=== PATIENT | male | born 1935 | race Caucasian/White ===

== ENCOUNTER 2016-11-29 08:21 | Day surgery (SDC) | payer MEDICARE, OTHER ==
[~2016-11-29] VITALS: Ht 170.2 cm; Wt 103.0 kg
[2016-11-29 09:00] VITALS: BP 146/81; PULSE 62; RESP 20; TEMP 97.8; O2SAT 98
[2016-11-29] MEDS ORDERED: SODIUM BICARBONATE 100 MEQ in D5W 1000 ML IV SCH (09:15)
[2016-11-29 10:10] LABS: BASOPHIL # 0.1 TH/MM3 (0-0.2); EOSINOPHIL # 0.3 TH/MM3 (0-0.4); EOSINOPHIL % 2.4 % (0.0-4.0); HEMATOCRIT 33.7 % (39.0-51.0); LYMPH % 7.8 % (9.0-44.0); LYMPHOCYTE # 1.1 TH/MM3 (1.0-4.8); MEAN CELL VOLUME 70.8 FL (80.0-100.0); MEAN CORPUSCULAR HEMOGLOBIN 22.8 PG (27.0-34.0); MEAN CORPUSCULAR HGB CONC 32.2 % (32.0-36.0); MONO % 12.2 % (0.0-8.0); NEUT % 76.6 % (16.0-70.0); PLATELET COUNT 558 TH/MM3 (150-450); RED BLOOD COUNT 4.75 MIL/MM3 (4.50-5.90); RED CELL DISTRIBUTION WIDTH 17.2 % (11.6-17.2); WHITE BLOOD COUNT 14.3 TH/MM3 (4.0-11.0)
[2016-11-29 10:12] LABS: HEMO FLAGS AUTO DIFF
[2016-11-29] MEDS ORDERED: FURO20TA PO (10:13)
[2016-11-29] MEDS ORDERED: MUCI30TA2 PO (10:13)
[2016-11-29] MEDS ORDERED: PRAD150C PO (10:13)
[2016-11-29] MEDS ORDERED: NOVOINJ3 SQ (10:13)
[2016-11-29] MEDS ORDERED: LEVO50TA4 PO (10:13)
[2016-11-29] MEDS ORDERED: ESCI10TA PO (10:13)
[2016-11-29] MEDS ORDERED: FLUT1INH INH (10:13)
[2016-11-29] MEDS ORDERED: OMEP20TA PO (10:13)
[2016-11-29] MEDS ORDERED: ACET325T PO (10:13)
[2016-11-29] MEDS ORDERED: DULC100C PO (10:13)
[2016-11-29] MEDS ORDERED: SOTA80TA6 PO (10:13)
[2016-11-29] MEDS ORDERED: ZOFR8TAB PO (10:14)
[2016-11-29] MEDS ORDERED: MULTCAP13 PO (10:14)
[2016-11-29] MEDS ORDERED: TAMS0.4C4 PO (10:14)
[2016-11-29] MEDS ORDERED: GABA100C4 PO (10:14)
[2016-11-29] MEDS ORDERED: IPRASOL INH (10:14)
[2016-11-29] MEDS ORDERED: TRAM50TA PO (10:14)
[2016-11-29] MEDS ORDERED: ASPI81CH7 CHEW (10:14)
[2016-11-29 10:29] LABS: POTASSIUM 5.4 MEQ/L (3.5-5.1)
[2016-11-29 10:53] LABS: BANDS 2 % (0-6); EOSINOPHILS 2 % (0-4); NEUTROPHIL # MANUAL DIFF 11.6 TH/MM3 (1.8-7.7); POLYS (SEG NEUTROPHILS) 79 % (16-70); WBC DIFF SAMPLE 100
[2016-11-29 10:54] LABS: OVALOCYTES 1+ (NORMAL); PLATELET ESTIMATE SMEAR HIGH (NORMAL); PLATELET MORPHOLOGY NORMAL (NORMAL); SCAN/DIFF FINAL DIFF MANUAL
[2016-11-29] MEDS ORDERED: MIDAZOLAM HCL 2 MG/2 ML VIAL ONE ×3 (11:45→13:49)
[2016-11-29] MEDS ORDERED: HEPARIN-NS/PF INJ 500 ML ONE ×2 (11:45→13:06)
[2016-11-29] MEDS ORDERED: ACETYLCYSTEINE 20% 6,000 MG/30 ML ORAL SOLN VIAL PO SCH (12:00)
[2016-11-29] MEDS ORDERED: HEPARIN SODIUM - IV 10,000 UNITS/10 ML VIAL ONE (12:55)
[2016-11-29] MEDS ORDERED: IOHEXOL 350 MG/ML 100 ML BTL (for Cath Lab) OTHER ONE (14:30)
--- NOTE | 2016-11-29 16:34 | MA ---
cc: MARLENY BROWN DATE: 11/29/2016. PREOPERATIVE DIAGNOSIS: Critical limb ischemia left lower extremity. POSTOPERATIVE DIAGNOSIS: Critical limb ischemia left lower extremity. OPERATIVE PROCEDURE PERFORMED: 1. Attempted recanalization of left superficial femoral artery via antegrade and retrograde approach. 2. Aortogram with carbon dioxide. 3. Selective left lower extremity arteriogram. DESCRIPTION OF THE PROCEDURE IN DETAIL: I got access to the right common femoral artery using duplex ultrasound. I got access to the left SFA using a 21 gauge needle and a 4-Uzbek catheter. This was from a retrograde access. Once I got access to the right common femoral artery, I exchanged for a 5-Uzbek sheath and advanced an OMNI flush catheter into the abdominal aorta. I shot an AP and pelvic oblique arteriogram. This was to conserve C02. Whenever I shot these pictures, it should be noted that my AP aortogram and my pelvic oblique arteriograms showed that the abdominal aorta, bilateral common internal and external iliac arteries were widely patent. The right common femoral, proximal superficial femoral artery and profunda femoral arteries appeared to be patent. The left common femoral and profunda femoral arteries were patent. The left superficial femoral artery was occluded with what appears to be a flush occlusion with reconstitution at the above-knee popliteal artery. Then the popliteal artery gave rise to a single-vessel peroneal artery although the perineal artery itself. Actually there was reconstitution at the distal superficial femoral artery. 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 I did heparinize the patient to an ACT of greater than 200 after exchanging for a 6-Uzbek 45-cm Raabe sheath into the left external iliac artery. I had had access to the left below-knee popliteal artery / superficial femoral artery using contrast dye for access. I attempted to get initially a Medtronic 035 Trailblazer catheter with a [place] 12 wire as well as [place] wire as well as a stiff angled Glidewire up into the superficial femoral artery up into the common femoral artery. With all of these, I tried to snare with a trilobed tulip snare from the right to the left through an 035 system and was not able to capture the stiff angled Glidewire in the left common femoral artery. I could not snare it because I believe I was subintimal at the level of the common femoral artery. I then tried to go antegrade through the left superficial femoral artery into the left popliteal artery and once again was subintimal. The catheters were removed after multiple attempts to re-enter the true lumen. It should be noted that at the end of the case, the patient did have reconstitution of the above-knee popliteal artery direct lateral and partial superficial femoral artery recanalization. The patient exceeded the amount of time that he was safely under moderate sedation and was restless and with him moving/left knee contracture made the case somewhat more difficult. At the end of the procedure, I removed the catheter out of the left leg and the right groin and applied pressure to both of these. The patient went back to the DOCU area in order to be observed. DO PREMA Hua/MARBELLA /2:45 PM /4:13 PM BALAJI
[2017-01-10] MEDS ORDERED: ATOR20TA15 PO (08:22)
[2017-01-10] MEDS ORDERED: HYDR-3580 PO (08:22)
[2017-01-10] MEDS ORDERED: Aspirin Chew CHEW (08:22)
[2017-01-10] MEDS ORDERED: MULTCAP13 PO (08:22)
[2017-01-10] MEDS ORDERED: FLUT1INH INH (08:22)
[2017-01-10] MEDS ORDERED: FERR325T PO (08:22)
[2017-01-10] MEDS ORDERED: TAMS5CAP PO (08:22)
[2017-01-10] MEDS ORDERED: GABA100C4 PO (08:22)
[2017-01-10] MEDS ORDERED: ESCI10TA PO (08:22)
[2017-01-10] MEDS ORDERED: SOTA80 PO (08:22)
[2017-01-10] MEDS ORDERED: DOCU1CAP39 PO (08:22)
[2017-01-10] MEDS ORDERED: NOVOLOGP2 SQ (08:22)
[2017-01-10] MEDS ORDERED: LEVO.05 PO (08:22)
[2017-01-10] MEDS ORDERED: FURO20TA PO (08:22)
[2017-01-10] MEDS ORDERED: LEVEMIR SQ (08:22)
[2017-01-10] MEDS ORDERED: PRAD150C PO (08:22)
[2017-01-10] MEDS ORDERED: TEMA7.5C9 PO (08:22)
[2017-01-10] MEDS ORDERED: OMEP20TA PO (08:22)
== END 2016-11-29 19:15 | disposition home or self-care (01) ==
LOC: HDOC 08:21 → HDIC 08:24 → HDOC 19:15
PROVIDERS: ATTEND Surgery
DX: I73.9 Peripheral vascular disease, unspecified (principal); I48.91 Unspecified atrial fibrillation; J44.9 Chronic obstructive pulmonary disease, unspecified; E78.5 Hyperlipidemia, unspecified; K21.9 Gastro-esophageal reflux disease without esophagitis; Z79.01 Long term (current) use of anticoagulants
CPT/HCPCS: 36247; 75625; 75710; 80048; 85002; 85007; 85027; C1751; C1769; C1893; J1644; J2250; J3010; J7070; Q9967

== ENCOUNTER 2016-12-26 13:28 | Inpatient (IN) | payer MEDICARE, OTHER ==
[~2016-12-26 13:28] MED LIST: ACET325T PO; ASPI81CH7 CHEW; DULC100C PO; ESCI10TA PO; FLUT1INH INH; FURO20TA PO; GABA100C4 PO; IPRASOL INH; LEVO50TA4 PO; MUCI30TA2 PO; MULTCAP13 PO; NOVOINJ3 SQ; OMEP20TA PO; PRAD150C PO; SOTA80TA6 PO; TAMS0.4C4 PO; TRAM50TA PO; ZOFR8TAB PO
[2016-12-26 14:23] VITALS: BP 115/58; PULSE 60; RESP 16; TEMP 96.8; O2SAT 94
[2016-12-26] MEDS ORDERED: TEMA7.5C PO (14:49)
[2016-12-26] MEDS ORDERED: HYDR-3580 PO (14:49)
[2016-12-26] MEDS ORDERED: FLUT50SP EACH NARE (14:49)
[2016-12-26 15:40] VITALS: BP 119/66; PULSE 60; RESP 16; TEMP 98; O2SAT 99
[2016-12-26] MEDS ORDERED: MORPHINE SULFATE 4 MG/ML INJ IV ONE (16:00)
[2016-12-26] MEDS ORDERED: ONDANSETRON HCL 4 MG/2 ML VIAL IVP ONE (16:00)
[2016-12-26 16:24] LABS: AUTOMATED NEUTROPHIL # 6.8 TH/MM3 (1.8-7.7); BASOPHIL # 0.1 TH/MM3 (0-0.2); BASOPHIL % 0.9 % (0.0-2.0); EOSINOPHIL # 0.4 TH/MM3 (0-0.4); EOSINOPHIL % 4.1 % (0.0-4.0); HEMATOCRIT 27.1 % (39.0-51.0); LYMPHOCYTE # 1.4 TH/MM3 (1.0-4.8); MEAN CELL VOLUME 69.3 FL (80.0-100.0); MEAN CORPUSCULAR HEMOGLOBIN 22.6 PG (27.0-34.0); MEAN CORPUSCULAR HGB CONC 32.6 % (32.0-36.0); MONO % 11.7 % (0.0-8.0); NEUT % 69.3 % (16.0-70.0); PLATELET COUNT 452 TH/MM3 (150-450); RED BLOOD COUNT 3.91 MIL/MM3 (4.50-5.90); RED CELL DISTRIBUTION WIDTH 17.1 % (11.6-17.2); WHITE BLOOD COUNT 9.7 TH/MM3 (4.0-11.0)
--- NOTE | 2016-12-26 16:25 | PD ---
HPI Chief Complaint: Skin Problem Time Seen by Provider: 15:30 Travel History International Travel<30 days: No Contact w/Intl Traveler<30days: No Traveled to known affect area: No History of Present Illness HPI This is a 81-year-old gentleman with a history of COPD, diabetes mellitus, atrial fibrillation, gastroesophageal reflux disease, hypothyroidism, peripheral vascular disease, who presents from [facility] [place] facility for admission. The patient has a left great toe that is gangrenous. Apparently he has had a vascular consult with Dr. Marrufo, who requested the patient be transferred for a direct admission. Patient is a patient of Dr. Sandee Garnett. He is currently being worked up for possible left BKA. He denies any fevers, chills. He denies any chest pain, chest pressure. PFSH Past Medical History Atrial Fibrillation: Yes Cardiovascular Problems: Yes (+[place], CHF, PM) COPD: Yes Diabetes: Yes Patient Takes Glucophage: No GERD: Yes Hypertension: Yes Respiratory: Yes (COPD, SLEEP APNEA) Thyroid Disease: Yes (HYPO) Social History Alcohol Use: No Tobacco Use: No Substance Use: No Allergies-Medications (Allergen,Severity, Reaction): Coded Allergies: HMG-CoA Reductase Inhibitors (Verified Adverse Reaction, Severe, Cramping , 12/26/16) leg cramps Reported Meds & Prescriptions Reported Meds & Active Scripts Active Reported Fluticasone Nasal [place] 50 Mcg/Act Naspr 50 Mcg EACH NARE BID 50 mcg/spray Hydrocodone-Acetaminophen 7.5-325 mg Tab 1 Tab PO Q4H PRN Temazepam 7.5 Mg Cap 7.5 Mg PO HS Tamsulosin (Tamsulosin HCl) 0.4 Mg Cap 0.4 Mg PO HS Multi Complete (Multiple Vitamins W/ Minerals) 1 Cap Cap 1 Tab PO Gabapentin 100 Mg Cap 100 Mg PO TID Duoneb (Ipratropium-Albuterol Neb) 0.5-2.5 Mg/3 Ml Neb 1 Nebule INH Q4HR NEB Zofran (Ondansetron HCl) 8 Mg Tab 8 Mg PO TID Aspirin Children's (Aspirin) 81 Mg Chew 81 Mg CHEW DAILY Novolog Flexpen Inj (Insulin Aspart) 300 Unit/3 Ml Pen 1 Units SQ Acetaminophen 325 Mg Tab 325 Mg PO Q4-6H PRN Omeprazole 20 Mg Tab 20 Mg PO DAILY Levothyroxine (Levothyroxine Sodium) 50 Mcg Tab 50 Mcg PO DAILY Breo Ellipta Inh (Fluticasone/Vilanterol) 100-25 Mcg/Act Inh 1 Puff INH DAILY Use daily at the same time. Dulcolax Stool Softener (Docusate Sodium) 100 Mg Cap 100 Mg PO BID Mucinex DM (Dextromethorphan-Guaifenesin) 30-600 Mg Tab 2 Tab PO BID PRN Sotalol (AF) (Sotalol (Afib/Afl)) 80 Mg Tab 80 Mg PO BID Escitalopram (Escitalopram Oxalate) 10 Mg Tab 10 Mg PO DAILY Pradaxa (Dabigatran) 150 Mg Cap 150 Mg PO BID Furosemide 20 Mg Tab 20 Mg PO DAILY Review of Systems Except as stated in HPI: all other systems reviewed are Neg General / Constitutional: No: Fever, Chills HENT: No: Headaches, Neck Pain Cardiovascular: No: Chest Pain or Discomfort, Palpitations Respiratory: No: Cough Gastrointestinal: No: Nausea, Vomiting, Abdominal Pain Genitourinary: No: Dysuria, Incontinence Musculoskeletal: Positive: Limited ROM (secondary to pain), Pain (left great toe and lower extremity pain.) Skin: Positive Other (angriness toe on the left great toe) Neurologic: Positive: Weakness (generalized), No: Incontinence Physical Exam Narrative GENERAL: Well-nourished, well-developed patient, in no acute respiratory distress. SKIN: Focused skin assessment warm/dry. Examination of the patient's left foot , he has obvious black gangrenous appearance to his left great toe. There is no drainage noted. HEAD: Normocephalic/atraumatic. EYES: No scleral icterus. No injection or drainage. NECK: Supple, trachea midline. CARDIOVASCULAR: Irregularly irregular. Rate in the 90s. RESPIRATORY: Breath sounds equal bilaterally. No accessory muscle use. GASTROINTESTINAL: Abdomen soft, non-tender, nondistended. MUSCULOSKELETAL: On examination the patient's left lower extremity, there is a gangrenous left great toe. There is no drainage noted. It appears black and has eschar consistent with dry gangrene he also has a contracted lower extremity at the knee. He states that his leg has been like this for some time. NEUROLOGICAL: Awake and alert. Cranial nerves II through XII intact. Normal speech. Data Data Last Documented VS Vital Signs Date Time Temp Pulse Resp B/P Pulse Ox O2 Delivery O2 Flow Rate FiO2 12/26/16 15:40 98.0 60 16 119/66 99 Room Air Orders Complete Blood Count With Diff (12/26/16 15:53) Comprehensive Metabolic Panel (12/26/16 15:53) Prothrombin Time / Inr (Pt) (12/26/16 15:53) Act Partial Throm Time (Ptt) (12/26/16 15:53) Urinalysis - C+S If Indicated (12/26/16 15:53) Chest, Single Ap (12/26/16 15:53) Iv Access Insert/Monitor (12/26/16 15:53) Ecg Monitoring (12/26/16 15:53) Oximetry (12/26/16 15:53) Type And Screen (12/26/16 15:53) Morphine Inj (Morphine Inj) (12/26/16 16:00) Ondansetron Inj (Zofran Inj) (12/26/16 16:00) Urine Culture (12/26/16 16:05) Admit Order (Ed Use Only) (12/26/16 18:10) Labs Laboratory Tests Test 12/26/16 12/26/16 14:36 16:05 White Blood Count 9.7 TH/MM3 Red Blood Count 3.91 MIL/MM3 Hemoglobin 8.8 GM/DL Hematocrit 27.1 % Mean Corpuscular Volume 69.3 FL Mean Corpuscular Hemoglobin 22.6 PG Mean Corpuscular Hemoglobin 32.6 % Concent Red Cell Distribution Width 17.1 % Platelet Count 452 TH/MM3 Mean Platelet Volume 8.7 FL Neutrophils (%) (Auto) 69.3 % Lymphocytes (%) (Auto) 14.0 % Monocytes (%) (Auto) 11.7 % Eosinophils (%) (Auto) 4.1 % Basophils (%) (Auto) 0.9 % Neutrophils # (Auto) 6.8 TH/MM3 Lymphocytes # (Auto) 1.4 TH/MM3 Monocytes # (Auto) 1.1 TH/MM3 Eosinophils # (Auto) 0.4 TH/MM3 Basophils # (Auto) 0.1 TH/MM3 CBC Comment AUTO DIFF Differential Comment AUTO DIFF CONFIRMED Platelet Estimate HIGH Platelet Morphology Comment NORMAL Prothrombin Time 13.4 SEC Prothromb Time International 1.2 RATIO Ratio Activated Partial 40.6 SEC Thromboplast Time Sodium Level 135 MEQ/L Potassium Level 4.0 MEQ/L Chloride Level 100 MEQ/L Carbon Dioxide Level 27.5 MEQ/L Anion Gap 8 MEQ/L Blood Urea Nitrogen 20 MG/DL Creatinine 1.12 MG/DL Estimat Glomerular Filtration 63 ML/MIN Rate Random Glucose 166 MG/DL Calcium Level 9.1 MG/DL Total Bilirubin 0.2 MG/DL Aspartate Amino Transf 10 U/L (AST/SGOT) Alanine Aminotransferase 11 U/L (ALT/SGPT) Alkaline Phosphatase 83 U/L Total Protein 6.4 GM/DL Albumin 2.6 GM/DL Urine Color LIGHT-YELLOW Urine Turbidity CLEAR Urine pH 5.5 Urine Specific [place] 1.007 Urine Protein NEG mg/dL Urine Glucose (UA) NEG mg/dL Urine Ketones NEG mg/dL Urine Occult Blood NEG Urine Nitrite NEG Urine Bilirubin NEG Urine Urobilinogen LESS THAN 2.0 MG/DL Urine Leukocyte Esterase SMALL Urine RBC 9 /hpf Urine WBC 15 /hpf Urine Squamous Epithelial <1 /hpf Cells Urine Bacteria RARE /hpf Urine Hyaline Casts 1 /lpf Urine Yeast (Budding) OCC Microscopic Urinalysis Comment CULTURE INDICATED Blood Type O NEGATIVE Antibody Screen NEGATIVE Blood Bank Comment MDM Medical Decision Making Medical Screen Exam Complete: Yes Emergency Medical Condition: Yes Differential Diagnosis Left lower extremity gangrene versus cellulitis versus peripheral vascular disease versus osteomyelitis Narrative Course 81-year-old gentleman who was sent from [facility] in [place] for admission. The patient has gangrene of his left great toe. He is currently being seen by Dr. Marrufo, vascular surgeon. He is a patient of Dr. Garnett. Preoperative workup has been ordered here in the emergency department. He's also been given 4 mg of morphine for his pain. There is a call out to Dr. Sandee Garnett for admission. Diagnosis Primary Impression: left great toe gangrene Additional Impressions: Peripheral vascular disease due to secondary diabetes mellitus Hypothyroidism COPD (chronic obstructive pulmonary disease) Andrea Muri MD Dec 26, 2016 16:25
[2016-12-26 16:27] LABS: HEMO FLAGS AUTO DIFF
[2016-12-26 16:29] LABS: BACTERIA, URINE RARE /hpf; BLOOD, URINE NEG (NEG); COMMENT (UR) CULTURE INDICATED; CULTURE IF INDICATED CULTURE INDICATED; GLUCOSE,URINE NEG (NEG); HYALINE CAST, URINE 1 /lpf (RARE); KETONE, URINE NEG (NEG); NITRITE,URINE NEG (NEG); PH, URINE 5.5 (5.0-8.5); SQUAMOUS EPITHELIAL CELL URINE <1 /hpf (0-5); URINE COLOR LIGHT-YELLOW (YELLW/STRAW)
[2016-12-26 16:36] LABS: APTT (PATIENT) 40.6 SEC (24.3-30.1); INTERNATIONAL NORMALIZED RATIO 1.2 RATIO; PROTHROMBIN TIME - PATIENT 13.4 SEC (9.8-11.6)
[2016-12-26 16:45] LABS: ALT (GPT) 11 U/L (12-78); ANION GAP 8 MEQ/L (5-15); AST (GOT) 10 U/L (15-37); BICARBONATE 27.5 MEQ/L (21.0-32.0); BLOOD UREA NITROGEN 20 MG/DL (7-18); CHLORIDE 100 MEQ/L (98-107); GLOMERULAR FILTRATION RATE 63 ML/MIN (>89); SODIUM (NA) 135 MEQ/L (136-145)
[2016-12-26 16:47] LABS: ALKALINE PHOSPHATASE 83 U/L (45-117); TOTAL BILIRUBIN ADULT 0.2 MG/DL (0.2-1.0)
[2016-12-26 16:54] LABS: PLATELET ESTIMATE SMEAR HIGH (NORMAL); PLATELET MORPHOLOGY NORMAL (NORMAL); SCAN/DIFF AUTO DIFF CONFIRMED
--- NOTE | 2016-12-26 17:01 | RADRPT ---
EXAM DATE/TIME: 12/26/2016 16:05 [place] COMPARISON: No previous studies available for comparison. INDICATIONS : Fever with possible infection. MEDICAL HISTORY : None. SURGICAL HISTORY : Pacemaker. pleurectomy ENCOUNTER: Initial ACUITY: 2 days PAIN SCORE: 0/10 LOCATION: Bilateral upper chest FINDINGS: There is patchy mild basilar infiltrate. Slight blunting of the costophrenic angles may indicate smal l effusions. Cardiac contour is grossly satisfactory for technique and projection. CONCLUSION: Mild basilar parenchymal opacities and likely small effusions Remi Moore MD on December 26, 2016 at 16:53 Board Certified Radiologist. This report was verified electronically.
[2016-12-26] MEDS ORDERED: ONDANSETRON HCL 4 MG/2 ML VIAL IVP PRN (18:30)
[2016-12-26] MEDS ORDERED: NALOXONE HCL 0.4 MG/ML AMP IV PRN (18:30)
[2016-12-26] MEDS ORDERED: SODIUM CHLORIDE 0.9% FLUSH 10 ML FLUSH IV FLUSH PRN (18:30)
[2016-12-26] MEDS ORDERED: MAGNESIUM HYDROXIDE SUSP 30 ML CUP PO PRN (18:30)
[2016-12-26] MEDS ORDERED: ACETAMINOPHEN 325 MG TAB PO PRN (18:30)
--- NOTE | 2016-12-26 18:33 | HHI.HP ---
HPI Service [facility] Primary Care Physician Sandee Garnett, DO Admission Diagnosis Left great toe gangrenne, diabetes mellitus, Diagnoses: Chief Complaint: Toe infection Travel History International Travel<30 Days: No Contact w/Intl Traveler <30 Da: No Traveled to Known Affected Are: No History of Present Illness 81-year-old male with a past medical history of COPD, DM, A. fib, GERD, hypothyroidism, PVD, CHF, CAD, BPH, CVA who was sent for left great toe infection. The patient has a history of peripheral vascular disease. He has gangrene of his left great toe. Per report, the patient was evaluated by vascular surgery, Dr. Marrufo, as outpatient who recommended admission for possible amputation. The patient states that he's had the gangrene of his left great toe for a couple of months now. He does have pain in the area. He denies any fevers, chills, nausea, vomiting, diarrhea. He denies any urinary complaints. No other issues at this time. He resides at a local [facility]. 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 He is anticoagulated for A. fib. Review of Systems Except as stated in HPI: all other systems reviewed are Neg Past Family Social History Past Medical History COPD Diabetes mellitus Atrial fibrillation GERD Hypothyroidism Peripheral vascular disease CHF Coronary artery disease BPH History of CVA with residual left-sided weakness Past Surgical History Carotid stent placement 4 Appendectomy Tonsillectomy Cholecystectomy Cataract surgery bilaterally Reported Medications Fluticasone Nasal [place] 50 Mcg/Act Naspr 50 Mcg EACH NARE BID 50 mcg/spray Hydrocodone-Acetaminophen 7.5-325 mg Tab 1 Tab PO Q4H PRN Temazepam 7.5 Mg Cap 7.5 Mg PO HS Tamsulosin (Tamsulosin HCl) 0.4 Mg Cap 0.4 Mg PO HS Multi Complete (Multiple Vitamins W/ Minerals) 1 Cap Cap 1 Tab PO Gabapentin 100 Mg Cap 100 Mg PO TID Duoneb (Ipratropium-Albuterol Neb) 0.5-2.5 Mg/3 Ml Neb 1 Nebule INH Q4HR NEB Zofran (Ondansetron HCl) 8 Mg Tab 8 Mg PO TID Aspirin Children's (Aspirin) 81 Mg Chew 81 Mg CHEW DAILY Novolog Flexpen Inj (Insulin Aspart) 300 Unit/3 Ml Pen 1 Units SQ Acetaminophen 325 Mg Tab 325 Mg PO Q4-6H PRN Omeprazole 20 Mg Tab 20 Mg PO DAILY Levothyroxine (Levothyroxine Sodium) 50 Mcg Tab 50 Mcg PO DAILY Breo Ellipta Inh (Fluticasone/Vilanterol) 100-25 Mcg/Act Inh 1 Puff INH DAILY Use daily at the same time. Dulcolax Stool Softener (Docusate Sodium) 100 Mg Cap 100 Mg PO BID Mucinex DM (Dextromethorphan-Guaifenesin) 30-600 Mg Tab 2 Tab PO BID PRN Sotalol (AF) (Sotalol (Afib/Afl)) 80 Mg Tab 80 Mg PO BID Escitalopram (Escitalopram Oxalate) 10 Mg Tab 10 Mg PO DAILY Pradaxa (Dabigatran) 150 Mg Cap 150 Mg PO BID Furosemide 20 Mg Tab 20 Mg PO DAILY Allergies: Coded Allergies: HMG-CoA Reductase Inhibitors (Verified Adverse Reaction, Severe, Cramping , 12/26/16) leg cramps Active Ordered Medications Current Medications Medications (Trade) Dose Ordered Sig/[place] Route Start Time Stop Time Status Last Admin (Aspirin Chew) 81 mg DAILY CHEW 12/27/16 09:00 UNV (Pradaxa) 150 mg BID PO 12/26/16 21:00 UNV (Colace) 100 mg BID PO 12/26/16 21:00 UNV (Lexapro) 10 mg DAILY PO 12/27/16 09:00 UNV (Flonase Philip Spr) 1 spray BID EACH NARE 12/26/16 21:00 UNV (Breo Ellipta 100-25 Inh) 1 puff DAILY INH 12/27/16 09:00 UNV (Lasix) 20 mg DAILY PO 12/27/16 09:00 UNV (Neurontin) 100 mg TID PO 12/27/16 09:00 UNV ([place] 7.5-325 Mg) 1 tab Q4H PRN PO 12/26/16 18:30 UNV (Synthroid) 50 mcg DAILY PO 12/27/16 09:00 UNV (Betapace) 80 mg BID PO 12/26/16 21:00 UNV (Flomax) 0.4 mg HS PO 12/26/16 21:00 UNV (Restoril) 7.5 mg HS PO 12/26/16 21:00 UNV Non-Formulary Medication 20 mg DAILY PO 12/27/16 09:00 UNV (NS Flush) 2 ml UNSCH PRN IV FLUSH 12/26/16 18:30 UNV (NS Flush) 2 ml BID IV FLUSH 12/26/16 21:00 UNV (Tylenol) 650 mg Q4H PRN PO 12/26/16 18:30 UNV (Zofran Inj) 4 mg Q6H PRN IVP 12/26/16 18:30 UNV (Milk Of Magnesia Liq) 30 ml Q12H PRN PO 12/26/16 18:30 UNV (Morphine Inj) 4 mg Q3H PRN IV 12/26/16 18:30 UNV Naloxone HCl 0.4 mg 0.4 mg UNSCH PRN IV 12/26/16 18:30 UNV (Zosyn 3.375 Gm Premix) 50 ml @ 100 mls/hr Q6H IV 12/26/16 18:30 UNV Family History Family history diabetes Denies any family history cancer Social History Rare alcohol use Denies any tobacco use [place] resident Physical Exam Vital Signs Vital Signs Date Time Temp Pulse Resp B/P Pulse Ox O2 Delivery O2 Flow Rate FiO2 12/26/16 15:40 98.0 60 16 119/66 99 Room Air 12/26/16 14:23 96.8 60 16 115/58 94 Physical Exam GENERAL: Well-developed well-nourished. Chronically ill appearing. In no acute distress. SKIN: Warm and dry. Left great toe is below HEENT: Normocephalic. Pupils equal and round. Mucous membranes pink and moist. CARDIOVASCULAR: Regular rate and rhythm. No murmur appreciated. RESPIRATORY: No accessory muscle use. Clear to auscultation. Breath sounds equal bilaterally. GASTROINTESTINAL: Abdomen soft, non-tender, nondistended. Bowel sounds x4. MUSCULOSKELETAL: Left great toe with dry gangrene extending up to the mid foot with some mild surrounding erythema. No clubbing or cyanosis. No edema. Nonpalpable lower extremity pulses bilaterally. NEUROLOGICAL: Awake and alert. No focal neurological deficits. Moves upper and lower extremities spontaneously. Normal speech. PSYCHIATRIC: Appropriate mood and affect; insight and judgment normal. Laboratory Laboratory Tests Test 12/26/16 12/26/16 14:36 16:05 White Blood Count 9.7 Red Blood Count 3.91 Hemoglobin 8.8 Hematocrit 27.1 Mean Corpuscular Volume 69.3 Mean Corpuscular Hemoglobin 22.6 Mean Corpuscular Hemoglobin 32.6 Concent Red Cell Distribution Width 17.1 Platelet Count 452 Mean Platelet Volume 8.7 Neutrophils (%) (Auto) 69.3 Lymphocytes (%) (Auto) 14.0 Monocytes (%) (Auto) 11.7 Eosinophils (%) (Auto) 4.1 Basophils (%) (Auto) 0.9 Neutrophils # (Auto) 6.8 Lymphocytes # (Auto) 1.4 Monocytes # (Auto) 1.1 Eosinophils # (Auto) 0.4 Basophils # (Auto) 0.1 CBC Comment AUTO DIFF Differential Comment AUTO DIFF CONFIRMED Platelet Estimate HIGH Platelet Morphology Comment NORMAL Prothrombin Time 13.4 Prothromb Time International 1.2 Ratio Activated Partial 40.6 Thromboplast Time Sodium Level 135 Potassium Level 4.0 Chloride Level 100 Carbon Dioxide Level 27.5 Anion Gap 8 Blood Urea Nitrogen 20 Creatinine 1.12 Estimat Glomerular Filtration 63 Rate Random Glucose 166 Calcium Level 9.1 Total Bilirubin 0.2 Aspartate Amino Transf 10 (AST/SGOT) Alanine Aminotransferase 11 (ALT/SGPT) Alkaline Phosphatase 83 Total Protein 6.4 Albumin 2.6 Urine Color LIGHT-YELLOW Urine Turbidity CLEAR Urine pH 5.5 Urine Specific [place] 1.007 Urine Protein NEG Urine Glucose (UA) NEG Urine Ketones NEG Urine Occult Blood NEG Urine Nitrite NEG Urine Bilirubin NEG Urine Urobilinogen LESS THAN 2.0 Urine Leukocyte Esterase SMALL Urine RBC 9 Urine WBC 15 Urine Squamous Epithelial <1 Cells Urine Bacteria RARE Urine Hyaline Casts 1 Urine Yeast (Budding) OCC Microscopic Urinalysis Comment CULTURE INDICATED Blood Type O NEGATIVE Antibody Screen NEGATIVE Blood Bank Comment Date/Time Procedure Status Source Growth 12/26/16 16:05 Urine Culture Worksheet Urine Random Urine Pending Result Diagram: 12/26/16 1436 12/26/16 1436 Imaging Last Impressions Chest X-Ray 12/26/16 1553 Signed Impressions: Service Date/Time: Saturday, December 26, 2016 16:05 - CONCLUSION: Mild basilar parenchymal opacities and likely small effusions Remi Moore MD Assessment and Plan Assessment and Plan 81-year-old male with a past medical history of COPD, DM, A. fib, GERD, hypothyroidism, PVD, CHF, CAD, BPH, CVA who was sent for left great toe infection Peripheral vascular disease with left great toe dry gangrene: Likely needs amputation. Consult patient's vascular surgeon. Consult podiatry for second opinion regarding amputation. Pain control with oral intravenous narcotics as needed. Empiric coverage with IV Zosyn. UTI: UA with evidence of UTI, occasional budding yeast. Fluconazole 1. IV antibiotics as above. Follow-up urine culture. Chronic anticoagulation with history of atrial fibrillation and CVA: On aspirin and Pradaxa, continue for now pending surgery evaluation. Diabetes mellitus: Sliding scale insulin coverage. Monitor Accu-Cheks. Continue gabapentin for neuropathy. CKD stage III: Creatinine 1.12, previously 1.43 on 11/29/16. Likely chronic, follow-up BMP for stability. Chronic microcytic anemia: Hemoglobin 8.8, previously 8.2 and 10.8 last month. Check iron studies in the a.m. Follow-up CBC. Other chronic medical conditions include COPD, BPH, depression/insomnia, A. fib , CAD, CHF, GERD, hypothyroidism: Stable at this time and will continue home medications as indicated. Written by Domenic Campbell, acting as scribe for Dr. Thompson on 12/26/16 at 18:32. Discussed Condition With Patient, Dr. Muir Attending Statement All or portions of this note were transcribed by scribe Domenic Campbell. I, Dr. Marcus Sotomayor personally performed the history, physical exam, and medical decision making; and confirmed the accuracy of the information in the transcribed note. Authenticated by Dr. Marcus Sotomayor on 12/30/16 at 18:24. Domenic Campbell Dec 26, 2016 18:33 Marcus Bates MD Dec 30, 2016 18:24
[2016-12-26] MEDS ORDERED: GLUCAGON 1 MG/ML VIAL OTHER PRN (18:45)
[2016-12-26] MEDS ORDERED: RESP: ALBUTEROL 2.5 MG/IPRATROPIUM 0.5 MG NEB (PRN) NEB (18:45)
[2016-12-26] MEDS ORDERED: FLUCONAZOLE 100 MG TAB PO ONE (18:45)
[2016-12-26] MEDS ORDERED: PILL SPLITTER OTHER PRN (18:45)
[2016-12-26] MEDS ORDERED: DEXTROSE 50% IN WATER 50 ML VIAL(D50) IV PUSH PRN (18:45)
[2016-12-26 20:30] VITALS: BP 154/67; PULSE 82; RESP 18; O2SAT 94
[2016-12-26] MEDS: PIPERACIL-TAZO 3.375 GM PREMIX 50 ML IV SCH (20:30)
[2016-12-26 20:52] VITALS: BP 163/66
[2016-12-26 22:00] VITALS: BP 145/63; PULSE 60; RESP 18; TEMP 96.3; O2SAT 98
[2016-12-26] MEDS: SOTALOL HCL 80 MG TAB PO SCH (22:40)
[2016-12-26] MEDS: DABIGATRAN ETEXILATE 150 MG CAP PO SCH (22:41)
[2016-12-26] MEDS: TAMSULOSIN HCL 0.4 MG CAP PO SCH (22:41)
[2016-12-26] MEDS: DOCUSATE SODIUM 100 MG CAP PO SCH (22:41)
[2016-12-26] MEDS: TEMAZEPAM 7.5 MG CAP PO SCH (22:42)
[2016-12-26] MEDS: FLUTICASONE PROPIONATE 50 MCG/ACT 16 GM NASAL SPRAY EACH NARE SCH (22:42)
[2016-12-26] MEDS: SODIUM CHLORIDE 0.9% FLUSH 10 ML FLUSH IV FLUSH SCH (22:47)
[2016-12-26] MEDS: INSULIN ASPART SUPPLEMENTAL SCALE SQ SCH (22:52)
[2016-12-26] MEDS: ACETAMINOPHEN/HYDROcodone 325 MG/7.5 MG TAB PO PRN (22:53)
[2016-12-27] VITALS (7 sets, daily range): BP systolic 117–158; BP diastolic 56–78; PULSE 60–84; RESP 18; TEMP 96.2–98.5; O2SAT 95–98
[2016-12-27] MEDS: PIPERACIL-TAZO 3.375 GM PREMIX 50 ML IV SCH ×4 (02:31→20:53)
[2016-12-27] MEDS: LEVOTHYROXINE SODIUM 50 MCG TAB PO SCH (04:20)
[2016-12-27] MEDS: PANTOPRAZOLE SOD 20 MG DELAYED RELEASE TAB PO SCH (04:20)
[2016-12-27 04:35] LABS: AUTOMATED NEUTROPHIL # 7.2 TH/MM3 (1.8-7.7); BASOPHIL # 0.1 TH/MM3 (0-0.2); BASOPHIL % 1.2 % (0.0-2.0); EOSINOPHIL # 0.4 TH/MM3 (0-0.4); HEMATOCRIT 28.2 % (39.0-51.0); LYMPHOCYTE # 1.1 TH/MM3 (1.0-4.8); MEAN CELL VOLUME 70.7 FL (80.0-100.0); MEAN CORPUSCULAR HEMOGLOBIN 22.5 PG (27.0-34.0); MEAN CORPUSCULAR HGB CONC 31.8 % (32.0-36.0); MONO % 11.2 % (0.0-8.0); NEUT % 72.6 % (16.0-70.0); PLATELET COUNT 404 TH/MM3 (150-450); RED BLOOD COUNT 3.98 MIL/MM3 (4.50-5.90); RED CELL DISTRIBUTION WIDTH 17.3 % (11.6-17.2)
[2016-12-27 04:47] LABS: HEMO FLAGS AUTO DIFF
[2016-12-27 05:05] LABS: ANION GAP 8 MEQ/L (5-15); BICARBONATE 25.8 MEQ/L (21.0-32.0); BLOOD UREA NITROGEN 19 MG/DL (7-18); CHLORIDE 99 MEQ/L (98-107); FERRITIN 129 NG/ML (26-388); GLOMERULAR FILTRATION RATE 56 ML/MIN (>89); POTASSIUM 4.2 MEQ/L (3.5-5.1); SODIUM (NA) 133 MEQ/L (136-145); TRANSFERRIN IRON PROFILE 137 MG/DL (200-360)
[2016-12-27] MEDS: INSULIN ASPART SUPPLEMENTAL SCALE SQ SCH ×4 (05:26→22:16)
[2016-12-27 06:06] LABS: PLATELET ESTIMATE SMEAR NORMAL (NORMAL); PLATELET MORPHOLOGY NORMAL (NORMAL); SCAN/DIFF AUTO DIFF CONFIRMED
[2016-12-27 06:07] LABS: ACANTHOCYTES OCC (NORMAL)
[2016-12-27 08:35] LABS: AUTOMATED NEUTROPHIL # 6.3 TH/MM3 (1.8-7.7); BASOPHIL # 0.1 TH/MM3 (0-0.2); BASOPHIL % 1.1 % (0.0-2.0); EOSINOPHIL # 0.4 TH/MM3 (0-0.4); EOSINOPHIL % 4.2 % (0.0-4.0); HEMATOCRIT 26.3 % (39.0-51.0); LYMPH % 12.9 % (9.0-44.0); LYMPHOCYTE # 1.2 TH/MM3 (1.0-4.8); MEAN CELL VOLUME 69.9 FL (80.0-100.0); MEAN CORPUSCULAR HEMOGLOBIN 23.1 PG (27.0-34.0); MONO % 14.5 % (0.0-8.0); NEUT % 67.3 % (16.0-70.0); PLATELET COUNT 446 TH/MM3 (150-450); RED BLOOD COUNT 3.77 MIL/MM3 (4.50-5.90); RED CELL DISTRIBUTION WIDTH 17.4 % (11.6-17.2); WHITE BLOOD COUNT 9.4 TH/MM3 (4.0-11.0)
[2016-12-27 08:46] LABS: HEMO FLAGS AUTO DIFF
[2016-12-27] MEDS: DABIGATRAN ETEXILATE 150 MG CAP PO SCH (09:00)
[2016-12-27] MEDS: FLUTICASONE 100 MCG/VILANTEROL 25 MCG INHALER INH SCH (09:00)
[2016-12-27] MEDS: ESCITALOPRAM OXALATE 10 MG TAB PO SCH (09:00)
[2016-12-27] MEDS: FLUTICASONE PROPIONATE 50 MCG/ACT 16 GM NASAL SPRAY EACH NARE SCH ×2 (09:00→21:01)
[2016-12-27] MEDS: ASPIRIN 81 MG CHEW TAB CHEW SCH (09:00)
[2016-12-27] MEDS: DOCUSATE SODIUM 100 MG CAP PO SCH ×2 (09:00→20:51)
[2016-12-27 09:16] LABS: PLATELET ESTIMATE SMEAR HIGH (NORMAL); PLATELET MORPHOLOGY NORMAL (NORMAL); SCAN/DIFF AUTO DIFF CONFIRMED
[2016-12-27 09:34] LABS: BICARBONATE 27.6 MEQ/L (21.0-32.0); POTASSIUM 4.1 MEQ/L (3.5-5.1)
[2016-12-27] MEDS: SODIUM CHLOR 0.9% 1000 ML INJ 1,000 ML IV SCH ×2 (09:38→21:01)
[2016-12-27] MEDS: SODIUM CHLORIDE 0.9% FLUSH 10 ML FLUSH IV FLUSH SCH ×2 (09:39→20:53)
[2016-12-27] MEDS: SOTALOL HCL 80 MG TAB PO SCH ×2 (09:45→20:52)
[2016-12-27] MEDS: FUROSEMIDE 20 MG TAB PO SCH (09:46)
[2016-12-27] MEDS: GABAPENTIN 100 MG CAP PO SCH ×3 (09:46→16:44)
--- NOTE | 2016-12-27 10:53 | PD.VS.CON ---
History of Present Illness Chief Complaint: Left great toe present with dry gangrene Consult Requested by: Willam Campbell History of Present Illness As written Mr Walker is a pleasant 81-year-old male with a past medical history of COPD, DM , A. fib, GERD, hypothyroidism, PVD, CHF, CAD, BPH, CVA who was sent for evaluation of his left great toe. The patient has a history of peripheral vascular disease. He has gangrene of his left great toe. Per report, the patient was evaluated by vascular surgery, Dr. Marrufo, as outpatient who recommended admission for possible amputation. The patient states that he's had the gangrene of his left great toe for a couple of months now. He does have pain in the area. He denies any fevers, chills, nausea, vomiting, diarrhea. He denies any urinary complaints. No other issues at this time. He resides at a local [facility]. 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 He is anticoagulated for A. fib. (Sabine Dozier) Past/Family/Social History Past Medical History COPD Diabetes mellitus Atrial fibrillation GERD Hypothyroidism Peripheral vascular disease CHF Coronary artery disease BPH History of CVA with residual left-sided weakness Past Surgical History Carotid stent placement 4 Appendectomy Tonsillectomy Cholecystectomy Cataract surgery bilaterally Social History Rare alcohol use Denies any tobacco use [facility] resident Family History DM (Sabine Dozier) Home Medications Reported Medications Fluticasone Nasal [place] 50 Mcg/Act Naspr50 Mcg EACH NARE BID #1 BOTTLE Ref 0 50 mcg/spray 12/26/16 Hydrocodone-Acetaminophen 7.5-325 mg Tab1 Tab PO Q4H PRN (PAIN) Ref 0 12/26/16 Temazepam 7.5 Mg Cap7.5 Mg PO HS #30 CAP Ref 0 12/26/16 Tamsulosin 0.4 Mg Cap0.4 Mg PO HS #30 CAP Ref 0 11/29/16 Multiple Vitamins W/ Minerals (Multi Complete)1 Cap Cap1 Tab PO 11/29/16 Gabapentin 100 Mg [id number] Mg PO TID #90 CAP Ref 0 11/29/16 Ipratropium-Albuterol Neb (Duoneb)0.5-2.5 Mg/3 Ml Neb1 Nebule INH Q4HR NEB # 120 NEBULE Ref 0 11/29/16 Ondansetron (Zofran)8 Mg Tab8 Mg PO TID Ref 0 11/29/16 Aspirin (Aspirin Children's)81 Mg Chew81 Mg CHEW DAILY Ref 0 11/29/16 Insulin Aspart Inj (Novolog Flexpen Inj)300 Unit/3 Ml Pen1 Units SQ #1 PEN Ref 0 11/29/16 Acetaminophen 325 Mg [id number] Mg PO Q4-6H PRN (PAIN SCALE 1 TO 2) Ref 0 11/29/16 Omeprazole 20 Mg Tab20 Mg PO DAILY #30 TAB Ref 0 11/29/16 Levothyroxine 50 Mcg Tab50 Mcg PO DAILY #30 TAB Ref 0 11/29/16 Fluticasone-Vilanterol Inh (Breo Ellipta Inh)100-25 Mcg/Act Inh1 Puff INH DAILY #1 INHALER Ref 0 Use daily at the same time. 11/29/16 Docusate Sodium (Dulcolax Stool Softener)100 Mg Ubk469 Mg PO BID #60 CAP Ref 0 11/29/16 Dextromethorphan-Guaifenesin (Mucinex DM)30-600 Mg Tab2 Tab PO BID PRN (CHEST CONGESTION AND/OR COUGH) Ref 0 11/29/16 Sotalol (Afib/Afl) (Sotalol (AF))80 Mg Tab80 Mg PO BID #60 TAB Ref 0 11/29/16 Escitalopram 10 Mg Tab10 Mg PO DAILY #30 TAB Ref 0 11/29/16 Dabigatran (Pradaxa)150 Mg Zzd106 Mg PO BID #60 CAP Ref 0 11/29/16 Furosemide 20 Mg Tab20 Mg PO DAILY #30 TAB Ref 0 11/29/16 Discontinued Reported Medications Tramadol 50 Mg Tab50 Mg PO Q4H PRN (PAIN) Ref 0 11/29/16 Coded Allergies: HMG-CoA Reductase Inhibitors (Verified Adverse Reaction, Severe, Cramping , 12/26/16) leg cramps Physical Exam Vitals/I&O Date Time Temp Pulse Resp B/P Pulse Ox O2 Delivery O2 Flow Rate FiO2 12/27/16 08:00 97.9 64 18 157/66 95 12/27/16 00:00 97.4 62 18 146/67 98 12/26/16 22:00 96.3 60 18 145/63 98 12/26/16 20:52 63 18 163/66 97 12/26/16 20:30 82 18 154/67 94 Room Air 12/26/16 15:40 98.0 60 16 119/66 99 Room Air 12/26/16 14:23 96.8 60 16 115/58 94 Neuro: A&OX3 CN 2-12 intact Neck: No JVD Heart: RRR +S1,S2 Lungs: CTA Abdomen: soft and NT Vascular: Left DP faint monophasic signals heard via doppler Right DP phasic signals via doppler Extremities: left LE contracted Pt unable to fully extend LLE Pt c/o left knee pain times 1 week No swelling noted (Sabine Dozier) Laboratory Tests Test 12/26/16 12/26/16 12/27/16 12/27/16 14:36 16:05 04:19 08:00 White Blood Count 9.7 10.0 9.4 Red Blood Count 3.91 3.98 3.77 Hemoglobin 8.8 8.9 8.7 Hematocrit 27.1 28.2 26.3 Mean Corpuscular Volume 69.3 70.7 69.9 Mean Corpuscular Hemoglobin 22.6 22.5 23.1 Mean Corpuscular Hemoglobin 32.6 31.8 33.0 Concent Red Cell Distribution Width 17.1 17.3 17.4 Platelet Count 452 404 446 Mean Platelet Volume 8.7 8.4 8.5 Neutrophils (%) (Auto) 69.3 72.6 67.3 Lymphocytes (%) (Auto) 14.0 11.0 12.9 Monocytes (%) (Auto) 11.7 11.2 14.5 Eosinophils (%) (Auto) 4.1 4.0 4.2 Basophils (%) (Auto) 0.9 1.2 1.1 Neutrophils # (Auto) 6.8 7.2 6.3 Lymphocytes # (Auto) 1.4 1.1 1.2 Monocytes # (Auto) 1.1 1.1 1.4 Eosinophils # (Auto) 0.4 0.4 0.4 Basophils # (Auto) 0.1 0.1 0.1 CBC Comment AUTO DIFF AUTO DIFF AUTO DIFF Differential Comment AUTO DIFF AUTO DIFF AUTO DIFF CONFIRMED CONFIRMED CONFIRMED Platelet Estimate HIGH NORMAL HIGH Platelet Morphology Comment NORMAL NORMAL NORMAL Prothrombin Time 13.4 Prothromb Time International 1.2 Ratio Activated Partial 40.6 Thromboplast Time Sodium Level 135 133 Potassium Level 4.0 4.2 Chloride Level 100 99 Carbon Dioxide Level 27.5 25.8 Anion Gap 8 8 Blood Urea Nitrogen 20 19 Creatinine 1.12 1.25 Estimat Glomerular Filtration 63 56 Rate Random Glucose 166 385 Calcium Level 9.1 9.1 Total Bilirubin 0.2 Aspartate Amino Transf 10 (AST/SGOT) Alanine Aminotransferase 11 (ALT/SGPT) Alkaline Phosphatase 83 Total Protein 6.4 Albumin 2.6 Urine Color LIGHT-YELLOW Urine Turbidity CLEAR Urine pH 5.5 Urine Specific [place] 1.007 Urine Protein NEG Urine Glucose (UA) NEG Urine Ketones NEG Urine Occult Blood NEG Urine Nitrite NEG Urine Bilirubin NEG Urine Urobilinogen LESS THAN 2.0 Urine Leukocyte Esterase SMALL Urine RBC 9 Urine WBC 15 Urine Squamous Epithelial <1 Cells Urine Bacteria RARE Urine Hyaline Casts 1 Urine Yeast (Budding) OCC Microscopic Urinalysis Comment CULTURE INDICATED Blood Type O NEGATIVE Antibody Screen NEGATIVE Blood Bank Comment Acanthocytes OCC Iron Level 19 Total Iron Binding Capacity 192 Percent Iron Saturation 9.9 Ferritin 129 B-Type Natriuretic Peptide 216 Test 12/27/16 08:59 Sodium Level 135 Potassium Level 4.1 Chloride Level 101 Carbon Dioxide Level 27.6 Anion Gap 6 Blood Urea Nitrogen 17 Random Glucose 249 Calcium Level 9.0 Date/Time Procedure Status Source Growth 12/26/16 16:05 Urine Culture Worksheet Urine Random Urine Pending Last 48 hours Impressions Chest X-Ray 12/26/16 1553 Signed Impressions: Service Date/Time: Monday, December 26, 2016 16:05 - CONCLUSION: Mild basilar parenchymal opacities and likely small effusions Remi Moore MD (Sabine Dozier) Assessment and Plan Assessment: (1) Peripheral vascular disease due to secondary diabetes mellitus Status: Chronic Plan Plan Pt is scheduled for an angiogram today with Dr. Marrufo Consent signed and placed in the chart Exam discussed with pt and (cell phone) via Dr. Marrufo at the BS Will continue to follow Continue PT while in patient Sabine Kangquirino [facility]ASM[facility]/ [employer] [phone] (Sabine Dozier) Plan This is a 81 year old male with a hx of left great toe gangrene. He has chronic left knee pain and has a left knee flexion contracture of 90 degrees. This has not improved with physical therapy. He had an attempt at recanalization of his left SFA that was not successful. I was going to reattempt rechannelling with patient under MAC or GETA with a subsequent left great toe amputation. After discussion with his and the patient he would like a left Above Knee Amputation. This was also confirmed in a separate discussion and decision with Dr. Olmstead ( podiatry). The patient is on pradaxa for afib and with performing a left AKA would be at risk of surgical post-op bleeding. I will hold his pradaxa for 3-5 days and plan on performing a left AKA early next week. I will continue to follow him while hospitalized for medical optimization. Warren Marrufo DO, FACS [facility] (Warren Marrufo DO) Sabine Dozier Dec 27, 2016 10:53 Warren Marrufo DO Dec 27, 2016 13:05
--- NOTE | 2016-12-27 12:55 | EKG ---
Date Performed: 12/26/2016 Time Performed: 20:51:17 PTAGE: 81 years EKG: ELECTRONIC ATRIAL PACEMAKER LOW QRS VOLTAGE IN PRECORDIAL LEADS PROBABLE ANTERIOR MYOCARDIA L INFARCTION ABNORMAL ECG NO PREVIOUS TRACING DOCTOR: Mo Giordano Interpretating Date/Time 12/27/2016 12:53:24
--- NOTE | 2016-12-27 14:32 | HHI.PR ---
Subjective Remarks patient denies cp/sob pain controlled bp elevated Objective Vitals Vital Signs Date Time Temp Pulse Resp B/P Pulse Ox O2 Delivery O2 Flow Rate FiO2 12/27/16 12:00 98.5 68 18 155/70 95 12/27/16 10:52 98 12/27/16 08:00 97.9 64 18 157/66 95 12/27/16 00:00 97.4 62 18 146/67 98 12/26/16 22:00 96.3 60 18 145/63 98 12/26/16 20:52 63 18 163/66 97 12/26/16 20:30 82 18 154/67 94 Room Air 12/26/16 15:40 98.0 60 16 119/66 99 Room Air 12/26/16 14:23 96.8 60 16 115/58 94 I/O 12/26/16 12/26/16 12/26/16 12/27/16 12/27/16 12/27/16 07:00 15:00 23:00 07:00 15:00 23:00 Intake Total 334 ml Output Total 400 ml Balance -66 ml Intake Oral 280 ml IV Total 54 ml Output Urine Total 400 ml Result Diagram: 12/27/16 0800 12/27/16 0859 Imaging Last Impressions Chest X-Ray 12/26/16 1553 Signed Impressions: Service Date/Time: Monday, December 26, 2016 16:05 - CONCLUSION: Mild basilar parenchymal opacities and likely small effusions Remi Moore MD Objective Remarks GENERAL: Well-developed well-nourished. Chronically ill appearing. In no acute distress. SKIN: Warm and dry. Left great toe is below HEENT: Normocephalic. Pupils equal and round. Mucous membranes pink and moist. CARDIOVASCULAR: Regular rate and rhythm. No murmur appreciated. RESPIRATORY: No accessory muscle use. Clear to auscultation. Breath sounds equal bilaterally. GASTROINTESTINAL: Abdomen soft, non-tender, nondistended. Bowel sounds x4. MUSCULOSKELETAL: Left great toe with dry gangrene extending up to the mid foot with some mild surrounding erythema. No clubbing or cyanosis. No edema. Nonpalpable lower extremity pulses bilaterally. NEUROLOGICAL: Awake and alert. No focal neurological deficits. Moves upper and lower extremities spontaneously. Normal speech. PSYCHIATRIC: Appropriate mood and affect; insight and judgment normal. Medications and IVs Current Medications Medications (Trade) Dose Ordered Sig/[place] Route Start Time Stop Time Status Last Admin (Aspirin Chew) 81 mg DAILY CHEW 12/27/16 09:00 (Colace) 100 mg BID PO 12/26/16 21:00 12/26/16 22:41 (Lexapro) 10 mg DAILY PO 12/27/16 09:00 (Flonase Philip Spr) 1 spray BID EACH NARE 12/26/16 21:00 12/26/16 22:42 (Breo Ellipta 100-25 Inh) 1 puff DAILY INH 12/27/16 09:00 (Lasix) 20 mg DAILY PO 12/27/16 09:00 12/27/16 09:46 (Neurontin) 100 mg TID PO 12/27/16 09:00 12/27/16 12:01 ([place] 7.5-325 Mg) 1 tab Q4H PRN PO 12/26/16 18:30 12/26/16 22:53 (Synthroid) 50 mcg DAILY@06 PO 12/27/16 06:00 12/27/16 04:20 (Betapace) 80 mg BID PO 12/26/16 21:00 12/27/16 09:45 (Flomax) 0.4 mg HS PO 12/26/16 21:00 12/26/16 22:41 (Restoril) 7.5 mg HS PO 12/26/16 21:00 12/26/16 22:42 (Protonix) 20 mg DAILY@06 PO 12/27/16 06:00 12/27/16 04:20 (NS Flush) 2 ml UNSCH PRN IV FLUSH 12/26/16 18:30 (NS Flush) 2 ml BID IV FLUSH 12/26/16 21:00 12/27/16 09:39 (Tylenol) 650 mg Q4H PRN PO 12/26/16 18:30 (Zofran Inj) 4 mg Q6H PRN IVP 12/26/16 18:30 (Milk Of Magnesia Liq) 30 ml Q12H PRN PO 12/26/16 18:30 (Morphine Inj) 4 mg Q3H PRN IV 12/26/16 18:30 Naloxone HCl 0.4 mg 0.4 mg UNSCH PRN IV 12/26/16 18:30 (Zosyn 3.375 Gm Premix) 50 ml @ 100 mls/hr Q6H IV 12/26/16 20:00 12/27/16 09:41 (D50w (Vial) Inj) 25 ml UNSCH PRN IV PUSH 12/26/16 18:45 (Glucagon Inj) 1 mg UNSCH PRN OTHER 12/26/16 18:45 Miscellaneous 1 ea 1 ea UNSCH PRN OTHER 12/26/16 18:45 (NS 1000 ml Inj) 1,000 ml @ 100 mls/hr Q10H IV 12/27/16 09:45 12/27/16 22:00 12/27/16 09:38 (Prinivil) 10 mg DAILY PO 12/27/16 14:00 Urinary Catheter: No Vascular Central Line Catheter: No A/P Assessment and Plan 81-year-old male with a past medical history of COPD, DM, A. fib, GERD, hypothyroidism, PVD, CHF, CAD, BPH, CVA who was sent for left great toe infection Peripheral vascular disease with left great toe dry gangrene: Vascular surgery consulted, podiatry consultation pending. Patient likely needs a left AKA. Continue pain control with oral and IV narcotics as needed. Continue empiric coverage with IV Zosyn. UTI: UA with evidence of UTI, occasional budding yeast. Fluconazole 1. IV antibiotics as above. Urine culture shows mixed jeffrey. Since patient is asymptomatic, I will not continue to treat. Chronic anticoagulation with history of atrial fibrillation and CVA: Hold Pradaxa. The patient will need to be off Pradaxa for 3-5 days prior to surgical procedure. Diabetes mellitus: Sliding scale insulin coverage. Monitor Accu-Cheks. Continue gabapentin for neuropathy. CKD stage III: Creatinine 1.12, previously 1.43 on 11/29/16. Likely chronic, follow-up BMP for stability. Chronic microcytic anemia: Hemoglobin 8.8, previously 8.2 and 10.8 last month. Iron studies showed low iron, low TIBC and low percent saturation with normal ferritin. Likely anemia of chronic disease secondary to chronic kidney disease. I will start on oral ferrous sulfate. Hypertension: Blood pressure seems to be elevated into the 150s. Continue sotalol 80 mg by mouth twice a day. I will start the patient on oral lisinopril 10 mg by mouth daily. Continue to monitor vital signs. Other chronic medical conditions include COPD, BPH, depression/insomnia, A. fib , CAD, CHF, GERD, hypothyroidism: Stable at this time and will continue home medications as indicated. Discharge Planning Continue to monitor the medical floor. Marcus Bates MD Dec 27, 2016 14:32
[2016-12-27] MEDS: ACETAMINOPHEN/HYDROcodone 325 MG/7.5 MG TAB PO PRN ×2 (16:44→20:52)
[2016-12-27] MEDS: LISINOPRIL 10 MG TAB PO SCH (16:48)
[2016-12-27] MEDS: TEMAZEPAM 7.5 MG CAP PO SCH (20:52)
[2016-12-27] MEDS: TAMSULOSIN HCL 0.4 MG CAP PO SCH (20:52)
[2016-12-28] VITALS: BP 114/57; PULSE 60; RESP 18; TEMP 98.3; O2SAT 97
[2016-12-28] MEDS: PIPERACIL-TAZO 3.375 GM PREMIX 50 ML IV SCH ×4 (03:06→21:44)
[2016-12-28] MEDS: PANTOPRAZOLE SOD 20 MG DELAYED RELEASE TAB PO SCH (06:10)
[2016-12-28] MEDS: LEVOTHYROXINE SODIUM 50 MCG TAB PO SCH (06:10)
[2016-12-28] MEDS: INSULIN ASPART SUPPLEMENTAL SCALE SQ SCH ×4 (06:15→21:43)
[2016-12-28] MEDS: ACETAMINOPHEN/HYDROcodone 325 MG/7.5 MG TAB PO PRN ×4 (06:38→21:42)
--- NOTE | 2016-12-28 06:49 | MB ---
cc: MARIZABIRDIE DATE OF CONSULTATION 12/27/2016 CHIEF COMPLAINT Left hallux dry gangrene. HISTORY OF PRESENT ILLNESS Mr. Walker is a 81-year-old male patient who sees Dr. Warren Marrufo for vascular surgery. The patient has had gangrene dry of the toe for approximately two months now. He states that the toe is painful but so are the lesser digits and the chief source of pain for him is his left knee. The patient is severely contracted at the knee and applies most of his pressure on the lateral aspect of the foot. The patient currently lives in an [facility] and does have residual left-sided weakness from a prior stroke. PAST MEDICAL HISTORY 1. COPD. 2. Diabetes. 3. Atrial fibrillation. 4. GERD. 5. Hypothyroidism. 6. PVD. 7. CHF. 8. CAD. 9. BPH. 10. CVA. PAST SURGICAL HISTORY 1. Carotid stent placement x 4. 2. Appendectomy. 3. Tonsillectomy. 4. Cholecystectomy. 5. Cataract surgery bilaterally. MEDICATIONS Please see list. ALLERGIES To HMG-CoA reductase inhibitors. VITAL SIGNS Temperature is 98.5, pulse 68, respiratory rate 18, blood pressure 155/70, pulse ox 95% on room air. LABORATORY DATA White count 9.4, hemoglobin 8.7, hematocrit 26.3, platelets 446. INR 1.2. Sodium 135, potassium 4.1, chloride 101, carbon dioxide 27.6, BUN 17, glucose 249. PHYSICAL EXAMINATION On physical exam the right lower extremity is unremarkable but does have diminished pulses. The left lower extremity is extremely contracted almost beyond 90 degrees at the knee. The patient sits with it externally rotated with the lateral aspect of the digits on that bed. Nonpalpable DP or PT pulses. The limb is slightly cool to touch. Full-thickness dry gangrene of the hallux to the level of the MPJ. Minimal range of motion to the digits over the ankle. ASSESSMENT AND PLAN 1. Left hallux dry gangrene. I had an extensive conversation with the patient about his wishes and his outcomes. Dr. Marrufo is planning for an angio and an amputation of the hallux. However, the patient states that most of his pain is at the knee and if the angio is not going to resolve any of his pain, he would like to discuss an above-knee amputation. Dr. Marrufo has discussed this with him in the past but the patient was not open to the idea at the time. He is now more agreeable to the idea and would like to revisit it. I explained that I feel this is a viable option. Given his limited blood flow and his severe contractures, it is likely that adequate blood flow will be restored to allow for an inflated hallux amputation. Most likely he would need a partial first ray, possibly additional parts in the future. He states he would like to avoid multiple surgeries if it seems most likely that he will need an AKA in the beginning. I discussed the patient in detail with Dr. Marrufo and he is in agreement. They will discuss it further amongst the two of them but no podiatric surgical intervention at this time. Thank you for this consultation. Birdie REDD/SSB /4:12 PM /6:27 AM
[2016-12-28 08:00] VITALS: BP 147/59; PULSE 60; RESP 16; TEMP 96.3; O2SAT 98
[2016-12-28] MEDS: ESCITALOPRAM OXALATE 10 MG TAB PO SCH (09:37)
[2016-12-28] MEDS: SOTALOL HCL 80 MG TAB PO SCH ×2 (09:37→21:43)
[2016-12-28] MEDS: FUROSEMIDE 20 MG TAB PO SCH (09:37)
[2016-12-28] MEDS: DOCUSATE SODIUM 100 MG CAP PO SCH ×2 (09:37→21:43)
[2016-12-28] MEDS: SODIUM CHLORIDE 0.9% FLUSH 10 ML FLUSH IV FLUSH SCH ×2 (09:37→21:44)
[2016-12-28] MEDS: LISINOPRIL 10 MG TAB PO SCH (09:37)
[2016-12-28] MEDS: ASPIRIN 81 MG CHEW TAB CHEW SCH (09:37)
[2016-12-28] MEDS: GABAPENTIN 100 MG CAP PO SCH ×3 (09:37→16:50)
[2016-12-28] MEDS: FLUTICASONE PROPIONATE 50 MCG/ACT 16 GM NASAL SPRAY EACH NARE SCH ×2 (09:38→21:00)
[2016-12-28] MEDS: FLUTICASONE 100 MCG/VILANTEROL 25 MCG INHALER INH SCH (09:38)
[2016-12-28 12:00] VITALS: BP 114/56; PULSE 60; RESP 16; TEMP 97.6; O2SAT 99
[2016-12-28 16:00] VITALS: BP 165/70; PULSE 60; RESP 16; TEMP 95.3; O2SAT 98
[2016-12-28] MEDS ORDERED: IRON DEXTRAN 100 MG/2 ML VIAL IV ONE ×2 (18:00→20:00)
[2016-12-28] MEDS: INSULIN ASPART 1,000 UNITS/10 ML VIAL SQ SCH (19:01)
[2016-12-28 20:00] VITALS: BP 141/65; PULSE 65; RESP 20; TEMP 96.4; O2SAT 97
[2016-12-28] MEDS: TEMAZEPAM 7.5 MG CAP PO SCH (21:43)
[2016-12-28] MEDS: TAMSULOSIN HCL 0.4 MG CAP PO SCH (21:43)
[2016-12-28] MEDS: INSULIN DETEMIR 100 UNITS/ML VIAL SQ SCH (21:44)
[2016-12-28] MEDS: MORPHINE SULFATE 4 MG/ML INJ IV PRN (23:24)
--- NOTE | 2016-12-28 23:42 | HHI.PR ---
Subjective Remarks patient denies cp/sob afebrile blood sugars very elevated Objective Vitals Vital Signs Date Time Temp Pulse Resp B/P Pulse Ox O2 Delivery O2 Flow Rate FiO2 12/28/16 20:00 96.4 65 20 141/65 97 12/28/16 16:00 95.3 60 16 165/70 98 12/28/16 12:00 97.6 60 16 114/56 99 12/28/16 08:00 96.3 60 16 147/59 98 12/28/16 00:00 98.3 60 18 114/57 97 I/O 12/27/16 12/27/16 12/27/16 12/28/16 12/28/16 12/28/16 07:00 15:00 23:00 07:00 15:00 23:00 Intake Total 334 ml 490 ml 1040 ml 1153 ml 270 ml 320 ml Output Total 400 ml 600 ml 475 ml 450 ml Balance -66 ml -110 ml 565 ml 1153 ml 270 ml -130 ml Intake Oral 280 ml 0 ml 480 ml 240 ml 200 ml 320 ml IV Total 54 ml 490 ml 560 ml 913 ml 70 ml Output Urine Total 400 ml 600 ml 475 ml 450 ml # Voids 1 4 # Bowel Movements 0 0 0 0 0 Result Diagram: 12/27/16 0800 12/27/16 0859 Objective Remarks GENERAL: Well-developed well-nourished. Chronically ill appearing. In no acute distress. SKIN: Warm and dry. Left great toe is below HEENT: Normocephalic. Pupils equal and round. Mucous membranes pink and moist. CARDIOVASCULAR: Regular rate and rhythm. No murmur appreciated. RESPIRATORY: No accessory muscle use. Clear to auscultation. Breath sounds equal bilaterally. GASTROINTESTINAL: Abdomen soft, non-tender, nondistended. Bowel sounds x4. MUSCULOSKELETAL: Left great toe with dry gangrene extending up to the mid foot with some mild surrounding erythema. No clubbing or cyanosis. No edema. Nonpalpable lower extremity pulses bilaterally. NEUROLOGICAL: Awake and alert. No focal neurological deficits. Moves upper and lower extremities spontaneously. Normal speech. PSYCHIATRIC: Appropriate mood and affect; insight and judgment normal. Urinary Catheter: No Vascular Central Line Catheter: No A/P Assessment and Plan 81-year-old male with a past medical history of COPD, DM, A. fib, GERD, hypothyroidism, PVD, CHF, CAD, BPH, CVA who was sent for left great toe infection Peripheral vascular disease with left great toe dry gangrene: Vascular surgery consulted, podiatry consultation pending. Patient likely needs a left AKA. Continue pain control with oral and IV narcotics as needed. Continue empiric coverage with IV Zosyn. UTI: UA with evidence of UTI, occasional budding yeast. Fluconazole 1. IV antibiotics as above. Urine culture shows mixed jeffrey. Since patient is asymptomatic, I will not continue to treat. Chronic anticoagulation with history of atrial fibrillation and CVA: Hold Pradaxa. The patient will need to be off Pradaxa for 3-5 days prior to surgical procedure. Diabetes mellitus: Sliding scale insulin coverage. Monitor Accu-Cheks. Blood sugars uncontrolled. will place on basal bolus therapy with Levemir and prandial insulin Novolog. CKD stage III: Creatinine 1.12, previously 1.43 on 11/29/16. Likely chronic, follow-up BMP for stability. Chronic microcytic anemia: Hemoglobin 8.8, previously 8.2 and 10.8 last month. Iron studies showed low iron, low TIBC and low percent saturation with normal ferritin. Likely combination of iron deficiency and anemia of chronic disease secondary to chronic kidney disease. Will give IV iron x 3 days and the transition to oral iron. Hypertension: Blood pressure seems to be elevated into the 150s. Continue sotalol 80 mg by mouth twice a day. I will start the patient on oral lisinopril 10 mg by mouth daily. Continue to monitor vital signs. 12/28 Bp slightly improved continue above mentioned medications. Other chronic medical conditions include COPD, BPH, depression/insomnia, A. fib , CAD, CHF, GERD, hypothyroidism: Stable at this time and will continue home medications as indicated. Discharge Planning Continue to monitor the medical floor. Marcus Bates MD Dec 28, 2016 23:42
[2016-12-29] VITALS: BP 145/64; PULSE 61; RESP 22; TEMP 97.2; O2SAT 96
[2016-12-29] MEDS: PIPERACIL-TAZO 3.375 GM PREMIX 50 ML IV SCH ×4 (02:00→21:19)
[2016-12-29] MEDS: INSULIN ASPART SUPPLEMENTAL SCALE SQ SCH ×4 (05:41→21:31)
[2016-12-29] MEDS: ACETAMINOPHEN/HYDROcodone 325 MG/7.5 MG TAB PO PRN ×3 (05:41→21:31)
[2016-12-29] MEDS: LEVOTHYROXINE SODIUM 50 MCG TAB PO SCH (05:41)
[2016-12-29] MEDS: PANTOPRAZOLE SOD 20 MG DELAYED RELEASE TAB PO SCH (05:41)
[2016-12-29 06:04] LABS: AUTOMATED NEUTROPHIL # 9.8 TH/MM3 (1.8-7.7); BASOPHIL # 0.1 TH/MM3 (0-0.2); BASOPHIL % 0.9 % (0.0-2.0); EOSINOPHIL # 0.5 TH/MM3 (0-0.4); EOSINOPHIL % 3.3 % (0.0-4.0); HEMATOCRIT 27.4 % (39.0-51.0); LYMPH % 11.7 % (9.0-44.0); LYMPHOCYTE # 1.6 TH/MM3 (1.0-4.8); MEAN CELL VOLUME 70.5 FL (80.0-100.0); MEAN CORPUSCULAR HGB CONC 31.3 % (32.0-36.0); MONO % 13.1 % (0.0-8.0); PLATELET COUNT 466 TH/MM3 (150-450); RED BLOOD COUNT 3.89 MIL/MM3 (4.50-5.90); RED CELL DISTRIBUTION WIDTH 17.3 % (11.6-17.2); WHITE BLOOD COUNT 13.8 TH/MM3 (4.0-11.0)
[2016-12-29 06:14] LABS: INTERNATIONAL NORMALIZED RATIO 1.3 RATIO; PROTHROMBIN TIME - PATIENT 14.6 SEC (9.8-11.6)
[2016-12-29 06:20] LABS: HEMO FLAGS AUTO DIFF
[2016-12-29 06:31] LABS: ALKALINE PHOSPHATASE 77 U/L (45-117); ALT (GPT) 9 U/L (12-78); ANION GAP 8 MEQ/L (5-15); AST (GOT) 6 U/L (15-37); BLOOD UREA NITROGEN 12 MG/DL (7-18); CHLORIDE 100 MEQ/L (98-107); GLOMERULAR FILTRATION RATE 62 ML/MIN (>89); MAGNESIUM 1.8 MG/DL (1.5-2.5); POTASSIUM 4.3 MEQ/L (3.5-5.1); SODIUM (NA) 137 MEQ/L (136-145); TOTAL BILIRUBIN ADULT 0.3 MG/DL (0.2-1.0)
[2016-12-29 08:00] VITALS: BP 134/60; PULSE 60; RESP 14; TEMP 97; O2SAT 99
[2016-12-29] MEDS: DOCUSATE SODIUM 100 MG CAP PO SCH ×2 (08:24→21:19)
[2016-12-29] MEDS: GABAPENTIN 100 MG CAP PO SCH ×3 (08:24→17:56)
[2016-12-29] MEDS: SOTALOL HCL 80 MG TAB PO SCH ×2 (08:24→21:19)
[2016-12-29] MEDS: ESCITALOPRAM OXALATE 10 MG TAB PO SCH (08:24)
[2016-12-29] MEDS: LISINOPRIL 10 MG TAB PO SCH (08:24)
[2016-12-29] MEDS: FUROSEMIDE 20 MG TAB PO SCH (08:24)
[2016-12-29] MEDS: SODIUM CHLORIDE 0.9% FLUSH 10 ML FLUSH IV FLUSH SCH ×2 (08:25→21:15)
[2016-12-29] MEDS: FLUTICASONE 100 MCG/VILANTEROL 25 MCG INHALER INH SCH (08:25)
[2016-12-29] MEDS: FLUTICASONE PROPIONATE 50 MCG/ACT 16 GM NASAL SPRAY EACH NARE SCH ×2 (08:25→21:15)
[2016-12-29] MEDS: INSULIN ASPART 1,000 UNITS/10 ML VIAL SQ SCH ×3 (08:25→17:50)
[2016-12-29] MEDS: INSULIN DETEMIR 100 UNITS/ML VIAL SQ SCH ×2 (08:25→21:21)
[2016-12-29] MEDS: ASPIRIN 81 MG CHEW TAB CHEW SCH (08:30)
[2016-12-29] MEDS: MORPHINE SULFATE 4 MG/ML INJ IV PRN (08:32)
[2016-12-29 10:55] LABS: OVALOCYTES 1+ (NORMAL); PLATELET ESTIMATE SMEAR HIGH (NORMAL); PLATELET MORPHOLOGY NORMAL (NORMAL); SCAN/DIFF AUTO DIFF CONFIRMED
[2016-12-29 12:00] VITALS: BP 128/53; PULSE 66; RESP 14; TEMP 97.2; O2SAT 99
--- NOTE | 2016-12-29 13:47 | HHI.PR ---
Subjective Remarks patient c/o some pain on ische,ic extremity relieved by pain medications denies fevers/chills denies abdominal pain, nausea vital signs stable Objective Vitals Vital Signs Date Time Temp Pulse Resp B/P Pulse Ox O2 Delivery O2 Flow Rate FiO2 12/29/16 12:00 97.2 66 14 128/53 99 12/29/16 08:00 97.0 60 14 134/60 99 12/29/16 00:00 97.2 61 22 145/64 96 12/28/16 20:00 96.4 65 20 141/65 97 12/28/16 16:00 95.3 60 16 165/70 98 I/O 12/28/16 12/28/16 12/28/16 12/29/16 12/29/16 12/29/16 07:00 15:00 23:00 07:00 15:00 23:00 Intake Total 1153 ml 270 ml 320 ml 120 ml Output Total 450 ml 200 ml Balance 1153 ml 270 ml -130 ml -80 ml Intake Oral 240 ml 200 ml 320 ml 120 ml IV Total 913 ml 70 ml Output Urine Total 450 ml 200 ml # Voids 1 4 1 # Bowel Movements 0 0 0 0 Result Diagram: 12/29/16 0447 12/29/16 0447 Imaging Last Impressions Chest X-Ray 12/26/16 1553 Signed Impressions: Service Date/Time: Monday, December 26, 2016 16:05 - CONCLUSION: Mild basilar parenchymal opacities and likely small effusions Remi Moore MD Objective Remarks GENERAL: Well-developed well-nourished. Chronically ill appearing. In no acute distress. SKIN: Warm and dry. Left great toe is below HEENT: Normocephalic. Pupils equal and round. Mucous membranes pink and moist. CARDIOVASCULAR: Regular rate and rhythm. No murmur appreciated. RESPIRATORY: No accessory muscle use. Clear to auscultation. Breath sounds equal bilaterally. GASTROINTESTINAL: Abdomen soft, non-tender, nondistended. Bowel sounds x4. MUSCULOSKELETAL: Left great toe with dry gangrene extending up to the mid foot with some mild surrounding erythema. No clubbing or cyanosis. No edema. Nonpalpable lower extremity pulses bilaterally. NEUROLOGICAL: Awake and alert. No focal neurological deficits. Moves upper and lower extremities spontaneously. Normal speech. PSYCHIATRIC: Appropriate mood and affect; insight and judgment normal. Medications and IVs Current Medications Medications (Trade) Dose Ordered Sig/[place]oma Route Start Time Stop Time Status Last Admin (Aspirin Chew) 81 mg DAILY CHEW 12/27/16 09:00 12/29/16 08:30 (Colace) 100 mg BID PO 12/26/16 21:00 12/29/16 08:24 (Lexapro) 10 mg DAILY PO 12/27/16 09:00 12/29/16 08:24 (Flonase Philip Spr) 1 spray BID EACH NARE 12/26/16 21:00 12/29/16 08:25 (Breo Ellipta 100-25 Inh) 1 puff DAILY INH 12/27/16 09:00 12/29/16 08:25 (Lasix) 20 mg DAILY PO 12/27/16 09:00 12/29/16 08:24 (Neurontin) 100 mg TID PO 12/27/16 09:00 12/29/16 11:26 ([place] 7.5-325 Mg) 1 tab Q4H PRN PO 12/26/16 18:30 12/29/16 10:41 (Synthroid) 50 mcg DAILY@06 PO 12/27/16 06:00 12/29/16 05:41 (Betapace) 80 mg BID PO 12/26/16 21:00 12/29/16 08:24 (Flomax) 0.4 mg HS PO 12/26/16 21:00 12/28/16 21:43 (Restoril) 7.5 mg HS PO 12/26/16 21:00 12/28/16 21:43 (Protonix) 20 mg DAILY@06 PO 12/27/16 06:00 12/29/16 05:41 (NS Flush) 2 ml UNSCH PRN IV FLUSH 12/26/16 18:30 (NS Flush) 2 ml BID IV FLUSH 12/26/16 21:00 12/29/16 08:25 (Tylenol) 650 mg Q4H PRN PO 12/26/16 18:30 (Zofran Inj) 4 mg Q6H PRN IVP 12/26/16 18:30 (Milk Of Magnesia Liq) 30 ml Q12H PRN PO 12/26/16 18:30 (Morphine Inj) 4 mg Q3H PRN IV 12/26/16 18:30 12/29/16 08:32 Naloxone HCl 0.4 mg 0.4 mg UNSCH PRN IV 12/26/16 18:30 (Zosyn 3.375 Gm Premix) 50 ml @ 100 mls/hr Q6H IV 12/26/16 20:00 12/29/16 13:46 (D50w (Vial) Inj) 25 ml UNSCH PRN IV PUSH 12/26/16 18:45 (Glucagon Inj) 1 mg UNSCH PRN OTHER 12/26/16 18:45 (Pill Splitter) 1 ea UNSCH PRN OTHER 12/26/16 18:45 (Prinivil) 10 mg DAILY PO 12/27/16 14:00 12/29/16 08:24 (Infed Inj) 100 mg DAILY@18 IV PUSH 12/29/16 18:00 12/30/16 18:01 (Levemir Inj) 10 units Q12HR SQ 12/28/16 21:00 12/29/16 08:25 (NovoLOG INJ) 5 units TIDPC SQ 12/28/16 18:30 12/29/16 13:46 Urinary Catheter: No Vascular Central Line Catheter: No A/P Assessment and Plan 81-year-old male with a past medical history of COPD, DM, A. fib, GERD, hypothyroidism, PVD, CHF, CAD, BPH, CVA who was sent for left great toe infection Peripheral vascular disease with left great toe dry gangrene: Vascular surgery consulted, podiatry consultation pending. Patient likely needs a left AKA. Continue pain control with oral and IV narcotics as needed. Continue empiric coverage with IV Zosyn. UTI: UA with evidence of UTI, occasional budding yeast. Fluconazole 1. IV antibiotics as above. Urine culture shows mixed jeffrey. Since patient is asymptomatic, I will not continue to treat. Chronic anticoagulation with history of atrial fibrillation and CVA: Hold Pradaxa. The patient will need to be off Pradaxa for 3-5 days prior to surgical procedure. Diabetes mellitus: Sliding scale insulin coverage. Monitor Accu-Cheks. Blood sugars uncontrolled. will place on basal bolus therapy with Levemir and prandial insulin Novolog. 12/29 blood sugars improving. Continue Basal bolus therapy. CKD stage III: Creatinine 1.12, previously 1.43 on 11/29/16. Likely chronic, follow-up BMP for stability. Chronic microcytic anemia: Hemoglobin 8.8, previously 8.2 and 10.8 last month. Iron studies showed low iron, low TIBC and low percent saturation with normal ferritin. Likely combination of iron deficiency and anemia of chronic disease secondary to chronic kidney disease. Will give IV iron x 3 days and the transition to oral iron. Hypertension: Blood pressure seems to be elevated into the 150s. Continue sotalol 80 mg by mouth twice a day. I will start the patient on oral lisinopril 10 mg by mouth daily. Continue to monitor vital signs. 12/29 BP stable. Other chronic medical conditions include COPD, BPH, depression/insomnia, A. fib , CAD, CHF, GERD, hypothyroidism: Stable at this time and will continue home medications as indicated. Discharge Planning Continue to monitor the medical floor. Marcus Bates MD Dec 29, 2016 13:46
--- NOTE | 2016-12-29 13:55 | PD.CAR.PN ---
CVT Progress Note Subjective/Hospital Course: 81-year-old gentleman with peripheral vascular disease and gangrene of the toes of the left foot In addition patient has a contracture of the left leg at the level of the knee. He has not walked since August last year Considering the patient is bedridden and has severe contracture of the leg with gangrene, vascular reconstruction is not only not recommended but essentially contraindicated. Patient should have above-knee amputation in this situation and this is the appropriate way to go. I discussed this with patient at length and he agrees with the suggested course and therapy. In summary I fully agree with Dr. Sterling's assessment and plan. We will discuss with Dr. Sterling on Saturday. Thanks J Objective: Vital Signs Date Time Temp Pulse Resp B/P Pulse Ox O2 Delivery O2 Flow Rate FiO2 12/29/16 12:00 97.2 66 14 128/53 99 12/29/16 08:00 97.0 60 14 134/60 99 12/29/16 00:00 97.2 61 22 145/64 96 12/28/16 20:00 96.4 65 20 141/65 97 12/28/16 16:00 95.3 60 16 165/70 98 Labs: Laboratory Tests Test 12/29/16 04:47 White Blood Count 13.8 TH/MM3 (4.0-11.0) Red Blood Count 3.89 MIL/MM3 (4.50-5.90) Hemoglobin 8.6 GM/DL (13.0-17.0) Hematocrit 27.4 % (39.0-51.0) Mean Corpuscular Volume 70.5 FL (80.0-100.0) Mean Corpuscular Hemoglobin 22.0 PG (27.0-34.0) Mean Corpuscular Hemoglobin 31.3 % Concent (32.0-36.0) Red Cell Distribution Width 17.3 % (11.6-17.2) Platelet Count 466 TH/MM3 (150-450) Mean Platelet Volume 8.5 FL (7.0-11.0) Neutrophils (%) (Auto) 71.0 % (16.0-70.0) Lymphocytes (%) (Auto) 11.7 % (9.0-44.0) Monocytes (%) (Auto) 13.1 % (0.0-8.0) Eosinophils (%) (Auto) 3.3 % (0.0-4.0) Basophils (%) (Auto) 0.9 % (0.0-2.0) Neutrophils # (Auto) 9.8 TH/MM3 (1.8-7.7) Lymphocytes # (Auto) 1.6 TH/MM3 (1.0-4.8) Monocytes # (Auto) 1.8 TH/MM3 (0-0.9) Eosinophils # (Auto) 0.5 TH/MM3 (0-0.4) Basophils # (Auto) 0.1 TH/MM3 (0-0.2) CBC Comment AUTO DIFF Differential Comment AUTO DIFF CONFIRMED Platelet Estimate HIGH (NORMAL) Platelet Morphology Comment NORMAL (NORMAL) Ovalocytes 1+ (NORMAL) Prothrombin Time 14.6 SEC (9.8-11.6) Prothromb Time International 1.3 RATIO Ratio Sodium Level 137 MEQ/L (136-145) Potassium Level 4.3 MEQ/L (3.5-5.1) Chloride Level 100 MEQ/L (98-107) Carbon Dioxide Level 29.0 MEQ/L (21.0-32.0) Anion Gap 8 MEQ/L (5-15) Blood Urea Nitrogen 12 MG/DL (7-18) Creatinine 1.14 MG/DL (0.60-1.30) Estimat Glomerular Filtration 62 ML/MIN (>89) Rate Random Glucose 165 MG/DL (74-106) Calcium Level 9.1 MG/DL (8.5-10.1) Magnesium Level 1.8 MG/DL (1.5-2.5) Total Bilirubin 0.3 MG/DL (0.2-1.0) Aspartate Amino Transf 6 U/L (15-37) (AST/SGOT) Alanine Aminotransferase 9 U/L (12-78) (ALT/SGPT) Alkaline Phosphatase 77 U/L (45-117) Total Protein 6.6 GM/DL (6.4-8.2) Albumin 2.6 GM/DL (3.4-5.0) Result Diagram: 12/29/16 0447 12/29/16 0447 Mila Bustos MD Dec 29, 2016 13:55
[2016-12-29 16:00] VITALS: BP 126/54; PULSE 64; RESP 12; TEMP 97.4; O2SAT 99
[2016-12-29] MEDS: IRON DEXTRAN 100 MG/2 ML VIAL IV PUSH SCH (17:56)
[2016-12-29 20:00] VITALS: BP 130/56; PULSE 62; RESP 17; TEMP 101.3; O2SAT 98
[2016-12-29] MEDS: TAMSULOSIN HCL 0.4 MG CAP PO SCH (21:19)
[2016-12-29] MEDS: TEMAZEPAM 7.5 MG CAP PO SCH (21:19)
[2016-12-30] VITALS: BP 124/62; PULSE 68; RESP 17; TEMP 98.7; O2SAT 98
[2016-12-30] MEDS: PIPERACIL-TAZO 3.375 GM PREMIX 50 ML IV SCH ×4 (01:15→20:53)
[2016-12-30] MEDS: LEVOTHYROXINE SODIUM 50 MCG TAB PO SCH (05:50)
[2016-12-30] MEDS: PANTOPRAZOLE SOD 20 MG DELAYED RELEASE TAB PO SCH (05:50)
[2016-12-30] MEDS: INSULIN ASPART SUPPLEMENTAL SCALE SQ SCH ×4 (06:00→20:57)
[2016-12-30] MEDS: FUROSEMIDE 20 MG TAB PO SCH (08:33)
[2016-12-30] MEDS: INSULIN DETEMIR 100 UNITS/ML VIAL SQ SCH ×2 (08:33→20:55)
[2016-12-30] MEDS: DOCUSATE SODIUM 100 MG CAP PO SCH ×2 (08:33→20:59)
[2016-12-30] MEDS: LISINOPRIL 10 MG TAB PO SCH (08:33)
[2016-12-30] MEDS: ASPIRIN 81 MG CHEW TAB CHEW SCH (08:33)
[2016-12-30] MEDS: ESCITALOPRAM OXALATE 10 MG TAB PO SCH (08:33)
[2016-12-30] MEDS: SODIUM CHLORIDE 0.9% FLUSH 10 ML FLUSH IV FLUSH SCH ×2 (08:34→20:59)
[2016-12-30] MEDS: GABAPENTIN 100 MG CAP PO SCH ×3 (08:34→16:32)
[2016-12-30] MEDS: SOTALOL HCL 80 MG TAB PO SCH ×2 (08:34→21:05)
[2016-12-30] MEDS: FLUTICASONE PROPIONATE 50 MCG/ACT 16 GM NASAL SPRAY EACH NARE SCH ×2 (08:34→20:58)
[2016-12-30] MEDS: FLUTICASONE 100 MCG/VILANTEROL 25 MCG INHALER INH SCH (08:34)
[2016-12-30] MEDS: ACETAMINOPHEN/HYDROcodone 325 MG/7.5 MG TAB PO PRN ×3 (09:15→21:05)
[2016-12-30] MEDS: INSULIN ASPART 1,000 UNITS/10 ML VIAL SQ SCH ×3 (09:16→17:57)
[2016-12-30 09:45] LABS: AUTOMATED NEUTROPHIL # 11.6 TH/MM3 (1.8-7.7); BASOPHIL # 0.1 TH/MM3 (0-0.2); BASOPHIL % 0.4 % (0.0-2.0); EOSINOPHIL # 0.3 TH/MM3 (0-0.4); EOSINOPHIL % 1.9 % (0.0-4.0); HEMATOCRIT 27.6 % (39.0-51.0); LYMPH % 6.9 % (9.0-44.0); MEAN CORPUSCULAR HEMOGLOBIN 22.6 PG (27.0-34.0); MEAN CORPUSCULAR HGB CONC 32.2 % (32.0-36.0); MONO % 13.4 % (0.0-8.0); NEUT % 77.4 % (16.0-70.0); PLATELET COUNT 450 TH/MM3 (150-450); RED BLOOD COUNT 3.94 MIL/MM3 (4.50-5.90); RED CELL DISTRIBUTION WIDTH 17.5 % (11.6-17.2)
[2016-12-30 09:47] LABS: HEMO FLAGS AUTO DIFF
[2016-12-30 09:49] LABS: ANION GAP 8 MEQ/L (5-15); AST (GOT) 7 U/L (15-37); BICARBONATE 26.8 MEQ/L (21.0-32.0); BLOOD UREA NITROGEN 13 MG/DL (7-18); CHLORIDE 99 MEQ/L (98-107); GLOMERULAR FILTRATION RATE 64 ML/MIN (>89); MAGNESIUM 1.7 MG/DL (1.5-2.5); POTASSIUM 3.8 MEQ/L (3.5-5.1); SODIUM (NA) 134 MEQ/L (136-145)
[2016-12-30 09:52] LABS: ALKALINE PHOSPHATASE 77 U/L (45-117); ALT (GPT) 8 U/L (12-78); TOTAL BILIRUBIN ADULT 0.3 MG/DL (0.2-1.0)
[2016-12-30 10:12] LABS: OVALOCYTES 1+ (NORMAL); SCAN/DIFF AUTO DIFF CONFIRMED
[2016-12-30 12:00] VITALS: BP 117/48; PULSE 60; RESP 16; TEMP 98.5; O2SAT 18
--- NOTE | 2016-12-30 13:58 | PD.VS.PN ---
Subjective Subjective/Hospital Course Complains of left knee pain. Cannot extend left knee. Objective Vitals/I&O Date Time Temp Pulse Resp B/P Pulse Ox O2 Delivery O2 Flow Rate FiO2 12/30/16 12:00 98.5 60 16 117/48 18 12/30/16 00:00 98.7 68 17 124/62 98 12/29/16 20:00 101.3 62 17 130/56 98 12/29/16 16:00 97.4 64 12 126/54 99 12/30/16 12/30/16 12/30/16 07:00 15:00 23:00 Intake Total 240 ml Balance 240 ml Physical Exam left great toe with dry gangrene. left leg flexed at 90 degrees. Laboratory Laboratory Tests Test 12/30/16 09:20 White Blood Count 15.0 Red Blood Count 3.94 Hemoglobin 8.9 Hematocrit 27.6 Mean Corpuscular Volume 70.0 Mean Corpuscular Hemoglobin 22.6 Mean Corpuscular Hemoglobin 32.2 Concent Red Cell Distribution Width 17.5 Platelet Count 450 Mean Platelet Volume 8.0 Neutrophils (%) (Auto) 77.4 Lymphocytes (%) (Auto) 6.9 Monocytes (%) (Auto) 13.4 Eosinophils (%) (Auto) 1.9 Basophils (%) (Auto) 0.4 Neutrophils # (Auto) 11.6 Lymphocytes # (Auto) 1.0 Monocytes # (Auto) 2.0 Eosinophils # (Auto) 0.3 Basophils # (Auto) 0.1 CBC Comment AUTO DIFF Differential Comment AUTO DIFF CONFIRMED Ovalocytes 1+ Sodium Level 134 Potassium Level 3.8 Chloride Level 99 Carbon Dioxide Level 26.8 Anion Gap 8 Blood Urea Nitrogen 13 Creatinine 1.11 Estimat Glomerular Filtration 64 Rate Random Glucose 150 Calcium Level 9.0 Phosphorus Level 2.4 Magnesium Level 1.7 Total Bilirubin 0.3 Aspartate Amino Transf 7 (AST/SGOT) Alanine Aminotransferase 8 (ALT/SGPT) Alkaline Phosphatase 77 Total Protein 6.6 Albumin 2.5 Date/Time Procedure Status Source Growth 12/26/16 16:05 Urine Culture - Final Complete Urine Random Urine 50-100,000 CFU/ML MIXED JAMARCUS... Assessment and Plan Assessment: (1) Peripheral vascular disease due to secondary diabetes mellitus Status: Chronic Plan This is a 81 year old male with a hx of left great toe gangrene. He has chronic left knee pain and has a left knee flexion contracture of 90 degrees. This has not improved with physical therapy. Plan for left above knee amputation on 12/31 Anticoagulant held. Made NPO Consent signed and IN chart. Warren Marrufo DO, FACS [employer] /Warren Hopson DO Dec 30, 2016 13:58
--- NOTE | 2016-12-30 15:06 | HHI.PR ---
Subjective Remarks Pain is controlled, but complains of left knee pain, cannot extend the knee. Patient had a fever w a tmax of 101.3 last night denies cp/sob pain is controlled with oral pain medications. Stable vital signs Objective Vitals Vital Signs Date Time Temp Pulse Resp B/P Pulse Ox O2 Delivery O2 Flow Rate FiO2 12/30/16 12:00 98.5 60 16 117/48 18 12/30/16 00:00 98.7 68 17 124/62 98 12/29/16 20:00 101.3 62 17 130/56 98 12/29/16 16:00 97.4 64 12 126/54 99 I/O 12/29/16 12/29/16 12/29/16 12/30/16 12/30/16 12/30/16 07:00 15:00 23:00 07:00 15:00 23:00 Intake Total 120 ml 650 ml 240 ml 240 ml Output Total 200 ml 700 ml 400 ml 600 ml Balance -80 ml -50 ml -160 ml 240 ml -600 ml Intake Oral 120 ml 600 ml 240 ml 240 ml IV Total 50 ml Output Urine Total 200 ml 700 ml 400 ml 600 ml # Voids 1 2 2 # Bowel Movements 0 0 Result Diagram: 12/30/16 0920 12/30/16 0920 Imaging Last Impressions Chest X-Ray 12/26/16 1553 Signed Impressions: Service Date/Time: Monday, December 26, 2016 16:05 - CONCLUSION: Mild basilar parenchymal opacities and likely small effusions Remi Moore MD Objective Remarks GENERAL: Well-developed well-nourished. Chronically ill appearing. In no acute distress. SKIN: Warm and dry. Left great toe is below HEENT: Normocephalic. Pupils equal and round. Mucous membranes pink and moist. CARDIOVASCULAR: Regular rate and rhythm. No murmur appreciated. RESPIRATORY: No accessory muscle use. Clear to auscultation. Breath sounds equal bilaterally. GASTROINTESTINAL: Abdomen soft, non-tender, nondistended. Bowel sounds x4. MUSCULOSKELETAL: Left great toe with dry gangrene extending up to the mid foot with some mild surrounding erythema. No clubbing or cyanosis. No edema. Nonpalpable lower extremity pulses bilaterally. Left knee and lower extremity contracted in 90 degrees. NEUROLOGICAL: Awake and alert. No focal neurological deficits. Moves upper and lower extremities spontaneously. Normal speech. PSYCHIATRIC: Appropriate mood and affect; insight and judgment normal. Medications and IVs Current Medications Medications (Trade) Dose Ordered Sig/[place] Route Start Time Stop Time Status Last Admin (Aspirin Chew) 81 mg DAILY CHEW 12/27/16 09:00 12/30/16 08:33 (Colace) 100 mg BID PO 12/26/16 21:00 12/30/16 08:33 (Lexapro) 10 mg DAILY PO 12/27/16 09:00 12/30/16 08:33 (Flonase Philip Spr) 1 spray BID EACH NARE 12/26/16 21:00 12/30/16 08:34 (Breo Ellipta 100-25 Inh) 1 puff DAILY INH 12/27/16 09:00 12/30/16 08:34 (Lasix) 20 mg DAILY PO 12/27/16 09:00 12/30/16 08:33 (Neurontin) 100 mg TID PO 12/27/16 09:00 12/30/16 11:19 ([place] 7.5-325 Mg) 1 tab Q4H PRN PO 12/26/16 18:30 12/30/16 14:22 (Synthroid) 50 mcg DAILY@06 PO 12/27/16 06:00 12/30/16 05:50 (Betapace) 80 mg BID PO 12/26/16 21:00 12/30/16 08:34 (Flomax) 0.4 mg HS PO 12/26/16 21:00 12/29/16 21:19 (Restoril) 7.5 mg HS PO 12/26/16 21:00 12/29/16 21:19 (Protonix) 20 mg DAILY@06 PO 12/27/16 06:00 12/30/16 05:50 (NS Flush) 2 ml UNSCH PRN IV FLUSH 12/26/16 18:30 12/30/16 01:15 (NS Flush) 2 ml BID IV FLUSH 12/26/16 21:00 12/30/16 08:34 (Tylenol) 650 mg Q4H PRN PO 12/26/16 18:30 (Zofran Inj) 4 mg Q6H PRN IVP 12/26/16 18:30 (Milk Of Magnesia Liq) 30 ml Q12H PRN PO 12/26/16 18:30 (Morphine Inj) 4 mg Q3H PRN IV 12/26/16 18:30 12/29/16 08:32 Naloxone HCl 0.4 mg 0.4 mg UNSCH PRN IV 12/26/16 18:30 (Zosyn 3.375 Gm Premix) 50 ml @ 100 mls/hr Q6H IV 12/26/16 20:00 12/30/16 14:22 (D50w (Vial) Inj) 25 ml UNSCH PRN IV PUSH 12/26/16 18:45 (Glucagon Inj) 1 mg UNSCH PRN OTHER 12/26/16 18:45 (Pill Splitter) 1 ea UNSCH PRN OTHER 12/26/16 18:45 (Prinivil) 10 mg DAILY PO 12/27/16 14:00 12/30/16 08:33 (Infed Inj) 100 mg DAILY@18 IV PUSH 12/29/16 18:00 12/30/16 18:01 12/29/16 17:56 (Levemir Inj) 10 units Q12HR SQ 12/28/16 21:00 12/30/16 08:33 (NovoLOG INJ) 5 units TIDPC SQ 12/28/16 18:30 12/30/16 13:30 Urinary Catheter: No Vascular Central Line Catheter: No A/P Problem List: (1) Gangrene of toe ICD Code: I96 Status: Acute (2) Peripheral vascular disease due to secondary diabetes mellitus ICD Code: E13.51 Status: Chronic (3) Hypothyroidism ICD Code: E03.9 Status: Acute (4) HTN (hypertension) ICD Code: I10 Status: Acute (5) Flexion contracture of left knee ICD Code: M24.562 Status: Acute (6) Chronic pain of left knee ICD Code: M25.562 Status: Acute Assessment and Plan 81-year-old male with a past medical history of COPD, DM, A. fib, GERD, hypothyroidism, PVD, CHF, CAD, BPH, CVA who was sent for left great toe infection Peripheral vascular disease with left great toe dry gangrene: Vascular surgery consulted, podiatry consultation pending. Continue pain control with oral and IV narcotics as needed. Continue empiric coverage with IV Zosyn. - For OR in 4/10 as per vascular surgery. UTI: UA with evidence of UTI, occasional budding yeast. Fluconazole 1. IV antibiotics as above. Urine culture shows mixed jeffrey. Since patient is asymptomatic, I will not continue to treat. Chronic anticoagulation with history of atrial fibrillation and CVA: Hold Pradaxa. The patient will need to be off Pradaxa for 3-5 days prior to surgical procedure. Diabetes mellitus: Sliding scale insulin coverage. Monitor Accu-Cheks. Blood sugars uncontrolled. will place on basal bolus therapy with Levemir and prandial insulin Novolog. 12/29 blood sugars improving. Continue Basal bolus therapy. CKD stage III: Creatinine 1.12, previously 1.43 on 11/29/16. Likely chronic, follow-up BMP for stability. Chronic microcytic anemia: Hemoglobin 8.8, previously 8.2 and 10.8 last month. Iron studies showed low iron, low TIBC and low percent saturation with normal ferritin. Likely combination of iron deficiency and anemia of chronic disease secondary to chronic kidney disease. Will give IV iron x 3 days and the transition to oral iron. Hypertension: Her pressure initially elevated in the 150s. Sotalol 80 mg twice a day continued. Patient started on lisinopril 10 mg daily. BP then improved and now stable. Continue with same dose of atenolol and lisinopril. Fever: Patient had a fever with a max of 101.3, patient is on empiric IV Zosyn. There was UA with occasional budding yeasts with the patient got 1 dose of fluconazole. I will recheck urinalysis. There are no respiratory symptoms. NPO at midnight ordered Chronic left knee pain and left knee flexion contracture of 90: Which has not been better with physical therapy. Continue pain control. Other chronic medical conditions include COPD, BPH, depression/insomnia, A. fib , CAD, CHF, GERD, hypothyroidism: Stable at this time and will continue home medications as indicated. Discharge Planning Continue to monitor the medical floor. Marcus Bates MD Dec 30, 2016 15:06
[2016-12-30 16:00] VITALS: BP 112/62; RESP 16; TEMP 98.4; O2SAT 94
[2016-12-30] MEDS: IRON DEXTRAN 100 MG/2 ML VIAL IV PUSH SCH (16:32)
[2016-12-30 20:00] VITALS: BP 142/63; PULSE 60; RESP 17; TEMP 98.5; O2SAT 98
[2016-12-30] MEDS: TAMSULOSIN HCL 0.4 MG CAP PO SCH (20:55)
[2016-12-30] MEDS: TEMAZEPAM 7.5 MG CAP PO SCH (20:55)
[2016-12-31] VITALS: BP 144/67; PULSE 60; RESP 17; TEMP 98.5; O2SAT 95
[2016-12-31] MEDS: PIPERACIL-TAZO 3.375 GM PREMIX 50 ML IV SCH ×4 (02:04→20:17)
[2016-12-31] MEDS ORDERED: CHLORHEXIDINE GLUCONATE 2 % 1 PACK (2 CLOTHS) TOPICAL PRN (03:45)
[2016-12-31] MEDS ORDERED: POVIDONE IODINE 5% (ANTISEPSIS KIT) 4 APPLICATIONS EACH NARE PRN (03:45)
[2016-12-31] MEDS ORDERED: LACTATED RINGER'S 1000 ML IV PRN (03:45)
[2016-12-31 05:32] LABS: AUTOMATED NEUTROPHIL # 9.6 TH/MM3 (1.8-7.7); BASOPHIL # 0.1 TH/MM3 (0-0.2); BASOPHIL % 0.7 % (0.0-2.0); EOSINOPHIL # 0.5 TH/MM3 (0-0.4); HEMATOCRIT 26.6 % (39.0-51.0); LYMPH % 9.4 % (9.0-44.0); LYMPHOCYTE # 1.3 TH/MM3 (1.0-4.8); MEAN CELL VOLUME 69.4 FL (80.0-100.0); MEAN CORPUSCULAR HEMOGLOBIN 22.9 PG (27.0-34.0); MEAN CORPUSCULAR HGB CONC 33.1 % (32.0-36.0); NEUT % 71.9 % (16.0-70.0); PLATELET COUNT 465 TH/MM3 (150-450); RED BLOOD COUNT 3.84 MIL/MM3 (4.50-5.90); RED CELL DISTRIBUTION WIDTH 17.3 % (11.6-17.2); WHITE BLOOD COUNT 13.3 TH/MM3 (4.0-11.0)
[2016-12-31 05:39] LABS: HEMO FLAGS AUTO DIFF
[2016-12-31] MEDS: PANTOPRAZOLE SOD 20 MG DELAYED RELEASE TAB PO SCH (05:42)
[2016-12-31] MEDS: LEVOTHYROXINE SODIUM 50 MCG TAB PO SCH (05:42)
[2016-12-31] MEDS: INSULIN ASPART SUPPLEMENTAL SCALE SQ SCH ×4 (05:42→20:14)
[2016-12-31 05:54] LABS: ALKALINE PHOSPHATASE 75 U/L (45-117); ALT (GPT) 9 U/L (12-78); ANION GAP 10 MEQ/L (5-15); AST (GOT) 8 U/L (15-37); BICARBONATE 27.2 MEQ/L (21.0-32.0); BLOOD UREA NITROGEN 15 MG/DL (7-18); CHLORIDE 98 MEQ/L (98-107); GLOMERULAR FILTRATION RATE 54 ML/MIN (>89); POTASSIUM 3.9 MEQ/L (3.5-5.1); SODIUM (NA) 135 MEQ/L (136-145); TOTAL BILIRUBIN ADULT 0.3 MG/DL (0.2-1.0)
[2016-12-31 07:49] LABS: SCAN/DIFF AUTO DIFF CONFIRMED
[2016-12-31 08:00] VITALS: BP 167/68; PULSE 61; RESP 20; TEMP 97.8; O2SAT 96
[2016-12-31] MEDS: FUROSEMIDE 20 MG TAB PO SCH (08:19)
[2016-12-31] MEDS: ESCITALOPRAM OXALATE 10 MG TAB PO SCH (08:19)
[2016-12-31] MEDS: DOCUSATE SODIUM 100 MG CAP PO SCH ×2 (08:19→20:16)
[2016-12-31] MEDS: GABAPENTIN 100 MG CAP PO SCH ×3 (08:19→18:26)
[2016-12-31] MEDS: LISINOPRIL 10 MG TAB PO SCH (08:19)
[2016-12-31] MEDS: SOTALOL HCL 80 MG TAB PO SCH ×2 (08:20→20:16)
[2016-12-31] MEDS: SODIUM CHLORIDE 0.9% FLUSH 10 ML FLUSH IV FLUSH SCH ×2 (08:20→20:16)
[2016-12-31] MEDS: FLUTICASONE 100 MCG/VILANTEROL 25 MCG INHALER INH SCH (08:32)
[2016-12-31] MEDS: FLUTICASONE PROPIONATE 50 MCG/ACT 16 GM NASAL SPRAY EACH NARE SCH ×2 (08:34→20:16)
[2016-12-31] MEDS: INSULIN DETEMIR 100 UNITS/ML VIAL SQ SCH ×2 (08:36→20:15)
[2016-12-31] MEDS: INSULIN ASPART 1,000 UNITS/10 ML VIAL SQ SCH ×3 (08:37→18:27)
[2016-12-31] MEDS: ASPIRIN 81 MG CHEW TAB CHEW SCH (08:37)
[2016-12-31] MEDS: ACETAMINOPHEN/HYDROcodone 325 MG/7.5 MG TAB PO PRN (09:19)
[2016-12-31] MEDS ORDERED: GELFOAM SIZE 100 ONE (09:54)
[2016-12-31] MEDS ORDERED: ceFAZolin INJ 1,000 MG VIAL ONE (09:54)
[2016-12-31] MEDS ORDERED: GENTAMICIN SULFATE 80 MG/2 ML VIAL ONE (09:56)
[2016-12-31] MEDS ORDERED: BUPIVACAINE/EPINEPHRINE 0.5% 50 ML VIAL ONE (09:56)
[2016-12-31] MEDS ORDERED: THROMBIN (TOPICAL) 5,000 UNIT VIAL ONE (09:56)
[2016-12-31] MEDS ORDERED: LIDOCAINE HCL 1% 50 ML VIAL ONE (09:57)
[2016-12-31] MEDS ORDERED: VANCOMYCIN HCL 1000 MG VIAL ONE (10:49)
--- NOTE | 2016-12-31 12:27 | HHI.PR ---
Subjective Remarks deferred entry - patient seen earlier at 10 am c/o pain in left lower extremity denies cp/sob denies fevers/chills no further fevers Objective Vitals Vital Signs Date Time Temp Pulse Resp B/P Pulse Ox O2 Delivery O2 Flow Rate FiO2 12/31/16 08:00 97.8 61 20 167/68 96 12/31/16 00:00 98.5 60 17 144/67 95 12/30/16 20:00 98.5 60 17 142/63 98 12/30/16 16:00 98.4 16 112/62 94 I/O 12/30/16 12/30/16 12/30/16 12/31/16 12/31/16 12/31/16 07:00 15:00 23:00 07:00 15:00 23:00 Intake Total 240 ml 240 ml 240 ml Output Total 600 ml 300 ml Balance 240 ml -600 ml 240 ml -60 ml Intake Oral 240 ml 240 ml 240 ml Output Urine Total 600 ml 300 ml # Voids 2 2 2 # Bowel Movements 2 Result Diagram: 12/31/16 0447 12/31/16 0447 Imaging Last Impressions Chest X-Ray 12/26/16 1553 Signed Impressions: Service Date/Time: Monday, December 26, 2016 16:05 - CONCLUSION: Mild basilar parenchymal opacities and likely small effusions Remi Moore MD Objective Remarks GENERAL: Well-developed well-nourished. Chronically ill appearing. In no acute distress. SKIN: Warm and dry. Left great toe is below HEENT: Normocephalic. Pupils equal and round. Mucous membranes pink and moist. CARDIOVASCULAR: Regular rate and rhythm. No murmur appreciated. RESPIRATORY: No accessory muscle use. Clear to auscultation. Breath sounds equal bilaterally. GASTROINTESTINAL: Abdomen soft, non-tender, nondistended. Bowel sounds x4. MUSCULOSKELETAL: Left great toe with dry gangrene extending up to the mid foot with some mild surrounding erythema. No clubbing or cyanosis. No edema. Nonpalpable lower extremity pulses bilaterally. Left knee and lower extremity contracted in 90 degrees. NEUROLOGICAL: Awake and alert. No focal neurological deficits. Moves upper and lower extremities spontaneously. Normal speech. PSYCHIATRIC: Appropriate mood and affect; insight and judgment normal. Medications and IVs Current Medications Medications (Trade) Dose Ordered Sig/[place] Route Start Time Stop Time Status Last Admin (Aspirin Chew) 81 mg DAILY CHEW 12/27/16 09:00 12/30/16 08:33 (Colace) 100 mg BID PO 12/26/16 21:00 12/31/16 08:19 (Lexapro) 10 mg DAILY PO 12/27/16 09:00 12/31/16 08:19 (Flonase Philip Spr) 1 spray BID EACH NARE 12/26/16 21:00 12/31/16 08:34 (Breo Ellipta 100-25 Inh) 1 puff DAILY INH 12/27/16 09:00 12/31/16 08:32 (Lasix) 20 mg DAILY PO 12/27/16 09:00 12/31/16 08:19 (Neurontin) 100 mg TID PO 12/27/16 09:00 12/31/16 08:19 ([place] 7.5-325 Mg) 1 tab Q4H PRN PO 12/26/16 18:30 12/31/16 09:19 (Synthroid) 50 mcg DAILY@06 PO 12/27/16 06:00 12/31/16 05:42 (Betapace) 80 mg BID PO 12/26/16 21:00 12/31/16 08:20 (Flomax) 0.4 mg HS PO 12/26/16 21:00 12/30/16 20:55 (Restoril) 7.5 mg HS PO 12/26/16 21:00 12/30/16 20:55 (Protonix) 20 mg DAILY@06 PO 12/27/16 06:00 12/31/16 05:42 (NS Flush) 2 ml UNSCH PRN IV FLUSH 12/26/16 18:30 12/30/16 01:15 (NS Flush) 2 ml BID IV FLUSH 12/26/16 21:00 12/30/16 20:59 (Tylenol) 650 mg Q4H PRN PO 12/26/16 18:30 (Zofran Inj) 4 mg Q6H PRN IVP 12/26/16 18:30 (Milk Of Magnesia Liq) 30 ml Q12H PRN PO 12/26/16 18:30 (Morphine Inj) 4 mg Q3H PRN IV 12/26/16 18:30 12/29/16 08:32 Naloxone HCl 0.4 mg 0.4 mg UNSCH PRN IV 12/26/16 18:30 (Zosyn 3.375 Gm Premix) 50 ml @ 100 mls/hr Q6H IV 12/26/16 20:00 12/31/16 08:19 (D50w (Vial) Inj) 25 ml UNSCH PRN IV PUSH 12/26/16 18:45 (Glucagon Inj) 1 mg UNSCH PRN OTHER 12/26/16 18:45 (Pill Splitter) 1 ea UNSCH PRN OTHER 12/26/16 18:45 (Prinivil) 10 mg DAILY PO 12/27/16 14:00 12/31/16 08:19 (Levemir Inj) 10 units Q12HR SQ 12/28/16 21:00 12/30/16 20:55 Insulin Aspart 5 units 5 units TIDPC SQ 12/28/16 18:30 12/30/16 13:30 (Lr 1000 ml Inj) 1,000 ml @ 30 mls/hr Q24H PRN IV 12/31/16 03:45 01/03/17 03:44 Urinary Catheter: No Vascular Central Line Catheter: No A/P Problem List: (1) Gangrene of toe ICD Code: I96 Status: Acute (2) Peripheral vascular disease due to secondary diabetes mellitus ICD Code: E13.51 Status: Chronic (3) Hypothyroidism ICD Code: E03.9 Status: Acute (4) HTN (hypertension) ICD Code: I10 Status: Acute (5) Flexion contracture of left knee ICD Code: M24.562 Status: Acute (6) Chronic pain of left knee ICD Code: M25.562 Status: Acute (7) UTI (urinary tract infection) ICD Code: N39.0 Status: Acute Assessment and Plan 81-year-old male with a past medical history of COPD, DM, A. fib, GERD, hypothyroidism, PVD, CHF, CAD, BPH, CVA who was sent for left great toe infection Peripheral vascular disease with left great toe dry gangrene: Vascular surgery consulted, podiatry consultation pending. Continue pain control with oral and IV narcotics as needed. Continue empiric coverage with IV Zosyn. - For OR today UTI: UA with evidence of UTI, occasional budding yeast. Fluconazole 1. IV antibiotics as above. Urine culture shows mixed jeffrey. Since patient is asymptomatic, I will not continue to treat. Chronic anticoagulation with history of atrial fibrillation and CVA: Hold Pradaxa. The patient will need to be off Pradaxa for 3-5 days prior to surgical procedure. Diabetes mellitus: Sliding scale insulin coverage. Monitor Accu-Cheks. Blood sugars uncontrolled. will place on basal bolus therapy with Levemir and prandial insulin Novolog. blood sugars improving. Continue Basal bolus therapy. CKD stage III: Creatinine 1.12, previously 1.43 on 11/29/16. Likely chronic, follow-up BMP for stability. Chronic microcytic anemia: Hemoglobin 8.8, previously 8.2 and 10.8 last month. Iron studies showed low iron, low TIBC and low percent saturation with normal ferritin. Likely combination of iron deficiency and anemia of chronic disease secondary to chronic kidney disease. Day 3 of IV iron. Hypertension: Her pressure initially elevated in the 150s. Sotalol 80 mg twice a day continued. Patient started on lisinopril 10 mg daily. BP then improved and now stable. Continue with same dose of atenolol and lisinopril. Fever: Patient had a fever with a Tmax of 101.3 on 12/29/16, patient is on empiric IV Zosyn. There was UA with occasional budding yeasts with the patient got 1 dose of fluconazole. 12/31 Recheck urinalysis positive with the presence of budding yeasts. Patient is on Zosyn IV, will start IV fluconazole. Chronic left knee pain and left knee flexion contracture of 90: Which has not been better with physical therapy. Continue pain control. Other chronic medical conditions include COPD, BPH, depression/insomnia, A. fib , CAD, CHF, GERD, hypothyroidism: Stable at this time and will continue home medications as indicated. Discharge Planning Continue to monitor the medical floor. Macrus Bates MD Dec 31, 2016 12:27
[2016-12-31] MEDS ORDERED: DO NOT ADM ANY ANTICOAGULANT DRUGS PRN ×2 (12:59→13:30)
--- NOTE | 2016-12-31 13:07 | HHI.PR ---
Immediate Post Op Note Procedure Date: Dec 31, 2016 Pre Op Diagnosis: (1) Peripheral vascular disease due to secondary diabetes mellitus Post Op Diagnosis: (1) Chronic pain of left knee (2) Gangrene of toe Surgeon: Warren Marrufo Certified Physician Assistant(s): Nam Quick Procedure: Left Above Knee Amputation Findings: left knee contracture and left great toe gangrene. Complications: none Specimen(s) removed: left leg Estimated blood loss: minimal Anesthesia: General, Regional Block, Analgesia Drains: None Fluids: 700 cc Tourniquet time (min at mmHg) 25 minutes Patient to: PACU Patient Condition: Good Implant/Devices: Other Date/Time of Procedure: Other Warren Marrufo DO Dec 31, 2016 13:07
[2016-12-31] MEDS ORDERED: *morphine SULFATE 8 MG/ML PERIprocedure ONLY ONE (13:33)
[2016-12-31 14:00] VITALS: BP 101/51; PULSE 60; RESP 20; TEMP 97.4; O2SAT 100
[2016-12-31] MEDS: FLUCONAZOLE 100 MG PREMIX BAG 50 ML IV SCH (14:09)
[2016-12-31] MEDS ORDERED: PROPOFOL 200 MG/20 ML AMP IV ONE (14:22)
[2016-12-31] MEDS ORDERED: LACTATED RINGER'S 1000 ML INJ 1,000 ML IV ONE (14:22)
[2016-12-31] MEDS ORDERED: ePHEDrine/NS 25 MG/5 ML SYR IV ONE (14:22)
[2016-12-31] MEDS ORDERED: NEOSTIGMINE 3 MG/3 ML SYR IV ONE (14:22)
[2016-12-31 16:00] VITALS: BP 124/61; PULSE 64; RESP 20; TEMP 96.3; O2SAT 100
[2016-12-31 18:02] VITALS: O2SAT 100
[2016-12-31 20:00] VITALS: BP 135/61; PULSE 66; RESP 17; TEMP 99.3; O2SAT 100
[2016-12-31] MEDS: TAMSULOSIN HCL 0.4 MG CAP PO SCH (20:15)
[2016-12-31] MEDS: TEMAZEPAM 7.5 MG CAP PO SCH (20:15)
[2017-01-01] VITALS (7 sets, daily range): BP systolic 123–148; BP diastolic 62–65; PULSE 60–71; RESP 17–20; TEMP 97.5–100.3; O2SAT 94–100
[2017-01-01] MEDS: PIPERACIL-TAZO 3.375 GM PREMIX 50 ML IV SCH ×4 (00:41→20:21)
[2017-01-01 06:19] LABS: AUTOMATED NEUTROPHIL # 13.3 TH/MM3 (1.8-7.7); BASOPHIL # 0.1 TH/MM3 (0-0.2); BASOPHIL % 0.5 % (0.0-2.0); EOSINOPHIL # 0.2 TH/MM3 (0-0.4); HEMATOCRIT 23.9 % (39.0-51.0); LYMPH % 5.9 % (9.0-44.0); MEAN CELL VOLUME 69.3 FL (80.0-100.0); MEAN CORPUSCULAR HEMOGLOBIN 23.6 PG (27.0-34.0); MEAN CORPUSCULAR HGB CONC 34.1 % (32.0-36.0); MONO % 12.2 % (0.0-8.0); NEUT % 80.4 % (16.0-70.0); PLATELET COUNT 429 TH/MM3 (150-450); RED BLOOD COUNT 3.45 MIL/MM3 (4.50-5.90); RED CELL DISTRIBUTION WIDTH 17.3 % (11.6-17.2); WHITE BLOOD COUNT 16.6 TH/MM3 (4.0-11.0)
[2017-01-01 06:34] LABS: HEMO FLAGS AUTO DIFF
[2017-01-01] MEDS: PANTOPRAZOLE SOD 20 MG DELAYED RELEASE TAB PO SCH (06:35)
[2017-01-01] MEDS: LEVOTHYROXINE SODIUM 50 MCG TAB PO SCH (06:35)
[2017-01-01] MEDS: INSULIN ASPART SUPPLEMENTAL SCALE SQ SCH ×4 (06:35→20:25)
[2017-01-01 06:41] LABS: BICARBONATE 26.1 MEQ/L (21.0-32.0); POTASSIUM 3.9 MEQ/L (3.5-5.1)
[2017-01-01] MEDS: ASPIRIN 81 MG CHEW TAB CHEW SCH (07:41)
[2017-01-01] MEDS: GABAPENTIN 100 MG CAP PO SCH ×3 (07:42→17:42)
[2017-01-01] MEDS: DOCUSATE SODIUM 100 MG CAP PO SCH ×2 (07:42→20:23)
[2017-01-01] MEDS: ESCITALOPRAM OXALATE 10 MG TAB PO SCH (07:42)
[2017-01-01] MEDS: LISINOPRIL 10 MG TAB PO SCH (07:42)
[2017-01-01] MEDS: INSULIN DETEMIR 100 UNITS/ML VIAL SQ SCH ×2 (07:43→20:22)
[2017-01-01] MEDS: INSULIN ASPART 1,000 UNITS/10 ML VIAL SQ SCH ×3 (07:43→17:42)
[2017-01-01] MEDS: FUROSEMIDE 20 MG TAB PO SCH (07:46)
[2017-01-01] MEDS: FLUTICASONE PROPIONATE 50 MCG/ACT 16 GM NASAL SPRAY EACH NARE SCH ×2 (07:47→20:23)
[2017-01-01] MEDS: SODIUM CHLORIDE 0.9% FLUSH 10 ML FLUSH IV FLUSH SCH ×2 (07:47→20:23)
[2017-01-01] MEDS: FLUTICASONE 100 MCG/VILANTEROL 25 MCG INHALER INH SCH (07:48)
[2017-01-01] MEDS: SOTALOL HCL 80 MG TAB PO SCH ×2 (08:05→20:22)
[2017-01-01 08:09] LABS: OVALOCYTES 1+ (NORMAL); PLATELET ESTIMATE SMEAR HIGH (NORMAL)
[2017-01-01 08:10] LABS: PLATELET MORPHOLOGY NORMAL (NORMAL); SCAN/DIFF AUTO DIFF CONFIRMED
--- NOTE | 2017-01-01 11:40 | HHI.PR ---
Subjective Remarks denies cp/sob afebrile denies nausea c/o hoarseness vital signs stable creatinine elevated c/o some pain on phantom extremity Objective Vitals Vital Signs Date Time Temp Pulse Resp B/P Pulse Ox O2 Delivery O2 Flow Rate FiO2 01/01/17 08:00 97.5 60 20 135/63 97 01/01/17 04:00 98.9 71 17 127/64 100 01/01/17 00:00 98.7 64 17 123/62 100 12/31/16 20:00 99.3 66 17 135/61 100 12/31/16 18:02 100 Nasal Cannula 2.00 12/31/16 16:00 96.3 64 20 124/61 100 12/31/16 14:00 97.4 60 20 101/51 100 12/31/16 13:45 97.7 61 16 105/59 98 Nasal Cannula 2 12/31/16 13:30 62 16 124/65 100 Nasal Cannula 2 12/31/16 13:15 61 16 115/59 100 Nasal Cannula 2 12/31/16 13:00 63 16 107/56 100 Nasal Cannula 2 12/31/16 12:53 97.8 60 16 112/55 100 Nasal Cannula 2 I/O 12/31/16 12/31/16 12/31/16 01/01/17 01/01/17 01/01/17 07:00 15:00 23:00 07:00 15:00 23:00 Intake Total 240 ml 750 ml 240 ml 290 ml Output Total 300 ml 355 ml 350 ml Balance -60 ml 395 ml 240 ml -60 ml Intake Oral 240 ml 0 ml 240 ml 240 ml IV Total 50 ml 50 ml Other 700 ml Output Urine Total 300 ml 305 ml 350 ml Estimated Blood Loss 50 ml # Voids 0 # Bowel Movements 2 Result Diagram: 01/01/17 0504 01/01/17 0504 Imaging Last Impressions Chest X-Ray 12/26/16 1553 Signed Impressions: Service Date/Time: Monday, December 26, 2016 16:05 - CONCLUSION: Mild basilar parenchymal opacities and likely small effusions Remi Moore MD Objective Remarks GENERAL: Well-developed well-nourished. Chronically ill appearing. In no acute distress. SKIN: Warm and dry. Left great toe is below HEENT: Normocephalic. Pupils equal and round. Mucous membranes pink and moist. CARDIOVASCULAR: Regular rate and rhythm. No murmur appreciated. RESPIRATORY: No accessory muscle use. Clear to auscultation. Breath sounds equal bilaterally. GASTROINTESTINAL: Abdomen soft, non-tender, nondistended. Bowel sounds x4. 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 other extremity has no edema and weak pedal pulses. NEUROLOGICAL: Awake and alert. No focal neurological deficits. Moves upper and lower extremities spontaneously. Normal speech. PSYCHIATRIC: Appropriate mood and affect; insight and judgment normal. Procedures Post left [id number] amputation on 12/31/16. Medications and IVs Current Medications Medications (Trade) Dose Ordered Sig/[place] Route Start Time Stop Time Status Last Admin (Aspirin Chew) 81 mg DAILY CHEW 12/27/16 09:00 01/01/17 07:41 (Colace) 100 mg BID PO 12/26/16 21:00 01/01/17 07:42 (Lexapro) 10 mg DAILY PO 12/27/16 09:00 01/01/17 07:42 (Flonase Philip Spr) 1 spray BID EACH NARE 12/26/16 21:00 01/01/17 07:47 (Breo Ellipta 100-25 Inh) 1 puff DAILY INH 12/27/16 09:00 01/01/17 07:48 (Lasix) 20 mg DAILY PO 12/27/16 09:00 01/01/17 07:46 (Neurontin) 100 mg TID PO 12/27/16 09:00 01/01/17 07:42 ([place] 7.5-325 Mg) 1 tab Q4H PRN PO 12/26/16 18:30 12/31/16 09:19 (Synthroid) 50 mcg DAILY@06 PO 12/27/16 06:00 01/01/17 06:35 (Betapace) 80 mg BID PO 12/26/16 21:00 01/01/17 08:05 (Flomax) 0.4 mg HS PO 12/26/16 21:00 12/31/16 20:15 (Restoril) 7.5 mg HS PO 12/26/16 21:00 12/30/16 20:55 (Protonix) 20 mg DAILY@06 PO 12/27/16 06:00 01/01/17 06:35 (NS Flush) 2 ml UNSCH PRN IV FLUSH 12/26/16 18:30 12/30/16 01:15 (NS Flush) 2 ml BID IV FLUSH 12/26/16 21:00 01/01/17 07:47 (Tylenol) 650 mg Q4H PRN PO 12/26/16 18:30 (Zofran Inj) 4 mg Q6H PRN IVP 12/26/16 18:30 (Milk Of Magnesia Liq) 30 ml Q12H PRN PO 12/26/16 18:30 (Morphine Inj) 4 mg Q3H PRN IV 12/26/16 18:30 12/29/16 08:32 Naloxone HCl 0.4 mg 0.4 mg UNSCH PRN IV 12/26/16 18:30 (Zosyn 3.375 Gm Premix) 50 ml @ 100 mls/hr Q6H IV 12/26/16 20:00 01/01/17 07:42 (D50w (Vial) Inj) 25 ml UNSCH PRN IV PUSH 12/26/16 18:45 (Glucagon Inj) 1 mg UNSCH PRN OTHER 12/26/16 18:45 (Pill Splitter) 1 ea UNSCH PRN OTHER 12/26/16 18:45 (Prinivil) 10 mg DAILY PO 12/27/16 14:00 01/01/17 07:42 Insulin Aspart 5 units 5 units TIDPC SQ 12/28/16 18:30 01/01/17 07:43 Lactated Ringer's 1,000 ml @ 30 mls/hr Q24H PRN IV 12/31/16 03:45 01/03/17 03:44 (Diflucan 100 Mg Premix Bag) 50 ml @ 50 mls/hr Q24H IV 12/31/16 13:00 12/31/16 14:09 Miscellaneous Information ALL NURSING DEPARTME... UNSCH PRN .XX 12/31/16 12:59 01/01/17 12:58 (Levemir Inj) 12 units Q12HR SQ 01/01/17 21:00 Urinary Catheter: No Vascular Central Line Catheter: No A/P Problem List: (1) Gangrene of toe ICD Code: I96 Status: Acute (2) Peripheral vascular disease due to secondary diabetes mellitus ICD Code: E13.51 Status: Chronic (3) Hypothyroidism ICD Code: E03.9 Status: Acute (4) HTN (hypertension) ICD Code: I10 Status: Acute (5) Flexion contracture of left knee ICD Code: M24.562 Status: Acute (6) Chronic pain of left knee ICD Code: M25.562 Status: Acute (7) UTI (urinary tract infection) ICD Code: N39.0 Status: Acute Assessment and Plan 81-year-old male with a past medical history of COPD, DM, A. fib, GERD, hypothyroidism, PVD, CHF, CAD, BPH, CVA who was sent for left great toe infection Peripheral vascular disease with left great toe dry gangrene: Vascular surgery consulted, podiatry consultation pending. Continue pain control with oral and IV narcotics as needed. Continue empiric coverage with IV Zosyn. - For OR today UTI: UA with evidence of UTI, occasional budding yeast. Fluconazole 1. IV antibiotics as above. Urine culture shows mixed jeffrey. Started on Fluconazole 12/31 due to worsening leukocytosis and fever. Continue. Chronic anticoagulation with history of atrial fibrillation and CVA: Pradaxa held before surgery. The patient will need to be off Pradaxa for 3-5 days prior to surgical procedure. 12/31 Resume anticoagulation when cleared by vascular surgery. Diabetes mellitus: Patient on basal bolus therapy with insulin Levemir and Novolog, as well as SSI. 12/31 Blood sugars elevated into the 200's, Will increase Levemir dose to 12 units SQ BID. CKD stage III: Creatinine 1.12, previously 1.43 on 11/29/16. Likely chronic, follow-up BMP for stability. Chronic microcytic anemia: Hemoglobin 8.8, previously 8.2 and 10.8 last month. Iron studies showed low iron, low TIBC and low percent saturation with normal ferritin. Likely combination of iron deficiency and anemia of chronic disease secondary to chronic kidney disease. 12/31 sp IV iron infusions - Will start oral iron Hypertension: Her pressure initially elevated in the 150s. Sotalol 80 mg twice a day continued. Patient started on lisinopril 10 mg daily. BP then improved and now stable. Continue with same dose of atenolol and lisinopril. Fever: Patient had a fever with a Tmax of 101.3 on 12/29/16, patient is on empiric IV Zosyn. There was UA with occasional budding yeasts with the patient got 1 dose of fluconazole. 12/31 Recheck urinalysis. Continue Fluconazole for now. Chronic left knee pain and left knee flexion contracture of 90: Which has not been better with physical therapy. Patient sp AKA. Leukocytosis: Possibly secondary to stress due to recent surgery. Monitor for signs of infection. Recheck UA. Hoarseness: Likely caused by intubation for surgical procedure. Will Rx Lozenges. Other chronic medical conditions include COPD, BPH, depression/insomnia, A. fib , CAD, CHF, GERD, hypothyroidism: Stable at this time and will continue home medications as indicated. Discharge Planning Continue to monitor the medical floor. Marcus Bates MD Jan 01, 2017 11:40
[2017-01-01] MEDS: FLUCONAZOLE 100 MG PREMIX BAG 50 ML IV SCH (13:03)
--- NOTE | 2017-01-01 14:02 | PD.VS.PN ---
Subjective Subjective/Hospital Course status post left AKA. No complaints. Objective Vitals/I&O Date Time Temp Pulse Resp B/P Pulse Ox O2 Delivery O2 Flow Rate FiO2 01/01/17 12:00 97.6 64 18 139/65 100 01/01/17 08:00 97.5 60 20 135/63 97 01/01/17 04:00 98.9 71 17 127/64 100 01/01/17 00:00 98.7 64 17 123/62 100 12/31/16 20:00 99.3 66 17 135/61 100 12/31/16 18:02 100 Nasal Cannula 2.00 12/31/16 16:00 96.3 64 20 124/61 100 12/31/16 14:00 97.4 60 20 101/51 100 01/01/17 01/01/17 01/01/17 07:00 15:00 23:00 Intake Total 290 ml Output Total 350 ml Balance -60 ml Physical Exam left aka stump clean intact. Laboratory Laboratory Tests Test 01/01/17 05:04 White Blood Count 16.6 Red Blood Count 3.45 Hemoglobin 8.1 Hematocrit 23.9 Mean Corpuscular Volume 69.3 Mean Corpuscular Hemoglobin 23.6 Mean Corpuscular Hemoglobin 34.1 Concent Red Cell Distribution Width 17.3 Platelet Count 429 Mean Platelet Volume 8.5 Neutrophils (%) (Auto) 80.4 Lymphocytes (%) (Auto) 5.9 Monocytes (%) (Auto) 12.2 Eosinophils (%) (Auto) 1.0 Basophils (%) (Auto) 0.5 Neutrophils # (Auto) 13.3 Lymphocytes # (Auto) 1.0 Monocytes # (Auto) 2.0 Eosinophils # (Auto) 0.2 Basophils # (Auto) 0.1 CBC Comment AUTO DIFF Differential Comment AUTO DIFF CONFIRMED Platelet Estimate HIGH Platelet Morphology Comment NORMAL Ovalocytes 1+ Sodium Level 136 Potassium Level 3.9 Chloride Level 98 Carbon Dioxide Level 26.1 Anion Gap 12 Blood Urea Nitrogen 17 Creatinine 1.40 Estimat Glomerular Filtration 49 Rate Random Glucose 191 Calcium Level 8.8 Assessment and Plan Assessment: (1) Peripheral vascular disease due to secondary diabetes mellitus Status: Chronic Plan This is a 81 year old male with a hx of left great toe gangrene. He has chronic left knee pain and has a left knee flexion contracture of 90 degrees. He underwent left AKA. Plan to remove dressing and apply stockings in next 24-48. Can undergo physical therapy with transfers with assistance. Plan for rehabilitation [place]. Warren Marrufo DO, FACS Pilot Instructor of Vascular Surgery /Warren Hopson DO Jan 01, 2017 14:01
--- NOTE | 2017-01-01 14:08 | PD.VS.PN ---
Subjective POD #: 1 Procedure(s): Left Above Knee Amputation Subjective/Hospital Course Pt sitting up in bed without complaints, Alert and in NAD Nurse reported he participated well with Physical Therapy Tolerating diet Objective Vitals/I&O Date Time Temp Pulse Resp B/P Pulse Ox O2 Delivery O2 Flow Rate FiO2 01/01/17 12:00 97.6 64 18 139/65 100 01/01/17 08:00 97.5 60 20 135/63 97 01/01/17 04:00 98.9 71 17 127/64 100 01/01/17 00:00 98.7 64 17 123/62 100 12/31/16 20:00 99.3 66 17 135/61 100 12/31/16 18:02 100 Nasal Cannula 2.00 12/31/16 16:00 96.3 64 20 124/61 100 12/31/16 14:00 97.4 60 20 101/51 100 01/01/17 01/01/17 01/01/17 07:00 15:00 23:00 Intake Total 290 ml Output Total 350 ml Balance -60 ml Exam: GENERAL: A&OX3,NAD, GCS15 SKIN: Warm and dry, dressing I/C/D to Left AKA NECK: Supple, No JVD CARDIOVASCULAR: RRR RESPIRATORY: Breath sounds equal bilaterally. No accessory muscle use. GASTROINTESTINAL: Abdomen soft, non-tender, nondistended. MUSCULOSKELETAL: No cyanosis, or edema. Incisions: Dressing intact clean and dry Left AKA Dressing to be removed in a few days Laboratory Laboratory Tests Test 01/01/17 05:04 White Blood Count 16.6 Red Blood Count 3.45 Hemoglobin 8.1 Hematocrit 23.9 Mean Corpuscular Volume 69.3 Mean Corpuscular Hemoglobin 23.6 Mean Corpuscular Hemoglobin 34.1 Concent Red Cell Distribution Width 17.3 Platelet Count 429 Mean Platelet Volume 8.5 Neutrophils (%) (Auto) 80.4 Lymphocytes (%) (Auto) 5.9 Monocytes (%) (Auto) 12.2 Eosinophils (%) (Auto) 1.0 Basophils (%) (Auto) 0.5 Neutrophils # (Auto) 13.3 Lymphocytes # (Auto) 1.0 Monocytes # (Auto) 2.0 Eosinophils # (Auto) 0.2 Basophils # (Auto) 0.1 CBC Comment AUTO DIFF Differential Comment AUTO DIFF CONFIRMED Platelet Estimate HIGH Platelet Morphology Comment NORMAL Ovalocytes 1+ Sodium Level 136 Potassium Level 3.9 Chloride Level 98 Carbon Dioxide Level 26.1 Anion Gap 12 Blood Urea Nitrogen 17 Creatinine 1.40 Estimat Glomerular Filtration 49 Rate Random Glucose 191 Calcium Level 8.8 Assessment and Plan Assessment: (1) Peripheral vascular disease due to secondary diabetes mellitus Status: Chronic Plan This is a 81 year old male with a hx of left great toe gangrene. He has chronic left knee pain and has a left knee flexion contracture of 90 degrees. This has not improved with physical therapy. Plan Continue Physical Therapy Dressing to Left AKA to be removed in a few days Will continue to monitor Sabine RASMUSSEN [facility]/[employer] [phone] Sabine Dozier Jan 01, 2017 14:08
[2017-01-01 17:06] LABS: BACTERIA, URINE OCC /hpf; BLOOD, URINE TRACE (NEG); GLUCOSE,URINE 70 mg/dL (NEG); KETONE, URINE TRACE mg/dL (NEG); MUCUS URINE FEW /lpf (OCC); NITRITE,URINE NEG (NEG); PH, URINE 5.5 (5.0-8.5); SQUAMOUS EPITHELIAL CELL URINE 1 /hpf (0-5); TRANSITIONAL EPI CELLS, URINE <1 /hpf; URINE COLOR YELLOW (YELLW/STRAW)
[2017-01-01 17:07] LABS: COMMENT (UR) CATH-CULTURE IND; CULTURE IF INDICATED CATH CULTURE IND
[2017-01-01] MEDS: TEMAZEPAM 7.5 MG CAP PO SCH (20:22)
[2017-01-01] MEDS: TAMSULOSIN HCL 0.4 MG CAP PO SCH (20:22)
[2017-01-02] VITALS: BP 125/61; PULSE 62; RESP 17; TEMP 98.9; O2SAT 97
[2017-01-02] MEDS: PIPERACIL-TAZO 3.375 GM PREMIX 50 ML IV SCH ×4 (02:44→21:27)
[2017-01-02] MEDS: ACETAMINOPHEN/HYDROcodone 325 MG/7.5 MG TAB PO PRN ×3 (03:35→17:51)
[2017-01-02] MEDS: PANTOPRAZOLE SOD 20 MG DELAYED RELEASE TAB PO SCH (06:21)
[2017-01-02] MEDS: LEVOTHYROXINE SODIUM 50 MCG TAB PO SCH (06:21)
[2017-01-02] MEDS: INSULIN ASPART SUPPLEMENTAL SCALE SQ SCH ×4 (06:31→21:00)
[2017-01-02 07:50] VITALS: BP 145/60; PULSE 60; RESP 17; TEMP 98; O2SAT 98
[2017-01-02] MEDS: SODIUM CHLORIDE 0.9% FLUSH 10 ML FLUSH IV FLUSH SCH ×2 (08:20→21:27)
[2017-01-02] MEDS: FLUTICASONE 100 MCG/VILANTEROL 25 MCG INHALER INH SCH (08:21)
[2017-01-02] MEDS: FLUTICASONE PROPIONATE 50 MCG/ACT 16 GM NASAL SPRAY EACH NARE SCH ×2 (08:21→21:28)
[2017-01-02] MEDS: FUROSEMIDE 20 MG TAB PO SCH (08:22)
[2017-01-02] MEDS: LISINOPRIL 10 MG TAB PO SCH (08:22)
[2017-01-02] MEDS: INSULIN ASPART 1,000 UNITS/10 ML VIAL SQ SCH ×3 (08:22→17:49)
[2017-01-02] MEDS: SOTALOL HCL 80 MG TAB PO SCH ×2 (08:22→21:23)
[2017-01-02] MEDS: ASPIRIN 81 MG CHEW TAB CHEW SCH (08:22)
[2017-01-02] MEDS: GABAPENTIN 100 MG CAP PO SCH ×3 (08:22→17:49)
[2017-01-02] MEDS: ESCITALOPRAM OXALATE 10 MG TAB PO SCH (08:22)
[2017-01-02] MEDS: DOCUSATE SODIUM 100 MG CAP PO SCH ×2 (08:22→21:23)
[2017-01-02] MEDS: INSULIN DETEMIR 100 UNITS/ML VIAL SQ SCH ×2 (08:23→21:00)
[2017-01-02 08:30] LABS: AUTOMATED NEUTROPHIL # 11.7 TH/MM3 (1.8-7.7); BASOPHIL % 0.3 % (0.0-2.0); EOSINOPHIL # 0.8 TH/MM3 (0-0.4); EOSINOPHIL % 5.1 % (0.0-4.0); HEMATOCRIT 23.8 % (39.0-51.0); LYMPH % 7.5 % (9.0-44.0); LYMPHOCYTE # 1.2 TH/MM3 (1.0-4.8); MEAN CORPUSCULAR HEMOGLOBIN 21.9 PG (27.0-34.0); MEAN CORPUSCULAR HGB CONC 31.8 % (32.0-36.0); MONO % 13.5 % (0.0-8.0); NEUT % 73.6 % (16.0-70.0); PLATELET COUNT 455 TH/MM3 (150-450); RED BLOOD COUNT 3.44 MIL/MM3 (4.50-5.90); RED CELL DISTRIBUTION WIDTH 17.2 % (11.6-17.2); WHITE BLOOD COUNT 15.9 TH/MM3 (4.0-11.0)
[2017-01-02 08:36] LABS: HEMO FLAGS AUTO DIFF
[2017-01-02 08:46] LABS: ALT (GPT) 11 U/L (12-78); ANION GAP 9 MEQ/L (5-15); AST (GOT) 15 U/L (15-37); BICARBONATE 26.7 MEQ/L (21.0-32.0); BLOOD UREA NITROGEN 17 MG/DL (7-18); CHLORIDE 99 MEQ/L (98-107); GLOMERULAR FILTRATION RATE 65 ML/MIN (>89); POTASSIUM 3.6 MEQ/L (3.5-5.1); SODIUM (NA) 135 MEQ/L (136-145)
[2017-01-02 08:49] LABS: ALKALINE PHOSPHATASE 68 U/L (45-117); TOTAL BILIRUBIN ADULT 0.3 MG/DL (0.2-1.0)
--- NOTE | 2017-01-02 09:58 | MP ---
cc: MARLENY BROWN DATE OF SURGERY 12/31/16 PREOPERATIVE DIAGNOSIS Chronic left knee contracture with ischemic gangrene of left great toe POSTOPERATIVE DIAGNOSIS Chronic left knee contracture with ischemic gangrene of left great toe PROCEDURE Left above-knee amputation ANESTHESIA LMA with femoral and sciatic nerve block. SURGEON Kyleigh Brown DO HYDROE[employer]IC PLANT OPERATOR Joe Quick FLUIDS IV fluids 700 mL ESTIMATED BLOOD LOSS Minimal URINE OUTPUT Not calculated. COMPLICATIONS None. DISPOSITION To PACU PROCEDURE IN DETAIL The patient's left leg was prepped and draped in a sterile fashion after being under LMA and regional nerve block for a left AKA. I did give the patient perioperative IV antibiotics. I made a fishmouth incision with a scalpel and electrocautery. I divided and tied off the saphenous vein. I divided through the muscles with electrocautery. I divided the sciatic nerve with scissors and a 2-0 suture ligature. I then divided the femoral vessels with 0 suture ligatures shows. It should be noted I circumferentially removed all the tissue off the femur and used an elevator to free the muscle off of the femur bone. After I was done with this, I used an oscillating saw at a beveled angle to cut through the femur. I then used a rasp in order to clean the edges of the femur. I then used interrupted 2-0 Vicryl absorbable sutures to approximate deep tissue over the free end of the femur. I did irrigate the leg with 200 of gentamicin and 1 liter of normal saline. It should be noted that the area did look clear. I did use a tourniquet and once I removed the tourniquet there was no free bleeding. I then used multiple interrupted 2-0 Vicryl and then 3-0 Vicryl absorbable sutures, then janneth for the skin, then I used some 4x4s and a Kerlix dressing and an Otis bandage. DO PREMA Hua/ /12:42 PM /9:46 AM
--- NOTE | 2017-01-02 10:04 | HHI.PR ---
Subjective Remarks This is a pleasant 81 y/o Male with COPD, DM II, Atrial Fibrillation, GERD, Hypothyroidism, PAD, CHF, CAD, BPH, CVA who was sent for left great toe infection. with Gangrene on the left great toe, evaluated by Vascular emr specialist, recommended amputation, status post Left Above Knee amputation POD#2, with Diagnosis of PAD secondary to DM II, the patient already has Chronic left knee pain and has left knee flexion contracture of 90 Degrees, recommended Physical therapy, Dressing to the left AKA to be removed in a few days, seen in his bedroom and discussed with nurse Michaela no nausea, vomit or diarrhea, no fever at this time but will follow closely may need blood cultures Objective Vital Signs Date Time Temp Pulse Resp B/P Pulse Ox O2 Delivery O2 Flow Rate FiO2 01/02/17 07:50 98.0 60 17 145/60 98 01/02/17 00:00 98.9 62 17 125/61 97 01/01/17 21:23 98 21 01/01/17 20:00 100.3 60 17 133/62 97 01/01/17 16:00 98.6 65 18 148/65 95 01/01/17 12:00 97.6 64 18 139/65 100 I/O 01/01/17 01/01/17 01/01/17 01/02/17 01/02/17 01/02/17 07:00 15:00 23:00 07:00 15:00 23:00 Intake Total 530 ml 360 ml 240 ml Output Total 950 ml 600 ml 248 ml Balance -420 ml -240 ml -8 ml Intake Oral 480 ml 360 ml 240 ml IV Total 50 ml Output Urine Total 950 ml 600 ml 248 ml # Bowel Movements 2 Result Diagram: 01/02/17 0700 01/02/17 0700 Imaging Last Impressions Chest X-Ray 12/26/16 1553 Signed Impressions: Service Date/Time: Monday, December 26, 2016 16:05 - CONCLUSION: Mild basilar parenchymal opacities and likely small effusions Rmei Moore MD Procedures Left Above Knee Amputation 12/31/16 Other Results Laboratory Tests Test 12/29/16 12/31/16 01/01/17 01/01/17 04:47 10:05 05:04 10:50 Prothrombin Time 14.6 SEC Prothromb Time International 1.3 RATIO Ratio Blood Type O NEGATIVE Antibody Screen NEGATIVE Differential Comment AUTO DIFF CONFIRMED Platelet Estimate HIGH Platelet Morphology Comment NORMAL Ovalocytes 1+ Urine Color YELLOW Urine Turbidity CLOUDY Urine pH 5.5 Urine Specific [place] 1.020 Urine Protein 100 mg/dL Urine Glucose (UA) 70 mg/dL Urine Ketones TRACE mg/dL Urine Occult Blood TRACE Urine Nitrite NEG Urine Bilirubin NEG Urine Urobilinogen LESS THAN 2.0 MG/DL Urine Leukocyte Esterase LARGE Urine RBC 23 /hpf Urine WBC 172 /hpf Urine Squamous Epithelial 1 /hpf Cells Urine Transitional Epithelial <1 /hpf Cells Urine Bacteria OCC /hpf Urine Mucus FEW /lpf Urine Yeast (Budding) OCC Microscopic Urinalysis Comment CATH-CULTURE IND Test 01/02/17 07:00 White Blood Count 15.9 TH/MM3 Red Blood Count 3.44 MIL/MM3 Hemoglobin 7.6 GM/DL Hematocrit 23.8 % Mean Corpuscular Volume 69.0 FL Mean Corpuscular Hemoglobin 21.9 PG Mean Corpuscular Hemoglobin 31.8 % Concent Red Cell Distribution Width 17.2 % Platelet Count 455 TH/MM3 Mean Platelet Volume 8.6 FL Neutrophils (%) (Auto) 73.6 % Lymphocytes (%) (Auto) 7.5 % Monocytes (%) (Auto) 13.5 % Eosinophils (%) (Auto) 5.1 % Basophils (%) (Auto) 0.3 % Neutrophils # (Auto) 11.7 TH/MM3 Lymphocytes # (Auto) 1.2 TH/MM3 Monocytes # (Auto) 2.2 TH/MM3 Eosinophils # (Auto) 0.8 TH/MM3 Basophils # (Auto) 0.0 TH/MM3 CBC Comment AUTO DIFF Sodium Level 135 MEQ/L Potassium Level 3.6 MEQ/L Chloride Level 99 MEQ/L Carbon Dioxide Level 26.7 MEQ/L Anion Gap 9 MEQ/L Blood Urea Nitrogen 17 MG/DL Creatinine 1.09 MG/DL Estimat Glomerular Filtration 65 ML/MIN Rate Random Glucose 149 MG/DL Calcium Level 8.6 MG/DL Phosphorus Level 1.9 MG/DL Magnesium Level 2.0 MG/DL Total Bilirubin 0.3 MG/DL Aspartate Amino Transf 15 U/L (AST/SGOT) Alanine Aminotransferase 11 U/L (ALT/SGPT) Alkaline Phosphatase 68 U/L Total Protein 6.3 GM/DL Albumin 2.0 GM/DL Objective Remarks GENERAL: Well-developed well-nourished. Chronically ill appearing. In no acute distress. SKIN: Warm and dry. Left great toe is below HEENT: Normocephalic. Pupils equal and round. Mucous membranes pink and moist. CARDIOVASCULAR: Regular rate and rhythm. No murmur appreciated. RESPIRATORY: No accessory muscle use. Clear to auscultation. Breath sounds equal bilaterally. GASTROINTESTINAL: Abdomen soft, non-tender, nondistended. Bowel sounds x4. 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 other extremity has no edema and weak pedal pulses. NEUROLOGICAL: Awake and alert. No focal neurological deficits. Moves upper and lower extremities spontaneously. Normal speech. PSYCHIATRIC: Appropriate mood and affect; insight and judgment normal. Medications and IVs Current Medications Medications (Trade) Dose Ordered Sig/[place] Route Start Time Stop Time Status Last Admin (Aspirin Chew) 81 mg DAILY CHEW 12/27/16 09:00 01/02/17 08:22 (Colace) 100 mg BID PO 12/26/16 21:00 01/02/17 08:22 (Lexapro) 10 mg DAILY PO 12/27/16 09:00 01/02/17 08:22 (Flonase Philip Spr) 1 spray BID EACH NARE 12/26/16 21:00 01/02/17 08:21 (Breo Ellipta 100-25 Inh) 1 puff DAILY INH 12/27/16 09:00 01/02/17 08:21 (Lasix) 20 mg DAILY PO 12/27/16 09:00 01/02/17 08:22 (Neurontin) 100 mg TID PO 12/27/16 09:00 01/02/17 08:22 ([place] 7.5-325 Mg) 1 tab Q4H PRN PO 12/26/16 18:30 01/02/17 03:35 (Synthroid) 50 mcg DAILY@06 PO 12/27/16 06:00 01/02/17 06:21 (Betapace) 80 mg BID PO 12/26/16 21:00 01/02/17 08:22 (Flomax) 0.4 mg HS PO 12/26/16 21:00 01/01/17 20:22 (Restoril) 7.5 mg HS PO 12/26/16 21:00 01/01/17 20:22 (Protonix) 20 mg DAILY@06 PO 12/27/16 06:00 01/02/17 06:21 (NS Flush) 2 ml UNSCH PRN IV FLUSH 12/26/16 18:30 12/30/16 01:15 (NS Flush) 2 ml BID IV FLUSH 12/26/16 21:00 01/02/17 08:20 (Tylenol) 650 mg Q4H PRN PO 12/26/16 18:30 (Zofran Inj) 4 mg Q6H PRN IVP 12/26/16 18:30 (Milk Of Magnesia Liq) 30 ml Q12H PRN PO 12/26/16 18:30 (Morphine Inj) 4 mg Q3H PRN IV 12/26/16 18:30 12/29/16 08:32 Naloxone HCl 0.4 mg 0.4 mg UNSCH PRN IV 12/26/16 18:30 (Zosyn 3.375 Gm Premix) 50 ml @ 100 mls/hr Q6H IV 12/26/16 20:00 01/02/17 08:18 (D50w (Vial) Inj) 25 ml UNSCH PRN IV PUSH 12/26/16 18:45 (Glucagon Inj) 1 mg UNSCH PRN OTHER 12/26/16 18:45 (Pill Splitter) 1 ea UNSCH PRN OTHER 12/26/16 18:45 (Prinivil) 10 mg DAILY PO 12/27/16 14:00 01/02/17 08:22 Insulin Aspart 5 units 5 units TIDPC SQ 12/28/16 18:30 01/02/17 08:22 Lactated Ringer's 1,000 ml @ 30 mls/hr Q24H PRN IV 12/31/16 03:45 01/03/17 03:44 (Diflucan 100 Mg Premix Bag) 50 ml @ 50 mls/hr Q24H IV 12/31/16 13:00 01/01/17 13:03 (Levemir Inj) 12 units Q12HR SQ 01/01/17 21:00 01/02/17 08:23 A/P Assessment and Plan 1. PAD secondary to DM II with secondary Gangrene to the Left great toe, status post Vascular emr specialist Podiatry specialist consult pending, on empiric IV Zosyn, status post Left AKA 04/10/17, Leukocytosis trending down. 2. Hypothyroidism continue Hormonal replacement 3. Hypertension controlled. 4. Flexion contracture of the left knee 5. Chronic Pain of the left knee 6. UTI occasional budding yeast on Fluconazole x 1, was started on Fluconazole on 12/31 due to worsening Leukocytosis and Fever. Leukocytosis trending down today. 7. COPD stable continue Bronchodilator, Mucolytic and incentive spirometry. 8. Atrial Fibrillation was on Pradaxa before Surgery awaiting final by Vascular surgery to re start Pradaxa. 9. DM II Levemir and sliding scale better control. 10. CKD III stable Creatinine 1.09 11. Chronic Microcytic Anemia hemoglobin low Iron and Low TIBC and Low percent saturation with normal ferritin status post Iron IV infusion and giving by mouth ferrous sulfate. 12. Fever on Empiric Zosyn was not taken Blood cultures on admission or while on Hospitalization was febrile yesterday night will perform blood cultures if continue febrile. DVT prophylaxis as per Vascular emr specialist. Discharge Planning Awaiting final by Vascular surgery center administrator Kevin Owens MD Jan 02, 2017 10:04
[2017-01-02 10:17] LABS: SCAN/DIFF AUTO DIFF CONFIRMED
[2017-01-02] MEDS ORDERED: POTASSIUM CHLORIDE 20 MEQ CONTROLLED RELEASE TAB PO ONE (10:30)
[2017-01-02 11:00] VITALS: BP 141/64; PULSE 60; RESP 17; TEMP 98.5; O2SAT 97
--- NOTE | 2017-01-02 13:08 | PD.VS.PN ---
Subjective Subjective/Hospital Course Pt sitting up in bed without complaints, Alert and in NAD Nurse reported he participated well with Physical Therapy Tolerating diet Objective Vitals/I&O Date Time Temp Pulse Resp B/P Pulse Ox O2 Delivery O2 Flow Rate FiO2 01/02/17 11:00 98.5 60 17 141/64 97 01/02/17 07:50 98.0 60 17 145/60 98 01/02/17 00:00 98.9 62 17 125/61 97 01/01/17 21:23 98 21 01/01/17 20:00 100.3 60 17 133/62 97 01/01/17 16:00 98.6 65 18 148/65 95 01/02/17 01/02/17 01/02/17 07:00 15:00 23:00 Intake Total 240 ml Output Total 248 ml Balance -8 ml Physical Exam left aka stump clean and intact. Laboratory Laboratory Tests Test 01/02/17 07:00 White Blood Count 15.9 Red Blood Count 3.44 Hemoglobin 7.6 Hematocrit 23.8 Mean Corpuscular Volume 69.0 Mean Corpuscular Hemoglobin 21.9 Mean Corpuscular Hemoglobin 31.8 Concent Red Cell Distribution Width 17.2 Platelet Count 455 Mean Platelet Volume 8.6 Neutrophils (%) (Auto) 73.6 Lymphocytes (%) (Auto) 7.5 Monocytes (%) (Auto) 13.5 Eosinophils (%) (Auto) 5.1 Basophils (%) (Auto) 0.3 Neutrophils # (Auto) 11.7 Lymphocytes # (Auto) 1.2 Monocytes # (Auto) 2.2 Eosinophils # (Auto) 0.8 Basophils # (Auto) 0.0 CBC Comment AUTO DIFF Differential Comment AUTO DIFF CONFIRMED Sodium Level 135 Potassium Level 3.6 Chloride Level 99 Carbon Dioxide Level 26.7 Anion Gap 9 Blood Urea Nitrogen 17 Creatinine 1.09 Estimat Glomerular Filtration 65 Rate Random Glucose 149 Calcium Level 8.6 Phosphorus Level 1.9 Magnesium Level 2.0 Total Bilirubin 0.3 Aspartate Amino Transf 15 (AST/SGOT) Alanine Aminotransferase 11 (ALT/SGPT) Alkaline Phosphatase 68 Total Protein 6.3 Albumin 2.0 Date/Time Procedure Status Source Growth 01/01/17 10:50 Urine Culture - Preliminary Resulted Urine Catheterized Urine NO GROWTH IN 24 HOURS. Assessment and Plan Assessment: (1) Peripheral vascular disease due to secondary diabetes mellitus Status: Chronic Plan This is a 81 year old male with a hx of left great toe gangrene and flexion contracture status post left AKA. Plan Continue Physical Therapy Dressing to Left AKA removed. can be changed daily. Can go to rehab from our standpoint. Warren Marrufo DO, FACS Hand Developer of Vascular Surgery /Warren Hopson DO Jan 02, 2017 13:08
[2017-01-02] MEDS: FLUCONAZOLE 100 MG PREMIX BAG 50 ML IV SCH (13:15)
[2017-01-02 16:00] VITALS: BP 132/62; PULSE 60; RESP 18; TEMP 96.6; O2SAT 99
[2017-01-02 20:00] VITALS: BP 152/70; PULSE 65; RESP 20; TEMP 96.7; O2SAT 94
[2017-01-02] MEDS: TAMSULOSIN HCL 0.4 MG CAP PO SCH (21:23)
[2017-01-02] MEDS: TEMAZEPAM 7.5 MG CAP PO SCH (21:23)
[2017-01-02] MEDS: guaiFENesin E.R. 600 MG TAB PO SCH (21:23)
[2017-01-03 00:09] VITALS: BP 153/69; PULSE 60; RESP 19; TEMP 97.7; O2SAT 96
[2017-01-03] MEDS: PIPERACIL-TAZO 3.375 GM PREMIX 50 ML IV SCH ×2 (02:52→08:45)
[2017-01-03 04:40] LABS: BICARBONATE 28.1 MEQ/L (21.0-32.0); POTASSIUM 4.1 MEQ/L (3.5-5.1)
[2017-01-03 04:53] LABS: AUTOMATED NEUTROPHIL # 8.7 TH/MM3 (1.8-7.7); BASOPHIL # 0.1 TH/MM3 (0-0.2); BASOPHIL % 0.5 % (0.0-2.0); EOSINOPHIL % 7.6 % (0.0-4.0); HEMATOCRIT 24.9 % (39.0-51.0); LYMPH % 9.7 % (9.0-44.0); LYMPHOCYTE # 1.2 TH/MM3 (1.0-4.8); MEAN CELL VOLUME 69.2 FL (80.0-100.0); MEAN CORPUSCULAR HEMOGLOBIN 22.3 PG (27.0-34.0); MEAN CORPUSCULAR HGB CONC 32.2 % (32.0-36.0); MONO % 13.1 % (0.0-8.0); NEUT % 69.1 % (16.0-70.0); PLATELET COUNT 499 TH/MM3 (150-450); RED BLOOD COUNT 3.59 MIL/MM3 (4.50-5.90); RED CELL DISTRIBUTION WIDTH 17.1 % (11.6-17.2); WHITE BLOOD COUNT 12.6 TH/MM3 (4.0-11.0)
[2017-01-03 04:59] LABS: HEMO FLAGS AUTO DIFF
[2017-01-03] MEDS: LEVOTHYROXINE SODIUM 50 MCG TAB PO SCH (06:08)
[2017-01-03] MEDS: ACETAMINOPHEN/HYDROcodone 325 MG/7.5 MG TAB PO PRN ×2 (06:08→11:11)
[2017-01-03] MEDS: PANTOPRAZOLE SOD 20 MG DELAYED RELEASE TAB PO SCH (06:08)
[2017-01-03] MEDS: INSULIN ASPART SUPPLEMENTAL SCALE SQ SCH ×2 (06:22→11:12)
[2017-01-03 07:38] LABS: SCAN/DIFF AUTO DIFF CONFIRMED
[2017-01-03 08:00] VITALS: BP 133/61; PULSE 60; RESP 17; TEMP 98.7; O2SAT 96
[2017-01-03] MEDS: ASPIRIN 81 MG CHEW TAB CHEW SCH (08:45)
[2017-01-03] MEDS: SOTALOL HCL 80 MG TAB PO SCH (08:45)
[2017-01-03] MEDS: ESCITALOPRAM OXALATE 10 MG TAB PO SCH (08:45)
[2017-01-03] MEDS: DOCUSATE SODIUM 100 MG CAP PO SCH (08:45)
[2017-01-03] MEDS: guaiFENesin E.R. 600 MG TAB PO SCH (08:45)
[2017-01-03] MEDS: GABAPENTIN 100 MG CAP PO SCH (08:45)
[2017-01-03] MEDS: LISINOPRIL 10 MG TAB PO SCH (08:45)
[2017-01-03] MEDS: INSULIN ASPART 1,000 UNITS/10 ML VIAL SQ SCH (08:46)
[2017-01-03] MEDS: FUROSEMIDE 20 MG TAB PO SCH (08:46)
[2017-01-03] MEDS: FLUTICASONE 100 MCG/VILANTEROL 25 MCG INHALER INH SCH (08:46)
[2017-01-03] MEDS: SODIUM CHLORIDE 0.9% FLUSH 10 ML FLUSH IV FLUSH SCH (08:46)
[2017-01-03] MEDS: INSULIN DETEMIR 100 UNITS/ML VIAL SQ SCH (08:46)
[2017-01-03] MEDS: FLUTICASONE PROPIONATE 50 MCG/ACT 16 GM NASAL SPRAY EACH NARE SCH (08:47)
--- NOTE | 2017-01-03 09:07 | HHI.PR ---
Subjective Remarks This is a pleasant 81 y/o Male with COPD, DM II, Atrial Fibrillation, GERD, Hypothyroidism, PAD, CHF, CAD, BPH, CVA who was sent for left great toe infection. with Gangrene on the left great toe, evaluated by Vascular spine specialist, recommended amputation, status post Left Above Knee amputation POD#2, with Diagnosis of PAD secondary to DM II, the patient already has Chronic left knee pain and has left knee flexion contracture of 90 Degrees, recommended Physical therapy, Dressing to the left AKA to be removed in a few days, seen in his bedroom and discussed with nurse Miss Jennings no nausea, vomit or diarrhea, no fever at this time but will follow closely may need blood cultures 01/03: Seen in his bedroom, no signs of infection, discussed with nurse Miss Silva, also with Reed Dipper, already set for discharge, and [id number] signed, with Diagnosis of Left great toe gangrene and flexion contracture status post Left AKA, recommended to continue Physical Therapy, Dressing to Left AKA removed can be changed daily, Can go to Rehab from Vascular specialist Standpoint, by Doctor Warren Marrufo. No Nausea, vomit or diarrhea, no more Fever will continue by Mouth medicines for five more days. Objective Vital Signs Date Time Temp Pulse Resp B/P Pulse Ox O2 Delivery O2 Flow Rate FiO2 01/03/17 08:00 98.7 60 17 133/61 96 01/03/17 00:09 97.7 60 19 153/69 96 01/02/17 20:00 96.7 65 20 152/70 94 01/02/17 16:00 96.6 60 18 132/62 99 01/02/17 11:00 98.5 60 17 141/64 97 I/O 01/02/17 01/02/17 01/02/17 01/03/17 01/03/17 01/03/17 07:00 15:00 23:00 07:00 15:00 23:00 Intake Total 240 ml 470 ml 240 ml 220 ml 120 ml Output Total 248 ml 400 ml 600 ml 60 ml Balance -8 ml 70 ml -360 ml 160 ml 120 ml Intake Oral 240 ml 320 ml 240 ml 120 ml 120 ml IV Total 150 ml 100 ml Output Urine Total 248 ml 400 ml 600 ml 60 ml # Voids 3 # Bowel Movements 0 0 0 Result Diagram: 01/03/17 0305 01/03/17 0305 Imaging Last Impressions Chest X-Ray 12/26/16 1553 Signed Impressions: Service Date/Time: Monday, December 26, 2016 16:05 - CONCLUSION: Mild basilar parenchymal opacities and likely small effusions Remi Moore MD Procedures Left Above Knee Amputation 12/31/16 Other Results Laboratory Tests Test 12/31/16 01/01/17 01/01/17 01/02/17 10:05 05:04 10:50 07:00 Blood Type O NEGATIVE Antibody Screen NEGATIVE Platelet Estimate HIGH Platelet Morphology Comment NORMAL Ovalocytes 1+ Urine Color YELLOW Urine Turbidity CLOUDY Urine pH 5.5 Urine Specific [place] 1.020 Urine Protein 100 mg/dL Urine Glucose (UA) 70 mg/dL Urine Ketones TRACE mg/dL Urine Occult Blood TRACE Urine Nitrite NEG Urine Bilirubin NEG Urine Urobilinogen LESS THAN 2.0 MG/DL Urine Leukocyte Esterase LARGE Urine RBC 23 /hpf Urine WBC 172 /hpf Urine Squamous Epithelial 1 /hpf Cells Urine Transitional Epithelial <1 /hpf Cells Urine Bacteria OCC /hpf Urine Mucus FEW /lpf Urine Yeast (Budding) OCC Microscopic Urinalysis Comment CATH-CULTURE IND Phosphorus Level 1.9 MG/DL Total Bilirubin 0.3 MG/DL Aspartate Amino Transf 15 U/L (AST/SGOT) Alanine Aminotransferase 11 U/L (ALT/SGPT) Alkaline Phosphatase 68 U/L Total Protein 6.3 GM/DL Albumin 2.0 GM/DL Test 01/03/17 03:05 White Blood Count 12.6 TH/MM3 Red Blood Count 3.59 MIL/MM3 Hemoglobin 8.0 GM/DL Hematocrit 24.9 % Mean Corpuscular Volume 69.2 FL Mean Corpuscular Hemoglobin 22.3 PG Mean Corpuscular Hemoglobin 32.2 % Concent Red Cell Distribution Width 17.1 % Platelet Count 499 TH/MM3 Mean Platelet Volume 8.5 FL Neutrophils (%) (Auto) 69.1 % Lymphocytes (%) (Auto) 9.7 % Monocytes (%) (Auto) 13.1 % Eosinophils (%) (Auto) 7.6 % Basophils (%) (Auto) 0.5 % Neutrophils # (Auto) 8.7 TH/MM3 Lymphocytes # (Auto) 1.2 TH/MM3 Monocytes # (Auto) 1.6 TH/MM3 Eosinophils # (Auto) 1.0 TH/MM3 Basophils # (Auto) 0.1 TH/MM3 CBC Comment AUTO DIFF Differential Comment AUTO DIFF CONFIRMED Sodium Level 135 MEQ/L Potassium Level 4.1 MEQ/L Chloride Level 100 MEQ/L Carbon Dioxide Level 28.1 MEQ/L Anion Gap 7 MEQ/L Blood Urea Nitrogen 14 MG/DL Creatinine 1.07 MG/DL Estimat Glomerular Filtration 67 ML/MIN Rate Random Glucose 165 MG/DL Calcium Level 8.9 MG/DL Magnesium Level 2.0 MG/DL Objective Remarks GENERAL: Well-developed well-nourished. Chronically ill appearing. In no acute distress. SKIN: Warm and dry. Left great toe is below HEENT: Normocephalic. Pupils equal and round. Mucous membranes pink and moist. CARDIOVASCULAR: Regular rate and rhythm. No murmur appreciated. RESPIRATORY: No accessory muscle use. Clear to auscultation. Breath sounds equal bilaterally. GASTROINTESTINAL: Abdomen soft, non-tender, nondistended. Bowel sounds x4. 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 other extremity has no edema and weak pedal pulses. NEUROLOGICAL: Awake and alert. No focal neurological deficits. Moves upper and lower extremities spontaneously. Normal speech. PSYCHIATRIC: Appropriate mood and affect; insight and judgment normal. Medications and IVs Current Medications Medications (Trade) Dose Ordered Sig/[place] Route Start Time Stop Time Status Last Admin (Aspirin Chew) 81 mg DAILY CHEW 12/27/16 09:00 01/03/17 08:45 (Colace) 100 mg BID PO 12/26/16 21:00 01/03/17 08:45 (Lexapro) 10 mg DAILY PO 12/27/16 09:00 01/03/17 08:45 (Flonase Philip Spr) 1 spray BID EACH NARE 12/26/16 21:00 01/03/17 08:47 (Breo Ellipta 100-25 Inh) 1 puff DAILY INH 12/27/16 09:00 01/03/17 08:46 (Lasix) 20 mg DAILY PO 12/27/16 09:00 01/03/17 08:46 (Neurontin) 100 mg TID PO 12/27/16 09:00 01/03/17 08:45 ([place] 7.5-325 Mg) 1 tab Q4H PRN PO 12/26/16 18:30 01/03/17 06:08 (Synthroid) 50 mcg DAILY@06 PO 12/27/16 06:00 01/03/17 06:08 (Betapace) 80 mg BID PO 12/26/16 21:00 01/03/17 08:45 (Flomax) 0.4 mg HS PO 12/26/16 21:00 01/02/17 21:23 (Restoril) 7.5 mg HS PO 12/26/16 21:00 01/02/17 21:23 (Protonix) 20 mg DAILY@06 PO 12/27/16 06:00 01/03/17 06:08 (NS Flush) 2 ml UNSCH PRN IV FLUSH 12/26/16 18:30 12/30/16 01:15 (NS Flush) 2 ml BID IV FLUSH 12/26/16 21:00 01/03/17 08:46 (Tylenol) 650 mg Q4H PRN PO 12/26/16 18:30 (Zofran Inj) 4 mg Q6H PRN IVP 12/26/16 18:30 (Milk Of Magnesia Liq) 30 ml Q12H PRN PO 12/26/16 18:30 (Morphine Inj) 4 mg Q3H PRN IV 12/26/16 18:30 12/29/16 08:32 Naloxone HCl 0.4 mg 0.4 mg UNSCH PRN IV 12/26/16 18:30 (Zosyn 3.375 Gm Premix) 50 ml @ 100 mls/hr Q6H IV 12/26/16 20:00 01/03/17 08:45 (D50w (Vial) Inj) 25 ml UNSCH PRN IV PUSH 12/26/16 18:45 (Glucagon Inj) 1 mg UNSCH PRN OTHER 12/26/16 18:45 (Pill Splitter) 1 ea UNSCH PRN OTHER 12/26/16 18:45 (Prinivil) 10 mg DAILY PO 12/27/16 14:00 01/03/17 08:45 Insulin Aspart 5 units 5 units TIDPC SQ 12/28/16 18:30 01/03/17 08:46 (Diflucan 100 Mg Premix Bag) 50 ml @ 50 mls/hr Q24H IV 12/31/16 13:00 01/02/17 13:15 (Levemir Inj) 12 units Q12HR SQ 01/01/17 21:00 01/03/17 08:46 (Mucinex Er) 600 mg BID PO 01/02/17 21:00 01/03/17 08:45 A/P Assessment and Plan 1. PAD secondary to DM II with secondary Gangrene to the Left great toe, status post Vascular spine specialist Podiatry specialist consult pending, on empiric IV Zosyn, status post Left AKA 12/31/16, Leukocytosis trending down, no signs of infection, will continue by mouth Omnicef and Flagyl for five more days. 2. Hypothyroidism continue Hormonal replacement 3. Hypertension controlled. 4. Flexion contracture of the left knee 5. Chronic Pain of the left knee 6. UTI occasional budding yeast on Fluconazole x 1, was started on Fluconazole on 12/31 due to worsening Leukocytosis and Fever. Leukocytosis trending down today. complete five days of Fluconazole. 7. COPD stable continue Bronchodilator, Mucolytic and incentive spirometry. 8. Atrial Fibrillation was on Pradaxa before Surgery will discharge on Pradaxa. 9. DM II Levemir and sliding scale better control. Increased Levemir to 14 units at bed time. 10. CKD III stable Creatinine 1.09 11. Chronic Microcytic Anemia hemoglobin low Iron and Low TIBC and Low percent saturation with normal ferritin status post Iron IV infusion and giving by mouth ferrous sulfate. 12. Fever on Empiric Zosyn was not taken Blood cultures on admission or while on Hospitalization was febrile No further fever, Leukocytosis probably reactive, but will continue by mouth antibiotics for five days more. DVT prophylaxis Pradaxa Discussed with Patient and nurse Miss Silva and Reed Dipper Talked with his Mrs. Yuly Walker to the phone number [phone] and all questions answered to the best of my abilities. Discharge Planning Discharge To Rehab today. Kevin Owens MD Jan 03, 2017 09:07
[2017-01-03] MEDS ORDERED: METR-1 PO (09:58)
[2017-01-03] MEDS ORDERED: CEFD300C PO (09:58)
[2017-01-03] MEDS ORDERED: NORC5TAB PO (09:58)
[2017-01-03] MEDS ORDERED: DABIGATRAN ETEXILATE 150 MG CAP PO SCH (10:00)
--- NOTE | 2017-01-03 10:01 | HHI.DS ---
Discharge Summary Admission Date Dec 26, 2016 at 18:22 Discharge Date: Jan 03, 2017 Admitting Diagnosis Left great toe gangrenne, diabetes mellitus, (1) Gangrene of toe ICD Code: I96 Diagnosis: Principal (2) Hypothyroidism ICD Code: E03.9 Diagnosis: Secondary (3) HTN (hypertension) ICD Code: I10 Diagnosis: Secondary (4) Flexion contracture of left knee ICD Code: M24.562 Diagnosis: Principal (5) Chronic pain of left knee ICD Code: M25.562 Diagnosis: Principal (6) UTI (urinary tract infection) ICD Code: N39.0 Diagnosis: Principal (7) Peripheral artery disease ICD Code: I73.9 Diagnosis: Principal Procedures Post left [id number] amputation on 12/31/16. Brief History - From Admission 81-year-old male with a past medical history of COPD, DM, A. fib, GERD, hypothyroidism, PVD, CHF, CAD, BPH, CVA who was sent for left great toe infection. The patient has a history of peripheral vascular disease. He has gangrene of his left great toe. Per report, the patient was evaluated by vascular surgery, Dr. Marrufo, as outpatient who recommended admission for possible amputation. The patient states that he's had the gangrene of his left great toe for a couple of months now. He does have pain in the area. He denies any fevers, chills, nausea, vomiting, diarrhea. He denies any urinary complaints. No other issues at this time. He resides at a local [facility]. 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 He is anticoagulated for A. fib. CBC/BMP: 01/03/17 0305 01/03/17 0305 Significant Findings Laboratory Tests Test 01/01/17 01/01/17 01/02/17 01/03/17 05:04 10:50 07:00 03:05 White Blood Count 16.6 TH/MM3 15.9 TH/MM3 12.6 TH/MM3 (4.0-11.0) (4.0-11.0) (4.0-11.0) Red Blood Count 3.45 MIL/MM3 3.44 MIL/MM3 3.59 MIL/MM3 (4.50-5.90) (4.50-5.90) (4.50-5.90) Hemoglobin 8.1 GM/DL 7.6 GM/DL 8.0 GM/DL (13.0-17.0) (13.0-17.0) (13.0-17.0) Hematocrit 23.9 % 23.8 % 24.9 % (39.0-51.0) (39.0-51.0) (39.0-51.0) Mean Corpuscular Volume 69.3 FL 69.0 FL 69.2 FL (80.0-100.0) (80.0-100.0) (80.0-100.0) Mean Corpuscular Hemoglobin 23.6 PG 21.9 PG 22.3 PG (27.0-34.0) (27.0-34.0) (27.0-34.0) Red Cell Distribution Width 17.3 % (11.6-17.2) Neutrophils (%) (Auto) 80.4 % 73.6 % (16.0-70.0) (16.0-70.0) Lymphocytes (%) (Auto) 5.9 % 7.5 % (9.0-44.0) (9.0-44.0) Monocytes (%) (Auto) 12.2 % 13.5 % 13.1 % (0.0-8.0) (0.0-8.0) (0.0-8.0) Neutrophils # (Auto) 13.3 TH/MM3 11.7 TH/MM3 8.7 TH/MM3 (1.8-7.7) (1.8-7.7) (1.8-7.7) Monocytes # (Auto) 2.0 TH/MM3 2.2 TH/MM3 1.6 TH/MM3 (0-0.9) (0-0.9) (0-0.9) Platelet Estimate HIGH (NORMAL) Ovalocytes 1+ (NORMAL) Creatinine 1.40 MG/DL (0.60-1.30) Estimat Glomerular Filtration 49 ML/MIN (>89) 65 ML/MIN (>89) 67 ML/MIN (>89) Rate Random Glucose 191 MG/DL 149 MG/DL 165 MG/DL (74-106) (74-106) (74-106) Urine Turbidity CLOUDY (CLEAR) Urine Protein 100 mg/dL (NEG-TRACE) Urine Glucose (UA) 70 mg/dL (NEG) Urine Ketones TRACE mg/dL (NEG) Urine Occult Blood TRACE (NEG) Urine Leukocyte Esterase LARGE (NEG) Urine RBC 23 /hpf (0-3) Urine WBC 172 /hpf (0-5) Urine Bacteria OCC /hpf (NONE) Urine Mucus FEW /lpf (OCC) Urine Yeast (Budding) OCC (NONE) Mean Corpuscular Hemoglobin 31.8 % Concent (32.0-36.0) Platelet Count 455 TH/MM3 499 TH/MM3 (150-450) (150-450) Eosinophils (%) (Auto) 5.1 % (0.0-4.0) 7.6 % (0.0-4.0) Eosinophils # (Auto) 0.8 TH/MM3 1.0 TH/MM3 (0-0.4) (0-0.4) Sodium Level 135 MEQ/L 135 MEQ/L (136-145) (136-145) Phosphorus Level 1.9 MG/DL (2.5-4.9) Alanine Aminotransferase 11 U/L (12-78) (ALT/SGPT) Total Protein 6.3 GM/DL (6.4-8.2) Albumin 2.0 GM/DL (3.4-5.0) Imaging Last Impressions Chest X-Ray 12/26/16 1553 Signed Impressions: Service Date/Time: Monday, December 26, 2016 16:05 - CONCLUSION: Mild basilar parenchymal opacities and likely small effusions Remi Moore MD PE at Discharge GENERAL: Well-developed well-nourished. Chronically ill appearing. In no acute distress. SKIN: Warm and dry. Left great toe is below HEENT: Normocephalic. Pupils equal and round. Mucous membranes pink and moist. CARDIOVASCULAR: Regular rate and rhythm. No murmur appreciated. RESPIRATORY: No accessory muscle use. Clear to auscultation. Breath sounds equal bilaterally. GASTROINTESTINAL: Abdomen soft, non-tender, nondistended. Bowel sounds x4. 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 other extremity has no edema and weak pedal pulses. NEUROLOGICAL: Awake and alert. No focal neurological deficits. Moves upper and lower extremities spontaneously. Normal speech. PSYCHIATRIC: Appropriate mood and affect; insight and judgment normal. Hospital Course This is a pleasant 81 y/o Male with COPD, DM II, Atrial Fibrillation, GERD, Hypothyroidism, PAD, CHF, CAD, BPH, CVA who was sent for left great toe infection. with Gangrene on the left great toe, evaluated by Vascular material specialist, recommended amputation, status post Left Above Knee amputation POD#2, with Diagnosis of PAD secondary to DM II, the patient already has Chronic left knee pain and has left knee flexion contracture of 90 Degrees, recommended Physical therapy, Dressing to the left AKA to be removed in a few days, seen in his bedroom and discussed with nurse Miss Jennings no nausea, vomit or diarrhea, no fever at this time but will follow closely may need blood cultures 01/03: Seen in his bedroom, no signs of infection, discussed with nurse Miss Silva, also with Facilities Technician, already set for discharge, and [id number] signed, with Diagnosis of Left great toe gangrene and flexion contracture status post Left AKA, recommended to continue Physical Therapy, Dressing to Left AKA removed can be changed daily, Can go to Rehab from Vascular specialist Standpoint, by Doctor Warren Marrufo. No Nausea, vomit or diarrhea, no more Fever will continue by Mouth medicines for five more days. Assessment and Plan 1. PAD secondary to DM II with secondary Gangrene to the Left great toe, status post Vascular material specialist Podiatry specialist consult pending, on empiric IV Zosyn, status post Left AKA 12/31/16, Leukocytosis trending down, no signs of infection, will continue by mouth Omnicef and Flagyl for five more days. 2. Hypothyroidism continue Hormonal replacement 3. Hypertension controlled. 4. Flexion contracture of the left knee 5. Chronic Pain of the left knee 6. UTI occasional budding yeast on Fluconazole x 1, was started on Fluconazole on 12/31 due to worsening Leukocytosis and Fever. Leukocytosis trending down today. complete five days of Fluconazole. 7. COPD stable continue Bronchodilator, Mucolytic and incentive spirometry. 8. Atrial Fibrillation was on Pradaxa before Surgery will discharge on Pradaxa. 9. DM II Levemir and sliding scale better control. Increased Levemir to 14 units at bed time. 10. CKD III stable Creatinine 1.09 11. Chronic Microcytic Anemia hemoglobin low Iron and Low TIBC and Low percent saturation with normal ferritin status post Iron IV infusion and giving by mouth ferrous sulfate. 12. Fever on Empiric Zosyn was not taken Blood cultures on admission or while on Hospitalization was febrile No further fever, Leukocytosis probably reactive, but will continue by mouth antibiotics for five days more. DVT prophylaxis Pradaxa Discussed with Patient and nurse Miss Silva and Facilities Technician Talked with his Mrs. Yuly Walker to the phone number [phone] and all questions answered to the best of my abilities. Discharge Planning Discharge To Rehab today. Pt Condition on Discharge: Good Discharge Disposition: Rehab Inpatient Discharge Time: > 30 minutes Discharge Instructions DIET: Follow Instructions for: Heart Healthy Diet, Diabetic Diet Activities you can perform: Regular-No Restrictions Other Activity Instructions: Follow Physical Therapy recommendations and Vascular material specialist recommendations for Wound care. Kevin Owens MD Jan 03, 2017 10:01
[2017-01-03 11:54] VITALS: BP 150/67; PULSE 60; RESP 18; TEMP 97.4; O2SAT 95
[2017-01-03 12:11] VITALS: RESP 17
--- NOTE | 2017-01-03 12:25 | PD.VS.PN ---
Subjective POD #: 3 Procedure(s): Left Above Knee Amputation Subjective/Hospital Course Pt sitting up in bed without complaints, Alert and in NAD Pt transfer to [facility] Objective Vitals/I&O Date Time Temp Pulse Resp B/P Pulse Ox O2 Delivery O2 Flow Rate FiO2 01/03/17 12:11 17 01/03/17 11:54 97.4 60 18 150/67 95 01/03/17 08:00 98.7 60 17 133/61 96 01/03/17 00:09 97.7 60 19 153/69 96 01/02/17 20:00 96.7 65 20 152/70 94 01/02/17 16:00 96.6 60 18 132/62 99 01/03/17 01/03/17 01/03/17 07:00 15:00 23:00 Intake Total 220 ml 120 ml Output Total 60 ml Balance 160 ml 120 ml Exam: GENERAL: A&OX3, NAD, GCS15 SKIN: Warm and dry. janneth intact to L AKA, No redness, odor, drainage or swelling NECK: Supple, No JVD CARDIOVASCULAR: RRR, +S1,S2 RESPIRATORY: Breath sounds equal and clear bilaterally. No accessory muscle use. MUSCULOSKELETAL: No cyanosis, or edema. BACK: Nontender without obvious deformity. No CVA tenderness. Incisions: Intact with janneth Laboratory Laboratory Tests Test 01/03/17 03:05 White Blood Count 12.6 Red Blood Count 3.59 Hemoglobin 8.0 Hematocrit 24.9 Mean Corpuscular Volume 69.2 Mean Corpuscular Hemoglobin 22.3 Mean Corpuscular Hemoglobin 32.2 Concent Red Cell Distribution Width 17.1 Platelet Count 499 Mean Platelet Volume 8.5 Neutrophils (%) (Auto) 69.1 Lymphocytes (%) (Auto) 9.7 Monocytes (%) (Auto) 13.1 Eosinophils (%) (Auto) 7.6 Basophils (%) (Auto) 0.5 Neutrophils # (Auto) 8.7 Lymphocytes # (Auto) 1.2 Monocytes # (Auto) 1.6 Eosinophils # (Auto) 1.0 Basophils # (Auto) 0.1 CBC Comment AUTO DIFF Differential Comment AUTO DIFF CONFIRMED Sodium Level 135 Potassium Level 4.1 Chloride Level 100 Carbon Dioxide Level 28.1 Anion Gap 7 Blood Urea Nitrogen 14 Creatinine 1.07 Estimat Glomerular Filtration 67 Rate Random Glucose 165 Calcium Level 8.9 Magnesium Level 2.0 Date/Time Procedure Status Source Growth 01/01/17 10:50 Urine Culture - Final Complete Urine Catheterized Urine NO GROWTH IN 48 HOURS. Assessment and Plan Assessment: (1) Peripheral vascular disease due to secondary diabetes mellitus Status: Chronic Plan This is a 81 year old male with a hx of left great toe gangrene and flexion contracture status post left AKA. Plan Continue Physical Therapy OPC to see patient for prosthetic Pt transfer/ [facility] today Will see patient in our OPC for f/u in 1M (01/30/17) Appointment time give to patient Sabine RASMUSSEN [facility]/[place] [phone] Discharge Planning Pt transferred to [facility] today Sabine Dozier Jan 03, 2017 12:25
[2017-01-03] MEDS ORDERED: INSULIN DETEMIR 100 UNITS/ML VIAL SQ SCH (21:00)
[2017-01-10] MEDS ORDERED: FLUT1INH INH (08:22)
[2017-01-10] MEDS ORDERED: MULTCAP13 PO (08:22)
[2017-01-10] MEDS ORDERED: TEMA7.5C9 PO (08:22)
[2017-01-10] MEDS ORDERED: GABA100C4 PO (08:22)
[2017-01-10] MEDS ORDERED: FERR325T PO (08:22)
[2017-01-10] MEDS ORDERED: Aspirin Chew CHEW (08:22)
[2017-01-10] MEDS ORDERED: HYDR-3580 PO (08:22)
[2017-01-10] MEDS ORDERED: LEVEMIR SQ (08:22)
[2017-01-10] MEDS ORDERED: DOCU1CAP39 PO (08:22)
[2017-01-10] MEDS ORDERED: FURO20TA PO (08:22)
[2017-01-10] MEDS ORDERED: LEVO.05 PO (08:22)
[2017-01-10] MEDS ORDERED: ESCI10TA PO (08:22)
[2017-01-10] MEDS ORDERED: OMEP20TA PO (08:22)
[2017-01-10] MEDS ORDERED: TAMS5CAP PO (08:22)
[2017-01-10] MEDS ORDERED: ATOR20TA15 PO (08:22)
[2017-01-10] MEDS ORDERED: NOVOLOGP2 SQ (08:22)
[2017-01-10] MEDS ORDERED: SOTA80 PO (08:22)
[2017-01-10] MEDS ORDERED: PRAD150C PO (08:22)
== END 2017-01-03 12:53 | DRG 240 ==
LOC: NEPE 13:28 → NEDA 18:22 → N07B 21:20
PROVIDERS: ADMIT Internal Medicine; ATTEND Internal Medicine
PROC: 0Y6D0Z3 Detachment at Left Upper Leg, Low, Open Approach (ICD-10-PCS; principal; 2016-12-31 11:03)
DX: E11.52 Type 2 diabetes mellitus with diabetic peripheral angiopathy with gangrene (principal); N39.0 Urinary tract infection, site not specified; E11.22 Type 2 diabetes mellitus with diabetic chronic kidney disease; E11.42 Type 2 diabetes mellitus with diabetic polyneuropathy; I50.9 Heart failure, unspecified; I13.0 Hypertensive heart and chronic kidney disease with heart failure and stage 1 through stage 4 chronic kidney disease, or unspecified chronic kidney disease; I69.354 Hemiplegia and hemiparesis following cerebral infarction affecting left non-dominant side; J44.9 Chronic obstructive pulmonary disease, unspecified; N18.3 Chronic kidney disease, stage 3 (moderate); I48.91 Unspecified atrial fibrillation; I73.9 Peripheral vascular disease, unspecified; Z79.01 Long term (current) use of anticoagulants; M24.562 Contracture, left knee; I25.10 Atherosclerotic heart disease of native coronary artery without angina pectoris; K21.9 Gastro-esophageal reflux disease without esophagitis; E03.9 Hypothyroidism, unspecified; N40.0 Benign prostatic hyperplasia without lower urinary tract symptoms; Z79.4 Long term (current) use of insulin; D50.9 Iron deficiency anemia, unspecified; G47.00 Insomnia, unspecified; F32.9 Major depressive disorder, single episode, unspecified
CPT/HCPCS: 71010; 80048; 80053; 81001; 82728; 82948; 83540; 83550; 83735; 83880; 84100; 85025; 85610; 85730; 86850; 86900; 86901; 87086; 88307; 93005; 94150; 94664; 96374; 96375; J0690; J1450; J1580; J1750; J1815; J2270; J2405; J2543; J2710; J3010; J3370; J7030; J7120

== ENCOUNTER 2017-06-14 21:48 | Inpatient (IN) | payer MEDICARE, OTHER ==
[~2017-06-14] VITALS: Ht 152.4 cm; Wt 106.2 kg
[~2017-06-14 21:48] MED LIST changes: -ASPI81CH7 CHEW; +ATOR20TA15 PO; +Aspirin Chew CHEW; +CEFD300C PO; +DOCU1CAP39 PO; -DULC100C PO; +FERR325T PO; +FLUT50SP EACH NARE; +HYDR-3580 PO; +LEVEMIR SQ; +LEVO.05 PO; -LEVO50TA4 PO; +METR-1 PO; +NORC5TAB PO; +NOVOLOGP2 SQ; +SOTA80 PO; -SOTA80TA6 PO; -TAMS0.4C4 PO; +TAMS5CAP PO; +TEMA7.5C PO; +TEMA7.5C9 PO; -TRAM50TA PO
[2017-06-14 21:55] VITALS: BP 155/65; PULSE 60; RESP 15; TEMP 100.4; O2SAT 99
[2017-06-14] MEDS ORDERED: SODIUM CHLORIDE 0.9% FLUSH 5 ML FLUSH IV FLUSH PRN (22:00)
[2017-06-14 22:08] VITALS: O2SAT 99
--- NOTE | 2017-06-14 22:15 | PD ---
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 According to the paramedics patient was administered D10, for diminished breath sounds and x-ray wheezing 3 updraft treatments with marked improvement of his mentation and respiratory effort and was identified to have a fever. According to carton maker report the rehabilitation/nursing facility had identified patient with altered mental status with blood sugar of 150 normothermic and no respiratory distress. Patient here reports no headache no chest pain no shortness of breath no abdominal pain does complain of buttock pain from "sitting so long". PFSH Past Medical History Narrative Medical atrial fibrillation on Pradaxa COPD diabetes hypothyroidism peripheral vascular disease with left [id number] amputation 12/2016 CHF CAD with stents and pacemaker BPH hypertension dyslipidemia and chronic kidney disease; no tobacco use; nursing notes reviewed Hx Anticoagulant Therapy: Yes Arthritis: Yes Asthma: Yes Atrial Fibrillation: Yes Autoimmune Disease: No Anxiety: Yes Depression: Yes Heart Rhythm Problems: Yes (afib) Cancer: No Cardiovascular Problems: Yes High Cholesterol: No Chemotherapy: No Chest Pain: No Congestive Heart Failure: Yes COPD: Yes Cerebrovascular Accident: Yes Diabetes: Yes Endocrine: Yes GERD: Yes Genitourinary: Yes Hiatal Hernia: No Hypertension: Yes Immune Disorder: No Kidney Stones: Yes Musculoskeletal: Yes Neurologic: Yes Psychiatric: No Reproductive: No Respiratory: Yes Migraines: No Radiation Therapy: No Renal Failure: No Seizures: No Sickle Cell Disease: No Sleep Apnea: Yes Thyroid Disease: Yes (HYPOTHYROIDISM) Ulcer: No Past Surgical History Abdominal Surgery: Yes AICD: No Arteriovenous Shunt: Yes (X4) Cardiac Surgery: Yes (Pacemaker/stents) Ear Surgery: No Endocrine Surgery: No Eye Surgery: Yes Genitourinary Surgery: Yes (KIDNEY STONE REMOVAL) Gynecologic Surgery: No Insulin Pump: No Joint Replacement: No Oral Surgery: No Pacemaker: No Thoracic Surgery: No Social History Alcohol Use: No Tobacco Use: No Substance Use: No Allergies-Medications (Allergen,Severity, Reaction): Coded Allergies: amlodipine (Unverified Adverse Reaction, Severe, Cramping, 05/08/17) leg cramps atorvastatin (Unverified Adverse Reaction, Severe, Cramping, 05/08/17) leg cramps pravastatin (Unverified Adverse Reaction, Severe, Cramping, 05/08/17) leg cramps simvastatin (Unverified Adverse Reaction, Severe, Cramping, 05/08/17) leg cramps Reported Meds & Prescriptions Reported Meds & Active Scripts Active [Aspirin Chew] 81 MG Chew 81 Mg CHEW DAILY Atorvastatin (Atorvastatin Calcium) 20 Mg Tab 20 Mg PO HS Pradaxa (Dabigatran) 150 Mg Cap 150 Mg PO BID Dok (Docusate Sodium) 100 Mg Cap 100 Mg PO BID Escitalopram (Escitalopram Oxalate) 10 Mg Tab 10 Mg PO DAILY Furosemide 20 Mg Tab 20 Mg PO DAILY Hydrocodone-Acetaminophen 7.5-325 mg Tab 1 Tab PO Q4H PRN Synthroid (Levothyroxine Sodium) 50 Mcg Tab 50 Mcg PO DAILY@06 Sorine (Sotalol HCl) 80 Mg Tab 80 Mg PO BID Flomax (Tamsulosin HCl) 0.4 Mg Cap 0.4 Mg PO HS Omeprazole 20 Mg Tab 20 Mg PO DAILY Reported Levemir Inj (Insulin Detemir) 1,000 unit/ 10 ML Vial 22 Units SQ DAILY Do not mix with any other Insulin. Ferrous Sulfate 325 Mg (65 Mg Iron) Tablet 325 Mg PO DAILY Levemir Inj (Insulin Detemir) 1,000 unit/ 10 ML Vial 10 Units SQ HS Do not mix with any other Insulin. Ammonium Lactate (Lactic Acid (Ammonium Lactate)) 12% Lotn 1 Applic TOPICAL BID Ranitidine (Ranitidine HCl) 150 Mg Tab 150 Mg PO BID Temazepam 15 Mg Cap 15 Mg PO HS PRN Amlodipine (Amlodipine Besylate) 2.5 Mg Tab 2.5 Mg PO BID Miralax Powder (Polyethylene Glycol 3350 Powder) 17 Gm Powd 17 Gm PO DAILY Mix and dissolve one measuring cap-ful (17 grams) in water or juice. Culturelle (Lactobacillus Rhamnosus (GG)) 10 Billion Cell Cap 1.5 Cap PO DAILY Symbicort Inh (Budesonide/Formoterol Fumarate) 160-4.5 Mcg/Act Aero 1 Puff INH Q12HR [robitussin DM] 10 Ml PO Q6HR PRN Gabapentin 100 Mg Cap 100 Mg PO TID Duoneb (Ipratropium-Albuterol Neb) 0.5-2.5 Mg/3 Ml Neb 1 Nebule INH Q4HR NEB Novolog Flexpen Inj (Insulin Aspart) 300 Unit/3 Ml Pen 1 Units SQ Mucinex DM (Dextromethorphan-Guaifenesin) 30-600 Mg Tab 2 Tab PO BID PRN Review of Systems Except as stated in HPI: all other systems reviewed are Neg General / Constitutional: Positive: Fever, Chills HENT: No: Congestion Cardiovascular: No: Chest Pain or Discomfort Respiratory: No: Cough, Shortness of Breath Gastrointestinal: No: Vomiting, Diarrhea, Abdominal Pain Genitourinary: No: Flank Pain Musculoskeletal: No: Pain Skin: No Rash Neurologic: Positive: Weakness, No: Dizziness, Syncope, Focal Abnormalities, Coordination Problem Psychiatric: No: Anxiety Hematologic/Lymphatic: No: Lymph Node Enlargement Physical Exam Narrative GENERAL: Well-developed elderly male receiving updraft treatment GCS 15 SKIN: Warm and dry. HEAD: Atraumatic. Normocephalic. EYES: Pupils equal and round. No scleral icterus. No injection or drainage. Conjunctival pallor. ENT: No nasal bleeding or discharge. Mucous membranes pink and moist. Airway is patent. NECK: Trachea midline. No JVD. Supple. CARDIOVASCULAR: Regular rate and rhythm. RESPIRATORY: No accessory muscle use. Clear to auscultation. Breath sounds equal bilaterally few expiratory wheezes. GASTROINTESTINAL: Abdomen soft, non-tender, nondistended. Hepatic and splenic margins not palpable. MUSCULOSKELETAL: Extremities without clubbing, cyanosis, or edema. No obvious deformities. Left AKA with well-healed stump. NEUROLOGICAL: Awake and alert. No obvious cranial nerve deficits. Motor grossly within normal limits. Five out of 5 muscle strength in the arms and legs. Normal speech. PSYCHIATRIC: Appropriate mood and affect. Data Data Last Documented VS Vital Signs Date Time Temp Pulse Resp B/P (MAP) Pulse Ox O2 Delivery O2 Flow Rate FiO2 06/14/17 23:25 98.7 76 20 129/56 (80) 95 Room Air 06/14/17 22:08 6.00 Orders Orders Electrocardiogram (06/14/17 21:58) Ammonia (06/14/17 21:58) Complete Blood Count With Diff (06/14/17 21:58) Comprehensive Metabolic Panel (06/14/17 21:58) Creatine Kinase (Cpk) (06/14/17 21:58) Prothrombin Time / Inr (Pt) (06/14/17 21:58) Act Partial Throm Time (Ptt) (06/14/17 21:58) Troponin I (06/14/17 21:58) Thyroid Stimulating Hormone (06/14/17 21:58) Urinalysis - C+S If Indicated (06/14/17 21:58) Lactic Acid Sepsis Protocol (06/14/17 21:58) Blood Culture (06/14/17 21:58) Chest, Single Ap (06/14/17 21:58) Ct Brain W/O Iv Contrast(Rout) (06/14/17 21:58) Blood Glucose (06/14/17 21:58) Ecg Monitoring (06/14/17 21:58) Iv Access Insert/Monitor (06/14/17 21:58) Oximetry (06/14/17 21:58) Sodium Chloride 0.9% Flush (Ns Flush) (06/14/17 22:00) B-Type Natriuretic Peptide (06/14/17 21:58) Acetaminophen (Tylenol) (06/14/17 22:30) Piperacil-Tazo 4.5 Gm Premix (Zosyn 4.5 (06/14/17 22:30) Albuterol-Ipratropium Neb (Duoneb Neb) (06/15/17 01:30) Methylprednisolone So Succ Inj (Solumedr (06/15/17 01:30) Methylprednisolone So Succ Inj (Solumedr (06/15/17 06:00) Albuterol-Ipratropium Neb (Duoneb Neb) (06/15/17 08:00) Albuterol-Ipratropium Neb (Duoneb Neb) (06/15/17 02:30) Vancomycin Consult Pharmacy (Vancomycin (06/15/17 02:30) Piperacil-Tazo 3.375 Gm Premix (Zosyn 3. (06/15/17 04:00) Bedside Glucose WILLIAMS.CSUGAR (06/15/17 02:19) Blood Glucose Goal (Criteria) (06/15/17 02:19) Hypoglycemia 70 Mg/Dl Or < (06/15/17 02:19) Notify Dr: Other (06/15/17 02:19) Dextrose 50% In Mati (Vial) Inj (D50w (Vi (06/15/17 02:30) Glucagon Inj (Glucagon Inj) (06/15/17 02:30) Insulin Aspart Supplemtl Scale (Novolog (06/15/17 08:00) Admit To Inpatient (06/15/17 ) Vital Signs (Adult) Q4H (06/15/17 02:19) Activity Oob With Assistance (06/15/17 02:19) Manager Ship / Telemetry .CONTINUOUS (06/15/17 02:19) Intake + Output WILLIAMS.QSHIFT (06/15/17 02:19) Diet 1800 Ada Cons Carb (06/15/17 Breakfast) Sodium Chlor 0.9% 1000 Ml Inj (Ns 1000 M (06/15/17 02:19) Sodium Chloride 0.9% Flush (Ns Flush) (06/15/17 02:30) Sodium Chloride 0.9% Flush (Ns Flush) (06/15/17 09:00) Ondansetron Inj (Zofran Inj) (06/15/17 02:30) Comprehensive Metabolic Panel (06/16/17 06:00) Complete Blood Count With Diff (06/16/17 06:00) Pharmacologic Contraindication (06/15/17 02:19) Acetaminophen (Tylenol) (06/15/17 02:30) Acetamin-Hydrocod 325-5 Mg ([place] 5-325 (06/15/17 02:30) Morphine Inj (Morphine Inj) (06/15/17 02:30) Docusate Sodium-Senna (Macie-Colace) (06/15/17 09:00) Magnesium Hydroxide Liq (Milk Of Magnesi (06/15/17 02:30) Sennosides (Senokot) (06/15/17 02:30) Bisacodyl Supp (Dulcolax Supp) (06/15/17 02:30) Lactulose Liq (Lactulose Liq) (06/15/17 02:30) Inpatient Certification (06/15/17 ) Budeson-Formot 160-4.5 Mg Inh (Symbicort (06/15/17 09:00) Dabigatran (Pradaxa) (06/15/17 09:00) Escitalopram (Lexapro) (06/15/17 09:00) Furosemide (Lasix) (06/15/17 09:00) Gabapentin (Neurontin) (06/15/17 09:00) Levothyroxine (Synthroid) (06/15/17 06:00) Sotalol (Betapace) (06/15/17 09:00) Tamsulosin (Flomax) (06/15/17 21:00) Temazepam (Restoril) (06/15/17 02:30) Pantoprazole (Protonix) (06/15/17 09:00) Aspirin Chew (Aspirin Chew) (06/15/17 09:00) Admit Order (Ed Use Only) (06/15/17 ) ^ Saline Lock (06/15/17 02:37) Resp Oxygen Philip C Titrat 1-4 L (06/15/17 ) Notify Dr: Other (06/15/17 02:37) Sodium Chloride 0.9% Flush (Ns Flush) (06/15/17 09:00) Sodium Chloride 0.9% Flush (Ns Flush) (06/15/17 02:45) Labs Laboratory Tests Test 06/14/17 22:05 06/15/17 02:15 White Blood Count 20.6 TH/MM3 Red Blood Count 4.22 MIL/MM3 Hemoglobin 10.3 GM/DL Hematocrit 31.0 % Mean Corpuscular Volume 73.6 FL Mean Corpuscular Hemoglobin 24.4 PG Mean Corpuscular Hemoglobin Concent 33.2 % Red Cell Distribution Width 16.3 % Platelet Count 285 TH/MM3 Mean Platelet Volume 9.3 FL Neutrophils (%) (Auto) 77.4 % Lymphocytes (%) (Auto) 4.9 % Monocytes (%) (Auto) 15.7 % Eosinophils (%) (Auto) 1.6 % Basophils (%) (Auto) 0.4 % Neutrophils # (Auto) 15.9 TH/MM3 Lymphocytes # (Auto) 1.0 TH/MM3 Monocytes # (Auto) 3.2 TH/MM3 Eosinophils # (Auto) 0.3 TH/MM3 Basophils # (Auto) 0.1 TH/MM3 CBC Comment AUTO DIFF Differential Total Cells Counted 100 Neutrophils % (Manual) 84 % Lymphocytes % 1 % Monocytes % 11 % Eosinophils % 4 % Neutrophils # (Manual) 17.3 TH/MM3 Differential Comment FINAL DIFF MANUAL Platelet Estimate NORMAL Platelet Morphology Comment NORMAL Ovalocytes 1+ Prothrombin Time 17.8 SEC Prothromb Time International Ratio 1.6 RATIO Activated Partial Thromboplast Time 62.3 SEC Blood Urea Nitrogen 26 MG/DL Creatinine 1.42 MG/DL Random Glucose 121 MG/DL Total Protein 7.1 GM/DL Albumin 3.2 GM/DL Calcium Level 8.4 MG/DL Alkaline Phosphatase 113 U/L Aspartate Amino Transf (AST/SGOT) 9 U/L Alanine Aminotransferase (ALT/SGPT) 14 U/L Total Bilirubin 0.3 MG/DL Sodium Level 138 MEQ/L Potassium Level 4.2 MEQ/L Chloride Level 103 MEQ/L Carbon Dioxide Level 28.2 MEQ/L Anion Gap 7 MEQ/L Estimat Glomerular Filtration Rate 48 ML/MIN Lactic Acid Level 1.4 mmol/L Ammonia 24 MCMOL/L Total Creatine Kinase 42 U/L Troponin I 0.02 NG/ML B-Type Natriuretic Peptide 214 PG/ML Thyroid Stimulating Hormone 3rd Gen 1.800 uIU/ML Urine Color YELLOW Urine Turbidity HAZY Urine pH 6.5 Urine Specific [place] 1.017 Urine Protein 30 mg/dL Urine Glucose (UA) NEG mg/dL Urine Ketones NEG mg/dL Urine Occult Blood MOD Urine Nitrite POS Urine Bilirubin NEG Urine Urobilinogen LESS THAN 2.0 MG/DL Urine Leukocyte Esterase LARGE Urine RBC 29 /hpf Urine WBC /hpf Urine WBC Clumps MANY Urine Squamous Epithelial Cells <1 /hpf Microscopic Urinalysis Comment CATH-CULTURE IND MDM Medical Decision Making Medical Screen Exam Complete: Yes Emergency Medical Condition: Yes Medical Record Reviewed: Yes Interpretation(s) EKG: Rate 60 electronic atrial paced rhythm evidence of anterior AR age- indeterminate with QS in V1 through V3 nonspecific lateral T-wave flattening no acute ST elevation or ectopy noted CXR: bilateral patchy infiltrates Last Impressions Head CT 06/14/174 Signed Impressions: Service Date/Time: Wednesday, June 14, 2017 22:08 - CONCLUSION: 1. Mild periventricular and subcortical white matter small vessel ischemic changes bilaterally. 2. Mild cerebral atrophy. 3. No acute infarct, acute hemorrhage, mass effect or extraaxial fluid collections. Rick Shrestha MD CBC & BMP Diagram 06/14/17 22:05 Total Protein 7.1, Albumin 3.2 L, Calcium Level 8.4 L, Alkaline Phosphatase 113 , Aspartate Amino Transf (AST/SGOT) 9 L, Alanine Aminotransferase (ALT/SGPT) 14 , Total Bilirubin 0.3 Differential Diagnosis Altered mental status, hypoglycemia, seizure, sepsis, pneumonia, aspiration, UTI , ICH Narrative Course Patient placed on electronic device monitor and pulse oximetry with ongoing IV access and specimens collected and sent for resulting patient administered IV antibiotics had received updraft treatments ongoing updrafts treatment; patient clinically improved with GCS 15 alert awake and oriented to person and events. Patient resting comfortably waiting on labs additional updraft administered marked leukocytosis; lactic not elevated; ongoing renal insufficiency; refusing quick cath urine specimen to be collected patient for admission discussed with [facility] for ongoing iv antibiotics; management of hypoglycemia and medication adjustments; suspect patient with uti as well as patchy pneumonia with copd Sepsis Criteria SIRS Criteria (2 or more): Heart rate over 90, WBC > 13137, < 4000 or > 10% bands Sepsis Criteria (SIRS+source): Infect source susp/known (lung; Urin e pending suspect UTI) Physician Communication Physician Communication discussed with DR Hsieh for admission Diagnosis Primary Impression: Sepsis Additional Impressions: Hypoglycemia COPD (chronic obstructive pulmonary disease) PNA (pneumonia) Admitting Information Admitting Physician Requests: Admit Haylee Davidson MD Jun 14, 2017 22:15
[2017-06-14] MEDS ORDERED: ACETAMINOPHEN 325 MG TAB PO ONE (22:30)
[2017-06-14] MEDS ORDERED: PIPERACIL-TAZO 4.5 GM PREMIX 100 ML IV ONE (22:30)
[2017-06-14] MEDS ORDERED: SYMB160A INH (22:32)
[2017-06-14] MEDS ORDERED: MIRA3350 PO (22:32)
[2017-06-14] MEDS ORDERED: AMMO12LO TOPICAL (22:32)
[2017-06-14] MEDS ORDERED: AMLO2.5T PO (22:32)
[2017-06-14] MEDS ORDERED: ROBITUSSIN DM PO (22:32)
[2017-06-14] MEDS ORDERED: CULT10CA4 PO (22:32)
[2017-06-14] MEDS ORDERED: TEMA15CA PO (22:32)
[2017-06-14] MEDS ORDERED: RANI150T PO (22:32)
[2017-06-14] MEDS ORDERED: LEVEMIR SQ ×2 (22:32→22:37)
--- NOTE | 2017-06-14 22:35 | RADRPT ---
EXAM DATE/TIME: 06/14/2017 22:08 [place] COMPARISON: No previous studies available for comparison. INDICATIONS : Altered mental status. RADIATION DOSE: 56.35 CTDIvol (mGy) MEDICAL HISTORY : Non-responsive. SURGICAL HISTORY : Non-responsive. ENCOUNTER: Initial ACUITY: 1 day PAIN SCALE: Non-responsive LOCATION: cranial TECHNIQUE: Multiple contiguous axial images were obtained of the head. Using automated exposure control and adj ustment of the mA and/or kV according to patient size, radiation dose was kept as low as reasonably a chievable to obtain optimal diagnostic quality images. DICOM format image data is available electro nically for review and comparison. FINDINGS: Mild cerebral atrophy is noted. Mild periventricular and subcortical white matter small vessel ische jennifer changes are noted bilaterally. There is no acute infarct, acute hemorrhage, mass effect or extraaxial fluid collections. The bone windows are unremarkable. CONCLUSION: 1. Mild periventricular and subcortical white matter small vessel ischemic changes bilaterally. 2. Mild cerebral atrophy. 3. No acute infarct, acute hemorrhage, mass effect or extraaxial fluid collections. Rick Shrestha MD on June 14, 2017 at 22:23 Board Certified Radiologist. This report was verified electronically.
[2017-06-14] MEDS ORDERED: FERR325T8 PO (22:37)
[2017-06-14 22:49] LABS: ALT (GPT) 14 U/L (12-78); ANION GAP 7 MEQ/L (5-15); AST (GOT) 9 U/L (15-37); BICARBONATE 28.2 MEQ/L (21.0-32.0); BLOOD UREA NITROGEN 26 MG/DL (7-18); CHLORIDE 103 MEQ/L (98-107); GLOMERULAR FILTRATION RATE 48 ML/MIN (>89); POTASSIUM 4.2 MEQ/L (3.5-5.1); SODIUM (NA) 138 MEQ/L (136-145)
[2017-06-14 22:55] LABS: AUTOMATED NEUTROPHIL # 15.9 TH/MM3 (1.8-7.7); BASOPHIL # 0.1 TH/MM3 (0-0.2); BASOPHIL % 0.4 % (0.0-2.0); EOSINOPHIL # 0.3 TH/MM3 (0-0.4); EOSINOPHIL % 1.6 % (0.0-4.0); LYMPH % 4.9 % (9.0-44.0); MEAN CELL VOLUME 73.6 FL (80.0-100.0); MEAN CORPUSCULAR HEMOGLOBIN 24.4 PG (27.0-34.0); MEAN CORPUSCULAR HGB CONC 33.2 % (32.0-36.0); MONO % 15.7 % (0.0-8.0); NEUT % 77.4 % (16.0-70.0); PLATELET COUNT 285 TH/MM3 (150-450); RED BLOOD COUNT 4.22 MIL/MM3 (4.50-5.90); RED CELL DISTRIBUTION WIDTH 16.3 % (11.6-17.2); WHITE BLOOD COUNT 20.6 TH/MM3 (4.0-11.0)
[2017-06-14 22:56] LABS: HEMO FLAGS AUTO DIFF
[2017-06-14 22:59] LABS: ALKALINE PHOSPHATASE 113 U/L (45-117); TOTAL BILIRUBIN ADULT 0.3 MG/DL (0.2-1.0)
[2017-06-14 23:00] LABS: APTT (PATIENT) 62.3 SEC (24.3-30.1); INTERNATIONAL NORMALIZED RATIO 1.6 RATIO; PROTHROMBIN TIME - PATIENT 17.8 SEC (9.8-11.6)
[2017-06-14 23:11] LABS: CREATINE KINASE 42 U/L (39-308)
[2017-06-14 23:25] VITALS: BP 129/56; PULSE 76; RESP 20; TEMP 98.7; O2SAT 95
[2017-06-15] VITALS (12 sets, daily range): BP systolic 144–166; BP diastolic 64–74; PULSE 60–69; RESP 16–20; TEMP 98–98.9; O2SAT 93–97
[2017-06-15 00:23] LABS: EOSINOPHILS 4 % (0-4); NEUTROPHIL # MANUAL DIFF 17.3 TH/MM3 (1.8-7.7); POLYS (SEG NEUTROPHILS) 84 % (16-70); WBC DIFF SAMPLE 100
[2017-06-15 00:24] LABS: OVALOCYTES 1+ (NORMAL); PLATELET ESTIMATE SMEAR NORMAL (NORMAL); PLATELET MORPHOLOGY NORMAL (NORMAL); SCAN/DIFF FINAL DIFF MANUAL
[2017-06-15] MEDS ORDERED: methylPREDNISolone SOD SUCC 125 MG/2 ML VIAL IV PUSH ONE (01:30)
[2017-06-15] MEDS ORDERED: RESP: ALBUTEROL 2.5 MG/IPRATROPIUM 0.5 MG NEB (SCH) NEB ONE (01:30)
[2017-06-15] MEDS ORDERED: MAGNESIUM HYDROXIDE SUSP 30 ML CUP PO PRN (02:30)
[2017-06-15] MEDS ORDERED: DEXTROSE 50% IN WATER 50 ML VIAL(D50) IV PUSH PRN (02:30)
[2017-06-15] MEDS ORDERED: SODIUM CHLORIDE 0.9% FLUSH 10 ML FLUSH IV FLUSH PRN (02:30)
[2017-06-15] MEDS ORDERED: ACETAMINOPHEN 325 MG TAB PO PRN (02:30)
[2017-06-15] MEDS ORDERED: LACTULOSE SYRUP 20 GM/30 ML CUP PO PRN (02:30)
[2017-06-15] MEDS ORDERED: RESP: ALBUTEROL 2.5 MG/IPRATROPIUM 0.5 MG NEB (PRN) NEB (02:30)
[2017-06-15] MEDS ORDERED: BISACODYL 10 MG SUPP RECTAL PRN (02:30)
[2017-06-15] MEDS ORDERED: GLUCAGON 1 MG/ML VIAL OTHER PRN (02:30)
[2017-06-15] MEDS ORDERED: MORPHINE SULFATE 4 MG/ML INJ IV PUSH PRN (02:30)
[2017-06-15] MEDS ORDERED: SENNOSIDES 8.6 MG TAB PO PRN (02:30)
[2017-06-15] MEDS ORDERED: Vancomycin Consult Pharmacy 1 EA OTHER SCH (02:30)
[2017-06-15] MEDS ORDERED: SODIUM CHLORIDE 0.9% FLUSH 10 ML FLUSH IVF PRN (02:45)
--- NOTE | 2017-06-15 02:45 | HHI.HP ---
HPI Service [facility] Primary Care Physician Unknown Admission Diagnosis Diagnoses: (1) Encephalopathy Diagnosis: Principal (2) Sepsis Diagnosis: Principal (3) PNA (pneumonia) Diagnosis: Principal (4) COPD (chronic obstructive pulmonary disease) Diagnosis: Principal (5) Hypoglycemia Diagnosis: Principal (6) DM (diabetes mellitus) Diagnosis: Principal (7) CEDRIC (acute kidney injury) Diagnosis: Principal (8) A-fib Diagnosis: Principal Travel History International Travel<30 Days: No Contact w/Intl Traveler <30 Da: No Traveled to Known Affected Are: No History of Present Illness This is a 81-year-old male with a PMH of HTN, A. fib on Pradaxa, COPD, Sleep Apnea on CPAP, CAD, BPH and PVD who is brought to the ER by EMS secondary to AMS. Per records, patient sent from [facility] secondary to lethargy. Upon EMS arrival, pt noted to have BS 40's s/p D10 and wheezing s/p DuoNeb. GCS 15 by the time he arrived to ER. Pt currently without any complaints. Denies fever, chills, cough, chest pain, nausea, vomiting or diarrhea. On arrival, BP 155/65 , HR 60, O2 sat 99% on 6L NC, Temp 100.4. Currently O2 sat 95% on RA. WBC 20.6 with elevated neutrophil count. Creatinine 1.42, previously 1.04 on . Lactic Acid normal at 1.4. BNP 214. Troponin negative. Ammonia normal. INR 1.6. UA pending. CT Head with no acute findings. CXR with likely basilar infiltrate. S/p Blood Culture and Zosyn IV in ER. Review of Systems Except as stated in HPI: all other systems reviewed are Neg ROS: 14 point review of systems otherwise negative. Past Family Social History Past Medical History PMH: HTN, A. fib on Pradaxa, COPD, Sleep Apnea on CPAP, CAD, BPH and PVD Past Surgical History PAST SURGICAL HISTORY: Pacemaker, Cardiac Stent, Lithotripsy, Left AKA Allergies: Coded Allergies: amlodipine (Unverified Adverse Reaction, Severe, Cramping, 05/08/17) leg cramps atorvastatin (Unverified Adverse Reaction, Severe, Cramping, 05/08/17) leg cramps pravastatin (Unverified Adverse Reaction, Severe, Cramping, 05/08/17) leg cramps simvastatin (Unverified Adverse Reaction, Severe, Cramping, 05/08/17) leg cramps Family History PAST FAMILY HISTORY: Reviewed. No h/o DM or CAD Social History PAST SOCIAL HISTORY: Negative for alcohol, tobacco or drugs. Physical Exam Vital Signs Vital Signs Date Time Temp Pulse Resp B/P (MAP) Pulse Ox O2 Delivery O2 Flow Rate FiO2 06/14/17 23:25 98.7 76 20 129/56 (80) 95 Room Air 06/14/17 22:08 99 Nasal Cannula 6.00 06/14/17 22:00 99 Nasal Cannula 6.00 06/14/17 21:55 100.4 60 15 155/65 (95) 99 Physical Exam PE: GENERAL: Elderly white male in no acute distress. HEENT: PERRLA, EOMI. No scleral icterus or conjunctival pallor. No lid lag or facial droop. CARDIOVASCULAR: Regular rate and rhythm. No obvious murmurs to auscultation. No chest tenderness to palpation. RESPIRATORY: No obvious rhonchi. Occasional expiratory wheezing. Clear to auscultation. Breath sounds equal bilaterally. GASTROINTESTINAL: Abdomen soft, non-tender, nondistended. BS normal. MUSCULOSKELETAL: Extremities without clubbing, cyanosis, or edema. No obvious deformities. Left AKA, well healed. NEUROLOGICAL: Awake, alert and oriented x4. No focal neurologic deficits. Moving both upper and lower extremities spontaneously. Laboratory Laboratory Tests Test 06/14/17 22:05 White Blood Count 20.6 Red Blood Count 4.22 Hemoglobin 10.3 Hematocrit 31.0 Mean Corpuscular Volume 73.6 Mean Corpuscular Hemoglobin 24.4 Mean Corpuscular Hemoglobin Concent 33.2 Red Cell Distribution Width 16.3 Platelet Count 285 Mean Platelet Volume 9.3 Neutrophils (%) (Auto) 77.4 Lymphocytes (%) (Auto) 4.9 Monocytes (%) (Auto) 15.7 Eosinophils (%) (Auto) 1.6 Basophils (%) (Auto) 0.4 Neutrophils # (Auto) 15.9 Lymphocytes # (Auto) 1.0 Monocytes # (Auto) 3.2 Eosinophils # (Auto) 0.3 Basophils # (Auto) 0.1 CBC Comment AUTO DIFF Differential Total Cells Counted 100 Neutrophils % (Manual) 84 Lymphocytes % 1 Monocytes % 11 Eosinophils % 4 Neutrophils # (Manual) 17.3 Differential Comment FINAL DIFF MANUAL Platelet Estimate NORMAL Platelet Morphology Comment NORMAL Ovalocytes 1+ Prothrombin Time 17.8 Prothromb Time International Ratio 1.6 Activated Partial Thromboplast Time 62.3 Blood Urea Nitrogen 26 Creatinine 1.42 Random Glucose 121 Total Protein 7.1 Albumin 3.2 Calcium Level 8.4 Alkaline Phosphatase 113 Aspartate Amino Transf (AST/SGOT) 9 Alanine Aminotransferase (ALT/SGPT) 14 Total Bilirubin 0.3 Sodium Level 138 Potassium Level 4.2 Chloride Level 103 Carbon Dioxide Level 28.2 Anion Gap 7 Estimat Glomerular Filtration Rate 48 Lactic Acid Level 1.4 Ammonia 24 Total Creatine Kinase 42 Troponin I 0.02 B-Type Natriuretic Peptide 214 Thyroid Stimulating Hormone 3rd Gen 1.800 Date/Time Source Procedure Growth Status 06/14/17 22:10 Blood Peripheral Aerobic Blood Culture Pending Received 06/14/17 22:10 Blood Peripheral Anaerobic Blood Culture Pending Received Result Diagram: 06/14/17220406/14/172204 Caprini VTE Risk Assessment Caprini VTE Risk Assessment: Mod/High Risk (score >= 2) Caprini Risk Assessment Model Point Value = 1 Point Value = 2 Point Value = 3 Point Value = 5 Age 41-60 Minor surgery BMI > 25 kg/m2 Swollen legs Varicose veins or History of unexplained or recurrent spontaneous Oral contraceptives or hormone replacement Sepsis (< 1 month) Serious lung disease, including pneumonia (< 1 month) Abnormal pulmonary function Acute myocardial infarction Congestive heart failure (< 1 month) History of inflammatory bowel disease Medical patient at bed rest Age 61-74 Arthroscopic surgery Major open surgery (> 45 min) Laparoscopic surgery (> 45 min) Malignancy Confined to bed (> 72 hours) Immobilizing plaster cast Central venous access Age >= 75 History of VTE Family history of VTE Factor V Leiden Prothrombin [id number] Lupus anticoagulant Anticardiolipin antibodies Elevated serum homocysteine Heparin-induced thrombocytopenia Other congenital or acquired thrombophilia Stroke (< 1 month) Elective arthroplasty Hip, pelvis, or leg fracture Acute spinal cord injury (< 1 month) Prophylaxis Regimen Total Risk Factor Score Risk Level Prophylaxis Regimen 0-1 Low Early ambulation 2 Moderate Order ONE of the following: *Sequential Compression Device (SCD) *Heparin 5000 units SQ BID 3-4 Higher Order ONE of the following medications: *Heparin 5000 units SQ TID *Enoxaparin/Lovenox 40 mg SQ daily (WT < 150 kg, CrCl > 30 mL/min) *Enoxaparin/Lovenox 30 mg SQ daily (WT < 150 kg, CrCl > 10-29 mL/min) *Enoxaparin/Lovenox 30 mg SQ BID (WT < 150 kg, CrCl > 30 mL/min) AND/OR *Sequential Compression Device (SCD) 5 or more Highest Order ONE of the following medications: *Heparin 5000 units SQ TID (Preferred with Epidurals) *Enoxaparin/Lovenox 40 mg SQ daily (WT < 150 kg, CrCl > 30 mL/min) *Enoxaparin/Lovenox 30 mg SQ daily (WT < 150 kg, CrCl > 10-29 mL/min) *Enoxaparin/Lovenox 30 mg SQ BID (WT < 150 kg, CrCl > 30 mL/min) AND *Sequential Compression Device (SCD) Assessment and Plan Problem List: (1) Encephalopathy ICD Code: G93.40 - Encephalopathy, unspecified (2) Sepsis ICD Code: A41.9 - Sepsis, unspecified organism (3) PNA (pneumonia) ICD Code: J18.9 - Pneumonia, unspecified organism (4) COPD (chronic obstructive pulmonary disease) ICD Code: J44.9 - Chronic obstructive pulmonary disease, unspecified Status: Chronic (5) Hypoglycemia ICD Code: E16.2 - Hypoglycemia, unspecified (6) DM (diabetes mellitus) ICD Code: E11.9 - Type 2 diabetes mellitus without complications (7) CEDRIC (acute kidney injury) ICD Code: N17.9 - Acute kidney failure, unspecified (8) A-fib ICD Code: I48.91 - Unspecified atrial fibrillation Assessment and Plan A/P: 1. Encephalopathy: Resolved. AMS while at SNF, likely multifactorial- secondary to hypoglycemia and acute sepsis. GCS [address] Head w/ no acute findings, images reviewed by me. 2. Sepsis: Temp 100.4, WBC 20, Source-PNA, possible UTI. S/p Blood Cultures and Zosyn in ER. Follow up cultures, continue w/ Zosyn, add Vanc. Follow up U/ a for possible UTI. 3. PNA: CXR w/ basilar infiltrate, per SNF records pt w/ recent treatment for PNA, unclear which antibiotics given and end of treatment. S/p Zosyn in ER, continue w/ IV Abx as above. 4. COPD: Chronic Respiratory Failure w/ Acute Exacerbation. Severe. O2 sat 99% on 6L NC on arrival, +wheezing on exam, s/p Solu-Medrol and DuoNeb w/ improvement. O2 sat currently 95% on RA. Continue DuoNeb, Solu-Medrol, resume home Symbicort. 5. Hypoglycemia: Resolved. BS 40's per EMS, s/p D10 en route, BS currently 121. Hold home Insulin. Sliding scale w/ Accu-Cheks. Resume home medications once BS stabilized and Sepsis resolved. 6. DM: Hgb A1c 8.0 on 01/04/17. Hold home Insulin secondary to episode of hypoglycemia. Sliding scale. 7. CEDRIC: Creatinine 1.42, previously 1.04 on 01/04/17. Pending U/a. IVF for hydration, repeat labs in am. 8. A-fib: Chronic. Controlled. On Pradaxa. Resume home medications. 9. DVT Prophylaxis: Resume Pradaxa 10. Social work for d/c planning as needed. 11. Case discussed w/ ER physician at length. Physician Certification 2 Midnight Certification Type: Admission for Inpatient Services Order for Inpatient Services The services are ordered in accordance with Medicare regulations or non- Medicare payer requirements, as applicable. In the case of services not specified as inpatient-only, they are appropriately provided as inpatient services in accordance with the 2-midnight benchmark. Estimated LOS (days): 2 days is the estimated time the patient will need to remain in the hospital, assuming treatment plan goals are met and no additional complications. Post-Hospital Plan: Not yet determined Sunita Hsieh MD Jun 15, 2017 02:45
[2017-06-15 03:00] LABS: BLOOD, URINE MOD (NEG); GLUCOSE,URINE NEG (NEG); KETONE, URINE NEG (NEG); NITRITE,URINE POS (NEG); PH, URINE 6.5 (5.0-8.5); SQUAMOUS EPITHELIAL CELL URINE <1 /hpf (0-5); URINE COLOR YELLOW (YELLW/STRAW)
[2017-06-15 03:10] LABS: COMMENT (UR) CATH-CULTURE IND; CULTURE IF INDICATED CATH CULTURE IND
[2017-06-15] MEDS ORDERED: VANCOMYCIN INJ 2,200 MG in SODIUM CHLORID 0.9% 500 ML INJ 500 ML IV ONE (03:30)
[2017-06-15] MEDS ORDERED: PIPERACIL-TAZO 3.375 GM PREMIX 50 ML IV SCH (04:00)
[2017-06-15] MEDS: SODIUM CHLOR 0.9% 1000 ML INJ 1,000 ML IV SCH ×3 (04:24→17:21)
[2017-06-15 05:30] LABS: BLOOD GAS BASE EXCESS 1.9 mmol/L (-2-2); BLOOD GAS CARBOXYHEMOGLOBIN 1.9 % (0-4); BLOOD GAS HCO3 26 mmol/L (22-26); BLOOD GAS O2 HGB SATURATION 91 % (90-100); BLOOD GAS OXYGEN CONTENT 13.5 Vol % (12.0-20.0); BLOOD GAS PCO2 39 mmHg (38-42); BLOOD GAS PO2 64 mmHg (61-120); BLOOD GAS TOTAL HGB 10.6 G/DL (12.0-16.0); CRITICAL VALUE NO; DRAW SITE RT RADIAL; LITER FLOW 2 L/M; NUMBER OF ARTERIAL PUNCTURES 1; OXYGEN DEVICE NASAL CANNULA; STAT YES; TEMP CORR TO 98.6; ULNAR PULSE PRESENT
[2017-06-15] MEDS: LEVOTHYROXINE SODIUM 50 MCG TAB PO SCH (05:59)
[2017-06-15] MEDS ORDERED: methylPREDNISolone SOD SUCC 40 MG/1 ML VIAL IV PUSH SCH (06:00)
[2017-06-15] MEDS: RESP: ALBUTEROL 2.5 MG/IPRATROPIUM 0.5 MG NEB (SCH) NEB ×4 (07:33→20:50)
--- NOTE | 2017-06-15 07:52 | RADRPT ---
EXAM DATE/TIME: 06/14/2017 22:19 [place] COMPARISON: CHEST SINGLE AP, December 26, 2016, 16:05. INDICATIONS : Syncopal episode today MEDICAL HISTORY : None. SURGICAL HISTORY : Pacemaker. ENCOUNTER: Initial ACUITY: 1 day PAIN SCORE: Non-responsive. LOCATION: Bilateral chest FINDINGS: The heart is enlarged. Scattered patchy infiltrates are again noted and unchanged compared to the pr evious examination in December which is suggestive of chronic process. A left subclavian dual-lead pace maker has its tips in the right heart and is unchanged. CONCLUSION: 1. Chronic infiltrates bilaterally. 2. Stable cardiomegaly. Rick Shrestha MD on June 14, 2017 at 22:48 Board Certified Radiologist. This report was verified electronically.
[2017-06-15] MEDS ORDERED: INSULIN ASPART SUPPLEMENTAL SCALE SQ SCH (08:00)
[2017-06-15] MEDS: GABAPENTIN 100 MG CAP PO SCH ×3 (08:38→17:19)
[2017-06-15] MEDS: SOTALOL HCL 80 MG TAB PO SCH ×2 (08:38→20:30)
[2017-06-15] MEDS: ESCITALOPRAM OXALATE 10 MG TAB PO SCH (08:38)
[2017-06-15] MEDS: FUROSEMIDE 20 MG TAB PO SCH (08:38)
[2017-06-15] MEDS: PANTOPRAZOLE SOD 20 MG DELAYED RELEASE TAB PO SCH (08:38)
[2017-06-15] MEDS: ASPIRIN 81 MG CHEW TAB PO SCH (08:38)
[2017-06-15] MEDS: DOCUSATE SODIUM 50 MG/SENNA 8.6 MG TAB PO SCH ×2 (08:38→20:30)
[2017-06-15] MEDS: SODIUM CHLORIDE 0.9% FLUSH 10 ML FLUSH IV FLUSH SCH ×4 (08:39→21:00)
[2017-06-15] MEDS: BUDESONIDE-FORMOTEROL 160/4.5 MCG INHALER INH SCH ×2 (09:00→21:00)
--- NOTE | 2017-06-15 10:13 | HHI.PR ---
Subjective Remarks This is a 81-year-old male with a PMH of HTN, A. fib on Pradaxa, COPD, Sleep Apnea on CPAP, CAD, BPH and PAD who is brought to the ER by EMS secondary to AMS. Per records, patient sent from [facility] secondary to lethargy. Upon EMS arrival, pt noted to have BS 40's s/p D10 and wheezing s/p DuoNeb. GCS 15 by the time he arrived to ER. Pt currently without any complaints. Denies fever, chills, cough, chest pain, nausea, vomiting or diarrhea. On arrival, BP 155/65, HR 60, O2 sat 99% on 6L NC, Temp 100.4. Currently O2 sat 95% on RA. WBC 20.6 with elevated neutrophil count. Creatinine 1.42, previously 1.04 on 01/04/17. Lactic Acid normal at 1.4. BNP 214. Troponin negative. Ammonia normal. INR 1.6. UA pending. CT Head with no acute findings. CXR with likely basilar infiltrate. S/p Blood Culture and Zosyn IV in ER. 06/15: Seen in his bedroom, discussed with nurse Miss Dennison the patient has increased blood sugar level, he was given Solu-Medrol will discontinue this medicine, his blood sugar over 300, but he was Hypoglycemic on admission and had the need for IV Dextrose. no nausea, vomit or diarrhea. Objective Vital Signs Date Time Temp Pulse Resp B/P (MAP) Pulse Ox O2 Delivery O2 Flow Rate FiO2 06/15/17 08:00 98.3 67 20 166/72 (103) 95 06/15/17 07:34 94 Nasal Cannula 2.00 06/15/17 05:23 98.0 68 18 157/67 (97) 97 06/15/17 05:17 97 2.00 06/15/17 04:41 Nasal Cannula 2.00 06/15/17 04:22 60 06/15/17 04:00 98.2 69 18 153/68 (96) 93 06/15/17 02:45 98.9 60 16 146/66 (92) 95 2.00 06/15/17 02:44 94 06/14/17 23:25 98.7 76 20 129/56 (80) 95 Room Air 06/14/17 22:08 99 Nasal Cannula 6.00 06/14/17 22:00 99 Nasal Cannula 6.00 06/14/17 21:55 100.4 60 15 155/65 (95) 99 I/O 06/14/17 06/14/17 06/14/17 06/15/17 06/15/17 06/15/17 07:00 15:00 23:00 07:00 15:00 23:00 Intake Total 620 ml Balance 620 ml Intake IV Total 620 ml Result Diagram: 06/14/17220406/14/172204 Imaging Last Impressions Head CT 06/14/172157 Signed Impressions: Service Date/Time: Wednesday, June 14, 2017 22:08 - CONCLUSION: 1. Mild periventricular and subcortical white matter small vessel ischemic changes bilaterally. 2. Mild cerebral atrophy. 3. No acute infarct, acute hemorrhage, mass effect or extraaxial fluid collections. Rick Shrestha MD Procedures None Other Results Laboratory Tests Test 06/14/17 22:05 06/15/17 02:15 06/15/17 05:10 White Blood Count 20.6 TH/MM3 Red Blood Count 4.22 MIL/MM3 Hemoglobin 10.3 GM/DL Hematocrit 31.0 % Mean Corpuscular Volume 73.6 FL Mean Corpuscular Hemoglobin 24.4 PG Mean Corpuscular Hemoglobin Concent 33.2 % Red Cell Distribution Width 16.3 % Platelet Count 285 TH/MM3 Mean Platelet Volume 9.3 FL Neutrophils (%) (Auto) 77.4 % Lymphocytes (%) (Auto) 4.9 % Monocytes (%) (Auto) 15.7 % Eosinophils (%) (Auto) 1.6 % Basophils (%) (Auto) 0.4 % Neutrophils # (Auto) 15.9 TH/MM3 Lymphocytes # (Auto) 1.0 TH/MM3 Monocytes # (Auto) 3.2 TH/MM3 Eosinophils # (Auto) 0.3 TH/MM3 Basophils # (Auto) 0.1 TH/MM3 CBC Comment AUTO DIFF Differential Total Cells Counted 100 Neutrophils % (Manual) 84 % Lymphocytes % 1 % Monocytes % 11 % Eosinophils % 4 % Neutrophils # (Manual) 17.3 TH/MM3 Differential Comment FINAL DIFF MANUAL Platelet Estimate NORMAL Platelet Morphology Comment NORMAL Ovalocytes 1+ Prothrombin Time 17.8 SEC Prothromb Time International Ratio 1.6 RATIO Activated Partial Thromboplast Time 62.3 SEC Blood Urea Nitrogen 26 MG/DL Creatinine 1.42 MG/DL Random Glucose 121 MG/DL Total Protein 7.1 GM/DL Albumin 3.2 GM/DL Calcium Level 8.4 MG/DL Alkaline Phosphatase 113 U/L Aspartate Amino Transf (AST/SGOT) 9 U/L Alanine Aminotransferase (ALT/SGPT) 14 U/L Total Bilirubin 0.3 MG/DL Sodium Level 138 MEQ/L Potassium Level 4.2 MEQ/L Chloride Level 103 MEQ/L Carbon Dioxide Level 28.2 MEQ/L Anion Gap 7 MEQ/L Estimat Glomerular Filtration Rate 48 ML/MIN Lactic Acid Level 1.4 mmol/L Ammonia 24 MCMOL/L Total Creatine Kinase 42 U/L Troponin I 0.02 NG/ML B-Type Natriuretic Peptide 214 PG/ML Thyroid Stimulating Hormone 3rd Gen 1.800 uIU/ML Urine Color YELLOW Urine Turbidity HAZY Urine pH 6.5 Urine Specific [place] 1.017 Urine Protein 30 mg/dL Urine Glucose (UA) NEG mg/dL Urine Ketones NEG mg/dL Urine Occult Blood MOD Urine Nitrite POS Urine Bilirubin NEG Urine Urobilinogen LESS THAN 2.0 MG/DL Urine Leukocyte Esterase LARGE Urine RBC 29 /hpf Urine WBC /hpf Urine WBC Clumps MANY Urine Squamous Epithelial Cells <1 /hpf Microscopic Urinalysis Comment CATH-CULTURE IND Blood Gas Puncture Site RT RADIAL Blood Gas Patient Temperature 98.6 Blood Gas HCO3 26 mmol/L Blood Gas Base Excess 1.9 mmol/L Blood Gas Oxygen Saturation 91 % Arterial Blood pH 7.44 Arterial Blood Partial Pressure CO2 39 mmHg Arterial Blood Partial Pressure O2 64 mmHg Arterial Blood Oxygen Content 13.5 Vol % Arterial Blood Carboxyhemoglobin 1.9 % Arterial Blood Methemoglobin 1.0 % Blood Gas Hemoglobin 10.6 G/DL Oxygen Delivery Device NASAL CANNULA Blood Gas Liter Flow 2 L/M Objective Remarks PE: No acute distress. GENERAL: Elderly white male in no acute distress. HEENT: PERRLA, EOMI. No scleral icterus or conjunctival pallor. No lid lag or facial droop. CARDIOVASCULAR: Regular rate and rhythm. No obvious murmurs to auscultation. No chest tenderness to palpation. RESPIRATORY: No obvious rhonchi. Occasional expiratory wheezing. Clear to auscultation. Breath sounds equal bilaterally. GASTROINTESTINAL: Abdomen soft, non-tender, nondistended. BS normal. MUSCULOSKELETAL: Extremities without clubbing, cyanosis, or edema. No obvious deformities. Left AKA, well healed. NEUROLOGICAL: Awake, alert and oriented x4. No focal neurologic deficits. Moving both upper and lower extremities spontaneously. Medications and IVs Current Medications Medications (Trade) Dose Ordered Sig/[place] Route Start Time Stop Time Status Last Admin (NS Flush) 2 ml UNSCH PRN IV FLUSH 06/14/17 22:00 (SoluMEDROL INJ) 40 mg Q6HR IV PUSH 06/15/17 06:00 06/15/17 05:59 (Duoneb Neb) 1 ampule Q4HR WHILE AWAKE NEB NEB 06/15/17 08:00 06/15/17 07:33 (Duoneb Neb) 1 ampule Q2HR NEB PRN NEB 06/15/17 02:30 Pharmacy Profile Note 0 ml @ 0 mls/hr UNSCH OTHER 06/15/17 02:30 (D50w (Vial) Inj) 50 ml UNSCH PRN IV PUSH 06/15/17 02:30 (Glucagon Inj) 1 mg UNSCH PRN OTHER 06/15/17 02:30 (NovoLOG SUPPLEMENTAL SCALE) 1 ACHS SLIDING SCALE SQ 06/15/17 08:00 Sodium Chloride 1,000 ml @ 100 mls/hr Q10H IV 06/15/17 02:19 06/15/17 04:24 (NS Flush) 2 ml UNSCH PRN IV FLUSH 06/15/17 02:30 (NS Flush) 2 ml BID IV FLUSH 06/15/17 09:00 (Zofran Inj) 4 mg Q6H PRN IVP 06/15/17 02:30 (Tylenol) 650 mg Q6H PRN PO 06/15/17 02:30 ([place]lin 5-325 Mg) 1 tab Q4H PRN PO 06/15/17 02:30 (Morphine Inj) 2 mg Q3H PRN IV PUSH 06/15/17 02:30 (Macie-Colace) 1 tab BID PO 06/15/17 09:00 06/15/17 08:38 (Milk Of Magnesia Liq) 30 ml Q12H PRN PO 06/15/17 02:30 (Senokot) 17.2 mg Q12H PRN PO 06/15/17 02:30 (Dulcolax Supp) 10 mg DAILY PRN RECTAL 06/15/17 02:30 (Lactulose Liq) 30 ml DAILY PRN PO 06/15/17 02:30 (Symbicort 160-4.5 Inh) 1 puff Q12HR INH 06/15/17 09:00 (Pradaxa) 150 mg BID PO 06/15/17 09:00 (Lexapro) 10 mg DAILY PO 06/15/17 09:00 06/15/17 08:38 (Lasix) 20 mg DAILY PO 06/15/17 09:00 06/15/17 08:38 (Neurontin) 100 mg TID PO 06/15/17 09:00 06/15/17 08:38 (Synthroid) 50 mcg DAILY@06 PO 06/15/17 06:00 (Betapace) 80 mg BID PO 06/15/17 09:00 06/15/17 08:38 (Flomax) 0.4 mg HS PO 06/15/17 21:00 (Restoril) 15 mg HS PRN PO 06/15/17 02:30 (Protonix) 20 mg DAILY PO 06/15/17 09:00 06/15/17 08:38 (Aspirin Chew) 81 mg DAILY PO 06/15/17 09:00 06/15/17 08:38 (NS Flush) 2 ml BID IV FLUSH 06/15/17 09:00 (NS Flush) 2 ml UNSCH PRN IVF 06/15/17 02:45 Piperacillin Sod/ Tazobactam Sod 50 ml @ 100 mls/hr Q6H IV 06/15/17 08:00 Vancomycin HCl 2000 mg/Sodium Chloride 520 ml @ 257.5 mls/ hr Q24H IV 06/16/17 05:00 Miscellaneous Information SPECIFIC LAB TO BE ... ONCE ONCE .XX 06/18/17 04:45 06/18/17 04:46 A/P Assessment and Plan 1. Acute Metabolic Encephalopathy Resolved. probable Multifactorial due to Hypoglycemia, sepsis, CT Head w/ no acute findings, images reviewed by me. 2. Sepsis: Temp 100.4, WBC 20, Source-PNA, possible UTI. S/p Blood Cultures and Zosyn in ER. Follow up cultures, continue w/ Zosyn, add Vanc. U/A positive for UTI. 3. PNA: CXR w/ basilar infiltrate, per SNF records pt w/ recent treatment for PNA, unclear which antibiotics given and end of treatment. S/p Zosyn in ER and added Vancomycin. 4. COPD: Chronic Respiratory Failure w/ Acute Exacerbation. Severe. O2 sat 99% on 6L NC on arrival, +wheezing on exam, s/p Solu-Medrol and DuoNeb w/ improvement. O2 sat currently 95% on RA. Continue DuoNeb, Solu-Medrol, resume home Symbicort. 5. Hypoglycemia: Resolved. BS 40's per EMS, s/p D10 en route, BS currently 121. Hold home Insulin. Sliding scale w/ Accu-Cheks. 6. DM: Hgb A1c 8.0 on 01/04/17. at the moment increased blood sugar discontinued Solu-Medrol and giving Insulin sliding scale and Levemir 5 units every 12 hours. 7. CEDRIC: Creatinine 1.42, previously 1.04 on 01/04/17. Pending U/a. IVF for hydration, repeat labs in am. 8. A-fib: Chronic. Controlled. On Pradaxa. Resume home medications. 9. CLARA non compliant with CPAP, ordered for RT for CPAP while in house. DVT Prophylaxis: Resume Pradaxa Social work for d/c planning as needed. PT evaluation Discharge Planning Expected in one to two days. Kevin Owens MD Jun 15, 2017 10:13
[2017-06-15] MEDS: DABIGATRAN ETEXILATE 150 MG CAP PO SCH ×2 (10:48→20:30)
[2017-06-15] MEDS: PIPERACIL-TAZO 3.375 GM PREMIX 50 ML IV SCH ×3 (10:48→20:27)
[2017-06-15] MEDS: INSULIN NovoLIN REGULAR SUPPLEMENTAL SCALE SQ SCH ×3 (13:45→20:38)
[2017-06-15] MEDS: INSULIN DETEMIR 100 UNITS/ML VIAL SQ SCH ×2 (13:47→20:38)
--- NOTE | 2017-06-15 15:52 | EKG ---
Date Performed: 06/14/2017 Time Performed: 22:01:48 PTAGE: 81 years EKG: ELECTRONIC ATRIAL PACEMAKER ANTERIOR MYOCARDIAL INFARCTION. OF UNDETERMINED AGE NONSPECIFIC T WAVE CHANGE Compared to previous tracing, T wave change is slightly more prominent laterally ABNOR MAL ECG PREVIOUS TRACING : 12/26/2016 20.51 DOCTOR: Tonio Sánchez Interpretating Date/Time 06/15/2017 15:51:03
[2017-06-15] MEDS: TEMAZEPAM 15 MG CAP PO PRN (20:30)
[2017-06-15] MEDS: TAMSULOSIN HCL 0.4 MG CAP PO SCH (20:30)
[2017-06-16] VITALS (9 sets, daily range): BP systolic 150–174; BP diastolic 65–86; PULSE 60–68; RESP 18–22; TEMP 97.8–98.7; O2SAT 94–99
[2017-06-16] MEDS: PIPERACIL-TAZO 3.375 GM PREMIX 50 ML IV SCH ×4 (02:21→21:06)
[2017-06-16] MEDS: VANCOMYCIN INJ 2,000 MG in SODIUM CHLORID 0.9% 500 ML INJ 500 ML IV SCH (05:03)
[2017-06-16] MEDS: SODIUM CHLOR 0.9% 1000 ML INJ 1,000 ML IV SCH (05:05)
[2017-06-16] MEDS: LEVOTHYROXINE SODIUM 50 MCG TAB PO SCH (05:15)
[2017-06-16] MEDS: RESP: ALBUTEROL 2.5 MG/IPRATROPIUM 0.5 MG NEB (SCH) NEB ×4 (07:30→19:59)
[2017-06-16 08:00] LABS: AUTOMATED NEUTROPHIL # 18.8 TH/MM3 (1.8-7.7); BASOPHIL % 0.1 % (0.0-2.0); HEMATOCRIT 29.3 % (39.0-51.0); LYMPH % 4.9 % (9.0-44.0); LYMPHOCYTE # 1.1 TH/MM3 (1.0-4.8); MEAN CELL VOLUME 73.9 FL (80.0-100.0); MEAN CORPUSCULAR HEMOGLOBIN 23.6 PG (27.0-34.0); MONO % 11.1 % (0.0-8.0); NEUT % 83.9 % (16.0-70.0); PLATELET COUNT 268 TH/MM3 (150-450); RED BLOOD COUNT 3.97 MIL/MM3 (4.50-5.90); RED CELL DISTRIBUTION WIDTH 16.3 % (11.6-17.2); WHITE BLOOD COUNT 22.4 TH/MM3 (4.0-11.0)
[2017-06-16 08:07] LABS: HEMO FLAGS AUTO DIFF
[2017-06-16 08:42] LABS: NEUTROPHIL # MANUAL DIFF 19.7 TH/MM3 (1.8-7.7); PLATELET ESTIMATE SMEAR NORMAL (NORMAL); PLATELET MORPHOLOGY NORMAL (NORMAL); POLYS (SEG NEUTROPHILS) 88 % (16-70); SCAN/DIFF FINAL DIFF MANUAL; WBC DIFF SAMPLE 100
[2017-06-16 09:00] LABS: ALKALINE PHOSPHATASE 95 U/L (45-117); ALT (GPT) 15 U/L (12-78); ANION GAP 5 MEQ/L (5-15); AST (GOT) 7 U/L (15-37); BLOOD UREA NITROGEN 38 MG/DL (7-18); CHLORIDE 105 MEQ/L (98-107); GLOMERULAR FILTRATION RATE 48 ML/MIN (>89); POTASSIUM 3.9 MEQ/L (3.5-5.1); SODIUM (NA) 136 MEQ/L (136-145); TOTAL BILIRUBIN ADULT 0.4 MG/DL (0.2-1.0)
[2017-06-16] MEDS: SODIUM CHLORIDE 0.9% FLUSH 10 ML FLUSH IV FLUSH SCH ×4 (09:00→21:06)
[2017-06-16] MEDS: PANTOPRAZOLE SOD 20 MG DELAYED RELEASE TAB PO SCH (09:06)
[2017-06-16] MEDS: DOCUSATE SODIUM 50 MG/SENNA 8.6 MG TAB PO SCH ×2 (09:06→22:37)
[2017-06-16] MEDS: ASPIRIN 81 MG CHEW TAB PO SCH (09:06)
[2017-06-16] MEDS: INSULIN DETEMIR 100 UNITS/ML VIAL SQ SCH ×2 (09:06→21:27)
[2017-06-16] MEDS: DABIGATRAN ETEXILATE 150 MG CAP PO SCH ×2 (09:06→22:37)
[2017-06-16] MEDS: GABAPENTIN 100 MG CAP PO SCH ×3 (09:06→18:07)
[2017-06-16] MEDS: ESCITALOPRAM OXALATE 10 MG TAB PO SCH (09:06)
[2017-06-16] MEDS: SOTALOL HCL 80 MG TAB PO SCH ×2 (09:06→22:37)
[2017-06-16] MEDS: FUROSEMIDE 20 MG TAB PO SCH (09:06)
[2017-06-16] MEDS: INSULIN NovoLIN REGULAR SUPPLEMENTAL SCALE SQ SCH ×4 (09:10→21:00)
[2017-06-16] MEDS: BUDESONIDE-FORMOTEROL 160/4.5 MCG INHALER INH SCH ×2 (09:10→21:00)
--- NOTE | 2017-06-16 10:43 | HHI.PR ---
Subjective Remarks This is a 81-year-old male with a PMH of HTN, A. fib on Pradaxa, COPD, Sleep Apnea on CPAP, CAD, BPH and PAD who is brought to the ER by EMS secondary to AMS. Per records, patient sent from [facility] secondary to lethargy. Upon EMS arrival, pt noted to have BS 40's s/p D10 and wheezing s/p DuoNeb. GCS 15 by the time he arrived to ER. Pt currently without any complaints. Denies fever, chills, cough, chest pain, nausea, vomiting or diarrhea. On arrival, BP 155/65, HR 60, O2 sat 99% on 6L NC, Temp 100.4. Currently O2 sat 95% on RA. WBC 20.6 with elevated neutrophil count. Creatinine 1.42, previously 1.04 on 01/04/17. Lactic Acid normal at 1.4. BNP 214. Troponin negative. Ammonia normal. INR 1.6. UA pending. CT Head with no acute findings. CXR with likely basilar infiltrate. S/p Blood Culture and Zosyn IV in ER. 06/15: Seen in his bedroom, discussed with nurse Miss Dennison the patient has increased blood sugar level, he was given Solu-Medrol will discontinue this medicine, his blood sugar over 300, but he was Hypoglycemic on admission and had the need for IV Dextrose. 06/16: Stable in his bedroom, improving his blood sugar, added 10 more units of Levemir, he receive multiple dosages of Solu-Medrol this may be the reason for his uncontrolled blood sugar, will follow Hemoglobin A1C,, at this time no distress, he has a Alvarado Cath, non reliable WBC count due to Steroids given continue with Acute kidney injury, continue IV fluids and following. Objective Vital Signs Date Time Temp Pulse Resp B/P (MAP) Pulse Ox O2 Delivery O2 Flow Rate FiO2 06/16/17 08:00 97.8 60 18 174/83 (113) 97 06/16/17 07:32 97 Nasal Cannula 2.00 06/16/17 04:00 98.6 60 20 150/65 (93) 99 06/16/17 04:00 Nasal Cannula 2.00 06/16/17 00:00 Nasal Cannula 2.00 06/16/17 00:00 98.2 64 18 150/68 (95) 97 06/15/17 20:51 97 Nasal Cannula 2.00 06/15/17 20:00 Nasal Cannula 2.00 06/15/17 20:00 98.3 61 18 144/65 (91) 96 06/15/17 20:00 63 06/15/17 16:00 98.7 63 18 166/74 (104) 95 06/15/17 12:00 98.3 63 18 145/64 (91) 97 I/O 06/15/17 06/15/17 06/15/17 06/16/17 06/16/17 06/16/17 07:00 15:00 23:00 07:00 15:00 23:00 Intake Total 620 ml 50 ml 1960 ml 1239 ml Output Total 100 ml 500 ml Balance 620 ml 50 ml 1860 ml 739 ml Intake Oral 960 ml 240 ml IV Total 620 ml 50 ml 1000 ml 999 ml Output Urine Total 100 ml 500 ml # Voids 2 # Bowel Movements 1 Result Diagram: 06/16/17 0707 06/16/17706 Imaging Last Impressions Head CT 06/14/172157 Signed Impressions: Service Date/Time: Wednesday, June 14, 2017 22:08 - CONCLUSION: 1. Mild periventricular and subcortical white matter small vessel ischemic changes bilaterally. 2. Mild cerebral atrophy. 3. No acute infarct, acute hemorrhage, mass effect or extraaxial fluid collections. Rick Shrestha MD Procedures None Other Results Laboratory Tests Test 06/14/17 22:05 06/15/17 02:15 06/15/17 05:10 06/16/17 07:07 Eosinophils % 4 % Ovalocytes 1+ Prothrombin Time 17.8 SEC Prothromb Time International Ratio 1.6 RATIO Activated Partial Thromboplast Time 62.3 SEC Lactic Acid Level 1.4 mmol/L Ammonia 24 MCMOL/L Total Creatine Kinase 42 U/L Troponin I 0.02 NG/ML B-Type Natriuretic Peptide 214 PG/ML Thyroid Stimulating Hormone 3rd Gen 1.800 uIU/ML Urine Color YELLOW Urine Turbidity HAZY Urine pH 6.5 Urine Specific [place] 1.017 Urine Protein 30 mg/dL Urine Glucose (UA) NEG mg/dL Urine Ketones NEG mg/dL Urine Occult Blood MOD Urine Nitrite POS Urine Bilirubin NEG Urine Urobilinogen LESS THAN 2.0 MG/DL Urine Leukocyte Esterase LARGE Urine RBC 29 /hpf Urine WBC /hpf Urine WBC Clumps MANY Urine Squamous Epithelial Cells <1 /hpf Microscopic Urinalysis Comment CATH-CULTURE IND Blood Gas Puncture Site RT RADIAL Blood Gas Patient Temperature 98.6 Blood Gas HCO3 26 mmol/L Blood Gas Base Excess 1.9 mmol/L Blood Gas Oxygen Saturation 91 % Arterial Blood pH 7.44 Arterial Blood Partial Pressure CO2 39 mmHg Arterial Blood Partial Pressure O2 64 mmHg Arterial Blood Oxygen Content 13.5 Vol % Arterial Blood Carboxyhemoglobin 1.9 % Arterial Blood Methemoglobin 1.0 % Blood Gas Hemoglobin 10.6 G/DL Oxygen Delivery Device NASAL CANNULA Blood Gas Liter Flow 2 L/M White Blood Count 22.4 TH/MM3 Red Blood Count 3.97 MIL/MM3 Hemoglobin 9.4 GM/DL Hematocrit 29.3 % Mean Corpuscular Volume 73.9 FL Mean Corpuscular Hemoglobin 23.6 PG Mean Corpuscular Hemoglobin Concent 32.0 % Red Cell Distribution Width 16.3 % Platelet Count 268 TH/MM3 Mean Platelet Volume 9.1 FL Neutrophils (%) (Auto) 83.9 % Lymphocytes (%) (Auto) 4.9 % Monocytes (%) (Auto) 11.1 % Eosinophils (%) (Auto) 0.0 % Basophils (%) (Auto) 0.1 % Neutrophils # (Auto) 18.8 TH/MM3 Lymphocytes # (Auto) 1.1 TH/MM3 Monocytes # (Auto) 2.5 TH/MM3 Eosinophils # (Auto) 0.0 TH/MM3 Basophils # (Auto) 0.0 TH/MM3 CBC Comment AUTO DIFF Differential Total Cells Counted 100 Neutrophils % (Manual) 88 % Lymphocytes % 4 % Monocytes % 8 % Neutrophils # (Manual) 19.7 TH/MM3 Differential Comment FINAL DIFF MANUAL Platelet Estimate NORMAL Platelet Morphology Comment NORMAL Red Cell Morphology Comment NORMAL Blood Urea Nitrogen 38 MG/DL Creatinine 1.43 MG/DL Random Glucose 243 MG/DL Total Protein 6.4 GM/DL Albumin 2.7 GM/DL Calcium Level 8.3 MG/DL Alkaline Phosphatase 95 U/L Aspartate Amino Transf (AST/SGOT) 7 U/L Alanine Aminotransferase (ALT/SGPT) 15 U/L Total Bilirubin 0.4 MG/DL Sodium Level 136 MEQ/L Potassium Level 3.9 MEQ/L Chloride Level 105 MEQ/L Carbon Dioxide Level 26.0 MEQ/L Anion Gap 5 MEQ/L Estimat Glomerular Filtration Rate 48 ML/MIN Objective Remarks PE: No acute distress. GENERAL: Elderly white male in no acute distress. HEENT: PERRLA, EOMI. No scleral icterus or conjunctival pallor. No lid lag or facial droop. CARDIOVASCULAR: Regular rate and rhythm. No obvious murmurs to auscultation. No chest tenderness to palpation. RESPIRATORY: No obvious rhonchi. Occasional expiratory wheezing. Clear to auscultation. Breath sounds equal bilaterally. GASTROINTESTINAL: Abdomen soft, non-tender, nondistended. BS normal. MUSCULOSKELETAL: Extremities without clubbing, cyanosis, or edema. No obvious deformities. Left AKA, well healed. NEUROLOGICAL: Awake, alert and oriented x4. No focal neurologic deficits. Moving both upper and lower extremities spontaneously. Medications and IVs Current Medications Medications (Trade) Dose Ordered Sig/[place] Route Start Time Stop Time Status Last Admin (NS Flush) 2 ml UNSCH PRN IV FLUSH 06/14/17 22:00 (Duoneb Neb) 1 ampule Q4HR WHILE AWAKE NEB NEB 06/15/17 08:00 06/16/17 07:30 (Duoneb Neb) 1 ampule Q2HR NEB PRN NEB 06/15/17 02:30 Pharmacy Profile Note 0 ml @ 0 mls/hr UNSCH OTHER 06/15/17 02:30 (D50w (Vial) Inj) 50 ml UNSCH PRN IV PUSH 06/15/17 02:30 (Glucagon Inj) 1 mg UNSCH PRN OTHER 06/15/17 02:30 Sodium Chloride 1,000 ml @ 100 mls/hr Q10H IV 06/15/17 02:19 06/16/17 05:05 (NS Flush) 2 ml UNSCH PRN IV FLUSH 06/15/17 02:30 (NS Flush) 2 ml BID IV FLUSH 06/15/17 09:00 06/16/17 09:07 (Zofran Inj) 4 mg Q6H PRN IVP 06/15/17 02:30 (Tylenol) 650 mg Q6H PRN PO 06/15/17 02:30 (Lena 5-325 Mg) 1 tab Q4H PRN PO 06/15/17 02:30 (Morphine Inj) 2 mg Q3H PRN IV PUSH 06/15/17 02:30 (Macie-Colace) 1 tab BID PO 06/15/17 09:00 06/16/17 09:06 (Milk Of Magnesia Liq) 30 ml Q12H PRN PO 06/15/17 02:30 (Senokot) 17.2 mg Q12H PRN PO 06/15/17 02:30 (Dulcolax Supp) 10 mg DAILY PRN RECTAL 06/15/17 02:30 (Lactulose Liq) 30 ml DAILY PRN PO 06/15/17 02:30 (Symbicort 160-4.5 Inh) 1 puff Q12HR INH 06/15/17 09:00 06/16/17 09:10 (Pradaxa) 150 mg BID PO 06/15/17 09:00 06/16/17 09:06 (Lexapro) 10 mg DAILY PO 06/15/17 09:00 06/16/17 09:06 (Lasix) 20 mg DAILY PO 06/15/17 09:00 06/16/17 09:06 (Neurontin) 100 mg TID PO 06/15/17 09:00 06/16/17 09:06 (Synthroid) 50 mcg DAILY@06 PO 06/15/17 06:00 06/16/17 05:15 (Betapace) 80 mg BID PO 06/15/17 09:00 06/16/17 09:06 (Flomax) 0.4 mg HS PO 06/15/17 21:00 06/15/17 20:30 (Restoril) 15 mg HS PRN PO 06/15/17 02:30 06/15/17 20:30 (Protonix) 20 mg DAILY PO 06/15/17 09:00 06/16/17 09:06 (Aspirin Chew) 81 mg DAILY PO 06/15/17 09:00 06/16/17 09:06 (NS Flush) 2 ml BID IV FLUSH 06/15/17 09:00 06/16/17 09:00 (NS Flush) 2 ml UNSCH PRN IVF 06/15/17 02:45 Piperacillin Sod/ Tazobactam Sod 50 ml @ 100 mls/hr Q6H IV 06/15/17 08:00 06/16/17 09:05 Vancomycin HCl 2000 mg/Sodium Chloride 520 ml @ 257.5 mls/ hr Q24H IV 06/16/17 05:00 06/16/17 05:03 Miscellaneous Information SPECIFIC LAB TO BE ... ONCE ONCE .XX 06/18/17 04:45 06/18/17 04:46 (NovoLIN R SUPPLEMENTAL SCALE) 1 ACHS SLIDING SCALE SQ 06/15/17 13:45 06/16/17 09:10 (Levemir Inj) 5 units Q12HR SQ 06/15/17 13:30 06/16/17 09:06 A/P Assessment and Plan 1. Acute Metabolic Encephalopathy Resolved. probable Multifactorial due to Hypoglycemia, sepsis, CT Head w/ no acute findings, images reviewed by me. 2. Sepsis: Temp 100.4, WBC 20, Source-PNA, possible UTI. S/p Blood Cultures and Zosyn in ER. Follow up cultures, continue w/ Zosyn, add Vanc. U/A positive for UTI. following blood cultures and Urine cultures, patient stable in his chronic lung condition, may switch to by mouth antibiotics tomorrow and discharge to SNF. 3. PNA: CXR w/ basilar infiltrate, per SNF records pt w/ recent treatment for PNA, unclear which antibiotics given and end of treatment. S/p Zosyn in ER and added Vancomycin. 4. COPD: Chronic Respiratory Failure w/ Acute Exacerbation. Severe. O2 sat 99% on 6L NC on arrival, +wheezing on exam, s/p Solu-Medrol and DuoNeb w/ improvement. O2 sat currently 95% on RA. Continue DuoNeb, Solu-Medrol, resume home Symbicort. 5. Hypoglycemia: Resolved. BS 40's per EMS, s/p D10 en route, BS currently 121. Hold home Insulin. Sliding scale w/ Accu-Cheks. 6. DM: Hgb A1c 8.0 on 01/04/17. Levemir to 10 units every 12 hours and given 10 units extra in am today, his Steroid was removed yesterday. 7. CEDRIC: Creatinine 1.42, previously 1.04 on 01/04/17. not yet improving continue IV fluids and follow in am tomorrow. 8. A-fib: Chronic. Controlled. On Pradaxa. Resume home medications. 9. CLARA non compliant with CPAP, ordered for RT for CPAP while in house. DVT Prophylaxis: Resume Pradaxa Social work for d/c planning as needed. PT evaluation for Rehab tomorrow to SNF. Discharge Planning Discharge tomorrow to SNF. Kevin Owens MD Jun 16, 2017 10:42
[2017-06-16] MEDS ORDERED: INSULIN DETEMIR 100 UNITS/ML VIAL SQ ONE (10:45)
[2017-06-16] MEDS: ONDANSETRON HCL 4 MG/2 ML VIAL IVP PRN (20:49)
--- NOTE | 2017-06-16 21:23 | RADRPT ---
EXAM DATE/TIME: 06/16/2017 20:51 [facility] COMPARISON: CHEST SINGLE AP, June 14, 2017, 22:19. INDICATIONS : Congestion, aspiration MEDICAL HISTORY : Chronic obstructive pulmonary disease. Diabetes mellitus type II. Chronic renal insufficiency. SURGICAL HISTORY : Pacemaker. ENCOUNTER: Subsequent ACUITY: 3 days PAIN SCORE: 0/10 LOCATION: chest FINDINGS: A single AP erect portable view of the chest was obtained and demonstrates new streaky perihilar and bibasilar opacities. Heart size is mildly enlarged. There is apparent mild blunting of the right cost ophrenic angle. The left subclavian AV sequential transvenous pacer remains in place. Overlying elect rocardiogram leads. The bony thorax remains intact. CONCLUSION: New bilateral streaky opacities of concern for pulmonary edema. There may be small ef fusions. Tristan Bruno MD on June 16, 2017 at 21:18 Board Certified Radiologist. This report was verified electronically.
[2017-06-16] MEDS ORDERED: FUROSEMIDE 40 MG/4 ML VIAL IV PUSH ONE (22:30)
[2017-06-16] MEDS: TEMAZEPAM 15 MG CAP PO PRN (22:37)
[2017-06-16] MEDS: TAMSULOSIN HCL 0.4 MG CAP PO SCH (22:37)
[2017-06-17] VITALS (20 sets, daily range): BP systolic 119–220; BP diastolic 66–100; PULSE 60–140; RESP 18–28; TEMP 98.2–98.5; O2SAT 93–98
[2017-06-17] MEDS: PIPERACIL-TAZO 3.375 GM PREMIX 50 ML IV SCH ×3 (03:07→13:37)
[2017-06-17] MEDS: VANCOMYCIN INJ 2,000 MG in SODIUM CHLORID 0.9% 500 ML INJ 500 ML IV SCH (05:16)
[2017-06-17] MEDS: LEVOTHYROXINE SODIUM 50 MCG TAB PO SCH (06:06)
[2017-06-17] MEDS: ONDANSETRON HCL 4 MG/2 ML VIAL IVP PRN ×3 (06:22→19:30)
[2017-06-17 07:26] LABS: AUTOMATED NEUTROPHIL # 14.4 TH/MM3 (1.8-7.7); BASOPHIL % 0.1 % (0.0-2.0); EOSINOPHIL # 0.1 TH/MM3 (0-0.4); EOSINOPHIL % 0.6 % (0.0-4.0); HEMATOCRIT 30.4 % (39.0-51.0); LYMPH % 7.1 % (9.0-44.0); LYMPHOCYTE # 1.3 TH/MM3 (1.0-4.8); MEAN CELL VOLUME 73.1 FL (80.0-100.0); MEAN CORPUSCULAR HEMOGLOBIN 23.5 PG (27.0-34.0); MEAN CORPUSCULAR HGB CONC 32.1 % (32.0-36.0); MONO % 12.9 % (0.0-8.0); NEUT % 79.3 % (16.0-70.0); PLATELET COUNT 343 TH/MM3 (150-450); RED BLOOD COUNT 4.15 MIL/MM3 (4.50-5.90); RED CELL DISTRIBUTION WIDTH 16.2 % (11.6-17.2); WHITE BLOOD COUNT 18.2 TH/MM3 (4.0-11.0)
[2017-06-17 07:34] LABS: HEMO FLAGS AUTO DIFF
[2017-06-17 07:40] LABS: BICARBONATE 27.5 MEQ/L (21.0-32.0); POTASSIUM 3.4 MEQ/L (3.5-5.1)
[2017-06-17] MEDS: INSULIN NovoLIN REGULAR SUPPLEMENTAL SCALE SQ SCH ×4 (08:00→22:11)
[2017-06-17] MEDS: RESP: ALBUTEROL 2.5 MG/IPRATROPIUM 0.5 MG NEB (SCH) NEB ×4 (08:12→19:16)
[2017-06-17 08:50] LABS: PLATELET ESTIMATE SMEAR NORMAL (NORMAL); PLATELET MORPHOLOGY ENLARGED (NORMAL)
[2017-06-17 08:51] LABS: SCAN/DIFF AUTO DIFF CONFIRMED
[2017-06-17] MEDS: SODIUM CHLORIDE 0.9% FLUSH 10 ML FLUSH IV FLUSH SCH ×3 (09:00→21:18)
[2017-06-17] MEDS: BUDESONIDE-FORMOTEROL 160/4.5 MCG INHALER INH SCH (09:00)
[2017-06-17] MEDS: INSULIN DETEMIR 100 UNITS/ML VIAL SQ SCH ×2 (09:00→22:09)
[2017-06-17] MEDS: DABIGATRAN ETEXILATE 150 MG CAP PO SCH ×2 (09:23→21:18)
[2017-06-17] MEDS: PANTOPRAZOLE SOD 20 MG DELAYED RELEASE TAB PO SCH (09:24)
[2017-06-17] MEDS: ASPIRIN 81 MG CHEW TAB PO SCH (09:24)
[2017-06-17] MEDS: FUROSEMIDE 20 MG TAB PO SCH (09:24)
[2017-06-17] MEDS: DOCUSATE SODIUM 50 MG/SENNA 8.6 MG TAB PO SCH ×2 (09:24→21:18)
[2017-06-17] MEDS: GABAPENTIN 100 MG CAP PO SCH ×3 (09:24→18:00)
[2017-06-17] MEDS: ESCITALOPRAM OXALATE 10 MG TAB PO SCH (09:24)
[2017-06-17] MEDS: SOTALOL HCL 80 MG TAB PO SCH ×2 (09:30→21:18)
--- NOTE | 2017-06-17 10:24 | RADRPT ---
EXAM DATE/TIME: 06/17/2017 09:39 [facility] COMPARISON: No previous studies available for comparison. INDICATIONS : Vomiting. Possible obstruction. MEDICAL HISTORY : Chronic obstructive pulmonary disease. Diabetes mellitus type II. Chronic SURGICAL HISTORY : Pacemaker. ENCOUNTER: Initial ACUITY: 1 day PAIN SCORE: 5/10 LOCATION: Bilateral abdomen. FINDINGS: There is moderate gaseous distention of the stomach. Small and large bowel loops are nondilated. Osse ous structures demonstrate degenerative changes. CONCLUSION: Gastric distention identified. Bj Rodriguez MD on June 17, 2017 at 10:22 Board Certified Radiologist. This report was verified electronically.
[2017-06-17] MEDS: PROMETHAZINE HCL 25 MG SUPP RECTAL PRN ×2 (10:57→16:04)
[2017-06-17] MEDS ORDERED: ERTAPENEM SODIUM 1000 MG VIAL IM SCH (12:00)
[2017-06-17] MEDS: cloNIDine HCL 0.1 MG TAB PO PRN ×2 (12:53→23:05)
--- NOTE | 2017-06-17 13:06 | HHI.PR ---
Subjective Remarks Follow-up for COPD exacerbation infection Got a call from patient's nurse Veronica in regards to intractable emesis and high blood pressure. Patient was given Phenergan with better improvement with emesis. Patient seen at the bedside with his nurse Veronica. He stated that he has mild epigastric pain from the emesis. He stated that he does not feel well but could not describe. Deny any urinary symptoms. Deny any chest pain, shortness of breathing, palpitation, lightheadedness or dizziness. Patient was not able to take his morning medication due to emesis. Objective Vitals Vital Signs Date Time Temp Pulse Resp B/P (MAP) Pulse Ox O2 Delivery O2 Flow Rate FiO2 06/17/17 12:00 98.3 61 20 200/100 (133) 93 06/17/17 11:06 200/100 (133) 06/17/17 10:24 170/82 (111) 06/17/17 09:30 220/86 (130) 06/17/17 08:13 96 2.00 06/17/17 08:00 79 06/17/17 08:00 98.2 62 20 217/95 (135) 94 06/17/17 04:00 98.2 68 18 119/74 (89) 98 06/17/17 00:00 98.5 60 18 146/66 (92) 98 06/17/17 00:00 Nasal Cannula 5.00 06/16/17 20:55 Nasal Cannula 6.00 06/16/17 20:01 96 Nasal Cannula 2.00 06/16/17 20:00 98.7 68 22 162/72 (102) 94 06/16/17 20:00 60 06/16/17 19:45 Nasal Cannula 2.00 06/16/17 16:00 98.0 60 18 161/86 (111) 99 I/O 06/16/17 06/16/17 06/16/17 06/17/17 06/17/17 06/17/17 07:00 15:00 23:00 07:00 15:00 23:00 Intake Total 1239 ml 100 ml 1650 ml 1240 ml Output Total 500 ml 1600 ml 1750 ml Balance 739 ml 100 ml 50 ml -510 ml Intake Oral 240 ml 1650 ml 240 ml IV Total 999 ml 100 ml 1000 ml Output Urine Total 500 ml 1600 ml 1750 ml # Voids 1 # Bowel Movements 1 Result Diagram: 06/17/1755 06/17/1755 Objective Remarks GENERAL: in NAD CARDIOVASCULAR: Regular rate and rhythm without murmurs, gallops, or rubs. RESPIRATORY: Breath sounds equal bilaterally. No accessory muscle use. GASTROINTESTINAL: Abdomen soft, non-tender, nondistended. MUSCULOSKELETAL: Left BKA. Positive for 1 to trace pitting edema in the right lower extremity. Medications and IVs Current Medications IV Flush (NS Flush) 2 ml UNSCH PRN IV FLUSH FLUSH AFTER USING IV ACCESS; Start 06/14/17 at 22:00 Acetaminophen (Tylenol) 650 mg ONCE ONCE PO Last administered on 06/14/17 23: 01; Start 06/14/17 at 22:30; Stop 06/14/17 at 22:31; Status DC Piperacillin Sod/ Tazobactam Sod 100 ml @ 200 mls/hr ONCE ONCE IV Last administered on 06/14/17 23:01; Start 06/14/17 at 22:30; Stop 06/14/17 at 22:59 ; Status DC Albuterol/ Ipratropium (Duoneb Neb) 1 ampule ONCE ONCE NEB Last administered on 06/15/17 01:32; Start 06/15/17 at 01:30; Stop 06/15/17 at 01:31; Status DC Methylprednisolone Sodium Succinate (SoluMEDROL INJ) 125 mg ONCE ONCE IV PUSH Last administered on 06/15/17 01:34; Start 06/15/17 at 01:30; Stop 06/15/17 at 01:31; Status DC Methylprednisolone Sodium Succinate (SoluMEDROL INJ) 40 mg Q6HR IV PUSH Last administered on 06/15/17 05:59; Start 06/15/17 at 06:00; Stop 06/15/17 at 13:21 ; Status DC Albuterol/ Ipratropium (Duoneb Neb) 1 ampule Q4HR WHILE AWAKE NEB NEB Last administered on 06/17/17 11:41; Start 06/15/17 at 08:00 Albuterol/ Ipratropium (Duoneb Neb) 1 ampule Q2HR NEB PRN NEB SOB/WHEEZING; Start 06/15/17 at 02:30 Pharmacy Profile Note 0 ml @ 0 mls/hr UNSCH OTHER ; Start 06/15/17 at 02:30 Piperacillin Sod/ Tazobactam Sod 50 ml @ 100 mls/hr Q6H IV ; Start 06/15/17 at 04:00; Stop 06/15/17 at 06:38; Status DC Dextrose (D50w (Vial) Inj) 50 ml UNSCH PRN IV PUSH HYPOGLYCEMIA-SEE COMMENTS; Start 06/15/17 at 02:30 Glucagon (Glucagon Inj) 1 mg UNSCH PRN OTHER HYPOGLYCEMIA-SEE COMMENTS; Start 06/15/17 at 02:30 Insulin Aspart (NovoLOG SUPPLEMENTAL SCALE) 1 ACHS SLIDING SCALE SQ Last administered on 06/15/17 08:00; Start 06/15/17 at 08:00; Stop 06/15/17 at 13:23 ; Status DC Sodium Chloride 1,000 ml @ 100 mls/hr Q10H IV Last administered on 06/16/17 05:05; Start 06/15/17 at 02:19; Stop 06/16/17 at 22:23; Status DC Sodium Chloride (NS Flush) 2 ml UNSCH PRN IV FLUSH FLUSH AFTER USING IV ACCESS ; Start 06/15/17 at 02:30 Sodium Chloride (NS Flush) 2 ml BID IV FLUSH Last administered on 06/17/17 09: 00; Start 06/15/17 at 09:00 Ondansetron HCl (Zofran Inj) 4 mg Q6H PRN IVP NAUSEA OR VOMITING Last administered on 06/17/17 12:39; Start 06/15/17 at 02:30 Acetaminophen (Tylenol) 650 mg Q6H PRN PO FEVER/PAIN SCALE 1 TO 2; Start at 02:30 Acetaminophen/ Hydrocodone Bitart ([place] 5-325 Mg) 1 tab Q4H PRN PO PAIN SCALE 3 TO 5; Start 06/15/17 at 02:30 Morphine Sulfate (Morphine Inj) 2 mg Q3H PRN IV PUSH Pain 6-10; Start 06/15/17 at 02:30 Senna/Docusate Sodium (Macie-Colace) 1 tab BID PO Last administered on 09:24; Start 06/15/17 at 09:00 Magnesium Hydroxide (Milk Of Magnesia Liq) 30 ml Q12H PRN PO MILD - MODERATE CONSTIPATION; Start 06/15/17 at 02:30 Sennosides (Senokot) 17.2 mg Q12H PRN PO MODERATE - SEVERE CONSTIPATION; Start 06/15/17 at 02:30 Bisacodyl (Dulcolax Supp) 10 mg DAILY PRN RECTAL SEVERE CONSITIPATION; Start at 02:30 Lactulose (Lactulose Liq) 30 ml DAILY PRN PO SEVERE CONSITIPATION; Start at 02:30 Budesonide/ Formoterol Fumarate (Symbicort 160-4.5 Inh) 1 puff Q12HR INH Last administered on 06/16/17 21:00; Start 06/15/17 at 09:00 Dabigatran (Pradaxa) 150 mg BID PO Last administered on 06/17/17 09:23; Start 06/15/17 at 09:00 Escitalopram Oxalate (Lexapro) 10 mg DAILY PO Last administered on 06/17/17 09 :24; Start 06/15/17 at 09:00 Furosemide (Lasix) 20 mg DAILY PO Last administered on 06/17/17 09:24; Start 06/15/17 at 09:00 Gabapentin (Neurontin) 100 mg TID PO Last administered on 06/17/17 11:51; Start 06/15/17 at 09:00 Levothyroxine Sodium (Synthroid) 50 mcg DAILY@06 PO Last administered on 06:06; Start 06/15/17 at 06:00 Sotalol HCl (Betapace) 80 mg BID PO Last administered on 06/17/17 09:30; Start 06/15/17 at 09:00 Tamsulosin HCl (Flomax) 0.4 mg HS PO Last administered on 06/16/17 22:37; Start 06/15/17 at 21:00 Temazepam (Restoril) 15 mg HS PRN PO INSOMNIA Last administered on 06/16/17 22 :37; Start 06/15/17 at 02:30 Pantoprazole Sodium (Protonix) 20 mg DAILY PO Last administered on 06/17/17 09 :24; Start 06/15/17 at 09:00 Aspirin (Aspirin Chew) 81 mg DAILY PO Last administered on 06/17/17 09:24; Start 06/15/17 at 09:00 Sodium Chloride (NS Flush) 2 ml BID IV FLUSH Last administered on 06/17/17 09: 00; Start 06/15/17 at 09:00 Sodium Chloride (NS Flush) 2 ml UNSCH PRN IVF FLUSH AFTER USING IV ACCESS; Start 06/15/17 at 02:45 Vancomycin HCl 2200 mg/Sodium Chloride 522 ml @ 250 mls/hr ONCE ONCE IV Last administered on 06/15/17 04:24; Start 06/15/17 at 03:30; Stop 06/15/17 at 05:35 ; Status DC Piperacillin Sod/ Tazobactam Sod 50 ml @ 100 mls/hr Q6H IV Last administered on 06/17/17 09:38; Start 06/15/17 at 08:00 Vancomycin HCl 2000 mg/Sodium Chloride 520 ml @ 257.5 mls/ hr Q24H IV Last administered on 06/17/17 05:16; Start 06/16/17 at 05:00 Miscellaneous Information SPECIFIC LAB TO BE ... ONCE ONCE .XX ; Start 06/18 at 04:45; Stop 06/18/17 at 04:46 Insulin Human Regular (NovoLIN R SUPPLEMENTAL SCALE) 1 ACHS SLIDING SCALE SQ Last administered on 06/16/17 21:00; Start 06/15/17 at 13:45 Insulin Detemir (Levemir Inj) 5 units Q12HR SQ Last administered on 06/16/17 09:06; Start 06/15/17 at 13:30; Stop 06/16/17 at 10:46; Status DC Insulin Detemir (Levemir Inj) 10 units Q12HR SQ Last administered on 06/16/17 21:27; Start 06/16/17 at 21:00 Insulin Detemir (Levemir Inj) 10 units ONCE ONCE SQ Last administered on 10:45; Start 06/16/17 at 10:45; Stop 06/16/17 at 10:51; Status DC Furosemide (Lasix Inj) 40 mg ONCE ONCE IV PUSH Last administered on 06/16/17 22:36; Start 06/16/17 at 22:30; Stop 06/16/17 at 22:31; Status DC Promethazine HCl (Phenergan Supp) 25 mg Q4H PRN RECTAL emesis Last administered on 06/17/17t 10:57; Start 06/17/17 at 09:45 Hydralazine HCl (Apresoline Inj) 20 mg Q4H PRN IV PUSH SBP>180 or DBP >100; Start 06/17/17 at 12:00 Clonidine (Catapres) 0.1 mg Q6H PRN PO SBP>180 or DBP>100; Start 06/17/17 at 12 :00 Ertapenem (INVanz INJ) 1,000 mg DAILY IM ; Start 06/17/17 at 12:00; Stop at 12:00; Status DC A/P Problem List: (1) Encephalopathy ICD Code: G93.40 - Encephalopathy, unspecified (2) Sepsis ICD Code: A41.9 - Sepsis, unspecified organism (3) PNA (pneumonia) ICD Code: J18.9 - Pneumonia, unspecified organism (4) COPD (chronic obstructive pulmonary disease) ICD Code: J44.9 - Chronic obstructive pulmonary disease, unspecified Status: Chronic (5) Hypoglycemia ICD Code: E16.2 - Hypoglycemia, unspecified (6) DM (diabetes mellitus) ICD Code: E11.9 - Type 2 diabetes mellitus without complications (7) CEDRIC (acute kidney injury) ICD Code: N17.9 - Acute kidney failure, unspecified (8) A-fib ICD Code: I48.91 - Unspecified atrial fibrillation Assessment and Plan 81-year-old male who presented with Acute Metabolic Encephalopathy, Resolved. - probable Multifactorial due to Hypoglycemia, sepsis, CT Head w/ no acute findings, images reviewed by me. Intractable emesis -No abdominal pain. KUB does not show any small bowel obstruction or ileus. -Most likely secondary to UTI. -Will continue with Phenergan since this is helping with symptoms. Will need to treat underlying cause. To monitor clinically. Sepsis Temp 100.4, WBC 20, Source UTI -S/p Blood Cultures and Zosyn in ER. -U/A positive for UTI and grew ESBL. -Currently on vancomycin and Zosyn. Vancomycin was added yesterday due to possible pneumonia. Cultures resistance to multiple medication. Sensitive to Zosyn but will probably need treatment with long-term IV antibiotics. Will consult infectious disease. Hypertensive urgency -Exacerbated by intractable emesis. -Need to be cautious with giving NAREN inhibitor since patient has acute renal failure. -Will try PO clonidine since emesis is better controlled but if unable to give clonidine will need to be transferred to [facility] so the IV antihypertensive medication can be administered. Dealt with patient's nurse in regards to this. COPD: Chronic Respiratory Failure w/ Acute Exacerbation. O2 sat 99% on 6L NC on arrival, +wheezing on exam, -Seemed to resolve. Will try to wean off on Solu-Medrol. -Symbicort. DuoNeb's. When necessary. Hypoglycemia: Resolved. - BS 40's per EMS, s/p D10 en route, BS currently 121. -Most likely secondary to illness. DM: Hgb A1c 8.0 on 01/04/17. -on Levemir to 10 units every 12 hours. On insulin sliding scale. CEDRIC: Creatinine 1.42, previously 1.04 on 01/04/17. -Mild improvement today, but seems to be due to volume overloaded. Positive edema on exam. Chest x-ray suggests possible edema. Will get a BNP. BNP willc onsider giving Lasix. -Strict ins and outs. Continue to avoid nephrotoxins. A-fib: Chronic. Controlled. - On Pradaxa. Continue home medication. CLARA non compliant with CPAP -ordered for RT for CPAP while in house. DVT prophylaxis -On Pradaxa. Discharge Planning Patient continues to be symptomatic in which requires continue hospitalization. Livier Hollingsworth MD Jun 17, 2017 13:06
[2017-06-17] MEDS: hydrALAZINE HCL 20 MG/ML VIAL IV PUSH PRN (14:15)
--- NOTE | 2017-06-17 14:56 | PD.ID.CON ---
History of Present Illness Service ID Consult Requested By Reason for Consult Evaluation and Mment of Sepsis, E.coli ESBL UTI. Primary Care Physician Unknown Diagnoses: History of Present Illness is a 81 y/o CM with a PMH of HTN, A. fib on Pradaxa, COPD, Sleep Apnea on CPAP, CAD, BPH and PVD who is brought to the ER by EMS secondary to AMS. Per records, patient sent from [facility] secondary to lethargy. Upon EMS arrival, pt noted to have BS 40's s/p D10 and wheezing s/p DuoNeb. GCS 15 by the time he arrived to ER. Pt currently without any complaints. Denies fever, chills, cough, chest pain, nausea, vomiting or diarrhea. On arrival, BP 155/65 , HR 60, O2 sat 99% on 6L NC, Temp 100.4. Currently O2 sat 95% on RA. WBC 20.6 with elevated neutrophil count. Creatinine 1.42, previously 1.04 on . Lactic Acid normal at 1.4. BNP 214. Troponin negative. Ammonia normal. INR 1.6. UA pending. CT Head with no acute findings. CXR with likely basilar infiltrate. S/p Blood Culture and Zosyn IV in ER. Urine culture obtained in the ED positive for ESBL E.coli UTI. Blood cultures drawn on admission are negative. Hospital course: Patient seen on regular floor BP elevated 240s rechecked to be in 200s SBP. Due to persistent elevation in BP and persistent N/V patient will likely be transferred to cardiac monitoring unit or CCU. ID consulted for evaluation and Mment of Sepsis, E.coli ESBL UTI. Review of Systems ROS Limitations: Poor Historian Constitutional: DENIES: Diaphoretic episodes, Fatigue, Fever, Weight gain, Weight loss, Chills, Dizziness, Change in appetite, Night Sweats Endocrine: DENIES: Heat/cold intolerance, Polydipsia, Polyuria, Polyphagia Eyes: DENIES: Blurred vision, Diplopia, Eye inflammation, Eye pain, Vision loss , Photosensitivity, Double Vision Ears, nose, mouth, throat: DENIES: Tinnitus, Hearing loss, Vertigo, Nasal discharge, Oral lesions, Throat pain, Hoarseness, Ear Pain, Running Nose, Epistaxis, Sinus Pain, Toothache, Odynophagia Respiratory: DENIES: Apneas, Cough, Snoring, Wheezing, Hemoptysis, Sputum production, Shortness of breath Cardiovascular: DENIES: Chest pain, Palpitations, Syncope, Dyspnea on Exertion , PND, Lower Extremity Edema, Orthopnea, Claudication Gastrointestinal: COMPLAINS OF: Nausea, Vomiting, DENIES: Abdominal pain, Black stools, Bloody stools, Constipation, Diarrhea, Difficulty Swallowing, Anorexia Genitourinary: DENIES: Sexual dysfunction, Urinary frequency, Urinary incontinence, Urgency, Hematuria, Dysuria, Nocturia, Penile Discharge, Testicular Pain, Testicular Swelling Musculoskeletal: DENIES: Joint pain, Muscle aches, Stiffness, Joint Swelling, Back pain, Neck pain Integumentary: DENIES: Abnormal pigmentation, Nail changes, Pruritus, Rash Hematologic/lymphatic: DENIES: Bruising, Lymphadenopathy Neurologic: DENIES: Abnormal gait, Headache, Localized weakness, Paresthesias, Seizures, Speech Problems, Tremor, Poor Balance Psychiatric: DENIES: Anxiety, Confusion, Mood changes, Depression, Hallucinations, Agitation, Suicidal Ideation, Homicidal Ideation, Delusions Except as stated in HPI: all other systems reviewed are Neg Past Family Social History Allergies: Coded Allergies: amlodipine (Unverified Adverse Reaction, Severe, Cramping, 05/08/17) leg cramps atorvastatin (Unverified Adverse Reaction, Severe, Cramping, 05/08/17) leg cramps pravastatin (Unverified Adverse Reaction, Severe, Cramping, 05/08/17) leg cramps simvastatin (Unverified Adverse Reaction, Severe, Cramping, 05/08/17) leg cramps Past Medical History HTN, A. fib on Pradaxa, COPD, Sleep Apnea on CPAP, CAD, BPH and PVD Chronic prostatitis Renal stones s.p lithotripsy in past. 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 Past Surgical History Pacemaker, Cardiac Stent, Lithotripsy, Left AKA Reported Medications Reported Meds & Active Scripts Active [Aspirin Chew] 81 MG Chew 81 Mg CHEW DAILY Atorvastatin (Atorvastatin Calcium) 20 Mg Tab 20 Mg PO HS Pradaxa (Dabigatran) 150 Mg Cap 150 Mg PO BID Dok (Docusate Sodium) 100 Mg Cap 100 Mg PO BID Escitalopram (Escitalopram Oxalate) 10 Mg Tab 10 Mg PO DAILY Furosemide 20 Mg Tab 20 Mg PO DAILY Hydrocodone-Acetaminophen 7.5-325 mg Tab 1 Tab PO Q4H PRN Synthroid (Levothyroxine Sodium) 50 Mcg Tab 50 Mcg PO DAILY@06 Sorine (Sotalol HCl) 80 Mg Tab 80 Mg PO BID Flomax (Tamsulosin HCl) 0.4 Mg Cap 0.4 Mg PO HS Omeprazole 20 Mg Tab 20 Mg PO DAILY Reported Levemir Inj (Insulin Detemir) 1,000 unit/ 10 ML Vial 22 Units SQ DAILY Do not mix with any other Insulin. Ferrous Sulfate 325 Mg (65 Mg Iron) Tablet 325 Mg PO DAILY Levemir Inj (Insulin Detemir) 1,000 unit/ 10 ML Vial 10 Units SQ HS Do not mix with any other Insulin. Ammonium Lactate (Lactic Acid (Ammonium Lactate)) 12% Lotn 1 Applic TOPICAL BID Ranitidine (Ranitidine HCl) 150 Mg Tab 150 Mg PO BID Temazepam 15 Mg Cap 15 Mg PO HS PRN Amlodipine (Amlodipine Besylate) 2.5 Mg Tab 2.5 Mg PO BID Miralax Powder (Polyethylene Glycol 3350 Powder) 17 Gm Powd 17 Gm PO DAILY Mix and dissolve one measuring cap-ful (17 grams) in water or juice. Culturelle (Lactobacillus Rhamnosus (GG)) 10 Billion Cell Cap 1.5 Cap PO DAILY Symbicort Inh (Budesonide/Formoterol Fumarate) 160-4.5 Mcg/Act Aero 1 Puff INH Q12HR [robitussin DM] 10 Ml PO Q6HR PRN Gabapentin 100 Mg Cap 100 Mg PO TID Duoneb (Ipratropium-Albuterol Neb) 0.5-2.5 Mg/3 Ml Neb 1 Nebule INH Q4HR NEB Novolog Flexpen Inj (Insulin Aspart) 300 Unit/3 Ml Pen 1 Units SQ Mucinex DM (Dextromethorphan-Guaifenesin) 30-600 Mg Tab 2 Tab PO BID PRN Active Ordered Medications Current Medications Medications (Trade) Dose Ordered Sig/[place] Route Start Time Stop Time Status Last Admin (Duoneb Neb) 1 ampule Q4HR WHILE AWAKE NEB NEB 06/15/17 08:00 06/17/17 15:30 (Duoneb Neb) 1 ampule Q2HR NEB PRN NEB 06/15/17 02:30 (D50w (Vial) Inj) 50 ml UNSCH PRN IV PUSH 06/15/17 02:30 (Glucagon Inj) 1 mg UNSCH PRN OTHER 06/15/17 02:30 (Zofran Inj) 4 mg Q6H PRN IVP 06/15/17 02:30 06/17/17 12:39 (Tylenol) 650 mg Q6H PRN PO 06/15/17 02:30 ([place] 5-325 Mg) 1 tab Q4H PRN PO 06/15/17 02:30 (Morphine Inj) 2 mg Q3H PRN IV PUSH 06/15/17 02:30 ([place]-Colace) 1 tab BID PO 06/15/17 09:00 06/17/17 09:24 (Milk Of Magnesia Liq) 30 ml Q12H PRN PO 06/15/17 02:30 (Senokot) 17.2 mg Q12H PRN PO 06/15/17 02:30 (Dulcolax Supp) 10 mg DAILY PRN RECTAL 06/15/17 02:30 (Lactulose Liq) 30 ml DAILY PRN PO 06/15/17 02:30 (Symbicort 160-4.5 Inh) 1 puff Q12HR INH 06/15/17 09:00 06/16/17 21:00 (Pradaxa) 150 mg BID PO 06/15/17 09:00 06/17/17 09:23 (Lexapro) 10 mg DAILY PO 06/15/17 09:00 06/17/17 09:24 (Lasix) 20 mg DAILY PO 06/15/17 09:00 06/17/17 09:24 (Neurontin) 100 mg TID PO 06/15/17 09:00 06/17/17 18:00 (Synthroid) 50 mcg DAILY@06 PO 06/15/17 06:00 06/17/17 06:06 (Betapace) 80 mg BID PO 06/15/17 09:00 06/17/17 09:30 (Flomax) 0.4 mg HS PO 06/15/17 21:00 06/16/17 22:37 (Restoril) 15 mg HS PRN PO 06/15/17 02:30 06/16/17 22:37 (Protonix) 20 mg DAILY PO 06/15/17 09:00 06/17/17 09:24 (Aspirin Chew) 81 mg DAILY PO 06/15/17 09:00 06/17/17 09:24 (NS Flush) 2 ml BID IV FLUSH 06/15/17 09:00 06/17/17 09:00 (NS Flush) 2 ml UNSCH PRN IVF 06/15/17 02:45 (NovoLIN R SUPPLEMENTAL SCALE) 1 ACHS SLIDING SCALE SQ 06/15/17 13:45 06/17/17 17:25 (Levemir Inj) 10 units Q12HR SQ 06/16/17 21:00 06/16/17 21:27 (Phenergan Supp) 25 mg Q4H PRN RECTAL 06/17/17 09:45 06/17/17 16:04 (Apresoline Inj) 20 mg Q4H PRN IV PUSH 06/17/17 12:00 06/17/17 14:15 (Catapres) 0.1 mg Q6H PRN PO 06/17/17 12:00 06/17/17 12:53 (ASP Crit: Doc ESBL, MDR A baumannii or P aer) 1 UNSCH X1 PRN .XX 06/17/17 15:00 06/18/17 14:59 ([facility] Information) 1 UNSCH X1 PRN XX 06/17/17 15:00 06/18/17 14:59 Ertapenem 1000 mg/ Sodium Chloride 100 ml @ 200 mls/hr Q24H IV 06/17/17 16:00 06/17/17 16:00 Family History Reviewed. No h/o DM or CAD Social History Negative for alcohol, tobacco or drugs. resident of [facility]. Physical Exam Vital Signs Vital Signs Date Time Temp Pulse Resp B/P (MAP) Pulse Ox O2 Delivery O2 Flow Rate FiO2 06/17/17 12:00 98.3 61 20 200/100 (133) 93 06/17/17 11:06 200/100 (133) 06/17/17 10:24 170/82 (111) 06/17/17 09:30 220/86 (130) 06/17/17 08:13 96 2.00 06/17/17 08:00 79 06/17/17 08:00 98.2 62 20 217/95 (135) 94 06/17/17 04:00 98.2 68 18 119/74 (89) 98 06/17/17 00:00 98.5 60 18 146/66 (92) 98 06/17/17 00:00 Nasal Cannula 5.00 06/16/17 20:55 Nasal Cannula 6.00 06/16/17 20:01 96 Nasal Cannula 2.00 06/16/17 20:00 98.7 68 22 162/72 (102) 94 06/16/17 20:00 60 06/16/17 19:45 Nasal Cannula 2.00 06/16/17 16:00 98.0 60 18 161/86 (111) 99 Physical Exam GENERAL: Obese, well-developed patient, in no apparent distress. SKIN: No rashes, ecchymoses or lesions. Cool and dry. HEAD: Atraumatic. Normocephalic. No temporal or scalp tenderness. EYES: Pupils equal round and reactive. Extraocular motions intact. No scleral icterus. No injection or drainage. ENT: Nose without bleeding, purulent drainage or septal hematoma. Throat without erythema, tonsillar hypertrophy or exudate. Uvula midline. Airway patent. NECK: Trachea midline.Supple, nontender, no meningeal signs. CARDIOVASCULAR: Regular rate and rhythm without murmurs, gallops, or rubs. RESPIRATORY: Clear to auscultation. Breath sounds equal bilaterally. No wheezes , rales, or rhonchi. GASTROINTESTINAL: Abdomen soft, non-tender, nondistended. MUSCULOSKELETAL: Left AKA site with no e/o infection. Right leg no pedal edema or e/o infection. NEUROLOGICAL: Awake and alert. Grossly non focal Psych: cooperative IV line sites with no e.o infection. Laboratory Laboratory Tests Test 06/17/17 06:55 White Blood Count 18.2 Red Blood Count 4.15 Hemoglobin 9.8 Hematocrit 30.4 Mean Corpuscular Volume 73.1 Mean Corpuscular Hemoglobin 23.5 Mean Corpuscular Hemoglobin Concent 32.1 Red Cell Distribution Width 16.2 Platelet Count 343 Mean Platelet Volume 8.6 Neutrophils (%) (Auto) 79.3 Lymphocytes (%) (Auto) 7.1 Monocytes (%) (Auto) 12.9 Eosinophils (%) (Auto) 0.6 Basophils (%) (Auto) 0.1 Neutrophils # (Auto) 14.4 Lymphocytes # (Auto) 1.3 Monocytes # (Auto) 2.3 Eosinophils # (Auto) 0.1 Basophils # (Auto) 0.0 CBC Comment AUTO DIFF Differential Comment AUTO DIFF CONFIRMED Platelet Estimate NORMAL Platelet Morphology Comment ENLARGED Blood Urea Nitrogen 29 Creatinine 1.36 Random Glucose 87 Calcium Level 8.8 Magnesium Level 2.0 Sodium Level 140 Potassium Level 3.4 Chloride Level 104 Carbon Dioxide Level 27.5 Anion Gap 9 Estimat Glomerular Filtration Rate 51 B-Type Natriuretic Peptide 464 Date/Time Source Procedure Growth Status 06/14/17 22:10 Blood Peripheral Aerobic Blood Culture - Preliminary NO GROWTH IN 3 DAYS Resulted 06/14/17 22:10 Blood Peripheral Anaerobic Blood Culture - Preliminary NO GROWTH IN 3 DAYS Resulted 06/15/17 02:15 Urine Catheterized Urine Urine Culture - Final Escherichia Coli Esbl Positive Complete Result Diagram: 06/17/17 0655 06/17/17 0655 Imaging Last Impressions Renal Ultrasound 06/17/17 0000 Signed Impressions: Service Date/Time: Saturday, June 17, 2017 16:16 - CONCLUSION: There is no hydronephrosis. The examination is within normal limits. Remi Weeks MD Abdomen X-Ray 06/17/17 0000 Signed Impressions: Service Date/Time: Saturday, June 17, 2017 09:39 - CONCLUSION: Gastric distention identified. Bj Rodriguez MD Chest X-Ray 06/16/17 0000 Signed Impressions: Service Date/Time: Friday, June 16, 2017 20:51 - CONCLUSION: New bilateral streaky opacities of concern for pulmonary edema. There may be small effusions. Tristan Bruno MD Head CT 06/14/17 2158 Signed Impressions: Service Date/Time: Wednesday, June 14, 2017 22:08 - CONCLUSION: 1. Mild periventricular and subcortical white matter small vessel ischemic changes bilaterally. 2. Mild cerebral atrophy. 3. No acute infarct, acute hemorrhage, mass effect or extraaxial fluid collections. Rick Shrestha MD Assessment and Plan Assessment and Plan Sepsis present on admission (leucocytosis, tachycardia, source UTI) ESBL Ecoli UTI COPD exacerbation HTN'sive urgency (uncontrolled HTN) N/Vomiting Acute renal failure: sepsis, prerenal Elevated CRP BPH, prior h/o chronic prostatitis sees a urologist. Recs: Start Ertapenem IV (ASP criteria: ESBL E.coli UTI) follow blood cultures DC Vanco IV DC Zosyn IV US KUB (r/o pyelonephritis, hydronephrosis, obstruction) Follow cultures Follow clinically. d/w RN to follow BP closely and let know so decision to transfer to ICU can be addressed. Ana Steele MD Jun 17, 2017 14:56
[2017-06-17] MEDS ORDERED: MISCELLANEOUS PHARMACY INFORMATION XX PRN (15:00)
[2017-06-17] MEDS ORDERED: ASP: Documented ESBL, MDR A baumannii or P. aeruginosa PRN (15:00)
[2017-06-17] MEDS: ERTAPENEM INJ 1,000 MG in SODIUM CHLORIDE 0.9% INJ 100 ML IV SCH (16:00)
--- NOTE | 2017-06-17 18:14 | RADRPT ---
EXAM DATE/TIME: 06/17/2017 16:16 [place] COMPARISON: No previous studies available for comparison. INDICATIONS : Hydronephrosis. MEDICAL HISTORY : Hypercholesterolemia. Chronic obstructive pulmonary disease. Myocardial infarction. CVA. CHF. A-fib. Hypertension. GERD. Arthritis. Diabetes. Measles. Kidney stones. Pneumonia. UTI. SURGICAL HISTORY : Pacemaker. Cholecystectomy. Appendectomy. Kidney stone removal. ENCOUNTER: Initial ACUITY: 1 day PAIN SCORE: 2/10 LOCATION: Bilateral flank MEASUREMENTS: RIGHT KIDNEY: 11.9 x 5.8 x 6.3 cm LEFT KIDNEY: 10.0 x 5.0 x 6.2 cm FINDINGS: RIGHT KIDNEY: Renal cortex is normal in thickness and echotexture. No hydronephrosis, stone, or mass. LEFT KIDNEY: Renal cortex is normal in thickness and echotexture. No hydronephrosis, stone, or mass. BLADDER: Within normal limits given the degree of distension. CONCLUSION: There is no hydronephrosis. The examination is within normal limits. Remi Weeks MD on June 17, 2017 at 18:12 Board Certified Radiologist. This report was verified electronically.
[2017-06-17] MEDS ORDERED: METOPROLOL TARTRATE 5 MG/5 ML VIAL IV PUSH PRN (20:00)
[2017-06-17 20:08] LABS: MAGNESIUM 1.9 MG/DL (1.5-2.5); POTASSIUM 3.2 MEQ/L (3.5-5.1)
[2017-06-17] MEDS: TAMSULOSIN HCL 0.4 MG CAP PO SCH (21:18)
[2017-06-18] VITALS (23 sets, daily range): BP systolic 120–188; BP diastolic 54–103; PULSE 59–68; RESP 18–28; TEMP 98–99.2; O2SAT 97–100
[2017-06-18] MEDS: hydrALAZINE HCL 20 MG/ML VIAL IV PUSH PRN ×2 (04:13→10:00)
[2017-06-18] MEDS ORDERED: PHARMACY ORDERED LAB ONE (04:45)
[2017-06-18] MEDS: PROMETHAZINE HCL 25 MG SUPP RECTAL PRN ×2 (05:30→10:01)
[2017-06-18 06:16] LABS: HEMATOCRIT 32.5 % (39.0-51.0); MEAN CELL VOLUME 73.2 FL (80.0-100.0); MEAN CORPUSCULAR HEMOGLOBIN 24.2 PG (27.0-34.0); MEAN CORPUSCULAR HGB CONC 33.1 % (32.0-36.0); PLATELET COUNT 377 TH/MM3 (150-450); RED BLOOD COUNT 4.44 MIL/MM3 (4.50-5.90); RED CELL DISTRIBUTION WIDTH 15.8 % (11.6-17.2); REVIEW FLAG FINAL; WHITE BLOOD COUNT 16.8 TH/MM3 (4.0-11.0)
[2017-06-18] MEDS: cloNIDine HCL 0.1 MG TAB PO PRN (06:31)
[2017-06-18] MEDS: LEVOTHYROXINE SODIUM 50 MCG TAB PO SCH (06:31)
[2017-06-18 06:45] LABS: BICARBONATE 29.5 MEQ/L (21.0-32.0); POTASSIUM 3.4 MEQ/L (3.5-5.1)
[2017-06-18] MEDS: RESP: ALBUTEROL 2.5 MG/IPRATROPIUM 0.5 MG NEB (SCH) NEB ×4 (07:29→20:12)
[2017-06-18] MEDS: INSULIN NovoLIN REGULAR SUPPLEMENTAL SCALE SQ SCH ×4 (08:00→20:24)
[2017-06-18] MEDS: ESCITALOPRAM OXALATE 10 MG TAB PO SCH (08:55)
[2017-06-18] MEDS: SOTALOL HCL 80 MG TAB PO SCH ×2 (08:55→21:56)
[2017-06-18] MEDS: PANTOPRAZOLE SOD 20 MG DELAYED RELEASE TAB PO SCH (08:55)
[2017-06-18] MEDS: DOCUSATE SODIUM 50 MG/SENNA 8.6 MG TAB PO SCH ×2 (08:55→20:24)
[2017-06-18] MEDS: FUROSEMIDE 20 MG TAB PO SCH (08:55)
[2017-06-18] MEDS: DABIGATRAN ETEXILATE 150 MG CAP PO SCH ×2 (08:55→21:54)
[2017-06-18] MEDS: ASPIRIN 81 MG CHEW TAB PO SCH (08:55)
[2017-06-18] MEDS: GABAPENTIN 100 MG CAP PO SCH ×3 (08:55→18:04)
[2017-06-18] MEDS: SODIUM CHLORIDE 0.9% FLUSH 10 ML FLUSH IV FLUSH SCH ×2 (08:56→21:56)
[2017-06-18] MEDS: INSULIN DETEMIR 100 UNITS/ML VIAL SQ SCH ×2 (09:00→20:24)
[2017-06-18] MEDS: BUDESONIDE-FORMOTEROL 160/4.5 MCG INHALER INH SCH ×2 (11:02→21:00)
--- NOTE | 2017-06-18 11:59 | EKG ---
Date Performed: 06/17/2017 Time Performed: 19:02:04 PTAGE: 81 years EKG: Atrial fibrillation with rapid ventricular response Anterior infarct age undetermined and p ossible acute There is suggestion of old anteroseptal infarct in the old tracing Clinical correlation needed regarding the old rhythm tracings and more pronounced ST elevation Abnormal ECG PREVIOUS TRACING : 06/14/2017 22.01 DOCTOR: Noel King Interpretating Date/Time 06/18/2017 11:55:37
[2017-06-18] MEDS ORDERED: EPINEPHrine HCL (1:10,000) 1 MG/10 ML SYRINGE ONE (12:51)
[2017-06-18] MEDS ORDERED: ATROPINE SULFATE 1 MG/10 ML SYRINGE ONE (12:51)
--- NOTE | 2017-06-18 12:56 | ECHRPT ---
Indication: SOB CONCLUSIONS The left ventricular systolic function is mildly reduced with an estimated ejection fraction in the range of 45- 50%. Normal left ventricular size. Mild concentric left ventricular hypertrophy. Mild mitral valve regurgitation. No mitral valve stenosis. No aortic valve regurgitation. No aortic valve stenosis. There is mild tricuspid valve regurgitation. RVSP 57mmhg BP: / HR: Rhythm: MEASUREMENTS (Male / Female) Normal Values Technical Quality:Technically difficult study 2D ECHO LV Diastolic Diameter PLAX 5.0 cm 4.2 - 5.9 / 3.9 - 5.3 cm LV Systolic Diameter PLAX 4.0 cm IVS Diastolic Thickness 1.7 cm 0.6 - 1.0 / 0.6 - 0.9 cm LVPW Diastolic Thickness 1.2 cm 0.6 - 1.0 / 0.6 - 0.9 cm LV Relative Wall Thickness 0.6 RV Internal Dim ED PLAX 3.3 cm M-MODE Aortic Root Diameter MM 3.6 cm LA Systolic Diameter MM 3.8 cm LA Ao Ratio MM 1.1 AV Cusp Separation MM 2.2 cm DOPPLER Mitral E Point Velocity 103.0 cm/s Mitral A Point Velocity 117.0 cm/s Mitral E to A Ratio 0.9 LV E' Lateral Velocity 6.2 cm/s Mitral E to LV E' Lateral Ratio 16.5 LV E' Septal Velocity 4.6 cm/s Mitral E to LV E' Septal Ratio 22.5 TR Peak Velocity 342.0 cm/s TR Peak Gradient 46.8 mmHg Right Atrial Pressure 10.0 mmHg Pulmonary Artery Systolic Pressu 56.8 mmHg Right Ventricular Systolic Press 56.8 mmHg FINDINGS LEFT VENTRICLE The left ventricular systolic function is mildly reduced with an estimated ejection fraction in the range of 45- 50%. Normal left ventricular size. Mild concentric left ventricular hypertrophy. RIGHT VENTRICLE Normal right ventricular size and systolic function. LEFT ATRIUM The left atrial size is normal. RIGHT ATRIUM The right atrial size is normal. ATRIAL SEPTUM Normal atrial septal thickness without atrial level shunting by limited color doppler interrogation. AORTA The aortic root and proximal ascending aorta are normal in size on limited imaging. MITRAL VALVE Structurally normal mitral valve. Mild mitral valve regurgitation. No mitral valve stenosis. AORTIC VALVE Trileaflet aortic valve. No aortic valve regurgitation. No aortic valve stenosis. TRICUSPID VALVE Structurally normal tricuspid valve. There is mild tricuspid valve regurgitation. The estimated pulmonary arterial pressure is _57_ mmHg. PULMONARY VALVE The pulmonary valve is not well visualized. VESSELS The inferior vena cava is normal in size. PERICARDIUM No pericardial effusion. Junior Reyes MD, FACC (Electronically Signed) Final Date:18 June 2017 12:55
--- NOTE | 2017-06-18 12:59 | HHI.PR ---
Subjective Remarks f/u for infection and hypertension d/w nurse patient is not responding and very lethargic. I try to wake patient up and he is lethargic and will not respond despite sternal rub. I did mumble softly and quickly "leave me alone." I then asked patient to move his limbs and gave stimuli to each limb for him to move. He only moved his right leg. Left BKA. Objective Vitals Vital Signs Date Time Temp Pulse Resp B/P (MAP) Pulse Ox O2 Delivery O2 Flow Rate FiO2 06/18/17 12:20 68 06/18/17 11:31 98.1 64 18 146/64 (91) 98 06/18/17 11:00 64 06/18/17 10:00 61 06/18/17 09:00 64 06/18/17 08:00 66 06/18/17 07:45 98.7 63 18 181/75 (110) 98 Manual Cuff/Auscultation 06/18/17 07:30 98 Nasal Cannula 2.00 06/18/17 07:00 64 06/18/17 06:00 64 06/18/17 05:00 66 06/18/17 04:00 64 06/18/17 03:30 99.2 62 28 188/103 (131) 97 06/18/17 03:00 66 06/18/17 02:00 60 06/18/17 01:00 68 06/18/17 00:00 64 06/17/17 23:15 66 28 198/96 (130) 98 06/17/17 23:00 66 06/17/17 22:00 70 06/17/17 21:00 92 06/17/17 20:00 140 06/17/17 19:35 98 Nasal Cannula 2.00 06/17/17 19:30 134 24 140/78 (98) 98 06/17/17 19:00 138 06/17/17 18:50 98.4 123 18 155/96 (115) 97 06/17/17 18:46 138 06/17/17 17:43 95 Nasal Cannula 2.00 06/17/17 15:32 95 Nasal Cannula 2.00 I/O 06/17/17 06/17/17 06/17/17 06/18/17 06/18/17 06/18/17 07:00 15:00 23:00 07:00 15:00 23:00 Intake Total 1240 ml 100 ml 240 ml Output Total 1750 ml 600 ml Balance -510 ml 100 ml -360 ml Intake Oral 240 ml 240 ml IV Total 1000 ml 100 ml Output Urine Total 1750 ml 600 ml # Voids 1 Result Diagram: 06/18/1712 06/18/17611 Objective Remarks GENERAL: in NAD HEENT: left eye blown pupil. right eye PERRLA. CARDIOVASCULAR: Regular rate and rhythm without murmurs, gallops, or rubs. RESPIRATORY: scattered transmitted upper respiratory sounds. No accessory muscle use. GASTROINTESTINAL: Abdomen soft, non-tender, nondistended. MUSCULOSKELETAL: Left BKA. Positive for 1 to trace pitting edema in the right lower extremity. NEURO: AAO X 0. moans with noxious stimuli. Moved his right leg. Medications and IVs Current Medications IV Flush (NS Flush) 2 ml UNSCH PRN IV FLUSH FLUSH AFTER USING IV ACCESS; Start 06/14/17 at 22:00; Stop 06/17/17 at 15:31; Status DC Acetaminophen (Tylenol) 650 mg ONCE ONCE PO Last administered on 06/14/17 23: 01; Start 06/14/17 at 22:30; Stop 06/14/17 at 22:31; Status DC Piperacillin Sod/ Tazobactam Sod 100 ml @ 200 mls/hr ONCE ONCE IV Last administered on 06/14/17 23:01; Start 06/14/17 at 22:30; Stop 06/14/17 at 22:59 ; Status DC Albuterol/ Ipratropium (Duoneb Neb) 1 ampule ONCE ONCE NEB Last administered on 06/15/17 01:32; Start 06/15/17 at 01:30; Stop 06/15/17 at 01:31; Status DC Methylprednisolone Sodium Succinate (SoluMEDROL INJ) 125 mg ONCE ONCE IV PUSH Last administered on 06/15/17 01:34; Start 06/15/17 at 01:30; Stop 06/15/17 at 01:31; Status DC Methylprednisolone Sodium Succinate (SoluMEDROL INJ) 40 mg Q6HR IV PUSH Last administered on 06/15/17 05:59; Start 06/15/17 at 06:00; Stop 06/15/17 at 13:21 ; Status DC Albuterol/ Ipratropium (Duoneb Neb) 1 ampule Q4HR WHILE AWAKE NEB NEB Last administered on 06/18/17 11:11; Start 06/15/17 at 08:00 Albuterol/ Ipratropium (Duoneb Neb) 1 ampule Q2HR NEB PRN NEB SOB/WHEEZING; Start 06/15/17 at 02:30 Pharmacy Profile Note 0 ml @ 0 mls/hr UNSCH OTHER ; Start 06/15/17 at 02:30; Stop 06/17/17 at 14:56; Status DC Piperacillin Sod/ Tazobactam Sod 50 ml @ 100 mls/hr Q6H IV ; Start 06/15/17 at 04:00; Stop 06/15/17 at 06:38; Status DC Dextrose (D50w (Vial) Inj) 50 ml UNSCH PRN IV PUSH HYPOGLYCEMIA-SEE COMMENTS; Start 06/15/17 at 02:30 Glucagon (Glucagon Inj) 1 mg UNSCH PRN OTHER HYPOGLYCEMIA-SEE COMMENTS; Start 06/15/17 at 02:30 Insulin Aspart (NovoLOG SUPPLEMENTAL SCALE) 1 ACHS SLIDING SCALE SQ Last administered on 06/15/17 08:00; Start 06/15/17 at 08:00; Stop 06/15/17 at 13:23 ; Status DC Sodium Chloride 1,000 ml @ 100 mls/hr Q10H IV Last administered on 06/16/17 05:05; Start 06/15/17 at 02:19; Stop 06/16/17 at 22:23; Status DC Sodium Chloride (NS Flush) 2 ml UNSCH PRN IV FLUSH FLUSH AFTER USING IV ACCESS ; Start 06/15/17 at 02:30; Stop 06/17/17 at 15:31; Status DC Sodium Chloride (NS Flush) 2 ml BID IV FLUSH Last administered on 06/17/17 09: 00; Start 06/15/17 at 09:00; Stop 06/17/17 at 15:31; Status DC Ondansetron HCl (Zofran Inj) 4 mg Q6H PRN IVP NAUSEA OR VOMITING Last administered on 06/17/17 19:30; Start 06/15/17 at 02:30 Acetaminophen (Tylenol) 650 mg Q6H PRN PO FEVER/PAIN SCALE 1 TO 2; Start at 02:30 Acetaminophen/ Hydrocodone Bitart ([place] 5-325 Mg) 1 tab Q4H PRN PO PAIN SCALE 3 TO 5; Start 06/15/17 at 02:30 Morphine Sulfate (Morphine Inj) 2 mg Q3H PRN IV PUSH Pain 6-10; Start 06/15/17 at 02:30 Senna/Docusate Sodium (Macie-Colace) 1 tab BID PO Last administered on 08:55; Start 06/15/17 at 09:00 Magnesium Hydroxide (Milk Of Magnesia Liq) 30 ml Q12H PRN PO MILD - MODERATE CONSTIPATION; Start 06/15/17 at 02:30 Sennosides (Senokot) 17.2 mg Q12H PRN PO MODERATE - SEVERE CONSTIPATION; Start 06/15/17 at 02:30 Bisacodyl (Dulcolax Supp) 10 mg DAILY PRN RECTAL SEVERE CONSITIPATION; Start at 02:30 Lactulose (Lactulose Liq) 30 ml DAILY PRN PO SEVERE CONSITIPATION; Start at 02:30 Budesonide/ Formoterol Fumarate (Symbicort 160-4.5 Inh) 1 puff Q12HR INH Last administered on 06/18/17 11:02; Start 06/15/17 at 09:00 Dabigatran (Pradaxa) 150 mg BID PO Last administered on 06/18/17 08:55; Start 06/15/17 at 09:00 Escitalopram Oxalate (Lexapro) 10 mg DAILY PO Last administered on 06/18/17 08 :55; Start 06/15/17 at 09:00 Furosemide (Lasix) 20 mg DAILY PO Last administered on 06/18/17 08:55; Start 06/15/17 at 09:00 Gabapentin (Neurontin) 100 mg TID PO Last administered on 06/18/17 08:55; Start 06/15/17 at 09:00 Levothyroxine Sodium (Synthroid) 50 mcg DAILY@06 PO Last administered on 06:31; Start 06/15/17 at 06:00 Sotalol HCl (Betapace) 80 mg BID PO Last administered on 06/18/17 08:55; Start 06/15/17 at 09:00 Tamsulosin HCl (Flomax) 0.4 mg HS PO Last administered on 06/17/17 21:18; Start 06/15/17 at 21:00 Temazepam (Restoril) 15 mg HS PRN PO INSOMNIA Last administered on 06/16/17 22 :37; Start 06/15/17 at 02:30 Pantoprazole Sodium (Protonix) 20 mg DAILY PO Last administered on 06/18/17 08 :55; Start 06/15/17 at 09:00 Aspirin (Aspirin Chew) 81 mg DAILY PO Last administered on 06/18/17 08:55; Start 06/15/17 at 09:00 Sodium Chloride (NS Flush) 2 ml BID IV FLUSH Last administered on 06/18/17 08: 56; Start 06/15/17 at 09:00 Sodium Chloride (NS Flush) 2 ml UNSCH PRN IVF FLUSH AFTER USING IV ACCESS; Start 06/15/17 at 02:45 Vancomycin HCl 2200 mg/Sodium Chloride 522 ml @ 250 mls/hr ONCE ONCE IV Last administered on 06/15/17 04:24; Start 06/15/17 at 03:30; Stop 06/15/17 at 05:35 ; Status DC Piperacillin Sod/ Tazobactam Sod 50 ml @ 100 mls/hr Q6H IV Last administered on 06/17/17 13:37; Start 06/15/17 at 08:00; Stop 06/17/17 at 14:56; Status DC Vancomycin HCl 2000 mg/Sodium Chloride 520 ml @ 257.5 mls/ hr Q24H IV Last administered on 06/17/17 05:16; Start 06/16/17 at 05:00; Stop 06/17/17 at 14:56 ; Status DC Miscellaneous Information SPECIFIC LAB TO BE CADE... ONCE ONCE .XX ; Start 06/18 at 04:45; Stop 06/18/17 at 04:45; Status DC Insulin Human Regular (NovoLIN R SUPPLEMENTAL SCALE) 1 ACHS SLIDING SCALE SQ Last administered on 06/18/17 08:00; Start 06/15/17 at 13:45 Insulin Detemir (Levemir Inj) 5 units Q12HR SQ Last administered on 06/16/17 09:06; Start 06/15/17 at 13:30; Stop 06/16/17 at 10:46; Status DC Insulin Detemir (Levemir Inj) 10 units Q12HR SQ Last administered on 06/17/17 22:09; Start 06/16/17 at 21:00 Insulin Detemir (Levemir Inj) 10 units ONCE ONCE SQ Last administered on 10:45; Start 06/16/17 at 10:45; Stop 06/16/17 at 10:51; Status DC Furosemide (Lasix Inj) 40 mg ONCE ONCE IV PUSH Last administered on 06/16/17 22:36; Start 06/16/17 at 22:30; Stop 06/16/17 at 22:31; Status DC Promethazine HCl (Phenergan Supp) 25 mg Q4H PRN RECTAL emesis Last administered on 06/18/17 10:01; Start 06/17/17 at 09:45 Hydralazine HCl (Apresoline Inj) 20 mg Q4H PRN IV PUSH SBP>180 or DBP >100 Last administered on 06/18/17 10:00; Start 06/17/17 at 12:00 Clonidine (Catapres) 0.1 mg Q6H PRN PO SBP>180 or DBP>100 Last administered on 06/18/17 06:31; Start 06/17/17 at 12:00 Ertapenem (INVanz INJ) 1,000 mg DAILY IM ; Start 06/17/17 at 12:00; Stop at 12:00; Status DC Miscellaneous Medication (ASP Crit: Doc ESBL, MDR A baumannii or P aer) 1 UNSCH X1 PRN .XX PHARMACY DOCUMENTATION; Start 06/17/17 at 15:00; Stop 06/18/17 at 14 :59 Miscellaneous Medication ([facility] Information) 1 UNSCH X1 PRN XX PHARMACY DOCUMENTATION; Start 06/17/17 at 15:00; Stop 06/18/17 at 14:59 Ertapenem 1000 mg/ Sodium Chloride 100 ml @ 200 mls/hr Q24H IV Last administered on 06/17/17 16:00; Start 06/17/17 at 16:00 Metoprolol Tartrate (Lopressor Inj) 5 mg Q6H PRN IV PUSH HR>120 Last administered on 9/25/17at 20:20; Start 06/17/17 at 20:00 A/P Problem List: (1) Encephalopathy ICD Code: G93.40 - Encephalopathy, unspecified (2) Sepsis ICD Code: A41.9 - Sepsis, unspecified organism (3) PNA (pneumonia) ICD Code: J18.9 - Pneumonia, unspecified organism (4) COPD (chronic obstructive pulmonary disease) ICD Code: J44.9 - Chronic obstructive pulmonary disease, unspecified Status: Chronic (5) Hypoglycemia ICD Code: E16.2 - Hypoglycemia, unspecified (6) DM (diabetes mellitus) ICD Code: E11.9 - Type 2 diabetes mellitus without complications (7) CEDRIC (acute kidney injury) ICD Code: N17.9 - Acute kidney failure, unspecified (8) A-fib ICD Code: I48.91 - Unspecified atrial fibrillation Assessment and Plan 81-year-old male who presented with AMS -not responsive and left eye pupil is blown. He is currently on pradaxa. STAT CT scan of brain without contrast and was negative.Labs reviewed and stable. -will get ABG to make sure airway is protective. at the moment clinically looks like protecting airway but if worsens or abnormal ABG will need to be transfer to ICU. -medication reviewed and may be due to addictive affects of medication. Left eye blown pupil -this was not examined yesterday since patient had no issues. He may have had this is the past. Once patient more awake will ask patient. Intractable emesis -No abdominal pain. KUB does not show any small bowel obstruction or ileus. -resolved. Sepsis Temp 100.4, WBC 20, Source UTI -S/p Blood Cultures and Zosyn in ER. -U/A positive for UTI and grew ESBL. -ID ff and patient on Invanz. Hypertensive urgency -Exacerbated by intractable emesis. -on PRN hydralazine. better controlled. COPD: Chronic Respiratory Failure w/ Acute Exacerbation. O2 sat 99% on 6L NC on arrival, -recheck ABG. -Symbicort. DuoNeb's. When necessary. Hypoglycemia: Resolved. - BS 40's per EMS, s/p D10 en route, BS currently 121. -Most likely secondary to illness. DM: Hgb A1c 8.0 on 01/04/17. -on Levemir to 10 units every 12 hours. On insulin sliding scale. CEDRIC: Creatinine 1.42, previously 1.04 on 01/04/17. -seems to fluctuate but stable. -Strict ins and outs. Continue to avoid nephrotoxins. A-fib: Chronic. Controlled. - On Pradaxa. Continue home medication. CLARA non compliant with CPAP -ordered for RT for CPAP while in house. DVT prophylaxis -On Pradaxa. Discharge Planning patient more lethargic and will need close monitoring. Transfer to ICU. Livier Hollingsworth MD Jun 18, 2017 12:59
--- NOTE | 2017-06-18 13:23 | RADRPT ---
EXAM DATE/TIME: 06/18/2017 13:01 [facility] COMPARISON: CT BRAIN W/O CONTRAST, June 14, 2017, 22:08. INDICATIONS : Altered mental status. RADIATION DOSE: 48.88 CTDIvol (mGy) MEDICAL HISTORY : Cardiovascular disease. Hypertension. Cerebrovascular disease.COPD, Diabetes SURGICAL HISTORY : Pacemaker. Stents ENCOUNTER: Initial ACUITY: 1 day PAIN SCALE: 0/10 LOCATION: cranial TECHNIQUE: Multiple contiguous axial images were obtained of the head. Using automated exposure control and adj ustment of the mA and/or kV according to patient size, radiation dose was kept as low as reasonably a chievable to obtain optimal diagnostic quality images. DICOM format image data is available electro nically for review and comparison. FINDINGS: CEREBRUM: The ventricles are normal for age. No evidence of midline shift, mass lesion, hemorrhage or acute in farction. No extra-axial fluid collections are seen. POSTERIOR FOSSA: The cerebellum and brainstem are intact. The 4th ventricle is midline. The cerebellopontine angle i s unremarkable. EXTRACRANIAL: The visualized portion of the orbits is intact. Minimal fluid in the sphenoid sinus SKULL: The calvaria is intact. No evidence of skull fracture. CONCLUSION: Normal examination. Remi Moore MD on June 18, 2017 at 13:20 Board Certified Radiologist. This report was verified electronically.
[2017-06-18 13:55] LABS: BLOOD GAS BASE EXCESS 2.8 mmol/L (-2-2); BLOOD GAS HCO3 27 mmol/L (22-26); BLOOD GAS METHEMOGLOBIN 1.5 % (0-2); BLOOD GAS O2 HGB SATURATION 92 % (90-100); BLOOD GAS OXYGEN CONTENT 14.5 Vol % (12.0-20.0); BLOOD GAS PCO2 39 mmHg (38-42); BLOOD GAS PO2 75 mmHg (61-120); BLOOD GAS TOTAL HGB 11.2 G/DL (12.0-16.0); CRITICAL VALUE NO; DRAW SITE RT RADIAL; LITER FLOW 2 L/M; NUMBER OF ARTERIAL PUNCTURES 2; OXYGEN DEVICE NASAL CANNULA; STAT YES; TEMP CORR TO 98.6; ULNAR PULSE PRESENT
--- NOTE | 2017-06-18 14:09 | PD.CONS ---
HPI Service Cardiology physicians Consult Requested By Tressa Reason for Consult Afib/chest pain Primary Care Physician Unknown History of Present Illness The patient is a 81 year old male know to our practice with a cardiac history of atrial fibrillation with history of CVA on Pradaxa, ASHD, PPM, HLD, HTN, DM, and mild carotid stenosis. The patient presented to the hospital for AMS. His glucose was noted to be low. Work up reveals UTI and possible pneumonia vs CHF. We were consulted for atrial fibrillation and CP. Today, on evaluation the patient just returned from CT head for acute AMS with associated left pupil dilation. CT head is negative. The patient has been on Pradaxa. He remains obtunded. He was able to follow basic commands after being aroused by sternal rub. His BP was elevated earlier, but is currently controlled. (Bailey Monet) Review of Systems ROS Limitations: Altered Mental Status (Bailey Monet) Past Family Social History Allergies: Coded Allergies: amlodipine (Unverified Adverse Reaction, Severe, Cramping, 05/08/17) leg cramps atorvastatin (Unverified Adverse Reaction, Severe, Cramping, 05/08/17) leg cramps pravastatin (Unverified Adverse Reaction, Severe, Cramping, 05/08/17) leg cramps simvastatin (Unverified Adverse Reaction, Severe, Cramping, 05/08/17) leg cramps Past Medical History See HPI Past Surgical History ERCP with stent for choledocholithiasis 05/2016 VATS with pleurodesis 04/2016 Right thoracotomy for loculated effusion 04/2016 Left AKA Reported Medications Reported Meds & Active Scripts Active [Aspirin Chew] 81 MG Chew 81 Mg CHEW DAILY Atorvastatin (Atorvastatin Calcium) 20 Mg Tab 20 Mg PO HS Pradaxa (Dabigatran) 150 Mg Cap 150 Mg PO BID Dok (Docusate Sodium) 100 Mg Cap 100 Mg PO BID Escitalopram (Escitalopram Oxalate) 10 Mg Tab 10 Mg PO DAILY Furosemide 20 Mg Tab 20 Mg PO DAILY Hydrocodone-Acetaminophen 7.5-325 mg Tab 1 Tab PO Q4H PRN Synthroid (Levothyroxine Sodium) 50 Mcg Tab 50 Mcg PO DAILY@06 Sorine (Sotalol HCl) 80 Mg Tab 80 Mg PO BID Flomax (Tamsulosin HCl) 0.4 Mg Cap 0.4 Mg PO HS Omeprazole 20 Mg Tab 20 Mg PO DAILY Reported Levemir Inj (Insulin Detemir) 1,000 unit/ 10 ML Vial 22 Units SQ DAILY Do not mix with any other Insulin. Ferrous Sulfate 325 Mg (65 Mg Iron) Tablet 325 Mg PO DAILY Levemir Inj (Insulin Detemir) 1,000 unit/ 10 ML Vial 10 Units SQ HS Do not mix with any other Insulin. Ammonium Lactate (Lactic Acid (Ammonium Lactate)) 12% Lotn 1 Applic TOPICAL BID Ranitidine (Ranitidine HCl) 150 Mg Tab 150 Mg PO BID Temazepam 15 Mg Cap 15 Mg PO HS PRN Amlodipine (Amlodipine Besylate) 2.5 Mg Tab 2.5 Mg PO BID Miralax Powder (Polyethylene Glycol 3350 Powder) 17 Gm Powd 17 Gm PO DAILY Mix and dissolve one measuring cap-ful (17 grams) in water or juice. Culturelle (Lactobacillus Rhamnosus (GG)) 10 Billion Cell Cap 1.5 Cap PO DAILY Symbicort Inh (Budesonide/Formoterol Fumarate) 160-4.5 Mcg/Act Aero 1 Puff INH Q12HR [robitussin DM] 10 Ml PO Q6HR PRN Gabapentin 100 Mg Cap 100 Mg PO TID Duoneb (Ipratropium-Albuterol Neb) 0.5-2.5 Mg/3 Ml Neb 1 Nebule INH Q4HR NEB Novolog Flexpen Inj (Insulin Aspart) 300 Unit/3 Ml Pen 1 Units SQ Mucinex DM (Dextromethorphan-Guaifenesin) 30-600 Mg Tab 2 Tab PO BID PRN Active Ordered Medications Current Medications Medications (Trade) Dose Ordered Sig/[place] Route Start Time Stop Time Status Last Admin (Duoneb Neb) 1 ampule Q4HR WHILE AWAKE NEB NEB 06/15/17 08:00 06/18/17 11:11 (Duoneb Neb) 1 ampule Q2HR NEB PRN NEB 06/15/17 02:30 (D50w (Vial) Inj) 50 ml UNSCH PRN IV PUSH 06/15/17 02:30 (Glucagon Inj) 1 mg UNSCH PRN OTHER 06/15/17 02:30 (Zofran Inj) 4 mg Q6H PRN IVP 06/15/17 02:30 06/17/17 19:30 (Tylenol) 650 mg Q6H PRN PO 06/15/17 02:30 ([place] 5-325 Mg) 1 tab Q4H PRN PO 06/15/17 02:30 (Morphine Inj) 2 mg Q3H PRN IV PUSH 06/15/17 02:30 (Macie-Colace) 1 tab BID PO 06/15/17 09:00 06/18/17 08:55 (Milk Of Magnesia Liq) 30 ml Q12H PRN PO 06/15/17 02:30 (Senokot) 17.2 mg Q12H PRN PO 06/15/17 02:30 (Dulcolax Supp) 10 mg DAILY PRN RECTAL 06/15/17 02:30 (Lactulose Liq) 30 ml DAILY PRN PO 06/15/17 02:30 (Symbicort 160-4.5 Inh) 1 puff Q12HR INH 06/15/17 09:00 06/18/17 11:02 (Pradaxa) 150 mg BID PO 06/15/17 09:00 06/18/17 08:55 (Lexapro) 10 mg DAILY PO 06/15/17 09:00 06/18/17 08:55 (Lasix) 20 mg DAILY PO 06/15/17 09:00 06/18/17 08:55 (Neurontin) 100 mg TID PO 06/15/17 09:00 06/18/17 08:55 (Synthroid) 50 mcg DAILY@06 PO 06/15/17 06:00 06/18/17 06:31 (Betapace) 80 mg BID PO 06/15/17 09:00 06/18/17 08:55 (Flomax) 0.4 mg HS PO 06/15/17 21:00 06/17/17 21:18 (Restoril) 15 mg HS PRN PO 06/15/17 02:30 06/16/17 22:37 (Protonix) 20 mg DAILY PO 06/15/17 09:00 06/18/17 08:55 (Aspirin Chew) 81 mg DAILY PO 06/15/17 09:00 06/18/17 08:55 (NS Flush) 2 ml BID IV FLUSH 06/15/17 09:00 06/18/17 08:56 (NS Flush) 2 ml UNSCH PRN IVF 06/15/17 02:45 (NovoLIN R SUPPLEMENTAL SCALE) 1 ACHS SLIDING SCALE SQ 06/15/17 13:45 06/18/17 12:00 (Levemir Inj) 10 units Q12HR SQ 06/16/17 21:00 06/17/17 22:09 (Phenergan Supp) 25 mg Q4H PRN RECTAL 06/17/17 09:45 06/18/17 10:01 (Apresoline Inj) 20 mg Q4H PRN IV PUSH 06/17/17 12:00 06/18/17 10:00 (Catapres) 0.1 mg Q6H PRN PO 06/17/17 12:00 06/18/17 06:31 (ASP Crit: Doc ESBL, MDR A baumannii or P aer) 1 UNSCH X1 PRN .XX 06/17/17 15:00 06/18/17 14:59 ([facility] [place]) 1 UNSCH X1 PRN XX 06/17/17 15:00 06/18/17 14:59 Ertapenem 1000 mg/ Sodium Chloride 100 ml @ 200 mls/hr Q24H IV 06/17/17 16:00 06/17/17 16:00 (Lopressor Inj) 5 mg Q6H PRN IV PUSH 06/17/17 20:00 06/17/17 20:20 Family History non contributory Social History Residing at [facility] (Bailey Monet) Physical Exam Vital Signs Vital Signs Date Time Temp Pulse Resp B/P (MAP) Pulse Ox O2 Delivery O2 Flow Rate FiO2 06/18/17 13:17 60 06/18/17 12:20 68 06/18/17 11:31 98.1 64 18 146/64 (91) 98 06/18/17 11:00 64 06/18/17 10:00 61 06/18/17 09:00 64 06/18/17 08:00 66 06/18/17 07:45 98.7 63 18 181/75 (110) 98 Manual Cuff/Auscultation 06/18/17 07:30 98 Nasal Cannula 2.00 06/18/17 07:00 64 06/18/17 06:00 64 06/18/17 05:00 66 06/18/17 04:00 64 06/18/17 03:30 99.2 62 28 188/103 (131) 97 06/18/17 03:00 66 06/18/17 02:00 60 06/18/17 01:00 68 06/18/17 00:00 64 06/17/17 23:15 66 28 198/96 (130) 98 06/17/17 23:00 66 06/17/17 22:00 70 06/17/17 21:00 92 06/17/17 20:00 140 06/17/17 19:35 98 Nasal Cannula 2.00 06/17/17 19:30 134 24 140/78 (98) 98 06/17/17 19:00 138 06/17/17 18:50 98.4 123 18 155/96 (115) 97 06/17/17 18:46 138 06/17/17 17:43 95 Nasal Cannula 2.00 06/17/17 15:32 95 Nasal Cannula 2.00 Physical Exam GENERAL: obese, elderly male, arouses to sternal rub SKIN: Warm and dry. HEAD: Atraumatic. Normocephalic. EYES: Dilated left pupil ENT: No nasal bleeding or discharge. Mucous membranes pink and moist. NECK: Trachea midline. CARDIOVASCULAR: Regular rate and rhythm. left PPM RESPIRATORY: No accessory muscle use. Clear to auscultation. Breath sounds equal bilaterally. GASTROINTESTINAL: Abdomen soft, nondistended. MUSCULOSKELETAL:Left AKA, no edema NEUROLOGICAL: Obtunded, arouses to sternal rub, follows simple commands, non- verbal, left sided weakness PSYCHIATRIC: unable to assess Laboratory Laboratory Tests Test 06/17/17 15:00 06/17/17 19:30 06/18/17 06:12 C-Reactive Protein 9.85 Blood Urea Nitrogen 31 34 Creatinine 1.26 1.32 Random Glucose 203 212 Calcium Level 8.8 8.8 Magnesium Level 1.9 Sodium Level 136 137 Potassium Level 3.2 3.4 Chloride Level 99 98 Carbon Dioxide Level 25.0 29.5 Anion Gap 12 10 Estimat Glomerular Filtration Rate 55 52 Troponin I 0.02 White Blood Count 16.8 Red Blood Count 4.44 Hemoglobin 10.8 Hematocrit 32.5 Mean Corpuscular Volume 73.2 Mean Corpuscular Hemoglobin 24.2 Mean Corpuscular Hemoglobin Concent 33.1 Red Cell Distribution Width 15.8 Platelet Count 377 Mean Platelet Volume 8.6 Date/Time Source Procedure Growth Status 06/14/17 22:10 Blood Peripheral Aerobic Blood Culture - Preliminary NO GROWTH IN 4 DAYS Resulted 06/14/17 22:10 Blood Peripheral Anaerobic Blood Culture - Preliminary NO GROWTH IN 4 DAYS Resulted 06/15/17 02:15 Urine Catheterized Urine Urine Culture - Final Escherichia Coli Esbl Positive Complete (Bailey Monet) Result Diagram: 06/18/17 0612 06/18/17 0612 Imaging Last [address] 06/18/17 0000 Signed Impressions: Service Date/Time: Sunday, June 18, 2017 13:01 - CONCLUSION: Normal examination. Remi Moore MD Renal Ultrasound 06/17/17 0000 Signed Impressions: Service Date/Time: Saturday, June 17, 2017 16:16 - CONCLUSION: There is no hydronephrosis. The examination is within normal limits. Remi Weeks MD Abdomen X-Ray 06/17/17 0000 Signed Impressions: Service Date/Time: Saturday, June 17, 2017 09:39 - CONCLUSION: Gastric distention identified. Bj Rodriguez MD Chest X-Ray 06/16/17 0000 Signed Impressions: Service Date/Time: Friday, June 16, 2017 20:51 - CONCLUSION: New bilateral streaky opacities of concern for pulmonary edema. There may be small effusions. Tristan Bruno MD (Bailey Monet) Assessment and Plan Assessment and Plan Recurrent AMS, CT head 06/18/2017 negative for acute stroke, no evidence of bleeding. Atrial fibrillation, currently rate controlled, mostly paced. On Pradaxa Acute on chronic diastolic CHF on the basis of elevated BNP and pulmonary edema Episode of nausea- troponin negative, EKG negative History of ASHD HLD Mild carotid stenosis PAD Renal insufficiency DM PLAN Transfer to ICU Consult Neurology- discussed with Dr Mclean who recommended stat CTA head/ carotid. Also start NS 80 ml/hr for renal protection. Check BS Continue lasix PO. Already received lasix IV since admission. Continue antihypertensive PRN Continue Pradaxa and sotalol We will continue to follow up closely The patient was seen and evaluated by Dr Hoyt who completed a face to face encounter and physical exam, and participated in evaluation and management. (Bailey Monet) Assessment and Plan The exam, history, and the medical decision-making described in the above note were completed with the assistance of the mid-level provider. I reviewed and agree with the findings presented. I attest that I had a [id number] encounter with the patient on the same day, and personally performed and documented my assessment and findings in the medical record. Code Status Acute event of change in mental status, agree with transfer to ICU (Mary Hoyt MD) Bailey Monet Jun 18, 2017 14:09 Mary Hoyt MD Jun 18, 2017 18:38
--- NOTE | 2017-06-18 14:27 | RADRPT ---
EXAM DATE/TIME: 06/18/2017 13:41 [facility] COMPARISON: CHEST SINGLE AP, June 16, 2017, 20:51. ABDOMEN KUB ONLY, June 17, 2017, 9:39. INDICATIONS : Pneumonia. MEDICAL HISTORY : Hypercholesterolemia. Chronic obstructive pulmonary disease. Myocardial infarction. CVA. CHF. A-fib. Hypertension. GERD. Arthritis. Diabetes. Measles. Kidney stones. Pneumonia. UTI. SURGICAL HISTORY : Pacemaker. Cholecystectomy. Appendectomy. Kidney stone removal. ENCOUNTER: Initial ACUITY: 4 - 6 days PAIN SCORE: 0/10 LOCATION: chest FINDINGS: The heart is mildly enlarged. There are bilateral pleural effusions diffuse infiltrates. These are un changed from prior study. The pacer stable in position. CONCLUSION: 1. Continued bilateral infiltrates unchanged from previous. Kishan Cavazos MD on June 18, 2017 at 14:25 Board Certified Radiologist. This report was verified electronically.
--- NOTE | 2017-06-18 14:33 | HHI.IDPN ---
Subjective Subjective Remarks is a 81 y/o CM with a PMH of HTN, A. fib on Pradaxa, COPD, Sleep Apnea on CPAP, CAD, BPH and PVD who is brought to the ER by EMS secondary to AMS. Per records, patient sent from [facility] secondary to lethargy. Upon EMS arrival, pt noted to have BS 40's s/p D10 and wheezing s/p DuoNeb. GCS 15 by the time he arrived to ER. Pt currently without any complaints. Denies fever, chills, cough, chest pain, nausea, vomiting or diarrhea. On arrival, BP 155/65 , HR 60, O2 sat 99% on 6L NC, Temp 100.4. Currently O2 sat 95% on RA. WBC 20.6 with elevated neutrophil count. Creatinine 1.42, previously 1.04 on . Lactic Acid normal at 1.4. BNP 214. Troponin negative. Ammonia normal. INR 1.6. UA pending. CT Head with no acute findings. CXR with likely basilar infiltrate. S/p Blood Culture and Zosyn IV in ER. Urine culture obtained in the ED positive for ESBL E.coli UTI. Blood cultures drawn on admission are negative. Hospital course: Patient seen on regular floor BP elevated 240s rechecked to be in 200s SBP. Due to persistent elevation in BP and persistent N/V patient will likely be transferred to cardiac monitoring unit or CCU. ID consulted for evaluation and Mment of Sepsis, E.coli ESBL UTI. Overnight events reviewed. RN reports waking up, not following commands. Sternal rub with no bodily movements. s/p CT brain non contrast with no acute findings. ABG done. BP better. No fevers No rash No diarrhea Antibiotics Ertapenem IV Lines Line sites with no e.o infection. Past Medical History reviewed. Allergies: Coded Allergies: amlodipine (Unverified Adverse Reaction, Severe, Cramping, 05/08/17) leg cramps atorvastatin (Unverified Adverse Reaction, Severe, Cramping, 05/08/17) leg cramps pravastatin (Unverified Adverse Reaction, Severe, Cramping, 05/08/17) leg cramps simvastatin (Unverified Adverse Reaction, Severe, Cramping, 05/08/17) leg cramps Objective . Vital Signs Date Time Temp Pulse Resp B/P (MAP) Pulse Ox O2 Delivery O2 Flow Rate FiO2 06/18/17 13:17 60 06/18/17 12:20 68 06/18/17 11:31 98.1 64 18 146/64 (91) 98 06/18/17 11:00 64 06/18/17 10:00 61 06/18/17 09:00 64 06/18/17 08:00 66 06/18/17 07:45 98.7 63 18 181/75 (110) 98 Manual Cuff/Auscultation 06/18/17 07:30 98 Nasal Cannula 2.00 06/18/17 07:00 64 06/18/17 06:00 64 06/18/17 05:00 66 06/18/17 04:00 64 06/18/17 03:30 99.2 62 28 188/103 (131) 97 06/18/17 03:00 66 06/18/17 02:00 60 06/18/17 01:00 68 06/18/17 00:00 64 06/17/17 23:15 66 28 198/96 (130) 98 06/17/17 23:00 66 06/17/17 22:00 70 06/17/17 21:00 92 06/17/17 20:00 140 06/17/17 19:35 98 Nasal Cannula 2.00 06/17/17 19:30 134 24 140/78 (98) 98 06/17/17 19:00 138 06/17/17 18:50 98.4 123 18 155/96 (115) 97 06/17/17 18:46 138 06/17/17 17:43 95 Nasal Cannula 2.00 06/17/17 15:32 95 Nasal Cannula 2.00 . Laboratory Tests Test 06/17/17 06:55 06/18/17 06:12 White Blood Count 18.2 TH/MM3 16.8 TH/MM3 Red Blood Count 4.15 MIL/MM3 4.44 MIL/MM3 Hemoglobin 9.8 GM/DL 10.8 GM/DL Hematocrit 30.4 % 32.5 % Mean Corpuscular Volume 73.1 FL 73.2 FL Mean Corpuscular Hemoglobin 23.5 PG 24.2 PG Mean Corpuscular Hemoglobin Concent 32.1 % 33.1 % Red Cell Distribution Width 16.2 % 15.8 % Platelet Count 343 TH/MM3 377 TH/MM3 Mean Platelet Volume 8.6 FL 8.6 FL Neutrophils (%) (Auto) 79.3 % Lymphocytes (%) (Auto) 7.1 % Monocytes (%) (Auto) 12.9 % Eosinophils (%) (Auto) 0.6 % Basophils (%) (Auto) 0.1 % Neutrophils # (Auto) 14.4 TH/MM3 Lymphocytes # (Auto) 1.3 TH/MM3 Monocytes # (Auto) 2.3 TH/MM3 Eosinophils # (Auto) 0.1 TH/MM3 Basophils # (Auto) 0.0 TH/MM3 CBC Comment AUTO DIFF Differential Comment AUTO DIFF CONFIRMED Platelet Estimate NORMAL Platelet Morphology Comment ENLARGED Laboratory Tests Test 06/17/17 06:55 06/17/17 15:00 06/17/17 19:30 06/18/17 06:12 Blood Urea Nitrogen 29 MG/DL 31 MG/DL 34 MG/DL Creatinine 1.36 MG/DL 1.26 MG/DL 1.32 MG/DL Random Glucose 87 MG/DL 203 MG/DL 212 MG/DL Calcium Level 8.8 MG/DL 8.8 MG/DL 8.8 MG/DL Magnesium Level 2.0 MG/DL 1.9 MG/DL Sodium Level 140 MEQ/L 136 MEQ/L 137 MEQ/L Potassium Level 3.4 MEQ/L 3.2 MEQ/L 3.4 MEQ/L Chloride Level 104 MEQ/L 99 MEQ/L 98 MEQ/L Carbon Dioxide Level 27.5 MEQ/L 25.0 MEQ/L 29.5 MEQ/L Anion Gap 9 MEQ/L 12 MEQ/L 10 MEQ/L Estimat Glomerular Filtration Rate 51 ML/MIN 55 ML/MIN 52 ML/MIN B-Type Natriuretic Peptide 464 PG/ML C-Reactive Protein 9.85 MG/DL Troponin I 0.02 NG/ML Imaging Last Impressions Head CT 06/18/17 0000 Signed Impressions: Service Date/Time: Sunday, June 18, 2017 13:01 - CONCLUSION: Normal examination. Remi Moore MD Chest X-Ray 06/18/17 0000 Signed Impressions: Service Date/Time: Sunday, June 18, 2017 13:41 - CONCLUSION: 1. Continued bilateral infiltrates unchanged from previous. Kishan Cavazos MD Renal Ultrasound 06/17/17 0000 Signed Impressions: Service Date/Time: Saturday, June 17, 2017 16:16 - CONCLUSION: There is no hydronephrosis. The examination is within normal limits. Remi Weeks MD Abdomen X-Ray 06/17/17 0000 Signed Impressions: Service Date/Time: Saturday, June 17, 2017 09:39 - CONCLUSION: Gastric distention identified. Bj Rodriguez MD Physical Exam GENERAL: Obese, well-developed patient, in no apparent distress. SKIN: No rashes, ecchymoses or lesions. Cool and dry. HEAD: Atraumatic. Normocephalic. No temporal or scalp tenderness. EYES: Pupils equal round and reactive. Extraocular motions intact. No scleral icterus. No injection or drainage. ENT: Nose without bleeding, purulent drainage or septal hematoma. Throat without erythema, tonsillar hypertrophy or exudate. Uvula midline. Airway patent. NECK: Trachea midline.Supple, nontender, no meningeal signs. CARDIOVASCULAR: Regular rate and rhythm without murmurs, gallops, or rubs. RESPIRATORY: Clear to auscultation. Breath sounds equal bilaterally. No wheezes , rales, or rhonchi. GASTROINTESTINAL: Abdomen soft, non-tender, nondistended. MUSCULOSKELETAL: Left AKA site with no e/o infection. Right leg no pedal edema or e/o infection. NEUROLOGICAL: No response to deep sternal rub. Not following commands. No extremity movts. IV line sites with no e.o infection. Assessment & Plan Remarks Sepsis present on admission (leucocytosis, tachycardia, source UTI) ESBL Ecoli UTI COPD exacerbation HTN'sive urgency (uncontrolled HTN) Acute renal failure: sepsis, prerenal Elevated CRP BPH, prior h/o chronic prostatitis sees a urologist. Recs: Continue Ertapenem IV (ASP criteria: ESBL E.coli UTI) follow blood cultures CXR stat (? Aspiration pneumonia) worsening CXR, pulm edema pattern. Reviewed and sherri ALVES MD US KUB (r/o pyelonephritis, hydronephrosis, obstruction) Follow cultures Follow clinically. Douglas called for new worsening encephalopathy, concern for airway protection. Cardiology called and CTA planned. shaniqua ALVES MD over phone. He evaluated patient and plan to transfer to ICU for continuing observation. Time in excess of 40 mins. Critical thinking and decision making. Communication with MDs, RN, coordination of transfer to ICU. Ana Steele MD Jun 18, 2017 14:33
[2017-06-18] MEDS ORDERED: IOHEXOL 350 MG/ML 10 ML VIAL (for RAD DIAG) IVCONTRAST ONE (15:31)
--- NOTE | 2017-06-18 15:59 | RADRPT ---
EXAM DATE/TIME: 06/18/2017 15:17 [facility] COMPARISON: CT BRAIN W/O CONTRAST, June 18, 2017, 13:01. INDICATIONS : Altered mental status evaluate for occlusion. IV CONTRAST: 75 cc Omnipaque 350 (iohexol) IV ; Cumulative dose for multiple exams. RADIATION DOSE: 28.34 CTDIvol (mGy) ; Combined studies MEDICAL HISTORY : Cardiovascular disease. Hypertension. Chronic obstructive pulmonary disease.Diabetes SURGICAL HISTORY : Pacemaker. ENCOUNTER: Initial ACUITY: 1 day PAIN SCALE: 0/10 LOCATION: CTA CAROTIDs Elevated flow velocities and ICA/CCA ratios have been found to correlate with increased degrees of vessel stenosis, calculated as percentage of diameter relative to a normal segment of distal ICA/CCA. TECHNIQUE: Volumetric scanning was performed using a multirow detector CT scanner. The data was post processed with a variety of visualization algorithms including full-volume maximum intensity projection, multip lanar sliding thin-slab reformation, curved-planar reformation, and surface-rendering techniques. Us ing automated exposure control and adjustment of the mA and/or kV according to patient size, radiatio n dose was kept as low as reasonably achievable to obtain optimal diagnostic quality images. DICOM f ormat image data is available electronically for review and comparison. FINDINGS: AORTIC ARCH: There is a three-vessel origin of the great vessels from the aorta. No evidence of ostial narrowing. RIGHT CAROTID: The common carotid is widely patent. There is moderate calcified atherosclerotic plaque at the bifurc ation. This results in a mild degree of stenosis in the origin of the right internal carotid this is estimated to be in the range of 30% by NASCET criteria. The more cephalad portion of the internal car otid is widely patent. LEFT CAROTID: There is moderate atherosclerotic plaquing of the bifurcation. There is both hard and soft plaque pre sent. This results in a mild degree of stenosis in origin the left internal carotid this is estimated to be in the range of 20% by NASCET criteria. VERTEBRALS: The right vertebral is widely patent throughout its course. The basilar is patent. The left vertebral is not identified proximally. It is presumed occluded at its origin. It does reconstitute at the lev el of the mid cervical spine. CONCLUSION: 1. There is atherosclerotic plaquing at the bifurcations but no hemodynamically significant carotid s tenosis is identified. 2. 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 It reconstitutes in the upper neck. The right verte bral is patent throughout its course. The basilar is patent. 3. Left pleural effusion. Kishan Cavazos MD on June 18, 2017 at 15:54 Board Certified Radiologist. This report was verified electronically.
[2017-06-18] MEDS: ERTAPENEM INJ 1,000 MG in SODIUM CHLORIDE 0.9% INJ 100 ML IV SCH (16:05)
--- NOTE | 2017-06-18 16:05 | PD.CONS ---
[facility] Service Critical Care Medicine Consult Requested By Dr. Willam Steele Reason for Consult Altered mental status Primary Care Physician Unknown History of Present Illness 81-year-old male with a medical history significant for hypertension, A. fib on Pradaxa, COPD, CAD, BPH, PVD, sleep apnea on C Pap was brought to the ER with altered mental status from [facility] and was noted to have hypoglycemia with blood glucose 40s for which she received D10. He was also wheezing on admission and received DuoNeb nebulizer treatments. He was reportedly with a GCS of 15 on arrival in the ER and did not have any fever or chills cough or chest pain. His vital signs were stable on arrival. He did have a low-grade temperature and a white count of 20,000 and INR of 1.6. Patient was initiated on IV Zosyn after obtaining cultures. His urine cultures came back positive for ESBL Escherichia coli for which ID consult was requested and patient was switched to ertapenem. On 06/17 patient was noted to have extremely high blood pressures with SBP 240s with nausea vomiting for which cardiology was following patient. Patient reportedly was awake and alert until around 12 noon today(06/18) when he was noted to be lethargic and minimally responsive. He underwent a head CT which was negative for bleed. [facility] was called and critical care consult was requested for altered mental status. I evaluated the patient immediately on being notified during rapid response. Previously patient reportedly was not responsive to painful stimuli and was nonverbal. His fingerstick glucose was in the 100s. When I evaluated the patient she initially was barely responsive with sternal rub however subsequently started withdrawing his right lower extremity on attempting plantar response and then gradually regained consciousness with spontaneous eye opening and couldn't give me his name and couldn't give me the date month and year appropriately. He knew he was at the hospital. He could move both his upper extremities and right lower extremity on command. 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 Neurology had already been consulted and Dr. Patel had ordered a CTA brain which was in the process of being obtained. Patient was to be moved to the ICU for closer observation in view of altered mental status ROS - General Review of Systems Difficult to be obtained due to altered mental status PFSH Past Family Social History Allergies: Coded Allergies: amlodipine (Unverified Adverse Reaction, Severe, Cramping, 05/08/17) leg cramps atorvastatin (Unverified Adverse Reaction, Severe, Cramping, 05/08/17) leg cramps pravastatin (Unverified Adverse Reaction, Severe, Cramping, 05/08/17) leg cramps simvastatin (Unverified Adverse Reaction, Severe, Cramping, 05/08/17) leg cramps Past Medical History HTN, A. fib on Pradaxa, COPD, Sleep Apnea on CPAP, CAD, BPH and PVD Chronic prostatitis Renal stones s.p lithotripsy in past. 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 Past Surgical History Pacemaker, Cardiac Stent, Lithotripsy, Left AKA Reported Medications Reported Meds & Active Scripts Active [Aspirin Chew] 81 MG Chew 81 Mg CHEW DAILY Atorvastatin (Atorvastatin Calcium) 20 Mg Tab 20 Mg PO HS Pradaxa (Dabigatran) 150 Mg Cap 150 Mg PO BID Dok (Docusate Sodium) 100 Mg Cap 100 Mg PO BID Escitalopram (Escitalopram Oxalate) 10 Mg Tab 10 Mg PO DAILY Furosemide 20 Mg Tab 20 Mg PO DAILY Hydrocodone-Acetaminophen 7.5-325 mg Tab 1 Tab PO Q4H PRN Synthroid (Levothyroxine Sodium) 50 Mcg Tab 50 Mcg PO DAILY@06 Sorine (Sotalol HCl) 80 Mg Tab 80 Mg PO BID Flomax (Tamsulosin HCl) 0.4 Mg Cap 0.4 Mg PO HS Omeprazole 20 Mg Tab 20 Mg PO DAILY Reported Levemir Inj (Insulin Detemir) 1,000 unit/ 10 ML Vial 22 Units SQ DAILY Do not mix with any other Insulin. Ferrous Sulfate 325 Mg (65 Mg Iron) Tablet 325 Mg PO DAILY Levemir Inj (Insulin Detemir) 1,000 unit/ 10 ML Vial 10 Units SQ HS Do not mix with any other Insulin. Ammonium Lactate (Lactic Acid (Ammonium Lactate)) 12% Lotn 1 Applic TOPICAL BID Ranitidine (Ranitidine HCl) 150 Mg Tab 150 Mg PO BID Temazepam 15 Mg Cap 15 Mg PO HS PRN Amlodipine (Amlodipine Besylate) 2.5 Mg Tab 2.5 Mg PO BID Miralax Powder (Polyethylene Glycol 3350 Powder) 17 Gm Powd 17 Gm PO DAILY Mix and dissolve one measuring cap-ful (17 grams) in water or juice. Culturelle (Lactobacillus Rhamnosus (GG)) 10 Billion Cell Cap 1.5 Cap PO DAILY Symbicort Inh (Budesonide/Formoterol Fumarate) 160-4.5 Mcg/Act Aero 1 Puff INH Q12HR [robitussin DM] 10 Ml PO Q6HR PRN Gabapentin 100 Mg Cap 100 Mg PO TID Duoneb (Ipratropium-Albuterol Neb) 0.5-2.5 Mg/3 Ml Neb 1 Nebule INH Q4HR NEB Novolog Flexpen Inj (Insulin Aspart) 300 Unit/3 Ml Pen 1 Units SQ Mucinex DM (Dextromethorphan-Guaifenesin) 30-600 Mg Tab 2 Tab PO BID PRN Administered Medications Medications (Trade) Dose Ordered Sig/[place] Route PRN Reason Start Time Stop Time Status Last Admin Dose Admin Albuterol/ Ipratropium (Duoneb Neb) 1 ampule Q4HR WHILE AWAKE NEB NEB 06/15/17 08:00 06/18/17 11:11 Ondansetron HCl (Zofran Inj) 4 mg Q6H PRN IVP NAUSEA OR VOMITING 06/15/17 02:30 06/17/17 19:30 Senna/Docusate Sodium (Macie-Colace) 1 tab BID PO 06/15/17 09:00 06/18/17 08:55 Budesonide/ Formoterol Fumarate (Symbicort 160-4.5 Inh) 1 puff Q12HR INH 06/15/17 09:00 06/18/17 11:02 Dabigatran (Pradaxa) 150 mg BID PO 06/15/17 09:00 06/18/17 08:55 Escitalopram Oxalate (Lexapro) 10 mg DAILY PO 06/15/17 09:00 06/18/17 08:55 Furosemide (Lasix) 20 mg DAILY PO 06/15/17 09:00 06/18/17 08:55 Gabapentin (Neurontin) 100 mg TID PO 06/15/17 09:00 06/18/17 08:55 Levothyroxine Sodium (Synthroid) 50 mcg DAILY@06 PO 06/15/17 06:00 06/18/17 06:31 Sotalol HCl (Betapace) 80 mg BID PO 06/15/17 09:00 06/18/17 08:55 Tamsulosin HCl (Flomax) 0.4 mg HS PO 06/15/17 21:00 06/17/17 21:18 Temazepam (Restoril) 15 mg HS PRN PO INSOMNIA 06/15/17 02:30 06/16/17 22:37 Pantoprazole Sodium (Protonix) 20 mg DAILY PO 06/15/17 09:00 06/18/17 08:55 Aspirin (Aspirin Chew) 81 mg DAILY PO 06/15/17 09:00 06/18/17 08:55 Sodium Chloride (NS Flush) 2 ml BID IV FLUSH 06/15/17 09:00 06/18/17 08:56 Insulin Human Regular (NovoLIN R SUPPLEMENTAL SCALE) 1 ACHS SLIDING SCALE SQ 06/15/17 13:45 06/18/17 12:00 Insulin Detemir (Levemir Inj) 10 units Q12HR SQ 06/16/17 21:00 06/17/17 22:09 Promethazine HCl (Phenergan Supp) 25 mg Q4H PRN RECTAL emesis 06/17/17 09:45 06/18/17 10:01 Hydralazine HCl (Apresoline Inj) 20 mg Q4H PRN IV PUSH SBP>180 or DBP >100 06/17/17 12:00 06/18/17 10:00 Clonidine (Catapres) 0.1 mg Q6H PRN PO SBP>180 or DBP>100 06/17/17 12:00 06/18/17 06:31 Ertapenem 1000 mg/ Sodium Chloride 100 ml @ 200 mls/hr Q24H IV 06/17/17 16:00 06/17/17 16:00 Metoprolol Tartrate (Lopressor Inj) 5 mg Q6H PRN IV PUSH HR>120 06/17/17 20:00 06/17/17 20:20 Physical Exam Vital Signs Vital Signs Date Time Temp Pulse Resp B/P (MAP) Pulse Ox O2 Delivery O2 Flow Rate FiO2 06/18/17 13:17 60 06/18/17 12:20 68 06/18/17 11:31 98.1 64 18 146/64 (91) 98 06/18/17 11:00 64 06/18/17 10:00 61 06/18/17 09:00 64 06/18/17 08:00 66 06/18/17 07:45 98.7 63 18 181/75 (110) 98 Manual Cuff/Auscultation 06/18/17 07:30 98 Nasal Cannula 2.00 06/18/17 07:00 64 06/18/17 06:00 64 06/18/17 05:00 66 06/18/17 04:00 64 06/18/17 03:30 99.2 62 28 188/103 (131) 97 06/18/17 03:00 66 06/18/17 02:00 60 06/18/17 01:00 68 06/18/17 00:00 64 06/17/17 23:15 66 28 198/96 (130) 98 06/17/17 23:00 66 06/17/17 22:00 70 06/17/17 21:00 92 06/17/17 20:00 140 06/17/17 19:35 98 Nasal Cannula 2.00 06/17/17 19:30 134 24 140/78 (98) 98 06/17/17 19:00 138 06/17/17 18:50 98.4 123 18 155/96 (115) 97 06/17/17 18:46 138 06/17/17 17:43 95 Nasal Cannula 2.00 Physical Exam HEENT/Neuro: No pallor or icterus, tongue moist, drowsy, arousable, vision appears intact, nose disease in the hospital and couldn't give me the date month and year, speech appears normal, moving both upper extremities and right lower extremity. Left lower extremity status post amputation. Neck: No JVD Chest/pulmonary: CTA bilaterally Cardiovascular: S1-S2 regular no gallop or murmur GI/abdomen: Soft, nontender, bowel sounds present Extremities: Warm bilaterally, no edema. left above-knee amputation stump noted. Laboratory Laboratory Tests Test 06/17/17 19:30 06/18/17 06:12 06/18/17 13:32 Blood Urea Nitrogen 31 34 Creatinine 1.26 1.32 Random Glucose 203 212 Calcium Level 8.8 8.8 Magnesium Level 1.9 Sodium Level 136 137 Potassium Level 3.2 3.4 Chloride Level 99 98 Carbon Dioxide Level 25.0 29.5 Anion Gap 12 10 Estimat Glomerular Filtration Rate 55 52 Troponin I 0.02 White Blood Count 16.8 Red Blood Count 4.44 Hemoglobin 10.8 Hematocrit 32.5 Mean Corpuscular Volume 73.2 Mean Corpuscular Hemoglobin 24.2 Mean Corpuscular Hemoglobin Concent 33.1 Red Cell Distribution Width 15.8 Platelet Count 377 Mean Platelet Volume 8.6 Blood Gas Puncture Site RT RADIAL Blood Gas Patient Temperature 98.6 Blood Gas HCO3 27 Blood Gas Base Excess 2.8 Blood Gas Oxygen Saturation 92 Arterial Blood pH 7.45 Arterial Blood Partial Pressure CO2 39 Arterial Blood Partial Pressure O2 75 Arterial Blood Oxygen Content 14.5 Arterial Blood Carboxyhemoglobin 2.0 Arterial Blood Methemoglobin 1.5 Blood Gas Hemoglobin 11.2 Oxygen Delivery Device NASAL CANNULA Blood Gas Liter Flow 2 Date/Time Source Procedure Growth Status 06/14/17 22:10 Blood Peripheral Aerobic Blood Culture - Preliminary NO GROWTH IN 4 DAYS Resulted 06/14/17 22:10 Blood Peripheral Anaerobic Blood Culture - Preliminary NO GROWTH IN 4 DAYS Resulted 06/15/17 02:15 Urine Catheterized Urine Urine Culture - Final Escherichia Coli Esbl Positive Complete Result Diagram: 06/18/17 0612 06/18/17 0612 Imaging Last Impressions Neck CTA 06/18/17 0000 Signed Impressions: Service Date/Time: Sunday, June 18, 2017 15:17 - CONCLUSION: 1. There is atherosclerotic plaquing at the bifurcations but no hemodynamically significant carotid stenosis is identified. 2. 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 It reconstitutes in the upper neck. The right vertebral is patent throughout its course. The basilar is patent. 3. Left pleural effusion. Kishan Cavazos MD Head CTA 06/18/17 0000 Signed Impressions: Service Date/Time: Sunday, June 18, 2017 15:17 - CONCLUSION: Normal examination. Remi Moore MD Head CT 06/18/17 0000 Signed Impressions: Service Date/Time: Sunday, June 18, 2017 13:01 - CONCLUSION: Normal examination. Remi Moore MD Chest X-Ray 06/18/17 0000 Signed Impressions: Service Date/Time: Sunday, June 18, 2017 13:41 - CONCLUSION: 1. Continued bilateral infiltrates unchanged from previous. Kishan Cavazos MD Renal Ultrasound 06/17/17 0000 Signed Impressions: Service Date/Time: Saturday, June 17, 2017 16:16 - CONCLUSION: There is no hydronephrosis. The examination is within normal limits. Remi Weeks MD Abdomen X-Ray 06/17/17 0000 Signed Impressions: Service Date/Time: Saturday, June 17, 2017 09:39 - CONCLUSION: Gastric distention identified. Bj Rodriguez MD Assessment and Plan Assessment and Plan Encephalopathy: Possible CVA versus seizure hypertension A. fib on Pradaxa DM COPD CAD BPH PVD sleep apnea Plan: Neuro: Follow neuro status. Follow up EEG. 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 Started on aspirin and fosphenytoin per neurology Dr. Ordonez. Cardiovascular: On Pradaxa and cardiac meds per Dr. Hoyt. Watch for hypotension. Pulmonary: Currently appears to be protecting airway. Bronchodilators as needed. Supplemental O2 as needed. GI/liver: Nothing by mouth for now till improvement in neurologic status and neurology evaluation. Renal/: Strict intake output, monitor and replete electrolytes, follow BUN/ creatinine. ID: Continue antibiotics per ID for ESBL UTI Endocrine: Watch for hyperglycemia, levemir, SSI for glycemic control as needed Heme: Follow CBC Prophylaxis: On anticoagulation with Pradaxa. Protonix for GI prophylaxis. Case discussed with Dr. Hoyt from cardiology as well as ID Dr. Willam Steele. Further recommendations per neurology. Critical care will be available as needed. Hospitalist to assume medical care tomorrow morning. Jose Steele MD Jun 18, 2017 16:05
[2017-06-18] MEDS: SODIUM CHLOR 0.9% 1000 ML INJ 1,000 ML IV SCH (16:06)
--- NOTE | 2017-06-18 16:13 | RADRPT ---
EXAM DATE/TIME: 06/18/2017 15:17 [facility] COMPARISON: No previous studies available for comparison. INDICATIONS : Altered mental status evaluate for occlusion. IV CONTRAST: 75 cc Omnipaque 350 (iohexol) IV ; Cumulative dose for multiple exams. RADIATION DOSE: 28.34 CTDIvol (mGy) ; Combined studies MEDICAL HISTORY : Cardiovascular disease. Hypertension. Chronic obstructive pulmonary disease.Diabetes SURGICAL HISTORY : Pacemaker. ENCOUNTER: Initial ACUITY: 1 day PAIN SCALE: 0/10 LOCATION: CTA brain TECHNIQUE: Volumetric scanning was performed using a multi-row detector CT scanner. The data was post processed with a variety of visualization algorithms including full volume maximum intensity projection, multi -planar sliding thin slab reformation, curved planar reformation, and surface rendering techniques. Using automated exposure control and adjustment of the mA and/or kV according to patient size, radiat ion dose was kept as low as reasonably achievable to obtain optimal diagnostic quality images. DICO M format image data is available electronically for review and comparison. FINDINGS: There is excellent visualization of the major intracranial arteries out to the second-order branch ve ssels. There is no evidence for aneurysm, vessel truncation or stenosis, and no evidence for vascula r malformation. CONCLUSION: Normal examination. Remi Moore MD on June 18, 2017 at 15:58 Board Certified Radiologist. This report was verified electronically.
--- NOTE | 2017-06-18 16:18 | PD.CONS ---
History of Present Illness Service Neurology Consult Requested By cardiology Reason for Consult confusion Primary Care Physician Unknown History of Present Illness 81-year-old male admitted for altered mental status. found to have uti, hypoglycemia at his facility. bp 200/100 in er. on pradaxa for afib and previous stroke. noted to have an acute change in mental status this afternoon. in coma type state. short lasting episode, several minutes, woke up and in normal orientation. sent for cta's and found to have left vert occlusion but basilar patent. denies any weaver, cp, new weakness or vision loss. no known hx of sz. Review of Systems Difficult to be obtained due to altered mental status PFSH Past Family Social History Allergies: Coded Allergies: amlodipine (Unverified Adverse Reaction, Severe, Cramping, 05/08/17) leg cramps atorvastatin (Unverified Adverse Reaction, Severe, Cramping, 05/08/17) leg cramps pravastatin (Unverified Adverse Reaction, Severe, Cramping, 05/08/17) leg cramps simvastatin (Unverified Adverse Reaction, Severe, Cramping, 05/08/17) leg cramps Past Medical History HTN, A. fib on Pradaxa, COPD, Sleep Apnea on CPAP, CAD, BPH and PVD Chronic prostatitis Renal stones s.p lithotripsy in past. 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 Past Surgical History Pacemaker, Cardiac Stent, Lithotripsy, Left AKA Reported Medications Reported Meds & Active Scripts Active [Aspirin Chew] 81 MG Chew 81 Mg CHEW DAILY Atorvastatin (Atorvastatin Calcium) 20 Mg Tab 20 Mg PO HS Pradaxa (Dabigatran) 150 Mg Cap 150 Mg PO BID Dok (Docusate Sodium) 100 Mg Cap 100 Mg PO BID Escitalopram (Escitalopram Oxalate) 10 Mg Tab 10 Mg PO DAILY Furosemide 20 Mg Tab 20 Mg PO DAILY Hydrocodone-Acetaminophen 7.5-325 mg Tab 1 Tab PO Q4H PRN Synthroid (Levothyroxine Sodium) 50 Mcg Tab 50 Mcg PO DAILY@06 Sorine (Sotalol HCl) 80 Mg Tab 80 Mg PO BID Flomax (Tamsulosin HCl) 0.4 Mg Cap 0.4 Mg PO HS Omeprazole 20 Mg Tab 20 Mg PO DAILY Reported Levemir Inj (Insulin Detemir) 1,000 unit/ 10 ML Vial 22 Units SQ DAILY Do not mix with any other Insulin. Ferrous Sulfate 325 Mg (65 Mg Iron) Tablet 325 Mg PO DAILY Levemir Inj (Insulin Detemir) 1,000 unit/ 10 ML Vial 10 Units SQ HS Do not mix with any other Insulin. Ammonium Lactate (Lactic Acid (Ammonium Lactate)) 12% Lotn 1 Applic TOPICAL BID Ranitidine (Ranitidine HCl) 150 Mg Tab 150 Mg PO BID Temazepam 15 Mg Cap 15 Mg PO HS PRN Amlodipine (Amlodipine Besylate) 2.5 Mg Tab 2.5 Mg PO BID Miralax Powder (Polyethylene Glycol 3350 Powder) 17 Gm Powd 17 Gm PO DAILY Mix and dissolve one measuring cap-ful (17 grams) in water or juice. Culturelle (Lactobacillus Rhamnosus (GG)) 10 Billion Cell Cap 1.5 Cap PO DAILY Symbicort Inh (Budesonide/Formoterol Fumarate) 160-4.5 Mcg/Act Aero 1 Puff INH Q12HR [robitussin DM] 10 Ml PO Q6HR PRN Gabapentin 100 Mg Cap 100 Mg PO TID Duoneb (Ipratropium-Albuterol Neb) 0.5-2.5 Mg/3 Ml Neb 1 Nebule INH Q4HR NEB Novolog Flexpen Inj (Insulin Aspart) 300 Unit/3 Ml Pen 1 Units SQ Mucinex DM (Dextromethorphan-Guaifenesin) 30-600 Mg Tab 2 Tab PO BID PRN Review of Systems All other ROS: ROS reviewed as documented in chart Past Family Social History Allergies: Coded Allergies: amlodipine (Unverified Adverse Reaction, Severe, Cramping, 05/08/17) leg cramps atorvastatin (Unverified Adverse Reaction, Severe, Cramping, 05/08/17) leg cramps pravastatin (Unverified Adverse Reaction, Severe, Cramping, 05/08/17) leg cramps simvastatin (Unverified Adverse Reaction, Severe, Cramping, 05/08/17) leg cramps Active Ordered Medications Current Medications Medications (Trade) Dose Ordered Sig/Chioma Route Start Time Stop Time Status Last Admin (Duoneb Neb) 1 ampule Q4HR WHILE AWAKE NEB NEB 06/15/17 08:00 06/18/17 11:11 (Duoneb Neb) 1 ampule Q2HR NEB PRN NEB 06/15/17 02:30 (D50w (Vial) Inj) 50 ml UNSCH PRN IV PUSH 06/15/17 02:30 (Glucagon Inj) 1 mg UNSCH PRN OTHER 06/15/17 02:30 (Zofran Inj) 4 mg Q6H PRN IVP 06/15/17 02:30 06/17/17 19:30 (Tylenol) 650 mg Q6H PRN PO 06/15/17 02:30 ([place] 5-325 Mg) 1 tab Q4H PRN PO 06/15/17 02:30 (Morphine Inj) 2 mg Q3H PRN IV PUSH 06/15/17 02:30 (Macie-Colace) 1 tab BID PO 06/15/17 09:00 06/18/17 08:55 (Milk Of Magnesia Liq) 30 ml Q12H PRN PO 06/15/17 02:30 (Senokot) 17.2 mg Q12H PRN PO 06/15/17 02:30 (Dulcolax Supp) 10 mg DAILY PRN RECTAL 06/15/17 02:30 (Lactulose Liq) 30 ml DAILY PRN PO 06/15/17 02:30 (Symbicort 160-4.5 Inh) 1 puff Q12HR INH 06/15/17 09:00 06/18/17 11:02 (Pradaxa) 150 mg BID PO 06/15/17 09:00 06/18/17 08:55 (Lexapro) 10 mg DAILY PO 06/15/17 09:00 06/18/17 08:55 (Lasix) 20 mg DAILY PO 06/15/17 09:00 06/18/17 08:55 (Neurontin) 100 mg TID PO 06/15/17 09:00 06/18/17 08:55 (Synthroid) 50 mcg DAILY@06 PO 06/15/17 06:00 06/18/17 06:31 (Betapace) 80 mg BID PO 06/15/17 09:00 06/18/17 08:55 (Flomax) 0.4 mg HS PO 06/15/17 21:00 06/17/17 21:18 (Restoril) 15 mg HS PRN PO 06/15/17 02:30 06/16/17 22:37 (Protonix) 20 mg DAILY PO 06/15/17 09:00 06/18/17 08:55 (Aspirin Chew) 81 mg DAILY PO 06/15/17 09:00 06/18/17 08:55 (NS Flush) 2 ml BID IV FLUSH 06/15/17 09:00 06/18/17 08:56 (NS Flush) 2 ml UNSCH PRN IVF 06/15/17 02:45 (NovoLIN R SUPPLEMENTAL SCALE) 1 ACHS SLIDING SCALE SQ 06/15/17 13:45 06/18/17 12:00 (Levemir Inj) 10 units Q12HR SQ 06/16/17 21:00 06/17/17 22:09 (Phenergan Supp) 25 mg Q4H PRN RECTAL 06/17/17 09:45 06/18/17 10:01 (Apresoline Inj) 20 mg Q4H PRN IV PUSH 06/17/17 12:00 06/18/17 10:00 (Catapres) 0.1 mg Q6H PRN PO 06/17/17 12:00 06/18/17 06:31 Ertapenem 1000 mg/ Sodium Chloride 100 ml @ 200 mls/hr Q24H IV 06/17/17 16:00 06/18/17 16:05 (Lopressor Inj) 5 mg Q6H PRN IV PUSH 06/17/17 20:00 06/17/17 20:20 Sodium Chloride 1,000 ml @ 80 mls/hr [id number] IV 06/18/17 14:45 06/18/17 16:06 Exam I&O / VS Vital Signs Date Time Temp Pulse Resp B/P (MAP) Pulse Ox O2 Delivery O2 Flow Rate FiO2 06/18/17 13:17 60 06/18/17 12:20 68 06/18/17 11:31 98.1 64 18 146/64 (91) 98 06/18/17 11:00 64 06/18/17 10:00 61 06/18/17 09:00 64 06/18/17 08:00 66 06/18/17 07:45 98.7 63 18 181/75 (110) 98 Manual Cuff/Auscultation 06/18/17 07:30 98 Nasal Cannula 2.00 06/18/17 07:00 64 06/18/17 06:00 64 06/18/17 05:00 66 06/18/17 04:00 64 06/18/17 03:30 99.2 62 28 188/103 (131) 97 06/18/17 03:00 66 06/18/17 02:00 60 06/18/17 01:00 68 06/18/17 00:00 64 06/17/17 23:15 66 28 198/96 (130) 98 06/17/17 23:00 66 06/17/17 22:00 70 06/17/17 21:00 92 06/17/17 20:00 140 06/17/17 19:35 98 Nasal Cannula 2.00 06/17/17 19:30 134 24 140/78 (98) 98 06/17/17 19:00 138 06/17/17 18:50 98.4 123 18 155/96 (115) 97 06/17/17 18:46 138 06/17/17 17:43 95 Nasal Cannula 2.00 General: Alert and Oriented, No acute distress Respiratory: Non-labored respirations, BS equal Cardiology: Regular Rhythm Musculoskeletal: Tenderness, Swelling Neurologic: Alert, Oriented Psychiatric: Cooperative, Appropriate mood & affect Exam Comments ox 3, recognizes me, follows, pleasant, eomi, os- 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, face sym, mild left ue paresis 4/5, left leg aka, rt side 5-/5, withdraws to pin Review/Management Diagnosis/Plan: (1) Encephalopathy ICD Codes: G93.40 - Encephalopathy, unspecified Status: Acute Plan: 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
[2017-06-18] MEDS ORDERED: ASPIRIN EC 325 MG TABEC PO SCH (16:45)
[2017-06-18] MEDS ORDERED: FOSPHENYTOIN INJ 1,000 MGPE in SODIUM CHLORIDE 0.9% INJ 50 ML IV ONE (17:00)
[2017-06-18] MEDS: TAMSULOSIN HCL 0.4 MG CAP PO SCH (20:24)
[2017-06-18] MEDS ORDERED: FOSPHENYTOIN INJ 200 MGPE in SODIUM CHLORIDE 0.9% INJ 50 ML IV SCH (21:00)
[2017-06-18] MEDS ORDERED: FOSPHENYTOIN SODIUM 100 MG PE/2 ML VIAL IV SCH (21:00)
--- NOTE | 2017-06-18 21:48 | MG ---
cc: MARSHALL MELENDEZ Lab No: Date: 06/18/2017 Age: Sex: M Race: ELECTROENCEPHALOGRAM NUMBER [id number] INTRODUCTION Hyperventilation not performed. Lethargic. Coma type state. MEDICATIONS 1. Lopressor. 2. Aspirin. 3. Gabapentin. DESCRIPTION Diffuse lower amplitude rhythm is seen about 30 microvolts with some beta background and theta rhythms to 6 Hz. The recording overall is synchronous and symmetric, maybe some low amplitude sleep spindles seen. No epileptiform or seizure activity is noted. Photic stimulation is performed without significant posterior driving. IMPRESSION Generally diffusely slow recording consistent with a mild diffuse encephalopathy. There appeared to be some normal sleep activity. When the patient was aroused an 8 Hz diffuse rhythm was also seen. No major abnormality was noted. MD NANCY HendersonM/KK /9:29 PM /9:37 PM
[2017-06-19] VITALS (14 sets, daily range): BP systolic 137–185; BP diastolic 65–82; PULSE 60–69; RESP 16–20; TEMP 97.8–99.2; O2SAT 96–100
[2017-06-19] MEDS ORDERED: POTASSIUM CHLORIDE 20 MEQ CONTROLLED RELEASE TAB PO ONE (02:00)
[2017-06-19] MEDS: ONDANSETRON HCL 4 MG/2 ML VIAL IVP PRN ×2 (03:55→09:55)
[2017-06-19] MEDS: SODIUM CHLOR 0.9% 1000 ML INJ 1,000 ML IV SCH ×2 (03:55→06:20)
[2017-06-19] MEDS: LEVOTHYROXINE SODIUM 50 MCG TAB PO SCH (04:25)
[2017-06-19 06:26] LABS: POTASSIUM 3.5 MEQ/L (3.5-5.1)
[2017-06-19 06:28] LABS: HEMATOCRIT 30.1 % (39.0-51.0); MEAN CORPUSCULAR HEMOGLOBIN 23.9 PG (27.0-34.0); MEAN CORPUSCULAR HGB CONC 32.8 % (32.0-36.0); PLATELET COUNT 332 TH/MM3 (150-450); RED BLOOD COUNT 4.12 MIL/MM3 (4.50-5.90); RED CELL DISTRIBUTION WIDTH 15.6 % (11.6-17.2); REVIEW FLAG FINAL; WHITE BLOOD COUNT 14.1 TH/MM3 (4.0-11.0)
[2017-06-19] MEDS: INSULIN NovoLIN REGULAR SUPPLEMENTAL SCALE SQ SCH ×4 (08:00→21:00)
--- NOTE | 2017-06-19 08:02 | HHI.PR ---
Review/Management Diagnosis/Plan: (1) Encephalopathy ICD Codes: G93.40 - Encephalopathy, unspecified Status: Acute Plan: possible basilar artery tia 2/2 artery to artery emboli from occluded left vertebral vs sz vs metabolic possible sz? recs neuro stable eeg- no active sz's switch to [facility] floor/d/c back to facility from neurology today d/w ccm f/u with us in 2-3 weeks follow exam (2) A-fib ICD Codes: I48.91 - Unspecified atrial fibrillation (3) HTN (hypertension) ICD Codes: I10 - Essential (primary) hypertension Status: Chronic Subjective Subjective Comments No acute events reported No headache No chest pain No dyspnea Active Medications Current Medications Medications (Trade) Dose Ordered Sig/Chioma Route Start Time Stop Time Status Last Admin (Duoneb Neb) 1 ampule Q4HR WHILE AWAKE NEB NEB 06/15/17 08:00 06/18/17 20:12 (Duoneb Neb) 1 ampule Q2HR NEB PRN NEB 06/15/17 02:30 (D50w (Vial) Inj) 50 ml UNSCH PRN IV PUSH 06/15/17 02:30 (Glucagon Inj) 1 mg UNSCH PRN OTHER 06/15/17 02:30 (Zofran Inj) 4 mg Q6H PRN IVP 06/15/17 02:30 06/19/17 03:55 (Tylenol) 650 mg Q6H PRN PO 06/15/17 02:30 ([place] 5-325 Mg) 1 tab Q4H PRN PO 06/15/17 02:30 (Morphine Inj) 2 mg Q3H PRN IV PUSH 06/15/17 02:30 (Macie-Colace) 1 tab BID PO 06/15/17 09:00 06/18/17 20:24 (Milk Of Magnesia Liq) 30 ml Q12H PRN PO 06/15/17 02:30 (Senokot) 17.2 mg Q12H PRN PO 06/15/17 02:30 (Dulcolax Supp) 10 mg DAILY PRN RECTAL 06/15/17 02:30 (Lactulose Liq) 30 ml DAILY PRN PO 06/15/17 02:30 (Symbicort 160-4.5 Inh) 1 puff Q12HR INH 06/15/17 09:00 06/18/17 21:00 (Pradaxa) 150 mg BID PO 06/15/17 09:00 06/18/17 21:54 (Lexapro) 10 mg DAILY PO 06/15/17 09:00 06/18/17 08:55 (Lasix) 20 mg DAILY PO 06/15/17 09:00 06/18/17 08:55 (Neurontin) 100 mg TID PO 06/15/17 09:00 06/18/17 18:04 (Synthroid) 50 mcg DAILY@06 PO 06/15/17 06:00 06/19/17 04:25 (Betapace) 80 mg BID PO 06/15/17 09:00 06/18/17 21:56 (Flomax) 0.4 mg HS PO 06/15/17 21:00 06/18/17 20:24 (Restoril) 15 mg HS PRN PO 06/15/17 02:30 06/16/17 22:37 (Protonix) 20 mg DAILY PO 06/15/17 09:00 06/18/17 08:55 (Aspirin Chew) 81 mg DAILY PO 06/15/17 09:00 06/18/17 08:55 (NS Flush) 2 ml BID IV FLUSH 06/15/17 09:00 06/18/17 21:56 (NS Flush) 2 ml UNSCH PRN IVF 06/15/17 02:45 (NovoLIN R SUPPLEMENTAL SCALE) 1 ACHS SLIDING SCALE SQ 06/15/17 13:45 06/18/17 20:24 (Levemir Inj) 10 units Q12HR SQ 06/16/17 21:00 06/18/17 20:24 (Phenergan Supp) 25 mg Q4H PRN RECTAL 06/17/17 09:45 06/18/17 10:01 (Apresoline Inj) 20 mg Q4H PRN IV PUSH 06/17/17 12:00 06/18/17 10:00 (Catapres) 0.1 mg Q6H PRN PO 06/17/17 12:00 06/18/17 06:31 Ertapenem 1000 mg/ Sodium Chloride 100 ml @ 200 mls/hr Q24H IV 06/17/17 16:00 06/18/17 16:05 (Lopressor Inj) 5 mg Q6H PRN IV PUSH 06/17/17 20:00 06/17/17 20:20 Sodium Chloride 1,000 ml @ 80 mls/hr [id number] IV 06/18/17 14:45 06/19/17 06:20 (Ecotrin Ec) 162 mg DAILY PO 06/19/17 09:00 Fosphenytoin Sodium 200 mgpe/ Sodium Chloride 54 ml @ 216 mls/hr Q12HR IV 06/18/17 21:00 06/18/17 20:23 Allergies Allergies Coded Allergies amlodipine (Unverified Adverse Reaction, Severe, Cramping, 05/08/17) atorvastatin (Unverified Adverse Reaction, Severe, Cramping, 05/08/17) pravastatin (Unverified Adverse Reaction, Severe, Cramping, 05/08/17) simvastatin (Unverified Adverse Reaction, Severe, Cramping, 05/08/17) Review of Systems All other ROS: ROS reviewed as documented in chart Exam I&O / VS Vital Signs Date Time Temp Pulse Resp B/P (MAP) Pulse Ox O2 Delivery O2 Flow Rate FiO2 06/19/17 06:00 60 06/19/17 04:00 Nasal Cannula 3.00 06/19/17 04:00 98.9 60 19 167/75 (105) 99 06/19/17 04:00 60 06/19/17 02:00 60 06/19/17 00:00 99.2 60 17 137/66 (89) 96 06/19/17 00:00 60 06/19/17 00:00 Nasal Cannula 3.00 06/18/17 22:00 60 06/18/17 20:10 100 Nasal Cannula 4.00 06/18/17 20:00 59 24 100 06/18/17 20:00 59 06/18/17 20:00 Nasal Cannula 3.00 06/18/17 18:00 67 06/18/17 16:00 98.0 60 19 120/54 (76) 100 06/18/17 16:00 60 06/18/17 16:00 100 Nasal Cannula 3.00 06/18/17 13:17 60 06/18/17 12:20 68 06/18/17 11:31 98.1 64 18 146/64 (91) 98 06/18/17 11:00 64 06/18/17 10:00 61 06/18/17 09:00 64 06/18/17 08:00 66 General: Alert and Oriented, No acute distress Respiratory: Non-labored respirations, BS equal Cardiology: Regular Rhythm Musculoskeletal: Tenderness, Swelling Neurologic: Alert, Oriented Psychiatric: Cooperative, Appropriate mood & affect Exam Comments ox 3, follows, pleasant, eomi, os- 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, face sym, mild left ue paresis 4/5, left leg aka, rt side 5-/5, withdraws to pin Objective Micro and Labs Laboratory Tests Test 06/18/17 13:32 06/18/17 16:00 06/19/17 04:50 Blood Gas Puncture Site RT RADIAL Blood Gas Patient Temperature 98.6 Blood Gas HCO3 27 Blood Gas Base Excess 2.8 Blood Gas Oxygen Saturation 92 Arterial Blood pH 7.45 Arterial Blood Partial Pressure CO2 39 Arterial Blood Partial Pressure O2 75 Arterial Blood Oxygen Content 14.5 Arterial Blood Carboxyhemoglobin 2.0 Arterial Blood Methemoglobin 1.5 Blood Gas Hemoglobin 11.2 Oxygen Delivery Device NASAL CANNULA Blood Gas Liter Flow 2 Nasal Screen MRSA (PCR) MRSA DETECTED White Blood Count 14.1 Red Blood Count 4.12 Hemoglobin 9.9 Hematocrit 30.1 Mean Corpuscular Volume 73.0 Mean Corpuscular Hemoglobin 23.9 Mean Corpuscular Hemoglobin Concent 32.8 Red Cell Distribution Width 15.6 Platelet Count 332 Mean Platelet Volume 9.2 Hematology Comments Blood Urea Nitrogen 38 Creatinine 1.30 Random Glucose 92 Calcium Level 8.2 Sodium Level 140 Potassium Level 3.5 Chloride Level 104 Carbon Dioxide Level 26.0 Anion Gap 10 Estimat Glomerular Filtration Rate 53 Phenytoin (Dilantin) Level 8.0 Date/Time Source Procedure Growth Status 06/14/17 22:10 Blood Peripheral Aerobic Blood Culture - Preliminary NO GROWTH IN 4 DAYS Resulted 06/14/17 22:10 Blood Peripheral Anaerobic Blood Culture - Preliminary NO GROWTH IN 4 DAYS Resulted 06/15/17 02:15 Urine Catheterized Urine Urine Culture - Final Escherichia Coli Esbl Positive Complete Problem Qualifiers (1) A-fib: Qualified Codes: I48.2 - Chronic atrial fibrillation (2) HTN (hypertension): Qualified Codes: I10 - Essential (primary) hypertension Gilson Ordonez MD Jun 19, 2017 08:02
[2017-06-19] MEDS: levETIRAcetam 500 MG TAB PO SCH ×2 (08:58→21:02)
[2017-06-19] MEDS: FUROSEMIDE 20 MG TAB PO SCH (08:58)
[2017-06-19] MEDS: GABAPENTIN 100 MG CAP PO SCH ×3 (08:58→18:00)
[2017-06-19] MEDS: DABIGATRAN ETEXILATE 150 MG CAP PO SCH ×2 (08:58→21:02)
[2017-06-19] MEDS: INSULIN DETEMIR 100 UNITS/ML VIAL SQ SCH ×2 (08:59→21:02)
[2017-06-19] MEDS: ASPIRIN 81 MG CHEW TAB PO SCH (08:59)
[2017-06-19] MEDS: ESCITALOPRAM OXALATE 10 MG TAB PO SCH (08:59)
[2017-06-19] MEDS: PANTOPRAZOLE SOD 20 MG DELAYED RELEASE TAB PO SCH (08:59)
[2017-06-19] MEDS: ASPIRIN EC 81 MG TABEC PO SCH (08:59)
[2017-06-19] MEDS: DOCUSATE SODIUM 50 MG/SENNA 8.6 MG TAB PO SCH ×2 (08:59→21:02)
[2017-06-19] MEDS: SOTALOL HCL 80 MG TAB PO SCH ×2 (08:59→21:02)
[2017-06-19] MEDS: SODIUM CHLORIDE 0.9% FLUSH 10 ML FLUSH IV FLUSH SCH ×2 (09:00→21:02)
[2017-06-19] MEDS: hydrALAZINE HCL 20 MG/ML VIAL IV PUSH PRN ×2 (09:55→21:01)
--- NOTE | 2017-06-19 10:22 | HHI.PR ---
Subjective Remarks Follow-up for altered mental status and infection Patient's nurse at the bedside during the interview. Patient stated that he did not remember what happened yesterday. He stated that he continues to feel nauseous but that has improved. Denies any abdominal pain. Patient heart rate fluctuating in the 80s to 120s. Denied any chest pain , shortness of breathing, palpitation. Patient's nurse has no other complaints. Objective Vitals Vital Signs Date Time Temp Pulse Resp B/P (MAP) Pulse Ox O2 Delivery O2 Flow Rate FiO2 06/19/17 08:12 98 Nasal Cannula 2.00 06/19/17 06:00 60 06/19/17 04:00 Nasal Cannula 3.00 06/19/17 04:00 98.9 60 19 167/75 (105) 99 06/19/17 04:00 60 06/19/17 02:00 60 06/19/17 00:00 99.2 60 17 137/66 (89) 96 06/19/17 00:00 60 06/19/17 00:00 Nasal Cannula 3.00 06/18/17 22:00 60 06/18/17 20:10 100 Nasal Cannula 4.00 06/18/17 20:00 59 24 100 06/18/17 20:00 59 06/18/17 20:00 Nasal Cannula 3.00 06/18/17 18:00 67 06/18/17 16:00 98.0 60 19 120/54 (76) 100 06/18/17 16:00 60 06/18/17 16:00 100 Nasal Cannula 3.00 06/18/17 13:17 60 06/18/17 12:20 68 06/18/17 11:31 98.1 64 18 146/64 (91) 98 06/18/17 11:00 64 I/O 06/18/17 06/18/17 06/18/17 06/19/17 06/19/17 06/19/17 07:00 15:00 23:00 07:00 15:00 23:00 Intake Total 240 ml 75 ml 1550 ml Output Total 600 ml 250 ml 250 ml Balance -360 ml -175 ml 1300 ml Intake Oral 240 ml 75 ml 500 ml IV Total 1050 ml Output Urine Total 600 ml 250 ml 250 ml # Bowel Movements 0 Result Diagram: 06/19/17 0450 06/19/17 0450 Imaging Last Impressions Neck CTA 06/18/17 0000 Signed Impressions: Service Date/Time: Sunday, June 18, 2017 15:17 - CONCLUSION: 1. There is atherosclerotic plaquing at the bifurcations but no hemodynamically significant carotid stenosis is identified. 2. 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 It reconstitutes in the upper neck. The right vertebral is patent throughout its course. The basilar is patent. 3. Left pleural effusion. Kishan Cavazos MD Head CTA 06/18/17 0000 Signed Impressions: Service Date/Time: Sunday, June 18, 2017 15:17 - CONCLUSION: Normal examination. Remi Moore MD Head CT 06/18/17 0000 Signed Impressions: Service Date/Time: Sunday, June 18, 2017 13:01 - CONCLUSION: Normal examination. Remi Moore MD Chest X-Ray 06/18/17 0000 Signed Impressions: Service Date/Time: Sunday, June 18, 2017 13:41 - CONCLUSION: 1. Continued bilateral infiltrates unchanged from previous. Kishan Cavazos MD Renal Ultrasound 06/17/17 0000 Signed Impressions: Service Date/Time: Saturday, June 17, 2017 16:16 - CONCLUSION: There is no hydronephrosis. The examination is within normal limits. Remi Weeks MD Abdomen X-Ray 06/17/17 0000 Signed Impressions: Service Date/Time: Saturday, June 17, 2017 09:39 - CONCLUSION: Gastric distention identified. Bj Rodriguez MD Objective Remarks GENERAL: in NAD HEENT: left eye oval pupil. right eye PERRLA. CARDIOVASCULAR: Regular rate and rhythm without murmurs, gallops, or rubs. RESPIRATORY: Bilateral rhonchi. Scattered expiratory wheezing.. No accessory muscle use. GASTROINTESTINAL: Abdomen soft, non-tender, nondistended. MUSCULOSKELETAL: Left BKA. Positive for 1 to trace pitting edema in the right lower extremity. NEURO: AAO X 3. Cranial nerves II-12 is intact. Patient moves all extremity grossly. Medications and IVs Current Medications IV Flush (NS Flush) 2 ml UNSCH PRN IV FLUSH FLUSH AFTER USING IV ACCESS; Start 06/14/17 at 22:00; Stop 06/17/17 at 15:31; Status DC Acetaminophen (Tylenol) 650 mg ONCE ONCE PO Last administered on 06/14/17 23: 01; Start 06/14/17 at 22:30; Stop 06/14/17 at 22:31; Status DC Piperacillin Sod/ Tazobactam Sod 100 ml @ 200 mls/hr ONCE ONCE IV Last administered on 06/14/17 23:01; Start 06/14/17 at 22:30; Stop 06/14/17 at 22:59 ; Status DC Albuterol/ Ipratropium (Duoneb Neb) 1 ampule ONCE ONCE NEB Last administered on 06/15/17 01:32; Start 06/15/17 at 01:30; Stop 06/15/17 at 01:31; Status DC Methylprednisolone Sodium Succinate (SoluMEDROL INJ) 125 mg ONCE ONCE IV PUSH Last administered on 06/15/17 01:34; Start 06/15/17 at 01:30; Stop 06/15/17 at 01:31; Status DC Methylprednisolone Sodium Succinate (SoluMEDROL INJ) 40 mg Q6HR IV PUSH Last administered on 06/15/17 05:59; Start 06/15/17 at 06:00; Stop 06/15/17 at 13:21 ; Status DC Albuterol/ Ipratropium (Duoneb Neb) 1 ampule Q4HR WHILE AWAKE NEB NEB Last administered on 06/18/17 20:12; Start 06/15/17 at 08:00; Stop 06/19/17 at 07:59 ; Status DC Albuterol/ Ipratropium (Duoneb Neb) 1 ampule Q2HR NEB PRN NEB SOB/WHEEZING Last administered on 06/19/17 08:10; Start 06/15/17 at 02:30 Pharmacy Profile Note 0 ml @ 0 mls/hr UNSCH OTHER ; Start 06/15/17 at 02:30; Stop 06/17/17 at 14:56; Status DC Piperacillin Sod/ Tazobactam Sod 50 ml @ 100 mls/hr Q6H IV ; Start 06/15/17 at 04:00; Stop 06/15/17 at 06:38; Status DC Dextrose (D50w (Vial) Inj) 50 ml UNSCH PRN IV PUSH HYPOGLYCEMIA-SEE COMMENTS; Start 06/15/17 at 02:30 Glucagon (Glucagon Inj) 1 mg UNSCH PRN OTHER HYPOGLYCEMIA-SEE COMMENTS; Start 06/15/17 at 02:30 Insulin Aspart (NovoLOG SUPPLEMENTAL SCALE) 1 ACHS SLIDING SCALE SQ Last administered on 06/15/17 08:00; Start 06/15/17 at 08:00; Stop 06/15/17 at 13:23 ; Status DC Sodium Chloride 1,000 ml @ 100 mls/hr Q10H IV Last administered on 06/16/17 05:05; Start 06/15/17 at 02:19; Stop 06/16/17 at 22:23; Status DC Sodium Chloride (NS Flush) 2 ml UNSCH PRN IV FLUSH FLUSH AFTER USING IV ACCESS ; Start 06/15/17 at 02:30; Stop 06/17/17 at 15:31; Status DC Sodium Chloride (NS Flush) 2 ml BID IV FLUSH Last administered on 06/17/17 09: 00; Start 06/15/17 at 09:00; Stop 06/17/17 at 15:31; Status DC Ondansetron HCl (Zofran Inj) 4 mg Q6H PRN IVP NAUSEA OR VOMITING Last administered on 06/19/17 09:55; Start 06/15/17 at 02:30 Acetaminophen (Tylenol) 650 mg Q6H PRN PO FEVER/PAIN SCALE 1 TO 2; Start at 02:30 Acetaminophen/ Hydrocodone Bitart (Addy 5-325 Mg) 1 tab Q4H PRN PO PAIN SCALE 3 TO 5; Start 06/15/17 at 02:30 Morphine Sulfate (Morphine Inj) 2 mg Q3H PRN IV PUSH Pain 6-10; Start 06/15/17 at 02:30 Senna/Docusate Sodium (Macie-Colace) 1 tab BID PO Last administered on 08:59; Start 06/15/17 at 09:00 Magnesium Hydroxide (Milk Of Magnesia Liq) 30 ml Q12H PRN PO MILD - MODERATE CONSTIPATION; Start 06/15/17 at 02:30 Sennosides (Senokot) 17.2 mg Q12H PRN PO MODERATE - SEVERE CONSTIPATION; Start 06/15/17 at 02:30 Bisacodyl (Dulcolax Supp) 10 mg DAILY PRN RECTAL SEVERE CONSITIPATION; Start at 02:30 Lactulose (Lactulose Liq) 30 ml DAILY PRN PO SEVERE CONSITIPATION; Start at 02:30 Budesonide/ Formoterol Fumarate (Symbicort 160-4.5 Inh) 1 puff Q12HR INH Last administered on 06/18/17 21:00; Start 06/15/17 at 09:00 Dabigatran (Pradaxa) 150 mg BID PO Last administered on 06/19/17 08:58; Start 06/15/17 at 09:00 Escitalopram Oxalate (Lexapro) 10 mg DAILY PO Last administered on 06/19/17 08 :59; Start 06/15/17 at 09:00 Furosemide (Lasix) 20 mg DAILY PO Last administered on 06/19/17 08:58; Start 06/15/17 at 09:00 Gabapentin (Neurontin) 100 mg TID PO Last administered on 06/19/17 08:58; Start 06/15/17 at 09:00 Levothyroxine Sodium (Synthroid) 50 mcg DAILY@06 PO Last administered on 04:25; Start 06/15/17 at 06:00 Sotalol HCl (Betapace) 80 mg BID PO Last administered on 06/19/17 08:59; Start 06/15/17 at 09:00 Tamsulosin HCl (Flomax) 0.4 mg HS PO Last administered on 06/18/17 20:24; Start 06/15/17 at 21:00 Temazepam (Restoril) 15 mg HS PRN PO INSOMNIA Last administered on 06/16/17 22 :37; Start 06/15/17 at 02:30 Pantoprazole Sodium (Protonix) 20 mg DAILY PO Last administered on 06/19/17 08 :59; Start 06/15/17 at 09:00 Aspirin (Aspirin Chew) 81 mg DAILY PO Last administered on 06/19/17 08:59; Start 06/15/17 at 09:00 Sodium Chloride (NS Flush) 2 ml BID IV FLUSH Last administered on 06/19/17 09: 00; Start 06/15/17 at 09:00 Sodium Chloride (NS Flush) 2 ml UNSCH PRN IVF FLUSH AFTER USING IV ACCESS; Start 06/15/17 at 02:45 Vancomycin HCl 2200 mg/Sodium Chloride 522 ml @ 250 mls/hr ONCE ONCE IV Last administered on 06/15/17 04:24; Start 06/15/17 at 03:30; Stop 06/15/17 at 05:35 ; Status DC Piperacillin Sod/ Tazobactam Sod 50 ml @ 100 mls/hr Q6H IV Last administered on 06/17/17 13:37; Start 06/15/17 at 08:00; Stop 06/17/17 at 14:56; Status DC Vancomycin HCl 2000 mg/Sodium Chloride 520 ml @ 257.5 mls/ hr Q24H IV Last administered on 06/17/17 05:16; Start 06/16/17 at 05:00; Stop 06/17/17 at 14:56 ; Status DC Miscellaneous Information SPECIFIC LAB TO BE CADE... ONCE ONCE .XX ; Start 06/18 at 04:45; Stop 06/18/17 at 04:45; Status DC Insulin Human Regular (NovoLIN R SUPPLEMENTAL SCALE) 1 ACHS SLIDING SCALE SQ Last administered on 06/18/17 20:24; Start 06/15/17 at 13:45 Insulin Detemir (Levemir Inj) 5 units Q12HR SQ Last administered on 06/16/17 09:06; Start 06/15/17 at 13:30; Stop 06/16/17 at 10:46; Status DC Insulin Detemir (Levemir Inj) 10 units Q12HR SQ Last administered on 06/19/17 08:59; Start 06/16/17 at 21:00 Insulin Detemir (Levemir Inj) 10 units ONCE ONCE SQ Last administered on 10:45; Start 06/16/17 at 10:45; Stop 06/16/17 at 10:51; Status DC Furosemide (Lasix Inj) 40 mg ONCE ONCE IV PUSH Last administered on 06/16/17 22:36; Start 06/16/17 at 22:30; Stop 06/16/17 at 22:31; Status DC Promethazine HCl (Phenergan Supp) 25 mg Q4H PRN RECTAL emesis Last administered on 06/18/17 10:01; Start 06/17/17 at 09:45 Hydralazine HCl (Apresoline Inj) 20 mg Q4H PRN IV PUSH SBP>180 or DBP >100 Last administered on 06/19/17 09:55; Start 06/17/17 at 12:00 Clonidine (Catapres) 0.1 mg Q6H PRN PO SBP>180 or DBP>100 Last administered on 06/18/17 06:31; Start 06/17/17 at 12:00 Ertapenem (INVanz INJ) 1,000 mg DAILY IM ; Start 06/17/17 at 12:00; Stop at 12:00; Status DC Miscellaneous Medication (ASP Crit: Doc ESBL, MDR A baumannii or P aer) 1 UNSCH X1 PRN .XX PHARMACY DOCUMENTATION; Start 06/17/17 at 15:00; Stop 06/18/17 at 14 :59; Status DC Miscellaneous Medication ([facility] [place] [facility] [place] 1 UNSCH X1 PRN XX PHARMACY DOCUMENTATION; Start 06/17/17 at 15:00; Stop 06/18/17 at 14:59; Status DC Ertapenem 1000 mg/ Sodium Chloride 100 ml @ 200 mls/hr Q24H IV Last administered on 06/18/17 16:05; Start 06/17/17 at 16:00 Metoprolol Tartrate (Lopressor Inj) 5 mg Q6H PRN IV PUSH HR>120 Last administered on 06/17/17 20:20; Start 06/17/17 at 20:00 Atropine Sulfate (Atropine Inj) 1 mg STK-MED ONCE .ROUTE ; Start 06/18/17 at 12: 51; Stop 06/18/17 at 12:52; Status DC Epinephrine HCl (EPINEPHrine (1:10,000) INJ) 1 mg STK-MED ONCE .ROUTE ; Start at 12:51; Stop 06/18/17 at 12:52; Status DC Sodium Chloride 1,000 ml @ 80 mls/hr [id number] IV Last administered on 06:20; Start 06/18/17 at 14:45 Iohexol (Omnipaque 350 Inj) 75 ml STK-MED ONCE IVCONTRAST Last administered on 06/18/17 15:31; Start 06/18/17 at 15:31; Stop 06/18/17 at 15:32; Status DC Fosphenytoin Sodium (Cerebyx Inj) 200 mgpe Q12HR IV ; Start 06/18/17 at 21:00; Stop 06/18/17 at 21:00; Status DC Fosphenytoin Sodium 1000 mgpe/ Sodium Chloride 70 ml @ 280 mls/hr ONCE ONCE IV Last administered on 06/18/17 18:04; Start 06/18/17 at 17:00; Stop at 17:14; Status DC Aspirin (Ecotrin Ec) 325 mg DAILY PO ; Start 06/18/17 at 16:45; Stop 06/18/17 at 16:45; Status DC Aspirin (Ecotrin Ec) 162 mg DAILY PO Last administered on 06/19/17 08:59; Start 06/19/17 at 09:00 Fosphenytoin Sodium 200 mgpe/ Sodium Chloride 54 ml @ 216 mls/hr Q12HR IV Last administered on 06/18/17 20:23; Start 06/18/17 at 21:00; Stop 06/19/17 at 08:00; Status DC Potassium Chloride (KCl) 40 meq ONCE ONCE PO Last administered on 06/19/17 02 :19; Start 06/19/17 at 02:00; Stop 06/19/17 at 02:01; Status DC Levetriacetam (Keppra) 500 mg Q12HR PO Last administered on 06/19/17 08:58; Start 06/19/17 at 09:00 A/P Problem List: (1) Encephalopathy ICD Code: G93.40 - Encephalopathy, unspecified Status: Acute (2) Sepsis ICD Code: A41.9 - Sepsis, unspecified organism (3) PNA (pneumonia) ICD Code: J18.9 - Pneumonia, unspecified organism (4) COPD (chronic obstructive pulmonary disease) ICD Code: J44.9 - Chronic obstructive pulmonary disease, unspecified Status: Chronic (5) Hypoglycemia ICD Code: E16.2 - Hypoglycemia, unspecified (6) DM (diabetes mellitus) ICD Code: E11.9 - Type 2 diabetes mellitus without complications (7) CEDRIC (acute kidney injury) ICD Code: N17.9 - Acute kidney failure, unspecified (8) A-fib ICD Code: I48.91 - Unspecified atrial fibrillation Assessment and Plan 81-year-old male who presented with AMS -Resolved. Patient's back to baseline. -EEG negative. CT scan of the head negative. 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 ? TIA -Neurologist increase his aspirin to 162. Patient also on Pradaxa. -Neurologist, stated to follow-up in 2-3 weeks and signed off. abnormal left eye pupil -patient stated this chronic due to consultation from cataract surgery. Intractable emesis -No abdominal pain. KUB does not show any small bowel obstruction or ileus. -Patient stated that it has improved and he feels nauseous at times. Sepsis Temp 100.4, WBC 20, Source UTI -S/p Blood Cultures and Zosyn in ER. -U/A positive for UTI and grew ESBL. -ID ff and patient on Invanz. Bilateral pneumonia -Chest x-ray. Management per infectious disease. Hypertensive urgency -Labile. -Continue her current regimen -on PRN hydralazine. -Regulatory Compliance Coordinator consulted and following. COPD: Chronic Respiratory Failure w/ Acute Exacerbation. O2 sat 99% on 6L NC on arrival, -Patient is now wheezing again. Will start Solu-Medrol and restart DuoNeb's. -Monitor clinically. Hypoglycemia: Resolved. - BS 40's per EMS, s/p D10 en route, BS currently 121. -Most likely secondary to illness. DM: Hgb A1c 8.0 on 01/04/17. -on Levemir to 10 units every 12 hours. On insulin sliding scale. CEDRIC: Creatinine 1.42, previously 1.04 on 01/04/17. -seems to fluctuate but stable. -Strict ins and outs. Continue to avoid nephrotoxins. A-fib: Chronic. Heart rate has been fluctuating. - On Pradaxa. -Regulatory Compliance Coordinator following. Management per grants officer. CLARA non compliant with CPAP -ordered for RT for CPAP while in house. DVT prophylaxis -On Pradaxa. Discharge Planning patient more lethargic and will need close monitoring. Transfer to ICU. Problem Qualifiers (1) A-fib: Qualified Codes: I48.2 - Chronic atrial fibrillation Livier Hollingsworth MD Jun 19, 2017 10:22
--- NOTE | 2017-06-19 13:27 | HHI.IDPN ---
Subjective Subjective Remarks is a 81 y/o CM with a PMH of HTN, A. fib on Pradaxa, COPD, Sleep Apnea on CPAP, CAD, BPH and PVD who is brought to the ER by EMS secondary to AMS. Per records, patient sent from [facility] secondary to lethargy. Upon EMS arrival, pt noted to have BS 40's s/p D10 and wheezing s/p DuoNeb. GCS 15 by the time he arrived to ER. Pt currently without any complaints. Denies fever, chills, cough, chest pain, nausea, vomiting or diarrhea. On arrival, BP 155/65 , HR 60, O2 sat 99% on 6L NC, Temp 100.4. Currently O2 sat 95% on RA. WBC 20.6 with elevated neutrophil count. Creatinine 1.42, previously 1.04 on . Lactic Acid normal at 1.4. BNP 214. Troponin negative. Ammonia normal. INR 1.6. UA pending. CT Head with no acute findings. CXR with likely basilar infiltrate. S/p Blood Culture and Zosyn IV in ER. Urine culture obtained in the ED positive for ESBL E.coli UTI. Blood cultures drawn on admission are negative. Hospital course: Patient seen on regular floor BP elevated 240s rechecked to be in 200s SBP. Due to persistent elevation in BP and persistent N/V patient will likely be transferred to cardiac monitoring unit or CCU. ID consulted for evaluation and Mment of Sepsis, E.coli ESBL UTI. Overnight events reviewed. Awake and oriented with no focal deficit. s/p CT brain non contrast with no acute findings. CTA with vertebral vessel abnormalities. Neurology thinks patient may have had a TIA related to that area. EEG normal. BP better. No fevers No rash No diarrhea Antibiotics Ertapenem IV Lines Line sites with no e.o infection. Past Medical History reviewed. Allergies: Coded Allergies: amlodipine (Unverified Adverse Reaction, Severe, Cramping, 05/08/17) leg cramps atorvastatin (Unverified Adverse Reaction, Severe, Cramping, 05/08/17) leg cramps pravastatin (Unverified Adverse Reaction, Severe, Cramping, 05/08/17) leg cramps simvastatin (Unverified Adverse Reaction, Severe, Cramping, 05/08/17) leg cramps Objective . Vital Signs Date Time Temp Pulse Resp B/P (MAP) Pulse Ox O2 Delivery O2 Flow Rate FiO2 06/19/17 12:00 60 06/19/17 12:00 97.8 60 16 147/65 (92) 97 06/19/17 12:00 97 Nasal Cannula 3.00 06/19/17 10:00 60 06/19/17 08:12 98 Nasal Cannula 2.00 06/19/17 08:00 99 Nasal Cannula 3.00 06/19/17 08:00 98.6 60 18 185/82 (116) 99 06/19/17 08:00 60 06/19/17 06:00 60 06/19/17 04:00 Nasal Cannula 3.00 06/19/17 04:00 98.9 60 19 167/75 (105) 99 06/19/17 04:00 60 06/19/17 02:00 60 06/19/17 00:00 99.2 60 17 137/66 (89) 96 06/19/17 00:00 60 06/19/17 00:00 Nasal Cannula 3.00 06/18/17 22:00 60 06/18/17 20:10 100 Nasal Cannula 4.00 06/18/17 20:00 59 24 100 06/18/17 20:00 59 06/18/17 20:00 Nasal Cannula 3.00 06/18/17 18:00 67 06/18/17 16:00 98.0 60 19 120/54 (76) 100 06/18/17 16:00 60 06/18/17 16:00 100 Nasal Cannula 3.00 . Laboratory Tests Test 06/18/17 06:12 06/19/17 04:50 White Blood Count 16.8 TH/MM3 14.1 TH/MM3 Red Blood Count 4.44 MIL/MM3 4.12 MIL/MM3 Hemoglobin 10.8 GM/DL 9.9 GM/DL Hematocrit 32.5 % 30.1 % Mean Corpuscular Volume 73.2 FL 73.0 FL Mean Corpuscular Hemoglobin 24.2 PG 23.9 PG Mean Corpuscular Hemoglobin Concent 33.1 % 32.8 % Red Cell Distribution Width 15.8 % 15.6 % Platelet Count 377 TH/MM3 332 TH/MM3 Mean Platelet Volume 8.6 FL 9.2 FL Hematology Comments Laboratory Tests Test 06/17/17 15:00 06/17/17 19:30 06/18/17 06:12 06/19/17 04:50 C-Reactive Protein 9.85 MG/DL Blood Urea Nitrogen 31 MG/DL 34 MG/DL 38 MG/DL Creatinine 1.26 MG/DL 1.32 MG/DL 1.30 MG/DL Random Glucose 203 MG/DL 212 MG/DL 92 MG/DL Calcium Level 8.8 MG/DL 8.8 MG/DL 8.2 MG/DL Magnesium Level 1.9 MG/DL Sodium Level 136 MEQ/L 137 MEQ/L 140 MEQ/L Potassium Level 3.2 MEQ/L 3.4 MEQ/L 3.5 MEQ/L Chloride Level 99 MEQ/L 98 MEQ/L 104 MEQ/L Carbon Dioxide Level 25.0 MEQ/L 29.5 MEQ/L 26.0 MEQ/L Anion Gap 12 MEQ/L 10 MEQ/L 10 MEQ/L Estimat Glomerular Filtration Rate 55 ML/MIN 52 ML/MIN 53 ML/MIN Troponin I 0.02 NG/ML Imaging Last Impressions Head CT 06/18/17 0000 Signed Impressions: Service Date/Time: Sunday, June 18, 2017 13:01 - CONCLUSION: Normal examination. Remi Moore MD Chest X-Ray 06/18/17 0000 Signed Impressions: Service Date/Time: Sunday, June 18, 2017 13:41 - CONCLUSION: 1. Continued bilateral infiltrates unchanged from previous. Kishan Cavazos MD Renal Ultrasound 06/17/17 0000 Signed Impressions: Service Date/Time: Saturday, June 17, 2017 16:16 - CONCLUSION: There is no hydronephrosis. The examination is within normal limits. Remi Weeks MD Abdomen X-Ray 06/17/17 0000 Signed Impressions: Service Date/Time: Saturday, June 17, 2017 09:39 - CONCLUSION: Gastric distention identified. Bj Rodriguez MD Physical Exam GENERAL: Obese, well-developed patient, in no apparent distress. SKIN: No rashes, ecchymoses or lesions. Cool and dry. HEAD: Atraumatic. Normocephalic. No temporal or scalp tenderness. EYES: Pupils equal round and reactive. Extraocular motions intact. No scleral icterus. No injection or drainage. ENT: Nose without bleeding, purulent drainage or septal hematoma. Throat without erythema, tonsillar hypertrophy or exudate. Uvula midline. Airway patent. NECK: Trachea midline.Supple, nontender, no meningeal signs. CARDIOVASCULAR: Regular rate and rhythm without murmurs, gallops, or rubs. RESPIRATORY: Clear to auscultation. Breath sounds equal bilaterally. No wheezes , rales, or rhonchi. GASTROINTESTINAL: Abdomen soft, non-tender, nondistended. MUSCULOSKELETAL: Left AKA site with no e/o infection. Right leg no pedal edema or e/o infection. NEUROLOGICAL: No response to deep sternal rub. Not following commands. No extremity movts. IV line sites with no e.o infection. Assessment & Plan Remarks Sepsis present on admission (leucocytosis, tachycardia, source UTI) ESBL Ecoli UTI Aspiration Pneumonia COPD exacerbation HTN'sive urgency (uncontrolled HTN) Acute renal failure: sepsis, prerenal Elevated CRP BPH, prior h/o chronic prostatitis sees a urologist. Recs: Continue Ertapenem IV (ASP criteria: ESBL E.coli UTI) follow blood cultures US KUB with no obstruction. Follow cultures Follow clinically. Will need IV antibiotics using Midline on discharge. duration TBD. Ana Steele MD Jun 19, 2017 13:27
[2017-06-19] MEDS: BUDESONIDE-FORMOTEROL 160/4.5 MCG INHALER INH SCH ×2 (13:46→21:01)
--- NOTE | 2017-06-19 14:07 | PD.CARD.PN ---
Subjective Subjective Remarks The patient complains of epigastric burning and recurrent belching. The patient had similar symptoms and acute cardiac event excluded. Troponin negative. No acute ischemic changes on EKG. RN reports fluctuating HR with episodes of afib RVR with rate up to 120. He has received recurrent antihypertensives PRN. No recurrent episodes of AMS. Objective Medications Current Medications Medications (Trade) Dose Ordered Sig/[place] Route Start Time Stop Time Status Last Admin (Duoneb Neb) 1 ampule Q2HR NEB PRN NEB 06/15/17 02:30 06/19/17 08:10 (D50w (Vial) Inj) 50 ml UNSCH PRN IV PUSH 06/15/17 02:30 (Glucagon Inj) 1 mg UNSCH PRN OTHER 06/15/17 02:30 (Zofran Inj) 4 mg Q6H PRN IVP 06/15/17 02:30 06/19/17 09:55 (Tylenol) 650 mg Q6H PRN PO 06/15/17 02:30 ([place] 5-325 Mg) 1 tab Q4H PRN PO 06/15/17 02:30 (Morphine Inj) 2 mg Q3H PRN IV PUSH 06/15/17 02:30 (Macie-Colace) 1 tab BID PO 06/15/17 09:00 06/19/17 08:59 (Milk Of Magnesia Liq) 30 ml Q12H PRN PO 06/15/17 02:30 (Senokot) 17.2 mg Q12H PRN PO 06/15/17 02:30 (Dulcolax Supp) 10 mg DAILY PRN RECTAL 06/15/17 02:30 (Lactulose Liq) 30 ml DAILY PRN PO 06/15/17 02:30 (Symbicort 160-4.5 Inh) 1 puff Q12HR INH 06/15/17 09:00 06/19/17 13:46 (Pradaxa) 150 mg BID PO 06/15/17 09:00 06/19/17 08:58 (Lexapro) 10 mg DAILY PO 06/15/17 09:00 06/19/17 08:59 (Lasix) 20 mg DAILY PO 06/15/17 09:00 06/19/17 08:58 (Neurontin) 100 mg TID PO 06/15/17 09:00 06/19/17 13:46 (Synthroid) 50 mcg DAILY@06 PO 06/15/17 06:00 06/19/17 04:25 (Betapace) 80 mg BID PO 06/15/17 09:00 06/19/17 08:59 (Flomax) 0.4 mg HS PO 06/15/17 21:00 06/18/17 20:24 (Restoril) 15 mg HS PRN PO 06/15/17 02:30 06/16/17 22:37 (Protonix) 20 mg DAILY PO 06/15/17 09:00 06/19/17 08:59 (Aspirin Chew) 81 mg DAILY PO 06/15/17 09:00 06/19/17 08:59 (NS Flush) 2 ml BID IV FLUSH 06/15/17 09:00 06/19/17 09:00 (NS Flush) 2 ml UNSCH PRN IVF 06/15/17 02:45 (NovoLIN R SUPPLEMENTAL SCALE) 1 ACHS SLIDING SCALE SQ 06/15/17 13:45 06/19/17 12:00 (Levemir Inj) 10 units Q12HR SQ 06/16/17 21:00 06/19/17 08:59 (Phenergan Supp) 25 mg Q4H PRN RECTAL 06/17/17 09:45 06/18/17 10:01 (Apresoline Inj) 20 mg Q4H PRN IV PUSH 06/17/17 12:00 06/19/17 09:55 (Catapres) 0.1 mg Q6H PRN PO 06/17/17 12:00 06/18/17 06:31 Ertapenem 1000 mg/ Sodium Chloride 100 ml @ 200 mls/hr Q24H IV 06/17/17 16:00 06/18/17 16:05 (Lopressor Inj) 5 mg Q6H PRN IV PUSH 06/17/17 20:00 06/17/17 20:20 (Ecotrin Ec) 162 mg DAILY PO 06/19/17 09:00 06/19/17 08:59 (Keppra) 500 mg Q12HR PO 06/19/17 09:00 06/19/17 08:58 (Duoneb Neb) 1 ampule Q4HR WHILE AWAKE NEB NEB 06/19/17 12:00 Vital Signs / I&O Vital Signs Date Time Temp Pulse Resp B/P (MAP) Pulse Ox O2 Delivery O2 Flow Rate FiO2 06/19/17 12:00 60 06/19/17 12:00 97.8 60 16 147/65 (92) 97 06/19/17 12:00 97 Nasal Cannula 3.00 06/19/17 10:00 60 06/19/17 08:12 98 Nasal Cannula 2.00 06/19/17 08:00 99 Nasal Cannula 3.00 06/19/17 08:00 98.6 60 18 185/82 (116) 99 06/19/17 08:00 60 06/19/17 06:00 60 06/19/17 04:00 Nasal Cannula 3.00 06/19/17 04:00 98.9 60 19 167/75 (105) 99 06/19/17 04:00 60 06/19/17 02:00 60 06/19/17 00:00 99.2 60 17 137/66 (89) 96 06/19/17 00:00 60 06/19/17 00:00 Nasal Cannula 3.00 06/18/17 22:00 60 06/18/17 20:10 100 Nasal Cannula 4.00 06/18/17 20:00 59 24 100 06/18/17 20:00 59 06/18/17 20:00 Nasal Cannula 3.00 06/18/17 18:00 67 06/18/17 16:00 98.0 60 19 120/54 (76) 100 06/18/17 16:00 60 06/18/17 16:00 100 Nasal Cannula 3.00 I/O 06/18/17 06/18/17 06/18/17 06/19/17 06/19/17 06/19/17 07:00 15:00 23:00 07:00 15:00 23:00 Intake Total 240 ml 75 ml 1550 ml Output Total 600 ml 250 ml 250 ml Balance -360 ml -175 ml 1300 ml Intake Oral 240 ml 75 ml 500 ml IV Total 1050 ml Output Urine Total 600 ml 250 ml 250 ml # Bowel Movements 0 Physical Exam GENERAL: Elderly male, NAD, in ICU SKIN: Warm and dry. HEAD: Normocephalic. EYES: No scleral icterus. No injection or drainage. NECK: Supple, trachea midline. CARDIOVASCULAR: Regular rate and rhythm, left PPM RESPIRATORY: Breath sounds equal bilaterally. No accessory muscle use. GASTROINTESTINAL: Abdomen soft, non-tender, nondistended. Epigastric guarding MUSCULOSKELETAL: Pretibial edema, left AKA BACK: Nontender without obvious deformity. No CVA tenderness. Laboratory Laboratory Tests Test 06/18/17 16:00 06/19/17 04:50 Nasal Screen MRSA (PCR) MRSA DETECTED White Blood Count 14.1 TH/MM3 Red Blood Count 4.12 MIL/MM3 Hemoglobin 9.9 GM/DL Hematocrit 30.1 % Mean Corpuscular Volume 73.0 FL Mean Corpuscular Hemoglobin 23.9 PG Mean Corpuscular Hemoglobin Concent 32.8 % Red Cell Distribution Width 15.6 % Platelet Count 332 TH/MM3 Mean Platelet Volume 9.2 FL Hematology Comments Blood Urea Nitrogen 38 MG/DL Creatinine 1.30 MG/DL Random Glucose 92 MG/DL Calcium Level 8.2 MG/DL Sodium Level 140 MEQ/L Potassium Level 3.5 MEQ/L Chloride Level 104 MEQ/L Carbon Dioxide Level 26.0 MEQ/L Anion Gap 10 MEQ/L Estimat Glomerular Filtration Rate 53 ML/MIN Phenytoin (Dilantin) Level 8.0 MCG/ML Imaging Last 72 hours Impressions Neck CTA 06/18/17 0000 Signed Impressions: Service Date/Time: Sunday, June 18, 2017 15:17 - CONCLUSION: 1. There is atherosclerotic plaquing at the bifurcations but no hemodynamically significant carotid stenosis is identified. 2. 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 It reconstitutes in the upper neck. The right vertebral is patent throughout its course. The basilar is patent. 3. Left pleural effusion. Kishan Cavazos MD Head CTA 06/18/17 0000 Signed Impressions: Service Date/Time: Sunday, June 18, 2017 15:17 - CONCLUSION: Normal examination. Remi Moore MD Head CT 06/18/17 0000 Signed Impressions: Service Date/Time: Sunday, June 18, 2017 13:01 - CONCLUSION: Normal examination. Remi Moore MD Chest X-Ray 06/18/17 0000 Signed Impressions: Service Date/Time: Sunday, June 18, 2017 13:41 - CONCLUSION: 1. Continued bilateral infiltrates unchanged from previous. Kishan Cavazos MD Renal Ultrasound 06/17/17 0000 Signed Impressions: Service Date/Time: Saturday, June 17, 2017 16:16 - CONCLUSION: There is no hydronephrosis. The examination is within normal limits. Remi Weeks MD Abdomen X-Ray 06/17/17 0000 Signed Impressions: Service Date/Time: Saturday, June 17, 2017 09:39 - CONCLUSION: Gastric distention identified. Bj Rodriguez MD Assessment and Plan Assessment and Plan Recurrent AMS, CT head 06/18/2017 negative for acute stroke, no evidence of bleeding. Atrial fibrillation, with episodes of afib RVR. On Pradaxa HTN Acute on chronic diastolic CHF on the basis of elevated BNP and pulmonary edema Episode of nausea/belching- troponin negative, EKG negative History of ASHD HLD Mild carotid stenosis PAD Renal insufficiency DM PLAN Start cardizem 30 QID with hold parameters Continue lasix PO. Already received lasix IV since admission. Continue antihypertensive PRN Continue Pradaxa and sotalol ASA started by Neurology The patient was seen and evaluated by Dr Hoyt who completed a face to face encounter and physical exam, and participated in evaluation and management. Bailey Monet Jun 19, 2017 14:07
[2017-06-19] MEDS: RESP: ALBUTEROL 2.5 MG/IPRATROPIUM 0.5 MG NEB (SCH) NEB ×2 (14:48→19:55)
[2017-06-19] MEDS: ERTAPENEM INJ 1,000 MG in SODIUM CHLORIDE 0.9% INJ 100 ML IV SCH (16:41)
[2017-06-19] MEDS: DILTIAZEM HCL 30 MG TAB PO SCH (17:59)
[2017-06-19] MEDS: TAMSULOSIN HCL 0.4 MG CAP PO SCH (21:02)
[2017-06-19] MEDS: TEMAZEPAM 15 MG CAP PO PRN (21:21)
[2017-06-20] VITALS (16 sets, daily range): BP systolic 129–169; BP diastolic 62–75; PULSE 60–72; RESP 17–22; TEMP 98.4–99.1; O2SAT 97–99
[2017-06-20] MEDS: DILTIAZEM HCL 30 MG TAB PO SCH ×5 (02:31→23:17)
[2017-06-20 05:41] LABS: MEAN CELL VOLUME 73.4 FL (80.0-100.0); MEAN CORPUSCULAR HEMOGLOBIN 24.2 PG (27.0-34.0); MEAN CORPUSCULAR HGB CONC 32.9 % (32.0-36.0); PLATELET COUNT 383 TH/MM3 (150-450); RED BLOOD COUNT 4.09 MIL/MM3 (4.50-5.90); RED CELL DISTRIBUTION WIDTH 15.5 % (11.6-17.2); REVIEW FLAG FINAL; WHITE BLOOD COUNT 13.1 TH/MM3 (4.0-11.0)
[2017-06-20 06:16] LABS: BICARBONATE 29.8 MEQ/L (21.0-32.0); POTASSIUM 3.4 MEQ/L (3.5-5.1)
[2017-06-20] MEDS: LEVOTHYROXINE SODIUM 50 MCG TAB PO SCH (06:17)
[2017-06-20] MEDS: RESP: ALBUTEROL 2.5 MG/IPRATROPIUM 0.5 MG NEB (SCH) NEB ×4 (07:40→20:02)
[2017-06-20] MEDS: INSULIN NovoLIN REGULAR SUPPLEMENTAL SCALE SQ SCH ×3 (08:00→20:23)
[2017-06-20] MEDS: DABIGATRAN ETEXILATE 150 MG CAP PO SCH ×2 (08:18→20:21)
[2017-06-20] MEDS: DOCUSATE SODIUM 50 MG/SENNA 8.6 MG TAB PO SCH ×2 (08:18→20:21)
[2017-06-20] MEDS: FUROSEMIDE 20 MG TAB PO SCH (08:19)
[2017-06-20] MEDS: ESCITALOPRAM OXALATE 10 MG TAB PO SCH (08:19)
[2017-06-20] MEDS: levETIRAcetam 500 MG TAB PO SCH (08:19)
[2017-06-20] MEDS: ASPIRIN 81 MG CHEW TAB PO SCH (08:19)
[2017-06-20] MEDS: GABAPENTIN 100 MG CAP PO SCH ×3 (08:19→18:25)
[2017-06-20] MEDS: ASPIRIN EC 81 MG TABEC PO SCH (08:19)
[2017-06-20] MEDS: PANTOPRAZOLE SOD 20 MG DELAYED RELEASE TAB PO SCH (08:27)
[2017-06-20] MEDS: BUDESONIDE-FORMOTEROL 160/4.5 MCG INHALER INH SCH ×2 (08:28→20:23)
[2017-06-20] MEDS: SODIUM CHLORIDE 0.9% FLUSH 10 ML FLUSH IV FLUSH SCH ×2 (08:28→20:22)
[2017-06-20] MEDS: INSULIN DETEMIR 100 UNITS/ML VIAL SQ SCH ×3 (08:29→20:21)
[2017-06-20] MEDS: SOTALOL HCL 80 MG TAB PO SCH ×2 (08:34→20:21)
--- NOTE | 2017-06-20 10:16 | HHI.PR ---
Subjective Remarks Patient stated that he feels a lot better. He stated that nausea improved but he feels he has some indigestion and asking for indigestion medication. Heart rate and blood pressure is improving. Patient is waiting for transfer to the floor. Otherwise he has no complaints. Objective Vitals Vital Signs Date Time Temp Pulse Resp B/P (MAP) Pulse Ox O2 Delivery O2 Flow Rate FiO2 06/20/17 07:40 99 Nasal Cannula 2.00 06/20/17 06:00 65 06/20/17 04:01 99.1 72 18 152/68 (96) 99 06/20/17 04:00 60 06/20/17 04:00 98 Nasal Cannula 3.00 06/20/17 02:00 60 06/20/17 00:00 64 06/20/17 00:00 98.7 64 17 153/68 (96) 97 06/20/17 00:00 98 Nasal Cannula 3.00 06/19/17 22:00 65 06/19/17 20:01 99.0 60 20 173/74 (107) 99 06/19/17 20:00 60 06/19/17 20:00 99 Nasal Cannula 3.00 06/19/17 18:00 60 06/19/17 16:00 99.0 60 17 158/72 (100) 100 06/19/17 16:00 98 Nasal Cannula 2.00 06/19/17 16:00 69 06/19/17 14:00 60 06/19/17 12:00 60 06/19/17 12:00 97.8 60 16 147/65 (92) 97 06/19/17 12:00 97 Nasal Cannula 3.00 I/O 06/19/17 06/19/17 06/19/17 06/20/17 06/20/17 06/20/17 07:00 15:00 23:00 07:00 15:00 23:00 Intake Total 1550 ml 580 ml 240 ml Output Total 250 ml 350 ml Balance 1300 ml 580 ml -110 ml Intake Oral 500 ml 480 ml 240 ml IV Total 1050 ml 100 ml Output Urine Total 250 ml 350 ml # Voids 4 # Bowel Movements 0 Result Diagram: 06/20/17 0444 06/20/17 0444 Objective Remarks GENERAL: in NAD HEENT: left eye oval pupil. right eye PERRLA. CARDIOVASCULAR: Regular rate and rhythm without murmurs, gallops, or rubs. RESPIRATORY: Mild rhonchi otherwise no wheezing noted.. No accessory muscle use. GASTROINTESTINAL: Abdomen soft, non-tender, nondistended. MUSCULOSKELETAL: Left BKA. . NEURO: AAO X 3. Cranial nerves II-12 is intact. Patient moves all extremity grossly. Medications and IVs Current Medications IV Flush (NS Flush) 2 ml UNSCH PRN IV FLUSH FLUSH AFTER USING IV ACCESS; Start 06/14/17 at 22:00; Stop 06/17/17 at 15:31; Status DC Acetaminophen (Tylenol) 650 mg ONCE ONCE PO Last administered on 06/14/17 23: 01; Start 06/14/17 at 22:30; Stop 06/14/17 at 22:31; Status DC Piperacillin Sod/ Tazobactam Sod 100 ml @ 200 mls/hr ONCE ONCE IV Last administered on 06/14/17 23:01; Start 06/14/17 at 22:30; Stop 06/14/17 at 22:59 ; Status DC Albuterol/ Ipratropium (Duoneb Neb) 1 ampule ONCE ONCE NEB Last administered on 06/15/17 01:32; Start 06/15/17 at 01:30; Stop 06/15/17 at 01:31; Status DC Methylprednisolone Sodium Succinate (SoluMEDROL INJ) 125 mg ONCE ONCE IV PUSH Last administered on 06/15/17 01:34; Start 06/15/17 at 01:30; Stop 06/15/17 at 01:31; Status DC Methylprednisolone Sodium Succinate (SoluMEDROL INJ) 40 mg Q6HR IV PUSH Last administered on 06/15/17 05:59; Start 06/15/17 at 06:00; Stop 06/15/17 at 13:21 ; Status DC Albuterol/ Ipratropium (Duoneb Neb) 1 ampule Q4HR WHILE AWAKE NEB NEB Last administered on 06/18/17 20:12; Start 06/15/17 at 08:00; Stop 06/19/17 at 07:59 ; Status DC Albuterol/ Ipratropium (Duoneb Neb) 1 ampule Q2HR NEB PRN NEB SOB/WHEEZING Last administered on 06/19/17 08:10; Start 06/15/17 at 02:30 Pharmacy Profile Note 0 ml @ 0 mls/hr UNSCH OTHER ; Start 06/15/17 at 02:30; Stop 06/17/17 at 14:56; Status DC Piperacillin Sod/ Tazobactam Sod 50 ml @ 100 mls/hr Q6H IV ; Start 06/15/17 at 04:00; Stop 06/15/17 at 06:38; Status DC Dextrose (D50w (Vial) Inj) 50 ml UNSCH PRN IV PUSH HYPOGLYCEMIA-SEE COMMENTS; Start 06/15/17 at 02:30 Glucagon (Glucagon Inj) 1 mg UNSCH PRN OTHER HYPOGLYCEMIA-SEE COMMENTS; Start 06/15/17 at 02:30 Insulin Aspart (NovoLOG SUPPLEMENTAL SCALE) 1 ACHS SLIDING SCALE SQ Last administered on 06/15/17 08:00; Start 06/15/17 at 08:00; Stop 06/15/17 at 13:23 ; Status DC Sodium Chloride 1,000 ml @ 100 mls/hr Q10H IV Last administered on 06/16/17 05:05; Start 06/15/17 at 02:19; Stop 06/16/17 at 22:23; Status DC Sodium Chloride (NS Flush) 2 ml UNSCH PRN IV FLUSH FLUSH AFTER USING IV ACCESS ; Start 06/15/17 at 02:30; Stop 06/17/17 at 15:31; Status DC Sodium Chloride (NS Flush) 2 ml BID IV FLUSH Last administered on 06/17/17 09: 00; Start 06/15/17 at 09:00; Stop 06/17/17 at 15:31; Status DC Ondansetron HCl (Zofran Inj) 4 mg Q6H PRN IVP NAUSEA OR VOMITING Last administered on 06/19/17 09:55; Start 06/15/17 at 02:30 Acetaminophen (Tylenol) 650 mg Q6H PRN PO FEVER/PAIN SCALE 1 TO 2; Start at 02:30 Acetaminophen/ Hydrocodone Bitart ([place] 5-325 Mg) 1 tab Q4H PRN PO PAIN SCALE 3 TO 5; Start 06/15/17 at 02:30 Morphine Sulfate (Morphine Inj) 2 mg Q3H PRN IV PUSH Pain 6-10; Start 06/15/17 at 02:30 Senna/Docusate Sodium (Macie-Colace) 1 tab BID PO Last administered on 08:18; Start 06/15/17 at 09:00 Magnesium Hydroxide (Milk Of Magnesia Liq) 30 ml Q12H PRN PO MILD - MODERATE CONSTIPATION; Start 06/15/17 at 02:30 Sennosides (Senokot) 17.2 mg Q12H PRN PO MODERATE - SEVERE CONSTIPATION; Start 06/15/17 at 02:30 Bisacodyl (Dulcolax Supp) 10 mg DAILY PRN RECTAL SEVERE CONSITIPATION; Start at 02:30 Lactulose (Lactulose Liq) 30 ml DAILY PRN PO SEVERE CONSITIPATION; Start at 02:30 Budesonide/ Formoterol Fumarate (Symbicort 160-4.5 Inh) 1 puff Q12HR INH Last administered on 06/20/17 08:28; Start 06/15/17 at 09:00 Dabigatran (Pradaxa) 150 mg BID PO Last administered on 06/20/17 08:18; Start 06/15/17 at 09:00 Escitalopram Oxalate (Lexapro) 10 mg DAILY PO Last administered on 06/20/17 08 :19; Start 06/15/17 at 09:00 Furosemide (Lasix) 20 mg DAILY PO Last administered on 06/20/17 08:19; Start 06/15/17 at 09:00 Gabapentin (Neurontin) 100 mg TID PO Last administered on 06/20/17 08:19; Start 06/15/17 at 09:00 Levothyroxine Sodium (Synthroid) 50 mcg DAILY@06 PO Last administered on 06:17; Start 06/15/17 at 06:00 Sotalol HCl (Betapace) 80 mg BID PO Last administered on 06/20/17 08:34; Start 06/15/17 at 09:00 Tamsulosin HCl (Flomax) 0.4 mg HS PO Last administered on 06/19/17 21:02; Start 06/15/17 at 21:00 Temazepam (Restoril) 15 mg HS PRN PO INSOMNIA Last administered on 06/19/17 21 :21; Start 06/15/17 at 02:30 Pantoprazole Sodium (Protonix) 20 mg DAILY PO Last administered on 06/20/17 08 :27; Start 06/15/17 at 09:00 Aspirin (Aspirin Chew) 81 mg DAILY PO Last administered on 06/20/17 08:19; Start 06/15/17 at 09:00 Sodium Chloride (NS Flush) 2 ml BID IV FLUSH Last administered on 06/20/17 08: 28; Start 06/15/17 at 09:00 Sodium Chloride (NS Flush) 2 ml UNSCH PRN IVF FLUSH AFTER USING IV ACCESS; Start 06/15/17 at 02:45 Vancomycin HCl 2200 mg/Sodium Chloride 522 ml @ 250 mls/hr ONCE ONCE IV Last administered on 06/15/17 04:24; Start 06/15/17 at 03:30; Stop 06/15/17 at 05:35 ; Status DC Piperacillin Sod/ Tazobactam Sod 50 ml @ 100 mls/hr Q6H IV Last administered on 06/17/17 13:37; Start 06/15/17 at 08:00; Stop 06/17/17 at 14:56; Status DC Vancomycin HCl 2000 mg/Sodium Chloride 520 ml @ 257.5 mls/ hr Q24H IV Last administered on 06/17/17 05:16; Start 06/16/17 at 05:00; Stop 06/17/17 at 14:56 ; Status DC Miscellaneous Information SPECIFIC LAB TO BE CADE... ONCE ONCE .XX ; Start 06/18 at 04:45; Stop 06/18/17 at 04:45; Status DC Insulin Human Regular (NovoLIN R SUPPLEMENTAL SCALE) 1 ACHS SLIDING SCALE SQ Last administered on 06/19/17 16:30; Start 06/15/17 at 13:45 Insulin Detemir (Levemir Inj) 5 units Q12HR SQ Last administered on 06/16/17 09:06; Start 06/15/17 at 13:30; Stop 06/16/17 at 10:46; Status DC Insulin Detemir (Levemir Inj) 10 units Q12HR SQ Last administered on 06/19/17 21:02; Start 06/16/17 at 21:00 Insulin Detemir (Levemir Inj) 10 units ONCE ONCE SQ Last administered on 10:45; Start 06/16/17 at 10:45; Stop 06/16/17 at 10:51; Status DC Furosemide (Lasix Inj) 40 mg ONCE ONCE IV PUSH Last administered on 06/16/17 22:36; Start 06/16/17 at 22:30; Stop 06/16/17 at 22:31; Status DC Promethazine HCl (Phenergan Supp) 25 mg Q4H PRN RECTAL emesis Last administered on 06/18/17 10:01; Start 06/17/17 at 09:45 Hydralazine HCl (Apresoline Inj) 20 mg Q4H PRN IV PUSH SBP>180 or DBP >100 Last administered on 06/19/17 21:01; Start 06/17/17 at 12:00 Clonidine (Catapres) 0.1 mg Q6H PRN PO SBP>180 or DBP>100 Last administered on 06/18/17 06:31; Start 06/17/17 at 12:00 Ertapenem (INVanz INJ) 1,000 mg DAILY IM ; Start 06/17/17 at 12:00; Stop at 12:00; Status DC Miscellaneous Medication (ASP Crit: Doc ESBL, MDR A baumannii or P aer) 1 UNSCH X1 PRN .XX PHARMACY DOCUMENTATION; Start 06/17/17 at 15:00; Stop 06/18/17 at 14 :59; Status DC Miscellaneous Medication ([facility] [place] [facility] Information) 1 UNSCH X1 PRN XX PHARMACY DOCUMENTATION; Start 06/17/17 at 15:00; Stop 06/18/17 at 14:59; Status DC Ertapenem 1000 mg/ Sodium Chloride 100 ml @ 200 mls/hr Q24H IV Last administered on 06/19/17 16:41; Start 06/17/17 at 16:00 Metoprolol Tartrate (Lopressor Inj) 5 mg Q6H PRN IV PUSH HR>120 Last administered on 06/17/17 20:20; Start 06/17/17 at 20:00 Atropine Sulfate (Atropine Inj) 1 mg STK-MED ONCE .ROUTE ; Start 06/18/17 at 12: 51; Stop 06/18/17 at 12:52; Status DC Epinephrine HCl (EPINEPHrine (1:10,000) INJ) 1 mg STK-MED ONCE .ROUTE ; Start at 12:51; Stop 06/18/17 at 12:52; Status DC Sodium Chloride 1,000 ml @ 80 mls/hr [id number] IV Last administered on 06:20; Start 06/18/17 at 14:45; Stop 06/19/17 at 10:13; Status DC Iohexol (Omnipaque 350 Inj) 75 ml STK-MED ONCE IVCONTRAST Last administered on 06/18/17 15:31; Start 06/18/17 at 15:31; Stop 06/18/17 at 15:32; Status DC Fosphenytoin Sodium (Cerebyx Inj) 200 mgpe Q12HR IV ; Start 06/18/17 at 21:00; Stop 06/18/17 at 21:00; Status DC Fosphenytoin Sodium 1000 mgpe/ Sodium Chloride 70 ml @ 280 mls/hr ONCE ONCE IV Last administered on 06/18/17 18:04; Start 06/18/17 at 17:00; Stop at 17:14; Status DC Aspirin (Ecotrin Ec) 325 mg DAILY PO ; Start 06/18/17 at 16:45; Stop 06/18/17 at 16:45; Status DC Aspirin (Ecotrin Ec) 162 mg DAILY PO Last administered on 06/20/17 08:19; Start 06/19/17 at 09:00 Fosphenytoin Sodium 200 mgpe/ Sodium Chloride 54 ml @ 216 mls/hr Q12HR IV Last administered on 06/18/17 20:23; Start 06/18/17 at 21:00; Stop 06/19/17 at 08:00; Status DC Potassium Chloride (KCl) 40 meq ONCE ONCE PO Last administered on 06/19/17 02 :19; Start 06/19/17 at 02:00; Stop 06/19/17 at 02:01; Status DC Levetriacetam (Keppra) 500 mg Q12HR PO Last administered on 06/20/17 08:19; Start 06/19/17 at 09:00; Stop 06/20/17 at 10:09; Status DC Albuterol/ Ipratropium (Duoneb Neb) 1 ampule Q4HR WHILE AWAKE NEB NEB Last administered on 06/20/17 07:40; Start 06/19/17 at 12:00 Diltiazem HCl (Cardizem) 30 mg Q6HR PO Last administered on 06/20/17 06:17; Start 06/19/17 at 18:00 Levetriacetam (Keppra) 250 mg Q12HR PO ; Start 06/20/17 at 21:00; Status UNV A/P Problem List: (1) Encephalopathy ICD Code: G93.40 - Encephalopathy, unspecified Status: Acute (2) Sepsis ICD Code: A41.9 - Sepsis, unspecified organism (3) PNA (pneumonia) ICD Code: J18.9 - Pneumonia, unspecified organism (4) COPD (chronic obstructive pulmonary disease) ICD Code: J44.9 - Chronic obstructive pulmonary disease, unspecified Status: Chronic (5) Hypoglycemia ICD Code: E16.2 - Hypoglycemia, unspecified (6) DM (diabetes mellitus) ICD Code: E11.9 - Type 2 diabetes mellitus without complications (7) CEDRIC (acute kidney injury) ICD Code: N17.9 - Acute kidney failure, unspecified (8) A-fib ICD Code: I48.91 - Unspecified atrial fibrillation Assessment and Plan 81-year-old male who presented with AMS -Resolved. Patient's back to baseline. -EEG negative. CT scan of the head negative. 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 ? TIA -Neurologist increase his aspirin to 162. Patient also on Pradaxa. -Neurologist, stated to follow-up in 2-3 weeks and signed off. abnormal left eye pupil -patient stated this chronic due to consultation from cataract surgery. Intractable emesis seemed to resolve. -No abdominal pain. KUB does not show any small bowel obstruction or ileus. Sepsis Temp 100.4, WBC 20, Source UTI -S/p Blood Cultures and Zosyn in ER. -U/A positive for UTI and grew ESBL. -ID ff and patient on Invanz. Bilateral pneumonia -Chest x-ray. Management per infectious disease. Hypertensive urgency -Labile. -Continue her current regimen -on PRN hydralazine. Cardizem was started by forest nursery worker. COPD: Chronic Respiratory Failure w/ Acute Exacerbation. O2 sat 99% on 6L NC on arrival, -Patient is now wheezing again. Will start Solu-Medrol and restart DuoNeb's. -Monitor clinically. Hypoglycemia: Resolved. - BS 40's per EMS, s/p D10 en route, BS currently 121. -Most likely secondary to illness. DM: Hgb A1c 8.0 on 01/04/17. -on Levemir to 10 units every 12 hours. On insulin sliding scale. CEDRIC: Creatinine 1.42, previously 1.04 on 01/04/17. -seems to fluctuate but stable. -Strict ins and outs. Continue to avoid nephrotoxins. A-fib: Chronic. - On Pradaxa. -Patient started on Cardizem. Management per forest nursery worker. CLARA non compliant with CPAP -ordered for RT for CPAP while in house. DVT prophylaxis -On Pradaxa. Problem Qualifiers (1) A-fib: Qualified Codes: I48.2 - Chronic atrial fibrillation Livier Hollingsworth MD Jun 20, 2017 10:16
--- NOTE | 2017-06-20 11:08 | HHI.IDPN ---
Subjective Subjective Remarks is a 81 y/o CM with a PMH of HTN, A. fib on Pradaxa, COPD, Sleep Apnea on CPAP, CAD, BPH and PVD who is brought to the ER by EMS secondary to AMS. Per records, patient sent from [facility] secondary to lethargy. Upon EMS arrival, pt noted to have BS 40's s/p D10 and wheezing s/p DuoNeb. GCS 15 by the time he arrived to ER. Pt currently without any complaints. Denies fever, chills, cough, chest pain, nausea, vomiting or diarrhea. On arrival, BP 155/65 , HR 60, O2 sat 99% on 6L NC, Temp 100.4. Currently O2 sat 95% on RA. WBC 20.6 with elevated neutrophil count. Creatinine 1.42, previously 1.04 on . Lactic Acid normal at 1.4. BNP 214. Troponin negative. Ammonia normal. INR 1.6. UA pending. CT Head with no acute findings. CXR with likely basilar infiltrate. S/p Blood Culture and Zosyn IV in ER. Urine culture obtained in the ED positive for ESBL E.coli UTI. Blood cultures drawn on admission are negative. Hospital course: Patient seen on regular floor BP elevated 240s rechecked to be in 200s SBP. Due to persistent elevation in BP and persistent N/V patient will likely be transferred to cardiac monitoring unit or CCU. ID consulted for evaluation and Mment of Sepsis, E.coli ESBL UTI. Overnight events reviewed. Awake and oriented with no focal deficit. s/p CT brain non contrast with no acute findings. CTA with vertebral vessel abnormalities. Neurology thinks patient may have had a TIA related to that area. EEG normal. BP better. No fevers No rash No diarrhea Not much appetite. Antibiotics Ertapenem IV Lines Line sites with no e.o infection. Past Medical History reviewed. Allergies: Coded Allergies: amlodipine (Unverified Adverse Reaction, Severe, Cramping, 05/08/17) leg cramps atorvastatin (Unverified Adverse Reaction, Severe, Cramping, 05/08/17) leg cramps pravastatin (Unverified Adverse Reaction, Severe, Cramping, 05/08/17) leg cramps simvastatin (Unverified Adverse Reaction, Severe, Cramping, 05/08/17) leg cramps Objective . Vital Signs Date Time Temp Pulse Resp B/P (MAP) Pulse Ox O2 Delivery O2 Flow Rate FiO2 06/20/17 07:40 99 Nasal Cannula 2.00 06/20/17 06:00 65 06/20/17 04:01 99.1 72 18 152/68 (96) 99 06/20/17 04:00 60 06/20/17 04:00 98 Nasal Cannula 3.00 06/20/17 02:00 60 06/20/17 00:00 64 06/20/17 00:00 98.7 64 17 153/68 (96) 97 06/20/17 00:00 98 Nasal Cannula 3.00 06/19/17 22:00 65 06/19/17 20:01 99.0 60 20 173/74 (107) 99 06/19/17 20:00 60 06/19/17 20:00 99 Nasal Cannula 3.00 06/19/17 18:00 60 06/19/17 16:00 99.0 60 17 158/72 (100) 100 06/19/17 16:00 98 Nasal Cannula 2.00 06/19/17 16:00 69 06/19/17 14:00 60 06/19/17 12:00 60 06/19/17 12:00 97.8 60 16 147/65 (92) 97 06/19/17 12:00 97 Nasal Cannula 3.00 . Laboratory Tests Test 06/19/17 04:50 06/20/17 04:44 White Blood Count 14.1 TH/MM3 13.1 TH/MM3 Red Blood Count 4.12 MIL/MM3 4.09 MIL/MM3 Hemoglobin 9.9 GM/DL 9.9 GM/DL Hematocrit 30.1 % 30.0 % Mean Corpuscular Volume 73.0 FL 73.4 FL Mean Corpuscular Hemoglobin 23.9 PG 24.2 PG Mean Corpuscular Hemoglobin Concent 32.8 % 32.9 % Red Cell Distribution Width 15.6 % 15.5 % Platelet Count 332 TH/MM3 383 TH/MM3 Mean Platelet Volume 9.2 FL 8.8 FL Hematology Comments Laboratory Tests Test 06/19/17 04:50 06/20/17 04:44 Blood Urea Nitrogen 38 MG/DL 35 MG/DL Creatinine 1.30 MG/DL 1.14 MG/DL Random Glucose 92 MG/DL 96 MG/DL Calcium Level 8.2 MG/DL 8.3 MG/DL Sodium Level 140 MEQ/L 140 MEQ/L Potassium Level 3.5 MEQ/L 3.4 MEQ/L Chloride Level 104 MEQ/L 105 MEQ/L Carbon Dioxide Level 26.0 MEQ/L 29.8 MEQ/L Anion Gap 10 MEQ/L 5 MEQ/L Estimat Glomerular Filtration Rate 53 ML/MIN 62 ML/MIN Imaging Last Impressions Head CT 06/18/17 Signed Impressions: Service Date/Time: Sunday, June 18, 2017 13:01 - CONCLUSION: Normal examination. Remi Moore MD Chest X-Ray 06/18/17 Signed Impressions: Service Date/Time: Sunday, June 18, 2017 13:41 - CONCLUSION: 1. Continued bilateral infiltrates unchanged from previous. Kishan Cavazos MD Renal Ultrasound 06/17/17 Signed Impressions: Service Date/Time: Saturday, June 17, 2017 16:16 - CONCLUSION: There is no hydronephrosis. The examination is within normal limits. Remi Weeks MD Abdomen X-Ray 06/17/17 Signed Impressions: Service Date/Time: Saturday, June 17, 2017 09:39 - CONCLUSION: Gastric distention identified. Bj Rodriguez MD Physical Exam GENERAL: Obese, well-developed patient, in no apparent distress. SKIN: No rashes, ecchymoses or lesions. Cool and dry. HEAD: Atraumatic. Normocephalic. No temporal or scalp tenderness. EYES: Pupils equal round and reactive. Extraocular motions intact. No scleral icterus. No injection or drainage. ENT: Nose without bleeding, purulent drainage or septal hematoma. Throat without erythema, tonsillar hypertrophy or exudate. Uvula midline. Airway patent. NECK: Trachea midline.Supple, nontender, no meningeal signs. CARDIOVASCULAR: Regular rate and rhythm without murmurs, gallops, or rubs. RESPIRATORY: Clear to auscultation. Breath sounds equal bilaterally. No wheezes , rales, or rhonchi. GASTROINTESTINAL: Abdomen soft, non-tender, nondistended. MUSCULOSKELETAL: Left AKA site with no e/o infection. Right leg no pedal edema or e/o infection. NEUROLOGICAL: No response to deep sternal rub. Not following commands. No extremity movts. IV line sites with no e.o infection. Assessment & Plan Remarks Sepsis present on admission (leucocytosis, tachycardia, source UTI) ESBL Ecoli UTI Aspiration Pneumonia COPD exacerbation HTN'sive urgency (uncontrolled HTN) Acute renal failure: sepsis, prerenal Elevated CRP BPH, prior h/o chronic prostatitis sees a urologist. Recs: Continue Ertapenem IV (ASP criteria: ESBL E.coli UTI) follow blood cultures US KUB with no obstruction. Follow cultures Follow clinically. Will need IV antibiotics using Midline on discharge. duration TBD. Will see patient next on Saturday06/24/2017. if any interim change in clinical condition please call sooner. covering for me this weekend. Ana Steele MD Jun 20, 2017 11:08
[2017-06-20] MEDS ORDERED: ALUMINUM/MAGNESIUM/SIMETH 30 ML CUP PO PRN (12:00)
[2017-06-20] MEDS: hydrALAZINE HCL 20 MG/ML VIAL IV PUSH PRN (13:30)
--- NOTE | 2017-06-20 15:17 | PD.CONS ---
Consult Service Palliative Care . Consult Requested By Dr. Steele . Primary Care Physician Unknown . Reason for Consultation a. To assist with evaluation and management of symptoms including: altered mental status, debility, dysphagia, pain b. To assist medical decision maker(s) with: better understanding of current medical conditions; weighing benefits/burdens of medical treatment options; making medical treatment decisions. . HPI History of Present Illness Mr. Walker is a 81-year-old male with a history of COPD, DM, atrial fibrillation , GERD, hypothyroidism, PVD, CHF, CAD, BPH, sleep apnea, left AKA and a history of CVA with residual left-sided weakness. Mr. Walker presented to [facility] ED on 06/14/2017 via EMS from [facility] for evaluation of altered mental status and hypoglycemia. Per EMS report, upon their arrival to this facility the patient was confused with audible wheezing with accessory muscle use. Patient's oxygen saturation was 90% on room air status post nebulizer treatment 1; he received 2 subsequent nebulizer treatments before arriving to the ED.. Axillary temperature of 102.7. Blood glucose en route noted to be 49; patient was administered D10. Additional diagnostic data include: * Vital signs: Pulse 60, respirations 16, BP 155/65, oxygen saturation 99% on 6 L via nasal cannula, oral temperature 100.4 * WBC: 20.6, hemoglobin 10.3, hematocrit 31.0, platelets 285, neutrophils 77.4% * Sodium: 138, potassium 4.2, chloride 103, carbon dioxide 28.2, calcium 8.4, glucose 121, * BUN: 26, creatinine 1.42, GFR 48 * Total bilirubin: 0.3, AST 9, ALT 14, alkaline phosphatase 113 * Total creatine kinase: 42 * Troponin: 0.02 * BNP: 214 * Total protein: 7.1, albumin 3.2 * TSH third-generation: 1.800 * PT: 17.8, INR 1.6, APTT 62.3 * Urinalysis with blood, nitrates, leukocyte esterase, urine RBC and urine WBC clumps. Urine culture indicated * EKG: Rate 60 electronic atrial paced rhythm evidence of anterior IL age- indeterminate with QS in V1 through V3 nonspecific lateral T-wave flattening no acute ST elevation or ectopy noted * Chest x-ray revealed bilateral patchy infiltrates * CT head showed mild periventricular and subcortical white matter small vessel ischemic changes bilaterally; mild cerebral atrophy; no acute infarct, acute hemorrhage, mass effect or extra-axial fluid collections Patient with marked leukocytosis. Urinalysis is suspicious for UTI. Chest x- ray revealed bilateral patchy infiltrates. The patient received IV antibiotics while in the ED. Patient admitted for on going evaluation and medical management of sepsis likely secondary to PNA, possible UTI. Infectious disease consulted for evaluation and management of sepsis. Urine culture obtained in the ED positive for ESBL E.coli UTI. Blood cultures drawn on admission are negative. Vancomycin and and Zosyn were discontinued; patient started on Ertapenem. Renal US and KUB were negative. 06/18/2017: == Cardiology was consulted for atrial fibrillation and chest pain. On Pradaxa. Echocardiogram on 06/18/17 with left ventricular systolic function mildly reduced and EF 45-50%; normal left ventricular size, mild mitral valve regurgitation. == Follow-up chest x-ray with continued bilateral infiltrates unchanged from previous image. == Patient underwent CT head for acute changes in mental status and associated left pupil dilatation; CT head is negative for acute stroke, no evidence of bleeding. Upon returning to his room, a HALICAT was called for acute changes in mental status; patient was transferred to the intensive care unit for closer observation. Neurology was consulted. Status post CT brain with no acute findings. EEG was normal. CTA with vertebral vessel abnormalities; neurology thinks the patient may have had a possible TIA related to that area. Speech therapy was consulted for swallow evaluation; recommendations for mechanically soft diet with nectar consistency thickened liquids. Palliative Care was consulted to assist with symptom management and to discuss with the patient/family the benefits and burdens of his current illnesses and the options regarding future care. . Function/Cognitive Trajectory Per patient's , the patient has spent most of the past 2 years in and out of hospital and snf facilities. Most recently the patient was hospitalized in December, status post left AKA. She reports the patient has declined significantly in the past few years stating, "I'm not surprised because he never takes his meds or does what he is supposed to do." . Review of Systems ROS Limitations: Clinical Condition, Altered Mental Status, Uncooperative, Poor Historian Constitutional: COMPLAINS OF: Fatigue, Generalized weakness Ears, nose, mouth, throat: DENIES: Hearing loss Respiratory: DENIES: Wheezing, Hemoptysis, Sputum production, Shortness of breath Cardiovascular: COMPLAINS OF: Chest pain, DENIES: Lower Extremity Edema Gastrointestinal: DENIES: Black stools, Bloody stools, Vomiting blood Neurologic: COMPLAINS OF: Localized weakness Psychiatric: COMPLAINS OF: Confusion Past Family Social History Coded Allergies: amlodipine (Unverified Adverse Reaction, Severe, Cramping, 05/08/17) leg cramps atorvastatin (Unverified Adverse Reaction, Severe, Cramping, 05/08/17) leg cramps pravastatin (Unverified Adverse Reaction, Severe, Cramping, 05/08/17) leg cramps simvastatin (Unverified Adverse Reaction, Severe, Cramping, 05/08/17) leg cramps Past Medical History Sleep Apnea on CPAP CKD-stage III Left AKA COPD Diabetes mellitus Atrial fibrillation GERD Hypothyroidism Peripheral vascular disease CHF Coronary artery disease BPH History of CVA with residual left-sided weakness . Past Surgical History Pacemaker Lithotripsy Left AKA Carotid stent placement 4 Appendectomy Tonsillectomy Cholecystectomy Cataract surgery bilaterally Reported Medications Levemir Inj (Insulin Detemir) 1,000 unit/ 10 ML Vial 22 Units SQ DAILY Do not mix with any other Insulin. Ferrous Sulfate 325 Mg (65 Mg Iron) Tablet 325 Mg PO DAILY Levemir Inj (Insulin Detemir) 1,000 unit/ 10 ML Vial 10 Units SQ HS Do not mix with any other Insulin. Ammonium Lactate (Lactic Acid (Ammonium Lactate)) 12% Lotn 1 Applic TOPICAL BID Ranitidine (Ranitidine HCl) 150 Mg Tab 150 Mg PO BID Temazepam 15 Mg Cap 15 Mg PO HS PRN Amlodipine (Amlodipine Besylate) 2.5 Mg Tab 2.5 Mg PO BID Miralax Powder (Polyethylene Glycol 3350 Powder) 17 Gm Powd 17 Gm PO DAILY Mix and dissolve one measuring cap-ful (17 grams) in water or juice. Culturelle (Lactobacillus Rhamnosus (GG)) 10 Billion Cell Cap 1.5 Cap PO DAILY Symbicort Inh (Budesonide/Formoterol Fumarate) 160-4.5 Mcg/Act Aero 1 Puff INH Q12HR [robitussin DM] 10 Ml PO Q6HR PRN Gabapentin 100 Mg Cap 100 Mg PO TID Duoneb (Ipratropium-Albuterol Neb) 0.5-2.5 Mg/3 Ml Neb 1 Nebule INH Q4HR NEB Novolog Flexpen Inj (Insulin Aspart) 300 Unit/3 Ml Pen 1 Units SQ Mucinex DM (Dextromethorphan-Guaifenesin) 30-600 Mg Tab 2 Tab PO BID PRN . Current Medications Medications (Trade) Dose Ordered Sig/[place] Route Start Time Stop Time Status Last Admin (Duoneb Neb) 1 ampule Q2HR NEB PRN NEB 06/15/17 02:30 06/19/17 08:10 (D50w (Vial) Inj) 50 ml UNSCH PRN IV PUSH 06/15/17 02:30 (Glucagon Inj) 1 mg UNSCH PRN OTHER 06/15/17 02:30 (Zofran Inj) 4 mg Q6H PRN IVP 06/15/17 02:30 06/19/17 09:55 (Tylenol) 650 mg Q6H PRN PO 06/15/17 02:30 ([place] 5-325 Mg) 1 tab Q4H PRN PO 06/15/17 02:30 (Morphine Inj) 2 mg Q3H PRN IV PUSH 06/15/17 02:30 (Macie-Colace) 1 tab BID PO 06/15/17 09:00 06/20/17 08:18 (Milk Of Magnesia Liq) 30 ml Q12H PRN PO 06/15/17 02:30 (Senokot) 17.2 mg Q12H PRN PO 06/15/17 02:30 (Dulcolax Supp) 10 mg DAILY PRN RECTAL 06/15/17 02:30 (Lactulose Liq) 30 ml DAILY PRN PO 06/15/17 02:30 (Symbicort 160-4.5 Inh) 1 puff Q12HR INH 06/15/17 09:00 06/20/17 08:28 (Pradaxa) 150 mg BID PO 06/15/17 09:00 06/20/17 08:18 (Lexapro) 10 mg DAILY PO 06/15/17 09:00 06/20/17 08:19 (Lasix) 20 mg DAILY PO 06/15/17 09:00 06/20/17 08:19 (Neurontin) 100 mg TID PO 06/15/17 09:00 06/20/17 13:30 (Synthroid) 50 mcg DAILY@06 PO 06/15/17 06:00 06/20/17 06:17 (Betapace) 80 mg BID PO 06/15/17 09:00 06/20/17 08:34 (Flomax) 0.4 mg HS PO 06/15/17 21:00 06/19/17 21:02 (Restoril) 15 mg HS PRN PO 06/15/17 02:30 06/19/17 21:21 (Protonix) 20 mg DAILY PO 06/15/17 09:00 06/20/17 08:27 (NS Flush) 2 ml BID IV FLUSH 06/15/17 09:00 06/20/17 08:28 (NS Flush) 2 ml UNSCH PRN IVF 06/15/17 02:45 (NovoLIN R SUPPLEMENTAL SCALE) 1 ACHS SLIDING SCALE SQ 06/15/17 13:45 06/19/17 16:30 (Levemir Inj) 10 units Q12HR SQ 06/16/17 21:00 06/19/17 21:02 (Phenergan Supp) 25 mg Q4H PRN RECTAL 06/17/17 09:45 06/18/17 10:01 (Apresoline Inj) 20 mg Q4H PRN IV PUSH 06/17/17 12:00 06/20/17 13:30 (Catapres) 0.1 mg Q6H PRN PO 06/17/17 12:00 06/18/17 06:31 Ertapenem 1000 mg/ Sodium Chloride 100 ml @ 200 mls/hr Q24H IV 06/17/17 16:00 06/19/17 16:41 (Lopressor Inj) 5 mg Q6H PRN IV PUSH 06/17/17 20:00 06/17/17 20:20 (Ecotrin Ec) 162 mg DAILY PO 06/19/17 09:00 06/20/17 08:19 (Duoneb Neb) 1 ampule Q4HR WHILE AWAKE NEB NEB 06/19/17 12:00 06/20/17 11:31 (Cardizem) 30 mg Q6HR PO 06/19/17 18:00 06/20/17 13:30 (Keppra) 250 mg Q12HR PO 06/20/17 21:00 (Mag-Al Plus Susp Liq) 30 ml Q6HR PRN PO 06/20/17 12:00 . Family History Per review of notes, mother and father with a history of CVA. Patient's reports familial history of diabetes. . Substance Use Tobacco: Former smoker Alcohol: Denies alcohol consumption Prescription med abuse: None known Illicits: None known . Psychosocial History Patient is originally from [place].he has been to his (Yuly ) for 55+ years. Together they have 2 adult children (a daughter and a son). The patient's states they are estranged from both her children, but her son 's girlfriend is a nurse and calls them intermittently to check on them. Patient is retired from the [employer]. The patient's currently lives in a mobile home and [place]. They previously managed rental properties. She states she and her are still but are currently . . Spiritual/Cultural Factors [employer] . Documented care wishes: Patient's , Yuly, states she has legal documents naming her as the POA. Copies requested. . Today's verbally stated goals: Patient verbalizing aggressive goals, stating he wants everything done including cardiopulmonary resuscitation, intubation and mechanical ventilation if indicated. . Family/friends goals: Patient's states she does not understand why he keeps wanting everything done because he has a long history of non-compliance, but it's his decision. She states she does not think she would want to be the decision-maker in the event the patient was incapacitated to make his own medical decision. She would like to think about this and discuss further in the upcoming days; she hopes her willingly designate someone out as the health care surrogate decision maker. . Ethical and Legal Issues Per [place] statutes, in the absence of written advanced directives healthcare proxy decision making would fall to the patient's . . Physical Exam Vital Signs Date Time Temp Pulse Resp B/P (MAP) Pulse Ox O2 Delivery O2 Flow Rate FiO2 06/20/17 14:00 60 06/20/17 12:00 95 Nasal Cannula 3.00 06/20/17 12:00 98.9 60 18 169/75 (106) 99 06/20/17 12:00 60 06/20/17 10:00 60 06/20/17 08:00 60 06/20/17 08:00 97 Nasal Cannula 3.00 06/20/17 08:00 98.9 60 19 129/62 (84) 99 06/20/17 07:40 99 Nasal Cannula 2.00 06/20/17 06:00 65 06/20/17 04:01 99.1 72 18 152/68 (96) 99 06/20/17 04:00 60 06/20/17 04:00 98 Nasal Cannula 3.00 06/20/17 02:00 60 06/20/17 00:00 64 06/20/17 00:00 98.7 64 17 153/68 (96) 97 06/20/17 00:00 98 Nasal Cannula 3.00 06/19/17 22:00 65 06/19/17 20:01 99.0 60 20 173/74 (107) 99 06/19/17 20:00 60 06/19/17 20:00 99 Nasal Cannula 3.00 06/19/17 18:00 60 06/19/17 16:00 99.0 60 17 158/72 (100) 100 06/19/17 16:00 98 Nasal Cannula 2.00 06/19/17 16:00 69 . Exam CONSTITUTIONAL/GENERAL: This is an obese, elderly male patient in no apparent distress. 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 Skin temperature appropriate. Not diaphoretic. HEAD: Atraumatic. Normocephalic. EYES: Pupils equal and round and reactive. Extraocular motions intact. No scleral icterus. No injection or drainage. Fundi not examined. ENT: Hearing grossly normal. Nose without bleeding or purulent drainage. Mucous membranes moist and pink NECK: Trachea midline. CARDIOVASCULAR: Regular rate and rhythm without murmurs, gallops, or rubs. RESPIRATORY/CHEST: Symmetric, unlabored respirations. Clear to auscultation. Breath sounds diminished bilaterally. No wheezes, rales, or rhonchi. GASTROINTESTINAL: Abdomen soft, non-tender, nondistended. No guarding. Bowel sounds present. GENITOURINARY: Without palpable bladder distension. Alvarado catheter in place. MUSCULOSKELETAL: Extremities without clubbing, cyanosis, or edema. LYMPHATICS: No palpable cervical or supraclavicular adenopathy. NEUROLOGICAL: Awake and alert. Patient able to answer questions, follows simple commands. PSYCHIATRIC: No obvious anxiety/depression. no apparent hallucinations or other psychotic thought process. . Diagnostic Tests Laboratory Laboratory Tests Test 06/17/17 15:00 06/17/17 19:30 06/18/17 06:12 06/18/17 13:32 C-Reactive Protein 9.85 MG/DL (0.00-0.30) Blood Urea Nitrogen 31 MG/DL (7-18) 34 MG/DL (7-18) Creatinine 1.26 MG/DL (0.60-1.30) 1.32 MG/DL (0.60-1.30) Random Glucose 203 MG/DL (74-106) 212 MG/DL (74-106) Calcium Level 8.8 MG/DL (8.5-10.1) 8.8 MG/DL (8.5-10.1) Magnesium Level 1.9 MG/DL (1.5-2.5) Sodium Level 136 MEQ/L (136-145) 137 MEQ/L (136-145) Potassium Level 3.2 MEQ/L (3.5-5.1) 3.4 MEQ/L (3.5-5.1) Chloride Level 99 MEQ/L (98-107) 98 MEQ/L (98-107) Carbon Dioxide Level 25.0 MEQ/L (21.0-32.0) 29.5 MEQ/L (21.0-32.0) Anion Gap 12 MEQ/L (5-15) 10 MEQ/L (5-15) Estimat Glomerular Filtration Rate 55 ML/MIN (>89) 52 ML/MIN (>89) Troponin I 0.02 NG/ML (0.02-0.05) White Blood Count 16.8 TH/MM3 (4.0-11.0) Red Blood Count 4.44 MIL/MM3 (4.50-5.90) Hemoglobin 10.8 GM/DL (13.0-17.0) Hematocrit 32.5 % (39.0-51.0) Mean Corpuscular Volume 73.2 FL (80.0-100.0) Mean Corpuscular Hemoglobin 24.2 PG (27.0-34.0) Mean Corpuscular Hemoglobin Concent 33.1 % (32.0-36.0) Red Cell Distribution Width 15.8 % (11.6-17.2) Platelet Count 377 TH/MM3 (150-450) Mean Platelet Volume 8.6 FL (7.0-11.0) Blood Gas Puncture Site RT RADIAL Blood Gas Patient Temperature 98.6 Blood Gas HCO3 27 mmol/L (22-26) Blood Gas Base Excess 2.8 mmol/L (-2-2) Blood Gas Oxygen Saturation 92 % (90-100) Arterial Blood pH 7.45 (7.380-7.420) Arterial Blood Partial Pressure CO2 39 mmHg (38-42) Arterial Blood Partial Pressure O2 75 mmHg (61-120) Arterial Blood Oxygen Content 14.5 Vol % (12.0-20.0) Arterial Blood Carboxyhemoglobin 2.0 % (0-4) Arterial Blood Methemoglobin 1.5 % (0-2) Blood Gas Hemoglobin 11.2 G/DL (12.0-16.0) Oxygen Delivery Device NASAL CANNULA Blood Gas Liter Flow 2 L/M Test 06/18/17 16:00 06/19/17 04:50 06/20/17 04:44 Nasal Screen MRSA (PCR) MRSA DETECTED (NOT DETECT) White Blood Count 14.1 TH/MM3 (4.0-11.0) 13.1 TH/MM3 (4.0-11.0) Red Blood Count 4.12 MIL/MM3 (4.50-5.90) 4.09 MIL/MM3 (4.50-5.90) Hemoglobin 9.9 GM/DL (13.0-17.0) 9.9 GM/DL (13.0-17.0) Hematocrit 30.1 % (39.0-51.0) 30.0 % (39.0-51.0) Mean Corpuscular Volume 73.0 FL (80.0-100.0) 73.4 FL (80.0-100.0) Mean Corpuscular Hemoglobin 23.9 PG (27.0-34.0) 24.2 PG (27.0-34.0) Mean Corpuscular Hemoglobin Concent 32.8 % (32.0-36.0) 32.9 % (32.0-36.0) Red Cell Distribution Width 15.6 % (11.6-17.2) 15.5 % (11.6-17.2) Platelet Count 332 TH/MM3 (150-450) 383 TH/MM3 (150-450) Mean Platelet Volume 9.2 FL (7.0-11.0) 8.8 FL (7.0-11.0) Hematology Comments Blood Urea Nitrogen 38 MG/DL (7-18) 35 MG/DL (7-18) Creatinine 1.30 MG/DL (0.60-1.30) 1.14 MG/DL (0.60-1.30) Random Glucose 92 MG/DL (74-106) 96 MG/DL (74-106) Calcium Level 8.2 MG/DL (8.5-10.1) 8.3 MG/DL (8.5-10.1) Sodium Level 140 MEQ/L (136-145) 140 MEQ/L (136-145) Potassium Level 3.5 MEQ/L (3.5-5.1) 3.4 MEQ/L (3.5-5.1) Chloride Level 104 MEQ/L (98-107) 105 MEQ/L (98-107) Carbon Dioxide Level 26.0 MEQ/L (21.0-32.0) 29.8 MEQ/L (21.0-32.0) Anion Gap 10 MEQ/L (5-15) 5 MEQ/L (5-15) Estimat Glomerular Filtration Rate 53 ML/MIN (>89) 62 ML/MIN (>89) Phenytoin (Dilantin) Level 8.0 MCG/ML (10.0-20.0) 3.5 MCG/ML (10.0-20.0) . Result Diagram: 06/20/17 0444 06/20/17 0444 Imaging Last 72 hours Impressions Neck CTA 06/18/17 0000 Signed Impressions: Service Date/Time: Sunday, June 18, 2017 15:17 - CONCLUSION: 1. There is atherosclerotic plaquing at the bifurcations but no hemodynamically significant carotid stenosis is identified. 2. 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 It reconstitutes in the upper neck. The right vertebral is patent throughout its course. The basilar is patent. 3. Left pleural effusion. Kishan Cavazos MD Head CTA 06/18/17 0000 Signed Impressions: Service Date/Time: Sunday, June 18, 2017 15:17 - CONCLUSION: Normal examination. Remi Moore MD Head CT 06/18/17 0000 Signed Impressions: Service Date/Time: Sunday, June 18, 2017 13:01 - CONCLUSION: Normal examination. Remi Moore MD Chest X-Ray 06/18/17 0000 Signed Impressions: Service Date/Time: Sunday, June 18, 2017 13:41 - CONCLUSION: 1. Continued bilateral infiltrates unchanged from previous. Kishan Cavazos MD . Patient/Family Conference Present at Family Conference: Spoke with patient at bedside and later spoke with the patient's spouse via telephone. . Family Conference Location: Bedside, Telephone Issues Discussed: * Palliative care role, purpose, approach * Additional medical, psychosocial, and spiritual history * Patients general health, functional status, and cognitive changes in the months leading up to the current hospitalization * Patient/family understanding of the current medical problems * Patient/family understanding of prognosis * Patients goals of care as best understood from advance directives and/or conversations and/or values * Current medical treatment options and benefits/burdens of those options * Likely scenarios comparing ongoing aggressive care with a transition to comfort measures only * Questions answered to the best of my ability * Palliative care contact information provided . Assessment and Plan Disease Oriented Problem List: (1) Peripheral artery disease (2) Diabetes mellitus with stage 3 chronic kidney disease (3) UTI (urinary tract infection) (4) Afib (5) CAD (coronary artery disease) (6) CHF (congestive heart failure) (7) GERD (gastroesophageal reflux disease) (8) BPH (benign prostatic hyperplasia) (9) Cerebrovascular accident (CVA) involving right cerebral hemisphere (10) Hypothyroidism (11) COPD (chronic obstructive pulmonary disease) (12) Hypoglycemia (13) Sepsis (14) PNA (pneumonia) (15) Encephalopathy (16) HTN (hypertension) Symptom Scale: (1) Debility (2) Dysphagia (3) Pain (4) Altered mental status Pertinent Non-Medical Issues Psychosocial: Patient is originally from [place].he has been to his (Yuly) for 55+ years. Together they have 2 adult children (a daughter and a son). The patient's states they are estranged from both her children, but her son's girlfriend is a nurse and calls them intermittently to check on them. Patient is retired from the [employer]. The patient's currently lives in a mobile home and [place]. They previously managed rental properties. She states she and her are still but are currently . Spiritual: [employer] bro Legal: Per [place] statutes, in the absence of written advanced directives healthcare proxy decision-making falls to the patient's . Ethical issues impacting care: No known ethical issues impacting care at this time. . Important Contacts Yuly Walker, : [phone] . 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 The patient's states the patient has spent most of his life and out of hospitals and snf facilities over the past 2 years. She reports he has a history of noncompliance. The patient is currently admitted with sepsis. He has episodes where he becomes completely responsive for a short period of time. CTA with vertebral vessel abnormalities; neurology thinks the patient may have had a possible TIA related to that area. Given patient's advanced age, multiple comorbid conditions along with his history of noncompliance; he is at high risk for ongoing decline and complications. Code Status: Full Code Plan * FULL CODE * Decision-making: Per [place] statutes in the absence of written advanced directives healthcare proxy decision making would fall to the patient's . * Patient's states she does not understand why he keeps wanting everything done because he has a long history of non-compliance "but it's his decision". She states he has repeatedly told her "DON'T EVER PULL THE PLUG ON ME. FREEZE ME UNTIL THEY FIGURE OUT HOW TO FIX ME." She states she does not think she would want to be the decision-maker in the event the patient was incapacitated to make his own medical decision. She would like to think about this and discuss further in the upcoming days; she hopes her willingly designate someone out as the health care surrogate decision maker. * AGGRESSIVE GOALS * Heel Blacker consulted per patient's request. * Palliative care contact information provided to the patient and his . * Patient discussed with Dr. Laura Steele and bedside nurse, Andrea. * Symptom management - altered mental status: Likely multi-factorial; sepsis and hypo-glycemic episodes could be contributing factors. Patient having short episodes where he becomes completely unresponsive. Status post CT brain with no acute findings. EEG was normal. CTA with vertebral vessel abnormalities; neurology thinks the patient may have had a possible TIA related to that area. No recommendations at this time. * Symptom management - dysphasia: Chest x-ray with bilateral patchy infiltrates , possibly related to aspiration. Speech therapy was consulted for swallow evaluation; was subsequently placed on a mechanically soft diet with nectar consistency thickened liquids. * Symptom management - pain: Patient denies pain on exam. Possible causes of pain include invasive lines, immobility, infection, peripheral vascular disease etc. Patient is currently on gabapentin TID. PRN Acetaminophen, IV Morphine and Lortab are available but has not been required. * Palliative care will continue to follow this patient throughout his hospitalization to establish trust, assist with symptom management and clarification of medical treatment goals. . Thank you for the opportunity to participate in the care of Mr. Walker. . Collaborating MD Comments Attestation To help prompt me to consider important information that might be impacting today's encounter and assessment, information from prior notes written by myself or my colleagues may have been "brought forward" into today's note. My signature on this note, however, is an attestation that I personally performed the exam, history, and/or decision-making noted today, and, unless otherwise indicated, the interactions with patient, family, and staff as well as the review of records all occurred today. I also attest that the listed assessment and stated plan reflect my best clinical judgment today based on the combination of historical information, prior notes, and today's exam/ interactions. When time spent is documented, it refers only to time spent today by the signer, or if indicated, combined time spent today by collaborating physician/nurse practitioner. . Gabriela Sierra Jun 20, 2017 3:13 pm
[2017-06-20] MEDS: ERTAPENEM INJ 1,000 MG in SODIUM CHLORIDE 0.9% INJ 100 ML IV SCH (18:25)
[2017-06-20] MEDS: TAMSULOSIN HCL 0.4 MG CAP PO SCH (20:21)
[2017-06-20] MEDS: TEMAZEPAM 15 MG CAP PO PRN (23:17)
[2017-06-20] MEDS: levETIRAcetam 250 MG TAB PO SCH (23:17)
[2017-06-21] VITALS (14 sets, daily range): BP systolic 143–174; BP diastolic 65–79; PULSE 60–69; RESP 11–17; TEMP 98.4–99.9; O2SAT 94–100
[2017-06-21] MEDS: LEVOTHYROXINE SODIUM 50 MCG TAB PO SCH (04:57)
[2017-06-21] MEDS: DILTIAZEM HCL 30 MG TAB PO SCH ×3 (04:59→23:21)
--- NOTE | 2017-06-21 06:51 | HHI.PR ---
Review/Management Diagnosis/Plan: (1) Encephalopathy ICD Codes: G93.40 - Encephalopathy, unspecified Status: Acute Plan: possible basilar artery tia 2/2 artery to artery emboli from occluded left vertebral vs sz vs metabolic possible sz? recs neuro stable; ox 3 ok for floor/NH planning p.t./s.t.- pt wants diet advanced f/u with us in 2-3 weeks follow exam (2) A-fib ICD Codes: I48.91 - Unspecified atrial fibrillation (3) HTN (hypertension) ICD Codes: I10 - Essential (primary) hypertension Status: Chronic Subjective Subjective Comments No acute events reported No headache No chest pain No dyspnea Active Medications Current Medications Medications (Trade) Dose Ordered Sig/[place] Route Start Time Stop Time Status Last Admin (Duoneb Neb) 1 ampule Q2HR NEB PRN NEB 06/15/17 02:30 06/19/17 08:10 (D50w (Vial) Inj) 50 ml UNSCH PRN IV PUSH 06/15/17 02:30 (Glucagon Inj) 1 mg UNSCH PRN OTHER 06/15/17 02:30 (Zofran Inj) 4 mg Q6H PRN IVP 06/15/17 02:30 06/19/17 09:55 (Tylenol) 650 mg Q6H PRN PO 06/15/17 02:30 ([place] 5-325 Mg) 1 tab Q4H PRN PO 06/15/17 02:30 (Morphine Inj) 2 mg Q3H PRN IV PUSH 06/15/17 02:30 (Macie-Colace) 1 tab BID PO 06/15/17 09:00 06/20/17 20:21 (Milk Of Magnesia Liq) 30 ml Q12H PRN PO 06/15/17 02:30 (Senokot) 17.2 mg Q12H PRN PO 06/15/17 02:30 (Dulcolax Supp) 10 mg DAILY PRN RECTAL 06/15/17 02:30 (Lactulose Liq) 30 ml DAILY PRN PO 06/15/17 02:30 (Symbicort 160-4.5 Inh) 1 puff Q12HR INH 06/15/17 09:00 06/20/17 20:23 (Pradaxa) 150 mg BID PO 06/15/17 09:00 06/20/17 20:21 (Lexapro) 10 mg DAILY PO 06/15/17 09:00 06/20/17 08:19 (Lasix) 20 mg DAILY PO 06/15/17 09:00 06/20/17 08:19 (Neurontin) 100 mg TID PO 06/15/17 09:00 06/20/17 18:25 (Synthroid) 50 mcg DAILY@06 PO 06/15/17 06:00 06/21/17 04:57 (Betapace) 80 mg BID PO 06/15/17 09:00 06/20/17 20:21 (Flomax) 0.4 mg HS PO 06/15/17 21:00 06/20/17 20:21 (Restoril) 15 mg HS PRN PO 06/15/17 02:30 06/20/17 23:17 (Protonix) 20 mg DAILY PO 06/15/17 09:00 06/20/17 08:27 (NS Flush) 2 ml BID IV FLUSH 06/15/17 09:00 06/20/17 20:22 (NS Flush) 2 ml UNSCH PRN IVF 06/15/17 02:45 (NovoLIN R SUPPLEMENTAL SCALE) 1 ACHS SLIDING SCALE SQ 06/15/17 13:45 06/19/17 16:30 (Levemir Inj) 10 units Q12HR SQ 06/16/17 21:00 06/20/17 20:21 (Phenergan Supp) 25 mg Q4H PRN RECTAL 06/17/17 09:45 06/18/17 10:01 (Apresoline Inj) 20 mg Q4H PRN IV PUSH 06/17/17 12:00 06/20/17 13:30 (Catapres) 0.1 mg Q6H PRN PO 06/17/17 12:00 06/18/17 06:31 Ertapenem 1000 mg/ Sodium Chloride 100 ml @ 200 mls/hr Q24H IV 06/17/17 16:00 06/20/17 18:25 (Lopressor Inj) 5 mg Q6H PRN IV PUSH 06/17/17 20:00 06/17/17 20:20 (Ecotrin Ec) 162 mg DAILY PO 06/19/17 09:00 06/20/17 08:19 (Duoneb Neb) 1 ampule Q4HR WHILE AWAKE NEB NEB 06/19/17 12:00 06/20/17 20:02 (Cardizem) 30 mg Q6HR PO 06/19/17 18:00 06/21/17 04:59 (Keppra) 250 mg Q12HR PO 06/20/17 21:00 06/20/17 23:17 (Mag-Al Plus Susp Liq) 30 ml Q6HR PRN PO 06/20/17 12:00 Allergies Allergies Coded Allergies amlodipine (Unverified Adverse Reaction, Severe, Cramping, 05/08/17) atorvastatin (Unverified Adverse Reaction, Severe, Cramping, 05/08/17) pravastatin (Unverified Adverse Reaction, Severe, Cramping, 05/08/17) simvastatin (Unverified Adverse Reaction, Severe, Cramping, 05/08/17) Review of Systems All other ROS: ROS reviewed as documented in chart Exam I&O / VS Vital Signs Date Time Temp Pulse Resp B/P (MAP) Pulse Ox O2 Delivery O2 Flow Rate FiO2 06/21/17 06:00 67 06/21/17 04:00 96 Nasal Cannula 3.00 06/21/17 04:00 99.0 69 17 163/73 (103) 96 06/21/17 04:00 69 06/21/17 02:00 60 06/21/17 00:00 60 06/21/17 00:00 98.9 60 17 159/69 (99) 100 06/21/17 00:00 100 Nasal Cannula 3.00 06/20/17 22:00 66 06/20/17 20:03 98 Nasal Cannula 2.00 06/20/17 20:01 99.1 60 18 169/73 (105) 99 06/20/17 20:00 99 Nasal Cannula 3.00 06/20/17 20:00 60 06/20/17 18:00 60 06/20/17 16:00 71 06/20/17 16:00 99 Nasal Cannula 3.00 06/20/17 16:00 98.4 61 22 158/68 (98) 99 06/20/17 14:00 60 06/20/17 12:00 95 Nasal Cannula 3.00 06/20/17 12:00 98.9 60 18 169/75 (106) 99 06/20/17 12:00 60 06/20/17 10:00 60 06/20/17 08:00 60 06/20/17 08:00 97 Nasal Cannula 3.00 06/20/17 08:00 98.9 60 19 129/62 (84) 99 06/20/17 07:40 99 Nasal Cannula 2.00 General: Alert and Oriented, No acute distress Respiratory: Non-labored respirations, BS equal Cardiology: Regular Rhythm Musculoskeletal: Tenderness, Swelling Neurologic: Alert, Oriented Psychiatric: Cooperative, Appropriate mood & affect Exam Comments ox 3, follows, recognizes me from office as the neurologist, pleasant, eomi, os - 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, face sym, mild left ue paresis 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, left leg aka, rt side 5-/5, withdraws to pin Objective Micro and Labs Laboratory Tests Test 06/21/17 04:58 Phenytoin (Dilantin) Level 2.4 Date/Time Source Procedure Growth Status 06/14/17 22:10 Blood Peripheral Aerobic Blood Culture - Final NO GROWTH IN 5 DAYS Complete 06/14/17 22:10 Blood Peripheral Anaerobic Blood Culture - Final NO GROWTH IN 5 DAYS Complete 06/15/17 02:15 Urine Catheterized Urine Urine Culture - Final Escherichia Coli Esbl Positive Complete Problem Qualifiers (1) A-fib: Qualified Codes: I48.2 - Chronic atrial fibrillation (2) HTN (hypertension): Qualified Codes: I10 - Essential (primary) hypertension Gilson Ordonez MD Jun 21, 2017 06:51
[2017-06-21] MEDS: RESP: ALBUTEROL 2.5 MG/IPRATROPIUM 0.5 MG NEB (SCH) NEB ×4 (07:37→20:18)
[2017-06-21] MEDS: INSULIN NovoLIN REGULAR SUPPLEMENTAL SCALE SQ SCH ×3 (08:00→21:00)
[2017-06-21] MEDS: GABAPENTIN 100 MG CAP PO SCH ×2 (08:19→16:45)
[2017-06-21] MEDS: levETIRAcetam 250 MG TAB PO SCH ×2 (08:19→21:06)
[2017-06-21] MEDS: ASPIRIN EC 81 MG TABEC PO SCH (08:19)
[2017-06-21] MEDS: DABIGATRAN ETEXILATE 150 MG CAP PO SCH ×2 (08:20→21:03)
[2017-06-21] MEDS: PANTOPRAZOLE SOD 20 MG DELAYED RELEASE TAB PO SCH (08:20)
[2017-06-21] MEDS: FUROSEMIDE 20 MG TAB PO SCH (08:20)
[2017-06-21] MEDS: ESCITALOPRAM OXALATE 10 MG TAB PO SCH (08:20)
[2017-06-21] MEDS: SOTALOL HCL 80 MG TAB PO SCH ×2 (08:20→21:06)
[2017-06-21] MEDS: DOCUSATE SODIUM 50 MG/SENNA 8.6 MG TAB PO SCH ×2 (08:20→21:06)
[2017-06-21] MEDS: SODIUM CHLORIDE 0.9% FLUSH 10 ML FLUSH IV FLUSH SCH ×2 (08:21→21:03)
[2017-06-21] MEDS: BUDESONIDE-FORMOTEROL 160/4.5 MCG INHALER INH SCH ×2 (08:21→21:00)
[2017-06-21] MEDS: hydrALAZINE HCL 20 MG/ML VIAL IV PUSH PRN ×2 (08:28→18:09)
[2017-06-21] MEDS: INSULIN DETEMIR 100 UNITS/ML VIAL SQ SCH ×2 (09:46→21:04)
--- NOTE | 2017-06-21 10:18 | HHI.PR ---
Subjective Remarks Follow-up for infection Patient stated he is doing a lot better. Denied any nausea or vomiting. Deny any pain. He asked about hospice. He stated that he does not want to go to any rehabilitation. He stated that he's been in a hospital for the past year and now is interested in hospice. No events overnight. Heart rate controlled. Objective Vitals Vital Signs Date Time Temp Pulse Resp B/P (MAP) Pulse Ox O2 Delivery O2 Flow Rate FiO2 06/21/17 07:37 100 Nasal Cannula 2.00 06/21/17 06:00 67 06/21/17 04:00 96 Nasal Cannula 3.00 06/21/17 04:00 99.0 69 17 163/73 (103) 96 06/21/17 04:00 69 06/21/17 02:00 60 06/21/17 00:00 60 06/21/17 00:00 98.9 60 17 159/69 (99) 100 06/21/17 00:00 100 Nasal Cannula 3.00 06/20/17 22:00 66 06/20/17 20:03 98 Nasal Cannula 2.00 06/20/17 20:01 99.1 60 18 169/73 (105) 99 06/20/17 20:00 99 Nasal Cannula 3.00 06/20/17 20:00 60 06/20/17 18:00 60 06/20/17 16:00 71 06/20/17 16:00 99 Nasal Cannula 3.00 06/20/17 16:00 98.4 61 22 158/68 (98) 99 06/20/17 14:00 60 06/20/17 12:00 95 Nasal Cannula 3.00 06/20/17 12:00 98.9 60 18 169/75 (106) 99 06/20/17 12:00 60 I/O 06/20/17 06/20/17 06/20/17 06/21/17 06/21/17 06/21/17 07:00 15:00 23:00 07:00 15:00 23:00 Intake Total 240 ml 480 ml 240 ml Output Total 350 ml 950 ml 700 ml Balance -110 ml -470 ml -460 ml Intake Oral 240 ml 480 ml 240 ml Output Urine Total 350 ml 950 ml 700 ml # Bowel Movements 1 Result Diagram: 06/20/17 0444 06/20/17 6040 Objective Remarks GENERAL: in NAD HEENT: left eye oval pupil. right eye PERRLA. CARDIOVASCULAR: Regular rate and rhythm without murmurs, gallops, or rubs. RESPIRATORY: Mild rhonchi otherwise no wheezing noted.. No accessory muscle use. GASTROINTESTINAL: Abdomen soft, non-tender, nondistended. MUSCULOSKELETAL: Left BKA. . NEURO: AAO X 3. Cranial nerves II-12 is intact. Patient moves all extremity grossly. Medications and IVs Current Medications IV Flush (NS Flush) 2 ml UNSCH PRN IV FLUSH FLUSH AFTER USING IV ACCESS; Start 06/14/17 at 22:00; Stop 06/17/17 at 15:31; Status DC Acetaminophen (Tylenol) 650 mg ONCE ONCE PO Last administered on 06/14/17 23: 01; Start 06/14/17 at 22:30; Stop 06/14/17 at 22:31; Status DC Piperacillin Sod/ Tazobactam Sod 100 ml @ 200 mls/hr ONCE ONCE IV Last administered on 06/14/17 23:01; Start 06/14/17 at 22:30; Stop 06/14/17 at 22:59 ; Status DC Albuterol/ Ipratropium (Duoneb Neb) 1 ampule ONCE ONCE NEB Last administered on 06/15/17 01:32; Start 06/15/17 at 01:30; Stop 06/15/17 at 01:31; Status DC Methylprednisolone Sodium Succinate (SoluMEDROL INJ) 125 mg ONCE ONCE IV PUSH Last administered on 06/15/17 01:34; Start 06/15/17 at 01:30; Stop 06/15/17 at 01:31; Status DC Methylprednisolone Sodium Succinate (SoluMEDROL INJ) 40 mg Q6HR IV PUSH Last administered on 06/15/17 05:59; Start 06/15/17 at 06:00; Stop 06/15/17 at 13:21 ; Status DC Albuterol/ Ipratropium (Duoneb Neb) 1 ampule Q4HR WHILE AWAKE NEB NEB Last administered on 06/18/17 20:12; Start 06/15/17 at 08:00; Stop 06/19/17 at 07:59 ; Status DC Albuterol/ Ipratropium (Duoneb Neb) 1 ampule Q2HR NEB PRN NEB SOB/WHEEZING Last administered on 06/19/17 08:10; Start 06/15/17 at 02:30 Pharmacy Profile Note 0 ml @ 0 mls/hr UNSCH OTHER ; Start 06/15/17 at 02:30; Stop 06/17/17 at 14:56; Status DC Piperacillin Sod/ Tazobactam Sod 50 ml @ 100 mls/hr Q6H IV ; Start 06/15/17 at 04:00; Stop 06/15/17 at 06:38; Status DC Dextrose (D50w (Vial) Inj) 50 ml UNSCH PRN IV PUSH HYPOGLYCEMIA-SEE COMMENTS; Start 06/15/17 at 02:30 Glucagon (Glucagon Inj) 1 mg UNSCH PRN OTHER HYPOGLYCEMIA-SEE COMMENTS; Start 06/15/17 at 02:30 Insulin Aspart (NovoLOG SUPPLEMENTAL SCALE) 1 ACHS SLIDING SCALE SQ Last administered on 06/15/17 08:00; Start 06/15/17 at 08:00; Stop 06/15/17 at 13:23 ; Status DC Sodium Chloride 1,000 ml @ 100 mls/hr Q10H IV Last administered on 06/16/17 05:05; Start 06/15/17 at 02:19; Stop 06/16/17 at 22:23; Status DC Sodium Chloride (NS Flush) 2 ml UNSCH PRN IV FLUSH FLUSH AFTER USING IV ACCESS ; Start 06/15/17 at 02:30; Stop 06/17/17 at 15:31; Status DC Sodium Chloride (NS Flush) 2 ml BID IV FLUSH Last administered on 06/17/17 09: 00; Start 06/15/17 at 09:00; Stop 06/17/17 at 15:31; Status DC Ondansetron HCl (Zofran Inj) 4 mg Q6H PRN IVP NAUSEA OR VOMITING Last administered on 06/19/17 09:55; Start 06/15/17 at 02:30 Acetaminophen (Tylenol) 650 mg Q6H PRN PO FEVER/PAIN SCALE 1 TO 2; Start at 02:30 Acetaminophen/ Hydrocodone Bitart ([place] 5-325 Mg) 1 tab Q4H PRN PO PAIN SCALE 3 TO 5; Start 06/15/17 at 02:30 Morphine Sulfate (Morphine Inj) 2 mg Q3H PRN IV PUSH Pain 6-10; Start 06/15/17 at 02:30 Senna/Docusate Sodium (Macie-Colace) 1 tab BID PO Last administered on 08:20; Start 06/15/17 at 09:00 Magnesium Hydroxide (Milk Of Magnesia Liq) 30 ml Q12H PRN PO MILD - MODERATE CONSTIPATION; Start 06/15/17 at 02:30 Sennosides (Senokot) 17.2 mg Q12H PRN PO MODERATE - SEVERE CONSTIPATION; Start 06/15/17 at 02:30 Bisacodyl (Dulcolax Supp) 10 mg DAILY PRN RECTAL SEVERE CONSITIPATION; Start at 02:30 Lactulose (Lactulose Liq) 30 ml DAILY PRN PO SEVERE CONSITIPATION; Start at 02:30 Budesonide/ Formoterol Fumarate (Symbicort 160-4.5 Inh) 1 puff Q12HR INH Last administered on 06/21/17 08:21; Start 06/15/17 at 09:00 Dabigatran (Pradaxa) 150 mg BID PO Last administered on 06/21/17 08:20; Start 06/15/17 at 09:00 Escitalopram Oxalate (Lexapro) 10 mg DAILY PO Last administered on 06/21/17 08 :20; Start 06/15/17 at 09:00 Furosemide (Lasix) 20 mg DAILY PO Last administered on 06/21/17 08:20; Start 06/15/17 at 09:00 Gabapentin (Neurontin) 100 mg TID PO Last administered on 06/21/17 08:19; Start 06/15/17 at 09:00 Levothyroxine Sodium (Synthroid) 50 mcg DAILY@06 PO Last administered on 04:57; Start 06/15/17 at 06:00 Sotalol HCl (Betapace) 80 mg BID PO Last administered on 06/21/17 08:20; Start 06/15/17 at 09:00 Tamsulosin HCl (Flomax) 0.4 mg HS PO Last administered on 06/20/17 20:21; Start 06/15/17 at 21:00 Temazepam (Restoril) 15 mg HS PRN PO INSOMNIA Last administered on 06/20/17 23 :17; Start 06/15/17 at 02:30 Pantoprazole Sodium (Protonix) 20 mg DAILY PO Last administered on 06/21/17 08 :20; Start 06/15/17 at 09:00 Aspirin (Aspirin Chew) 81 mg DAILY PO Last administered on 06/20/17 08:19; Start 06/15/17 at 09:00; Stop 06/20/17 at 10:13; Status DC Sodium Chloride (NS Flush) 2 ml BID IV FLUSH Last administered on 06/21/17 08: 21; Start 06/15/17 at 09:00 Sodium Chloride (NS Flush) 2 ml UNSCH PRN IVF FLUSH AFTER USING IV ACCESS; Start 06/15/17 at 02:45 Vancomycin HCl 2200 mg/Sodium Chloride 522 ml @ 250 mls/hr ONCE ONCE IV Last administered on 06/15/17 04:24; Start 06/15/17 at 03:30; Stop 06/15/17 at 05:35 ; Status DC Piperacillin Sod/ Tazobactam Sod 50 ml @ 100 mls/hr Q6H IV Last administered on 06/17/17 13:37; Start 06/15/17 at 08:00; Stop 06/17/17 at 14:56; Status DC Vancomycin HCl 2000 mg/Sodium Chloride 520 ml @ 257.5 mls/ hr Q24H IV Last administered on 06/17/17 05:16; Start 06/16/17 at 05:00; Stop 06/17/17 at 14:56 ; Status DC Miscellaneous Information SPECIFIC LAB TO BE ... ONCE ONCE .XX ; Start 06/18 at 04:45; Stop 06/18/17 at 04:45; Status DC Insulin Human Regular (NovoLIN R SUPPLEMENTAL SCALE) 1 ACHS SLIDING SCALE SQ Last administered on 06/21/17 08:00; Start 06/15/17 at 13:45 Insulin Detemir (Levemir Inj) 5 units Q12HR SQ Last administered on 06/16/17 09:06; Start 06/15/17 at 13:30; Stop 06/16/17 at 10:46; Status DC Insulin Detemir (Levemir Inj) 10 units Q12HR SQ Last administered on 06/21/17 09:46; Start 06/16/17 at 21:00 Insulin Detemir (Levemir Inj) 10 units ONCE ONCE SQ Last administered on 10:45; Start 06/16/17 at 10:45; Stop 06/16/17 at 10:51; Status DC Furosemide (Lasix Inj) 40 mg ONCE ONCE IV PUSH Last administered on 06/16/17 22:36; Start 06/16/17 at 22:30; Stop 06/16/17 at 22:31; Status DC Promethazine HCl (Phenergan Supp) 25 mg Q4H PRN RECTAL emesis Last administered on 06/18/17 10:01; Start 06/17/17 at 09:45 Hydralazine HCl (Apresoline Inj) 20 mg Q4H PRN IV PUSH SBP>180 or DBP >100 Last administered on 06/21/17 08:28; Start 06/17/17 at 12:00 Clonidine (Catapres) 0.1 mg Q6H PRN PO SBP>180 or DBP>100 Last administered on 06/18/17 06:31; Start 06/17/17 at 12:00 Ertapenem (INVanz INJ) 1,000 mg DAILY IM ; Start 06/17/17 at 12:00; Stop at 12:00; Status DC Miscellaneous Medication (ASP Crit: Doc ESBL, MDR A baumannii or P aer) 1 UNSCH X1 PRN .XX PHARMACY DOCUMENTATION; Start 06/17/17 at 15:00; Stop 06/18/17 at 14 :59; Status DC Miscellaneous Medication ([facility] Pharmacy Information) 1 UNSCH X1 PRN XX PHARMACY DOCUMENTATION; Start 06/17/17 at 15:00; Stop 06/18/17 at 14:59; Status DC Ertapenem 1000 mg/ Sodium Chloride 100 ml @ 200 mls/hr Q24H IV Last administered on 06/20/17 18:25; Start 06/17/17 at 16:00 Metoprolol Tartrate (Lopressor Inj) 5 mg Q6H PRN IV PUSH HR>120 Last administered on 06/17/17 20:20; Start 06/17/17 at 20:00 Atropine Sulfate (Atropine Inj) 1 mg STK-MED ONCE .ROUTE ; Start 06/18/17 at 12: 51; Stop 06/18/17 at 12:52; Status DC Epinephrine HCl (EPINEPHrine (1:10,000) INJ) 1 mg STK-MED ONCE .ROUTE ; Start at 12:51; Stop 06/18/17 at 12:52; Status DC Sodium Chloride 1,000 ml @ 80 mls/hr [id number] IV Last administered on 06:20; Start 06/18/17 at 14:45; Stop 06/19/17 at 10:13; Status DC Iohexol (Omnipaque 350 Inj) 75 ml STK-MED ONCE IVCONTRAST Last administered on 06/18/17 15:31; Start 06/18/17 at 15:31; Stop 06/18/17 at 15:32; Status DC Fosphenytoin Sodium (Cerebyx Inj) 200 mgpe Q12HR IV ; Start 06/18/17 at 21:00; Stop 06/18/17 at 21:00; Status DC Fosphenytoin Sodium 1000 mgpe/ Sodium Chloride 70 ml @ 280 mls/hr ONCE ONCE IV Last administered on 06/18/17 18:04; Start 06/18/17 at 17:00; Stop at 17:14; Status DC Aspirin (Ecotrin Ec) 325 mg DAILY PO ; Start 06/18/17 at 16:45; Stop 06/18/17 at 16:45; Status DC Aspirin (Ecotrin Ec) 162 mg DAILY PO Last administered on 06/21/17 08:19; Start 06/19/17 at 09:00 Fosphenytoin Sodium 200 mgpe/ Sodium Chloride 54 ml @ 216 mls/hr Q12HR IV Last administered on 06/18/17 20:23; Start 06/18/17 at 21:00; Stop 06/19/17 at 08:00; Status DC Potassium Chloride (KCl) 40 meq ONCE ONCE PO Last administered on 06/19/17 02 :19; Start 06/19/17 at 02:00; Stop 06/19/17 at 02:01; Status DC Levetriacetam (Keppra) 500 mg Q12HR PO Last administered on 06/20/17 08:19; Start 06/19/17 at 09:00; Stop 06/20/17 at 10:09; Status DC Albuterol/ Ipratropium (Duoneb Neb) 1 ampule Q4HR WHILE AWAKE NEB NEB Last administered on 06/21/17 07:37; Start 06/19/17 at 12:00 Diltiazem HCl (Cardizem) 30 mg Q6HR PO Last administered on 06/21/17 04:59; Start 06/19/17 at 18:00 Levetriacetam (Keppra) 250 mg Q12HR PO Last administered on 06/21/17 08:19; Start 06/20/17 at 21:00 Al Hydrox/Mg Hydrox/Simethicone (Mag-Al Plus Susp Liq) 30 ml Q6HR PRN PO indigestion; Start 06/20/17 at 12:00 A/P Problem List: (1) Encephalopathy ICD Code: G93.40 - Encephalopathy, unspecified Status: Acute (2) Sepsis ICD Code: A41.9 - Sepsis, unspecified organism (3) PNA (pneumonia) ICD Code: J18.9 - Pneumonia, unspecified organism (4) COPD (chronic obstructive pulmonary disease) ICD Code: J44.9 - Chronic obstructive pulmonary disease, unspecified Status: Chronic (5) Hypoglycemia ICD Code: E16.2 - Hypoglycemia, unspecified (6) DM (diabetes mellitus) ICD Code: E11.9 - Type 2 diabetes mellitus without complications (7) CEDRIC (acute kidney injury) ICD Code: N17.9 - Acute kidney failure, unspecified (8) A-fib ICD Code: I48.91 - Unspecified atrial fibrillation Assessment and Plan 81-year-old male who presented with AMS -Resolved. Patient's back to baseline. -EEG negative. CT scan of the head negative. 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 ? TIA -Neurologist increase his aspirin to 162. Patient also on Pradaxa. -Neurologist, stated to follow-up in 2-3 weeks and signed off. abnormal left eye pupil -patient stated this chronic due to consultation from cataract surgery. Intractable emesis seemed to resolve. -No abdominal pain. KUB does not show any small bowel obstruction or ileus. Sepsis Temp 100.4, WBC 20, Source UTI -S/p Blood Cultures and Zosyn in ER. -U/A positive for UTI and grew ESBL. -ID ff and patient on Invanz. Bilateral pneumonia -Chest x-ray. Management per infectious disease. Hypertensive urgency -Labile. -Continue her current regimen -on PRN hydralazine. Cardizem was started by [employer]. COPD: Chronic Respiratory Failure w/ Acute Exacerbation. O2 sat 99% on 6L NC on arrival, -Continue Solu-Medrol and DuoNeb's. -Monitor clinically. Hypoglycemia: Resolved. - BS 40's per EMS, s/p D10 en route, BS currently 121. -Most likely secondary to illness. DM: Hgb A1c 8.0 on 01/04/17. -on Levemir to 10 units every 12 hours. On insulin sliding scale. CEDRIC: Creatinine 1.42, previously 1.04 on 01/04/17. -seems to fluctuate but stable. -Strict ins and outs. Continue to avoid nephrotoxins. A-fib: Chronic. - On Pradaxa. -Patient started on Cardizem. Management per [employer]. CLARA non compliant with CPAP -ordered for RT for CPAP while in house. DVT prophylaxis -On Pradaxa. Discharge Planning Pending final recommendations from infectious disease which is to be determined at a later date. Patient is interested in hospice so will put a hospice consult. Problem Qualifiers (1) A-fib: Qualified Codes: I48.2 - Chronic atrial fibrillation Livier Hollingsworth MD Jun 21, 2017 10:18
--- NOTE | 2017-06-21 11:32 | HHI.HCPN ---
Reason for visit a. To assist with evaluation and management of symptoms including: debility , pain, congestion. b. To assist medical decision maker(s) with: better understanding of current medical conditions; weighing benefits/burdens of medical treatment options; making medical treatment decisions. . Subjective/Interval History Patient seen and examined in ICU. No family at bedside. Discussed with nurse, Andrea and Dr. Laura Steele. Patient is awake and alert. Tmax 99.9. Vital signs stable. Remains on oxygen via nasal cannula 2 L. Expiratory wheezing noted. Productive cough with clear phlegm noted. Labs stable. No new imaging. . Family/friend interactions Patient's called to tell us that the patient has called her to request going home with hospice support. About an hour later, I went to see patient, he confirms wishes for comfort measures with hospice support. He wants to meet with hospice. He desires NO CODE. He reports that he does not want to go to rehab again. He indicates that he has been in and out of the hospital and rehab for the past year. He reports that he is having more difficulty participating and rehab. He feels at this point in time that going home would be most important and is interested in hospice. Lengthy conversation regarding hospice services and limitations. He would like to meet with hospice admission nurses in hopes that he can return home. . Advance Directives Advance Directive Specifics Documented care wishes: Patient's , Yuly, states she has legal documents naming her as the POA. Copies requested. . Significant change in goals: NO CODE. Patient desires comfort focused care with hospice support. Hospice consulted. . Objective Vital Signs Date Time Temp Pulse Resp B/P (MAP) Pulse Ox O2 Delivery O2 Flow Rate FiO2 06/21/17 07:37 100 Nasal Cannula 2.00 06/21/17 06:00 67 06/21/17 04:00 96 Nasal Cannula 3.00 06/21/17 04:00 99.0 69 17 163/73 (103) 96 06/21/17 04:00 69 06/21/17 02:00 60 06/21/17 00:00 60 06/21/17 00:00 98.9 60 17 159/69 (99) 100 06/21/17 00:00 100 Nasal Cannula 3.00 06/20/17 22:00 66 06/20/17 20:03 98 Nasal Cannula 2.00 06/20/17 20:01 99.1 60 18 169/73 (105) 99 06/20/17 20:00 99 Nasal Cannula 3.00 06/20/17 20:00 60 06/20/17 18:00 60 06/20/17 16:00 71 06/20/17 16:00 99 Nasal Cannula 3.00 06/20/17 16:00 98.4 61 22 158/68 (98) 99 06/20/17 14:00 60 06/20/17 12:00 95 Nasal Cannula 3.00 06/20/17 12:00 98.9 60 18 169/75 (106) 99 06/20/17 12:00 60 Intake & Output 06/21/17 06/21/17 07:00 19:00 Intake Total 240 ml Output Total 700 ml Balance -460 ml Intake Oral 240 ml Output Urine Total 700 ml # Bowel Movements 1 Physical Exam CONSTITUTIONAL/GENERAL: This is an obese, elderly male patient in no apparent distress. 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 Skin temperature appropriate. Not diaphoretic. EYES: Pupils equal and round and reactive. Extraocular motions intact. No scleral icterus. No injection or drainage. Fundi not examined. ENT: Hearing grossly normal. Nose without bleeding or purulent drainage. Mucous membranes moist and pink CARDIOVASCULAR: Regular rate and rhythm without murmurs, gallops, or rubs. RESPIRATORY/CHEST: Symmetric, mildly labored respirations at rest. Productive cough with clear thick sputum. Expiratory wheezing and scattered rhonchi noted. GASTROINTESTINAL: Abdomen soft, non-tender, nondistended. No guarding. Bowel sounds present. GENITOURINARY: Without palpable bladder distension. Condom catheter in place. NEUROLOGICAL: Awake and alert. Patient able to answer questions, follows simple commands. PSYCHIATRIC: No obvious anxiety/depression. no apparent hallucinations or other psychotic thought process. . Diagnostic Tests Laboratory Laboratory Tests Test 06/18/17 13:32 06/18/17 16:00 06/19/17 04:50 06/20/17 04:44 Blood Gas Puncture Site RT RADIAL Blood Gas Patient Temperature 98.6 Blood Gas HCO3 27 mmol/L (22-26) Blood Gas Base Excess 2.8 mmol/L (-2-2) Blood Gas Oxygen Saturation 92 % (90-100) Arterial Blood pH 7.45 (7.380-7.420) Arterial Blood Partial Pressure CO2 39 mmHg (38-42) Arterial Blood Partial Pressure O2 75 mmHg (61-120) Arterial Blood Oxygen Content 14.5 Vol % (12.0-20.0) Arterial Blood Carboxyhemoglobin 2.0 % (0-4) Arterial Blood Methemoglobin 1.5 % (0-2) Blood Gas Hemoglobin 11.2 G/DL (12.0-16.0) Oxygen Delivery Device NASAL CANNULA Blood Gas Liter Flow 2 L/M Nasal Screen MRSA (PCR) MRSA DETECTED (NOT DETECT) White Blood Count 14.1 TH/MM3 (4.0-11.0) 13.1 TH/MM3 (4.0-11.0) Red Blood Count 4.12 MIL/MM3 (4.50-5.90) 4.09 MIL/MM3 (4.50-5.90) Hemoglobin 9.9 GM/DL (13.0-17.0) 9.9 GM/DL (13.0-17.0) Hematocrit 30.1 % (39.0-51.0) 30.0 % (39.0-51.0) Mean Corpuscular Volume 73.0 FL (80.0-100.0) 73.4 FL (80.0-100.0) Mean Corpuscular Hemoglobin 23.9 PG (27.0-34.0) 24.2 PG (27.0-34.0) Mean Corpuscular Hemoglobin Concent 32.8 % (32.0-36.0) 32.9 % (32.0-36.0) Red Cell Distribution Width 15.6 % (11.6-17.2) 15.5 % (11.6-17.2) Platelet Count 332 TH/MM3 (150-450) 383 TH/MM3 (150-450) Mean Platelet Volume 9.2 FL (7.0-11.0) 8.8 FL (7.0-11.0) Hematology Comments Blood Urea Nitrogen 38 MG/DL (7-18) 35 MG/DL (7-18) Creatinine 1.30 MG/DL (0.60-1.30) 1.14 MG/DL (0.60-1.30) Random Glucose 92 MG/DL (74-106) 96 MG/DL (74-106) Calcium Level 8.2 MG/DL (8.5-10.1) 8.3 MG/DL (8.5-10.1) Sodium Level 140 MEQ/L (136-145) 140 MEQ/L (136-145) Potassium Level 3.5 MEQ/L (3.5-5.1) 3.4 MEQ/L (3.5-5.1) Chloride Level 104 MEQ/L (98-107) 105 MEQ/L (98-107) Carbon Dioxide Level 26.0 MEQ/L (21.0-32.0) 29.8 MEQ/L (21.0-32.0) Anion Gap 10 MEQ/L (5-15) 5 MEQ/L (5-15) Estimat Glomerular Filtration Rate 53 ML/MIN (>89) 62 ML/MIN (>89) Phenytoin (Dilantin) Level 8.0 MCG/ML (10.0-20.0) 3.5 MCG/ML (10.0-20.0) Test 06/21/17 04:58 Phenytoin (Dilantin) Level 2.4 MCG/ML (10.0-20.0) Result Diagram: 06/20/17 0444 06/20/17 0444 Imaging Last Impressions Neck CTA 06/18/17 0000 Signed Impressions: Service Date/Time: Sunday, June 18, 2017 15:17 - CONCLUSION: 1. There is atherosclerotic plaquing at the bifurcations but no hemodynamically significant carotid stenosis is identified. 2. 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 It reconstitutes in the upper neck. The right vertebral is patent throughout its course. The basilar is patent. 3. Left pleural effusion. Kishan Cavazos MD Head CTA 06/18/17 0000 Signed Impressions: Service Date/Time: Sunday, June 18, 2017 15:17 - CONCLUSION: Normal examination. Remi Moore MD Head CT 06/18/17 Signed Impressions: Service Date/Time: Sunday, June 18, 2017 13:01 - CONCLUSION: Normal examination. Remi Moore MD Chest X-Ray 06/18/17 Signed Impressions: Service Date/Time: Sunday, June 18, 2017 13:41 - CONCLUSION: 1. Continued bilateral infiltrates unchanged from previous. Kishan Cavazos MD Renal Ultrasound 06/17/17 0000 Signed Impressions: Service Date/Time: Saturday, June 17, 2017 16:16 - CONCLUSION: There is no hydronephrosis. The examination is within normal limits. Remi Weeks MD Abdomen X-Ray 06/17/17 0000 Signed Impressions: Service Date/Time: Saturday, June 17, 2017 09:39 - CONCLUSION: Gastric distention identified. Bj Rodriguez MD Assessment and Plan Disease Oriented Problem List: (1) Peripheral artery disease (2) Diabetes mellitus with stage 3 chronic kidney disease (3) UTI (urinary tract infection) (4) Afib (5) CAD (coronary artery disease) (6) CHF (congestive heart failure) (7) GERD (gastroesophageal reflux disease) (8) BPH (benign prostatic hyperplasia) (9) Cerebrovascular accident (CVA) involving right cerebral hemisphere (10) Hypothyroidism (11) COPD (chronic obstructive pulmonary disease) (12) Hypoglycemia (13) Sepsis (14) PNA (pneumonia) (15) Encephalopathy (16) HTN (hypertension) Symptom Scale: (1) Debility 0-10 Scale: Unable to quantify (2) Dysphagia 0-10 Scale: Unable to quantify (3) Pain 0-10 Scale: 2 (on backside secondary to laying in bed, improves with repositioning) (4) Chest congestion 0-10 Scale: Unable to quantify Pertinent Non-Medical Issues Psychosocial: Patient is originally from [place].he has been to his (Yuly) for 55+ years. Together they have 2 adult children (a daughter and a son). The patient's states they are estranged from both her children, but her son's girlfriend is a nurse and calls them intermittently to check on them. Patient is retired from the [employer] The patient's currently lives in a mobile home and [place]. They previously managed rental properties. She states she and her are still but are currently . Spiritual: [employer] bro Legal: Per [place] statutes, in the absence of written advanced directives healthcare proxy decision-making falls to the patient's . Ethical issues impacting care: No known ethical issues impacting care at this time. . Important Contacts Yuly Walker, : [phone] . 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 The patient's states the patient has spent most of his life and out of hospitals and prison facilities over the past 2 years. She reports he has a history of noncompliance. The patient is currently admitted with sepsis. He has episodes where he becomes completely responsive for a short period of time. CTA with vertebral vessel abnormalities; neurology thinks the patient may have had a possible TIA related to that area. Given patient's advanced age, multiple comorbid conditions along with his history of noncompliance; he is at high risk for ongoing decline and complications. Code Status: No Code Plan * NO CODE * Decision-making: Patient is capacitated to make his own decisions. Per [place] statutes in the absence of written advanced directives healthcare proxy decision making would fall to the patient's . * Patient's called to tell us that the patient has called her to request going home with hospice support. I went to see patient, he confirms wishes for comfort measures with hospice support. He wants to meet with hospice. He desires NO CODE. * Hospice consulted. * System Safety Engineer consulted per patient's request - financial secretary called to request again today. * Patient discussed with Dr. Laura Steele and bedside nurse, Andrea. * Symptom management - increased pulmonary congestion, productive cough with thick clear sputum. Continue nebulizer. * Symptom management - Debility- due to amputation, immobility, infection, peripheral vascular disease, CAD etc. Continue PT. Patient now wanting to meet with hospice. * Symptom management - dysphasia: Chest x-ray with bilateral patchy infiltrates , possibly related to aspiration. Speech therapy was consulted for swallow evaluation; was subsequently placed on a mechanically soft diet with nectar consistency thickened liquids. * Symptom management - pain: Patient reports pain in the 'butt" from laying in bed. Improves with repositioning. Possible causes of pain include invasive lines , immobility, infection, peripheral vascular disease etc. Patient is currently on gabapentin TID. PRN Acetaminophen, IV Morphine and Lortab are available but has not been required. * Palliative care will continue to follow this patient throughout his hospitalization to establish trust, assist with symptom management and clarification of medical treatment goals. . Attestation To help prompt me to consider important information that might be impacting today's encounter and assessment, information from prior notes written by myself or my colleagues may have been "brought forward" into today's note. My signature on this note, however, is an attestation that I personally performed the exam, history, and/or decision-making noted today, and, unless otherwise indicated, the interactions with patient, family, and staff as well as the review of records all occurred today. I also attest that the listed assessment and stated plan reflect my best clinical judgment today based on the combination of historical information, prior notes, and today's exam/ interactions. When time spent is documented, it refers only to time spent today by the signer, or if indicated, combined time spent today by collaborating physician/nurse practitioner. Jacki Barrera Jun 21, 2017 11:32
[2017-06-21 12:30] LABS: HEMATOCRIT 32.8 % (39.0-51.0); MEAN CELL VOLUME 73.2 FL (80.0-100.0); MEAN CORPUSCULAR HEMOGLOBIN 23.6 PG (27.0-34.0); MEAN CORPUSCULAR HGB CONC 32.3 % (32.0-36.0); PLATELET COUNT 402 TH/MM3 (150-450); RED BLOOD COUNT 4.48 MIL/MM3 (4.50-5.90); RED CELL DISTRIBUTION WIDTH 15.5 % (11.6-17.2); REVIEW FLAG FINAL
[2017-06-21 13:01] LABS: POTASSIUM 3.6 MEQ/L (3.5-5.1)
--- NOTE | 2017-06-21 13:13 | OTSOAPIP ---
TIME SESSION COMPLETED: 1130 RECEIVED OCCUPATIONAL THERAPY ORDERS. SPOKE WITH PATIENT WHO REPORTS HE IS LEANING TOWARDS HOSPICE COMFORT CARE AND STATES SPECIFICALLY HE DOES NOT WANT TO GO TO A REHAB. MUTUAL AGREEMENT BETWEEN THERAPIST AND PATIENT TO FOLLOW UP ON SATURDAY IF PATIENT IS STILL ADMITTED TO ALLOW MORE TIME TO THINK ABOUT HIS FINAL DECISION. IF PATIENT DECIDES COMFORT CARE, OT WILL SIGN OFF. INTERDISCIPLINARY COMMUNICATION: REVIEWED ELECTRONIC MEDICAL RECORD, SPOKE WITH ANDRE YOU Therapist: Ronel George, OTR/L Signature on file
[2017-06-21] MEDS: ERTAPENEM INJ 1,000 MG in SODIUM CHLORIDE 0.9% INJ 100 ML IV SCH (16:45)
[2017-06-21] MEDS: TAMSULOSIN HCL 0.4 MG CAP PO SCH (21:06)
[2017-06-22] VITALS (9 sets, daily range): BP systolic 141–168; BP diastolic 60–85; PULSE 59–69; RESP 14–22; TEMP 97.2–98.6; O2SAT 95–100
[2017-06-22] MEDS: LEVOTHYROXINE SODIUM 50 MCG TAB PO SCH (06:27)
[2017-06-22] MEDS: DILTIAZEM HCL 30 MG TAB PO SCH ×3 (06:27→17:20)
[2017-06-22 07:04] LABS: HEMATOCRIT 32.3 % (39.0-51.0); MEAN CORPUSCULAR HEMOGLOBIN 23.5 PG (27.0-34.0); MEAN CORPUSCULAR HGB CONC 32.2 % (32.0-36.0); PLATELET COUNT 391 TH/MM3 (150-450); RED BLOOD COUNT 4.42 MIL/MM3 (4.50-5.90); RED CELL DISTRIBUTION WIDTH 15.3 % (11.6-17.2); REVIEW FLAG FINAL; WHITE BLOOD COUNT 11.9 TH/MM3 (4.0-11.0)
[2017-06-22 07:34] LABS: BICARBONATE 29.1 MEQ/L (21.0-32.0); POTASSIUM 3.4 MEQ/L (3.5-5.1)
[2017-06-22] MEDS: RESP: ALBUTEROL 2.5 MG/IPRATROPIUM 0.5 MG NEB (SCH) NEB ×4 (08:49→20:26)
[2017-06-22] MEDS: SOTALOL HCL 80 MG TAB PO SCH ×2 (09:41→22:31)
[2017-06-22] MEDS: DOCUSATE SODIUM 50 MG/SENNA 8.6 MG TAB PO SCH ×2 (09:42→22:31)
[2017-06-22] MEDS: GABAPENTIN 100 MG CAP PO SCH ×3 (09:42→17:20)
[2017-06-22] MEDS: levETIRAcetam 250 MG TAB PO SCH ×2 (09:42→22:31)
[2017-06-22] MEDS: ESCITALOPRAM OXALATE 10 MG TAB PO SCH (09:42)
[2017-06-22] MEDS: DABIGATRAN ETEXILATE 150 MG CAP PO SCH ×2 (09:42→22:31)
[2017-06-22] MEDS: ASPIRIN EC 81 MG TABEC PO SCH (09:42)
[2017-06-22] MEDS: FUROSEMIDE 20 MG TAB PO SCH (09:42)
[2017-06-22] MEDS: PANTOPRAZOLE SOD 20 MG DELAYED RELEASE TAB PO SCH (09:42)
[2017-06-22] MEDS: INSULIN NovoLIN REGULAR SUPPLEMENTAL SCALE SQ SCH ×4 (09:43→21:00)
[2017-06-22] MEDS: SODIUM CHLORIDE 0.9% FLUSH 10 ML FLUSH IV FLUSH SCH ×2 (09:43→22:31)
[2017-06-22] MEDS: INSULIN DETEMIR 100 UNITS/ML VIAL SQ SCH ×2 (09:43→21:00)
[2017-06-22] MEDS: BUDESONIDE-FORMOTEROL 160/4.5 MCG INHALER INH SCH ×2 (09:48→22:31)
[2017-06-22] MEDS ORDERED: POTASSIUM CHLORIDE 25 MEQ EFFERVESCENT TAB PO ONE (12:15)
--- NOTE | 2017-06-22 12:49 | HHI.PR ---
Subjective Remarks Follow-up for infection Patient stated that since he is was transferred to the room his left stump is cold. He is asking for blanket. Otherwise he has no complaints. Dealt with hospice nurse and she stated that patient wants to continue with complete treatment for infection and once that completed he wants to go home with hospice. Objective Vitals Vital Signs Date Time Temp Pulse Resp B/P (MAP) Pulse Ox O2 Delivery O2 Flow Rate FiO2 06/22/17 10:01 95 Nasal Cannula 3.00 06/22/17 08:00 98.5 61 14 150/67 (94) 100 06/22/17 04:00 97.2 69 22 146/85 (105) 95 06/22/17 04:00 Room Air 3.00 21 06/22/17 01:30 Room Air 3.00 21 06/22/17 00:00 97.8 61 18 168/73 (104) 99 06/22/17 00:00 60 06/22/17 00:00 98.2 60 17 142/65 (90) 98 06/22/17 00:00 98 Room Air 06/21/17 22:00 60 06/21/17 20:18 94 21 06/21/17 20:00 95 Room Air 06/21/17 20:00 64 06/21/17 20:00 99.9 64 13 172/79 (110) 95 06/21/17 18:00 60 06/21/17 16:00 98.8 60 15 173/76 (108) 95 06/21/17 16:00 96 Room Air 06/21/17 16:00 60 06/21/17 14:00 60 I/O 06/21/17 06/21/17 06/21/17 06/22/17 06/22/17 06/22/17 07:00 15:00 23:00 07:00 15:00 23:00 Intake Total 240 ml 480 ml Output Total 700 ml 750 ml Balance -460 ml -270 ml Intake Oral 240 ml 480 ml Output Urine Total 700 ml 750 ml # Bowel Movements 1 1 Result Diagram: 06/22/1763006/22/17630 Objective Remarks GENERAL: in NAD HEENT: left eye oval pupil. right eye PERRLA. CARDIOVASCULAR: Regular rate and rhythm without murmurs, gallops, or rubs. RESPIRATORY: Clear to auscultation bilaterally. No accessory muscle use. GASTROINTESTINAL: Abdomen soft, non-tender, nondistended. MUSCULOSKELETAL: Left BKA. . NEURO: AAO X 3. Cranial nerves II-12 is intact. Patient moves all extremity grossly. Medications and IVs Current Medications IV Flush (NS Flush) 2 ml UNSCH PRN IV FLUSH FLUSH AFTER USING IV ACCESS; Start 06/14/17 at 22:00; Stop 06/17/17 at 15:31; Status DC Acetaminophen (Tylenol) 650 mg ONCE ONCE PO Last administered on 06/14/17 23: 01; Start 06/14/17 at 22:30; Stop 06/14/17 at 22:31; Status DC Piperacillin Sod/ Tazobactam Sod 100 ml @ 200 mls/hr ONCE ONCE IV Last administered on 06/14/17 23:01; Start 06/14/17 at 22:30; Stop 06/14/17 at 22:59 ; Status DC Albuterol/ Ipratropium (Duoneb Neb) 1 ampule ONCE ONCE NEB Last administered on 06/15/17 01:32; Start 06/15/17 at 01:30; Stop 06/15/17 at 01:31; Status DC Methylprednisolone Sodium Succinate (SoluMEDROL INJ) 125 mg ONCE ONCE IV PUSH Last administered on 06/15/17 01:34; Start 06/15/17 at 01:30; Stop 06/15/17 at 01:31; Status DC Methylprednisolone Sodium Succinate (SoluMEDROL INJ) 40 mg Q6HR IV PUSH Last administered on 06/15/17 05:59; Start 06/15/17 at 06:00; Stop 06/15/17 at 13:21 ; Status DC Albuterol/ Ipratropium (Duoneb Neb) 1 ampule Q4HR WHILE AWAKE NEB NEB Last administered on 06/18/17 20:12; Start 06/15/17 at 08:00; Stop 06/19/17 at 07:59 ; Status DC Albuterol/ Ipratropium (Duoneb Neb) 1 ampule Q2HR NEB PRN NEB SOB/WHEEZING Last administered on 06/19/17 08:10; Start 06/15/17 at 02:30 Pharmacy Profile Note 0 ml @ 0 mls/hr UNSCH OTHER ; Start 06/15/17 at 02:30; Stop 06/17/17 at 14:56; Status DC Piperacillin Sod/ Tazobactam Sod 50 ml @ 100 mls/hr Q6H IV ; Start 06/15/17 at 04:00; Stop 06/15/17 at 06:38; Status DC Dextrose (D50w (Vial) Inj) 50 ml UNSCH PRN IV PUSH HYPOGLYCEMIA-SEE COMMENTS; Start 06/15/17 at 02:30 Glucagon (Glucagon Inj) 1 mg UNSCH PRN OTHER HYPOGLYCEMIA-SEE COMMENTS; Start 06/15/17 at 02:30 Insulin Aspart (NovoLOG SUPPLEMENTAL SCALE) 1 ACHS SLIDING SCALE SQ Last administered on 06/15/17 08:00; Start 06/15/17 at 08:00; Stop 06/15/17 at 13:23 ; Status DC Sodium Chloride 1,000 ml @ 100 mls/hr Q10H IV Last administered on 06/16/17 05:05; Start 06/15/17 at 02:19; Stop 06/16/17 at 22:23; Status DC Sodium Chloride (NS Flush) 2 ml UNSCH PRN IV FLUSH FLUSH AFTER USING IV ACCESS ; Start 06/15/17 at 02:30; Stop 06/17/17 at 15:31; Status DC Sodium Chloride (NS Flush) 2 ml BID IV FLUSH Last administered on 06/17/17 09: 00; Start 06/15/17 at 09:00; Stop 06/17/17 at 15:31; Status DC Ondansetron HCl (Zofran Inj) 4 mg Q6H PRN IVP NAUSEA OR VOMITING Last administered on 06/19/17 09:55; Start 06/15/17 at 02:30 Acetaminophen (Tylenol) 650 mg Q6H PRN PO FEVER/PAIN SCALE 1 TO 2; Start at 02:30 Acetaminophen/ Hydrocodone Bitart (Bethel 5-325 Mg) 1 tab Q4H PRN PO PAIN SCALE 3 TO 5; Start 06/15/17 at 02:30 Morphine Sulfate (Morphine Inj) 2 mg Q3H PRN IV PUSH Pain 6-10; Start 06/15/17 at 02:30 Senna/Docusate Sodium (Macie-Colace) 1 tab BID PO Last administered on 09:42; Start 06/15/17 at 09:00 Magnesium Hydroxide (Milk Of Magnesia Liq) 30 ml Q12H PRN PO MILD - MODERATE CONSTIPATION; Start 06/15/17 at 02:30 Sennosides (Senokot) 17.2 mg Q12H PRN PO MODERATE - SEVERE CONSTIPATION; Start 06/15/17 at 02:30 Bisacodyl (Dulcolax Supp) 10 mg DAILY PRN RECTAL SEVERE CONSITIPATION; Start at 02:30 Lactulose (Lactulose Liq) 30 ml DAILY PRN PO SEVERE CONSITIPATION; Start at 02:30 Budesonide/ Formoterol Fumarate (Symbicort 160-4.5 Inh) 1 puff Q12HR INH Last administered on 06/22/17 09:48; Start 06/15/17 at 09:00 Dabigatran (Pradaxa) 150 mg BID PO Last administered on 06/22/17 09:42; Start 06/15/17 at 09:00 Escitalopram Oxalate (Lexapro) 10 mg DAILY PO Last administered on 06/22/17 09 :42; Start 06/15/17 at 09:00 Furosemide (Lasix) 20 mg DAILY PO Last administered on 06/22/17 09:42; Start 06/15/17 at 09:00 Gabapentin (Neurontin) 100 mg TID PO Last administered on 06/22/17 09:42; Start 06/15/17 at 09:00 Levothyroxine Sodium (Synthroid) 50 mcg DAILY@06 PO Last administered on 06:27; Start 06/15/17 at 06:00 Sotalol HCl (Betapace) 80 mg BID PO Last administered on 06/22/17 09:41; Start 06/15/17 at 09:00 Tamsulosin HCl (Flomax) 0.4 mg HS PO Last administered on 06/21/17 21:06; Start 06/15/17 at 21:00 Temazepam (Restoril) 15 mg HS PRN PO INSOMNIA Last administered on 06/20/17 23 :17; Start 06/15/17 at 02:30 Pantoprazole Sodium (Protonix) 20 mg DAILY PO Last administered on 06/22/17 09 :42; Start 06/15/17 at 09:00 Aspirin (Aspirin Chew) 81 mg DAILY PO Last administered on 06/20/17 08:19; Start 06/15/17 at 09:00; Stop 06/20/17 at 10:13; Status DC Sodium Chloride (NS Flush) 2 ml BID IV FLUSH Last administered on 06/22/17 09: 43; Start 06/15/17 at 09:00 Sodium Chloride (NS Flush) 2 ml UNSCH PRN IVF FLUSH AFTER USING IV ACCESS; Start 06/15/17 at 02:45 Vancomycin HCl 2200 mg/Sodium Chloride 522 ml @ 250 mls/hr ONCE ONCE IV Last administered on 06/15/17 04:24; Start 06/15/17 at 03:30; Stop 06/15/17 at 05:35 ; Status DC Piperacillin Sod/ Tazobactam Sod 50 ml @ 100 mls/hr Q6H IV Last administered on 06/17/17 13:37; Start 06/15/17 at 08:00; Stop 06/17/17 at 14:56; Status DC Vancomycin HCl 2000 mg/Sodium Chloride 520 ml @ 257.5 mls/ hr Q24H IV Last administered on 06/17/17 05:16; Start 06/16/17 at 05:00; Stop 06/17/17 at 14:56 ; Status DC Miscellaneous Information SPECIFIC LAB TO BE CADE... ONCE ONCE .XX ; Start 06/18 at 04:45; Stop 06/18/17 at 04:45; Status DC Insulin Human Regular (NovoLIN R SUPPLEMENTAL SCALE) 1 ACHS SLIDING SCALE SQ Last administered on 06/21/17 21:00; Start 06/15/17 at 13:45 Insulin Detemir (Levemir Inj) 5 units Q12HR SQ Last administered on 06/16/17 09:06; Start 06/15/17 at 13:30; Stop 06/16/17 at 10:46; Status DC Insulin Detemir (Levemir Inj) 10 units Q12HR SQ Last administered on 06/22/17 09:43; Start 06/16/17 at 21:00 Insulin Detemir (Levemir Inj) 10 units ONCE ONCE SQ Last administered on 10:45; Start 06/16/17 at 10:45; Stop 06/16/17 at 10:51; Status DC Furosemide (Lasix Inj) 40 mg ONCE ONCE IV PUSH Last administered on 06/16/17 22:36; Start 06/16/17 at 22:30; Stop 06/16/17 at 22:31; Status DC Promethazine HCl (Phenergan Supp) 25 mg Q4H PRN RECTAL emesis Last administered on 06/18/17 10:01; Start 06/17/17 at 09:45 Hydralazine HCl (Apresoline Inj) 20 mg Q4H PRN IV PUSH SBP>180 or DBP >100 Last administered on 06/21/17 18:09; Start 06/17/17 at 12:00; Stop 06/22/17 at 00:17; Status DC Clonidine (Catapres) 0.1 mg Q6H PRN PO SBP>180 or DBP>100 Last administered on 06/18/17 06:31; Start 06/17/17 at 12:00 Ertapenem (INVanz INJ) 1,000 mg DAILY IM ; Start 06/17/17 at 12:00; Stop at 12:00; Status DC Miscellaneous Medication (ASP Crit: Doc ESBL, MDR A baumannii or P aer) 1 UNSCH X1 PRN .XX PHARMACY DOCUMENTATION; Start 06/17/17 at 15:00; Stop 06/18/17 at 14 :59; Status DC Miscellaneous Medication ([facility]) 1 UNSCH X1 PRN XX PHARMACY DOCUMENTATION; Start 06/17/17 at 15:00; Stop 06/18/17 at 14:59; Status DC Ertapenem 1000 mg/ Sodium Chloride 100 ml @ 200 mls/hr Q24H IV Last administered on 06/21/17 16:45; Start 06/17/17 at 16:00 Metoprolol Tartrate (Lopressor Inj) 5 mg Q6H PRN IV PUSH HR>120 Last administered on 06/17/17 20:20; Start 06/17/17 at 20:00; Stop 06/22/17 at 00:17 ; Status DC Atropine Sulfate (Atropine Inj) 1 mg STK-MED ONCE .ROUTE ; Start 06/18/17 at 12: 51; Stop 06/18/17 at 12:52; Status DC Epinephrine HCl (EPINEPHrine (1:10,000) INJ) 1 mg STK-MED ONCE .ROUTE ; Start at 12:51; Stop 06/18/17 at 12:52; Status DC Sodium Chloride 1,000 ml @ 80 mls/hr [id number] IV Last administered on 06:20; Start 06/18/17 at 14:45; Stop 06/19/17 at 10:13; Status DC Iohexol (Omnipaque 350 Inj) 75 ml STK-MED ONCE IVCONTRAST Last administered on 06/18/17 15:31; Start 06/18/17 at 15:31; Stop 06/18/17 at 15:32; Status DC Fosphenytoin Sodium (Cerebyx Inj) 200 mgpe Q12HR IV ; Start 06/18/17 at 21:00; Stop 06/18/17 at 21:00; Status DC Fosphenytoin Sodium 1000 mgpe/ Sodium Chloride 70 ml @ 280 mls/hr ONCE ONCE IV Last administered on 06/18/17 18:04; Start 06/18/17 at 17:00; Stop at 17:14; Status DC Aspirin (Ecotrin Ec) 325 mg DAILY PO ; Start 06/18/17 at 16:45; Stop 06/18/17 at 16:45; Status DC Aspirin (Ecotrin Ec) 162 mg DAILY PO Last administered on 06/22/17 09:42; Start 06/19/17 at 09:00 Fosphenytoin Sodium 200 mgpe/ Sodium Chloride 54 ml @ 216 mls/hr Q12HR IV Last administered on 06/18/17 20:23; Start 06/18/17 at 21:00; Stop 06/19/17 at 08:00; Status DC Potassium Chloride (KCl) 40 meq ONCE ONCE PO Last administered on 06/19/17 02 :19; Start 06/19/17 at 02:00; Stop 06/19/17 at 02:01; Status DC Levetriacetam (Keppra) 500 mg Q12HR PO Last administered on 06/20/17 08:19; Start 06/19/17 at 09:00; Stop 06/20/17 at 10:09; Status DC Albuterol/ Ipratropium (Duoneb Neb) 1 ampule Q4HR WHILE AWAKE NEB NEB Last administered on 06/22/17 11:09; Start 06/19/17 at 12:00 Diltiazem HCl (Cardizem) 30 mg Q6HR PO Last administered on 06/22/17 06:27; Start 06/19/17 at 18:00 Levetriacetam (Keppra) 250 mg Q12HR PO Last administered on 06/22/17 09:42; Start 06/20/17 at 21:00 Al Hydrox/Mg Hydrox/Simethicone (Mag-Al Plus Susp Liq) 30 ml Q6HR PRN PO indigestion; Start 06/20/17 at 12:00 Potassium Bicarb/ Potassium Chloride (K-Lyte Cl Eff) 25 meq ONCE ONCE PO ; Start 06/22/17 at 12:15; Stop 06/22/17 at 12:16; Status DC A/P Problem List: (1) Encephalopathy ICD Code: G93.40 - Encephalopathy, unspecified Status: Acute (2) Sepsis ICD Code: A41.9 - Sepsis, unspecified organism (3) PNA (pneumonia) ICD Code: J18.9 - Pneumonia, unspecified organism (4) COPD (chronic obstructive pulmonary disease) ICD Code: J44.9 - Chronic obstructive pulmonary disease, unspecified Status: Chronic (5) Hypoglycemia ICD Code: E16.2 - Hypoglycemia, unspecified (6) DM (diabetes mellitus) ICD Code: E11.9 - Type 2 diabetes mellitus without complications (7) CEDRIC (acute kidney injury) ICD Code: N17.9 - Acute kidney failure, unspecified (8) A-fib ICD Code: I48.91 - Unspecified atrial fibrillation Assessment and Plan 81-year-old male who presented with AMS -Resolved. Patient's back to baseline. -EEG negative. CT scan of the head negative. 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 ? TIA -Neurologist increase his aspirin to 162. Patient also on Pradaxa. -Neurologist, stated to follow-up in 2-3 weeks and signed off. abnormal left eye pupil -patient stated this chronic due to consultation from cataract surgery. Intractable emesis seemed to resolve. -No abdominal pain. KUB does not show any small bowel obstruction or ileus. Sepsis Temp 100.4, WBC 20, Source UTI -S/p Blood Cultures and Zosyn in ER. -U/A positive for UTI and grew ESBL. -ID ff and patient on Invanz. Bilateral pneumonia -Chest x-ray. Management per infectious disease. Hypertensive urgency -Labile. -Continue her current regimen -on PRN hydralazine. -On Cardizem. COPD: Chronic Respiratory Failure w/ Acute Exacerbation. O2 sat 99% on 6L NC on arrival, -Improving will transition to oral prednisone. Continue with DuoNeb's. -Monitor clinically. Hypoglycemia: Resolved. - BS 40's per EMS, s/p D10 en route, BS currently 121. -Most likely secondary to illness. DM: Hgb A1c 8.0 on 01/04/17. -on Levemir to 10 units every 12 hours. On insulin sliding scale. CEDRIC: Creatinine 1.42, previously 1.04 on 01/04/17. -seems to fluctuate but stable. -Strict ins and outs. Continue to avoid nephrotoxins. A-fib: Chronic. - On Pradaxa. -Patient started on Cardizem. Management per missile inspector preflight. CLARA non compliant with CPAP -ordered for RT for CPAP while in house. DVT prophylaxis -On Pradaxa. Discharge Planning Patient wants to complete treatment for infection and after treatment wants to go home with home hospice. discussed with patient and hospice nurse. Anticipating discharge on Saturday or Saturday. Problem Qualifiers (1) A-fib: Qualified Codes: I48.2 - Chronic atrial fibrillation Livier Hollingsworth MD Jun 22, 2017 12:49
[2017-06-22] MEDS: ERTAPENEM INJ 1,000 MG in SODIUM CHLORIDE 0.9% INJ 100 ML IV SCH (17:20)
[2017-06-22] MEDS: TAMSULOSIN HCL 0.4 MG CAP PO SCH (22:30)
[2017-06-22] MEDS: TEMAZEPAM 15 MG CAP PO PRN (22:48)
[2017-06-23] VITALS (8 sets, daily range): BP systolic 117–194; BP diastolic 60–80; PULSE 53–63; RESP 16–18; TEMP 98.2–99; O2SAT 95–100
[2017-06-23] MEDS: DILTIAZEM HCL 30 MG TAB PO SCH ×4 (00:08→17:38)
[2017-06-23] MEDS: LEVOTHYROXINE SODIUM 50 MCG TAB PO SCH (06:29)
[2017-06-23] MEDS: ACETAMINOPHEN/HYDROcodone 325 MG/5 MG TAB PO PRN ×4 (06:36→22:34)
[2017-06-23] MEDS: INSULIN NovoLIN REGULAR SUPPLEMENTAL SCALE SQ SCH ×4 (07:48→21:00)
[2017-06-23] MEDS: SOTALOL HCL 80 MG TAB PO SCH ×2 (08:46→22:25)
[2017-06-23] MEDS: levETIRAcetam 250 MG TAB PO SCH ×2 (08:46→22:24)
[2017-06-23] MEDS: DABIGATRAN ETEXILATE 150 MG CAP PO SCH ×2 (08:46→22:24)
[2017-06-23] MEDS: ASPIRIN EC 81 MG TABEC PO SCH (08:46)
[2017-06-23] MEDS: FUROSEMIDE 20 MG TAB PO SCH (08:47)
[2017-06-23] MEDS: GABAPENTIN 100 MG CAP PO SCH ×3 (08:47→17:38)
[2017-06-23] MEDS: SODIUM CHLORIDE 0.9% FLUSH 10 ML FLUSH IV FLUSH SCH ×2 (08:47→22:25)
[2017-06-23] MEDS: ESCITALOPRAM OXALATE 10 MG TAB PO SCH (08:47)
[2017-06-23] MEDS: DOCUSATE SODIUM 50 MG/SENNA 8.6 MG TAB PO SCH ×2 (08:47→22:25)
[2017-06-23] MEDS: BUDESONIDE-FORMOTEROL 160/4.5 MCG INHALER INH SCH ×2 (08:47→21:00)
[2017-06-23] MEDS: INSULIN DETEMIR 100 UNITS/ML VIAL SQ SCH ×2 (08:47→21:00)
[2017-06-23] MEDS: PANTOPRAZOLE SOD 20 MG DELAYED RELEASE TAB PO SCH (08:47)
[2017-06-23] MEDS: RESP: ALBUTEROL 2.5 MG/IPRATROPIUM 0.5 MG NEB (SCH) NEB ×2 (09:39→11:38)
--- NOTE | 2017-06-23 10:25 | HHI.PR ---
Subjective Remarks Follow-up for infection Patient stated that since he is was transferred to the room his left stump is cold. He is asking for blanket. Otherwise he has no complaints. Dealt with hospice nurse and she stated that patient wants to continue with complete treatment for infection and once that completed he wants to go home with hospice. 06-23 STILL CONSIDERING HOSPICE TOMORROW WITH HOME HOSPICE DW RN AND PT Objective Vitals Vital Signs Date Time Temp Pulse Resp B/P (MAP) Pulse Ox O2 Delivery O2 Flow Rate FiO2 06/23/17 09:39 97 Nasal Cannula 2.00 06/23/17 08:54 98.4 61 16 136/63 (87) 99 06/23/17 06:36 Nasal Cannula 3.00 06/23/17 05:00 98.2 53 18 162/71 (101) 96 06/23/17 00:30 98.8 60 18 141/64 (89) 95 06/22/17 23:00 68 06/22/17 21:30 Nasal Cannula 3.00 06/22/17 20:26 97 Nasal Cannula 3.00 06/22/17 20:00 98.6 66 18 141/60 (87) 97 06/22/17 16:00 97.5 64 18 154/67 (96) 97 06/22/17 12:00 97.6 59 16 163/70 (101) 96 I/O 06/22/17 06/22/17 06/22/17 06/23/17 06/23/17 06/23/17 07:00 15:00 23:00 07:00 15:00 23:00 Intake Total 960 ml Balance 960 ml Intake Oral 960 ml # Bowel Movements 0 Result Diagram: 06/22/1731 06/22/17 0631 Other Results Laboratory Tests Test 06/21/17 04:58 06/21/17 12:00 06/22/17 06:31 Phenytoin (Dilantin) Level 2.4 MCG/ML White Blood Count 13.0 TH/MM3 11.9 TH/MM3 Red Blood Count 4.48 MIL/MM3 4.42 MIL/MM3 Hemoglobin 10.6 GM/DL 10.4 GM/DL Hematocrit 32.8 % 32.3 % Mean Corpuscular Volume 73.2 FL 73.0 FL Mean Corpuscular Hemoglobin 23.6 PG 23.5 PG Mean Corpuscular Hemoglobin Concent 32.3 % 32.2 % Red Cell Distribution Width 15.5 % 15.3 % Platelet Count 402 TH/MM3 391 TH/MM3 Mean Platelet Volume 8.4 FL 8.0 FL Blood Urea Nitrogen 24 MG/DL 21 MG/DL Creatinine 0.99 MG/DL 1.03 MG/DL Random Glucose 206 MG/DL 87 MG/DL Calcium Level 8.2 MG/DL 8.4 MG/DL Sodium Level 137 MEQ/L 137 MEQ/L Potassium Level 3.6 MEQ/L 3.4 MEQ/L Chloride Level 102 MEQ/L 102 MEQ/L Carbon Dioxide Level 27.0 MEQ/L 29.1 MEQ/L Anion Gap 8 MEQ/L 6 MEQ/L Estimat Glomerular Filtration Rate 73 ML/MIN 70 ML/MIN Imaging Last Impressions Neck CTA 06/18/17 0000 Signed Impressions: Service Date/Time: Sunday, June 18, 2017 15:17 - CONCLUSION: 1. There is atherosclerotic plaquing at the bifurcations but no hemodynamically significant carotid stenosis is identified. 2. 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 It reconstitutes in the upper neck. The right vertebral is patent throughout its course. The basilar is patent. 3. Left pleural effusion. Kishan Cavazos MD Head CTA 06/18/17 0000 Signed Impressions: Service Date/Time: Sunday, June 18, 2017 15:17 - CONCLUSION: Normal examination. Remi Moore MD Head CT 06/18/17 0000 Signed Impressions: Service Date/Time: Sunday, June 18, 2017 13:01 - CONCLUSION: Normal examination. Remi Moore MD Chest X-Ray 06/18/17 0000 Signed Impressions: Service Date/Time: Sunday, June 18, 2017 13:41 - CONCLUSION: 1. Continued bilateral infiltrates unchanged from previous. Kishan Cavazos MD Renal Ultrasound 06/17/17 0000 Signed Impressions: Service Date/Time: Saturday, June 17, 2017 16:16 - CONCLUSION: There is no hydronephrosis. The examination is within normal limits. Remi Weeks MD Abdomen X-Ray 06/17/17 0000 Signed Impressions: Service Date/Time: Saturday, June 17, 2017 09:39 - CONCLUSION: Gastric distention identified. Bj Rodriguez MD Objective Remarks GENERAL: AWAKE AND ALERT SKIN: Warm and dry. HEAD: Atraumatic. Normocephalic. EYES: Pupils equal and round. No scleral icterus. No injection or drainage. EOMI ENT: No nasal bleeding or discharge. Mucous membranes pink and moist. TONGUE MIDLINE NECK: Trachea midline. No JVD. CARDIOVASCULAR: Regular rate and rhythm. S1, S2 NO S3 OR S4 RESPIRATORY: No accessory muscle use. COARSE BS BL. Breath sounds equal bilaterally. GASTROINTESTINAL: Abdomen soft, non-tender, nondistended. Hepatic and splenic margins not palpable. OBESE MUSCULOSKELETAL: Extremities without clubbing, cyanosis, or edema. No obvious deformities. LEFT AKA, LEFT UE HAND SWELLING NEUROLOGICAL: Awake and alert. No obvious cranial nerve deficits. Motor grossly within normal limits. 4 out of 5 muscle strength in the arms and legs ON THE RIGHT-- DECREASED RANGE OF MOTION ON LEFT UE. Normal speech. PSYCHIATRIC: INAppropriate mood and affect; insight and judgment LIMITED. Medications and IVs Current Medications IV Flush (NS Flush) 2 ml UNSCH PRN IV FLUSH FLUSH AFTER USING IV ACCESS; Start 06/14/17 at 22:00; Stop 06/17/17 at 15:31; Status DC Acetaminophen (Tylenol) 650 mg ONCE ONCE PO Last administered on 06/14/17 23: 01; Start 06/14/17 at 22:30; Stop 06/14/17 at 22:31; Status DC Piperacillin Sod/ Tazobactam Sod 100 ml @ 200 mls/hr ONCE ONCE IV Last administered on 06/14/17 23:01; Start 06/14/17 at 22:30; Stop 06/14/17 at 22:59 ; Status DC Albuterol/ Ipratropium (Duoneb Neb) 1 ampule ONCE ONCE NEB Last administered on 06/15/17 01:32; Start 06/15/17 at 01:30; Stop 06/15/17 at 01:31; Status DC Methylprednisolone Sodium Succinate (SoluMEDROL INJ) 125 mg ONCE ONCE IV PUSH Last administered on 06/15/17 01:34; Start 06/15/17 at 01:30; Stop 06/15/17 at 01:31; Status DC Methylprednisolone Sodium Succinate (SoluMEDROL INJ) 40 mg Q6HR IV PUSH Last administered on 06/15/17 05:59; Start 06/15/17 at 06:00; Stop 06/15/17 at 13:21 ; Status DC Albuterol/ Ipratropium (Duoneb Neb) 1 ampule Q4HR WHILE AWAKE NEB NEB Last administered on 06/18/17 20:12; Start 06/15/17 at 08:00; Stop 06/19/17 at 07:59 ; Status DC Albuterol/ Ipratropium (Duoneb Neb) 1 ampule Q2HR NEB PRN NEB SOB/WHEEZING Last administered on 06/19/17 08:10; Start 06/15/17 at 02:30 Pharmacy Profile Note 0 ml @ 0 mls/hr UNSCH OTHER ; Start 06/15/17 at 02:30; Stop 06/17/17 at 14:56; Status DC Piperacillin Sod/ Tazobactam Sod 50 ml @ 100 mls/hr Q6H IV ; Start 06/15/17 at 04:00; Stop 06/15/17 at 06:38; Status DC Dextrose (D50w (Vial) Inj) 50 ml UNSCH PRN IV PUSH HYPOGLYCEMIA-SEE COMMENTS; Start 06/15/17 at 02:30 Glucagon (Glucagon Inj) 1 mg UNSCH PRN OTHER HYPOGLYCEMIA-SEE COMMENTS; Start 06/15/17 at 02:30 Insulin Aspart (NovoLOG SUPPLEMENTAL SCALE) 1 ACHS SLIDING SCALE SQ Last administered on 06/15/17 08:00; Start 06/15/17 at 08:00; Stop 06/15/17 at 13:23 ; Status DC Sodium Chloride 1,000 ml @ 100 mls/hr Q10H IV Last administered on 06/16/17 05:05; Start 06/15/17 at 02:19; Stop 06/16/17 at 22:23; Status DC Sodium Chloride (NS Flush) 2 ml UNSCH PRN IV FLUSH FLUSH AFTER USING IV ACCESS ; Start 06/15/17 at 02:30; Stop 06/17/17 at 15:31; Status DC Sodium Chloride (NS Flush) 2 ml BID IV FLUSH Last administered on 06/17/17 09: 00; Start 06/15/17 at 09:00; Stop 06/17/17 at 15:31; Status DC Ondansetron HCl (Zofran Inj) 4 mg Q6H PRN IVP NAUSEA OR VOMITING Last administered on 06/19/17 09:55; Start 06/15/17 at 02:30 Acetaminophen (Tylenol) 650 mg Q6H PRN PO FEVER/PAIN SCALE 1 TO 2; Start at 02:30 Acetaminophen/ Hydrocodone Bitart (Lester 5-325 Mg) 1 tab Q4H PRN PO PAIN SCALE 3 TO 5 Last administered on 06/23/17 06:36; Start 06/15/17 at 02:30 Morphine Sulfate (Morphine Inj) 2 mg Q3H PRN IV PUSH Pain 6-10; Start 06/15/17 at 02:30 Senna/Docusate Sodium (Macie-Colace) 1 tab BID PO Last administered on 08:47; Start 06/15/17 at 09:00 Magnesium Hydroxide (Milk Of Magnesia Liq) 30 ml Q12H PRN PO MILD - MODERATE CONSTIPATION; Start 06/15/17 at 02:30 Sennosides (Senokot) 17.2 mg Q12H PRN PO MODERATE - SEVERE CONSTIPATION Last administered on 06/22/17 22:48; Start 06/15/17 at 02:30 Bisacodyl (Dulcolax Supp) 10 mg DAILY PRN RECTAL SEVERE CONSITIPATION; Start at 02:30 Lactulose (Lactulose Liq) 30 ml DAILY PRN PO SEVERE CONSITIPATION; Start at 02:30 Budesonide/ Formoterol Fumarate (Symbicort 160-4.5 Inh) 1 puff Q12HR INH Last administered on 06/23/17 08:47; Start 06/15/17 at 09:00 Dabigatran (Pradaxa) 150 mg BID PO Last administered on 06/23/17 08:46; Start 06/15/17 at 09:00 Escitalopram Oxalate (Lexapro) 10 mg DAILY PO Last administered on 06/23/17 08 :47; Start 06/15/17 at 09:00 Furosemide (Lasix) 20 mg DAILY PO Last administered on 06/23/17 08:47; Start 06/15/17 at 09:00 Gabapentin (Neurontin) 100 mg TID PO Last administered on 06/23/17 08:47; Start 06/15/17 at 09:00 Levothyroxine Sodium (Synthroid) 50 mcg DAILY@06 PO Last administered on 06:29; Start 06/15/17 at 06:00 Sotalol HCl (Betapace) 80 mg BID PO Last administered on 06/23/17 08:46; Start 06/15/17 at 09:00 Tamsulosin HCl (Flomax) 0.4 mg HS PO Last administered on 06/22/17 22:30; Start 06/15/17 at 21:00 Temazepam (Restoril) 15 mg HS PRN PO INSOMNIA Last administered on 06/22/17 22 :48; Start 06/15/17 at 02:30 Pantoprazole Sodium (Protonix) 20 mg DAILY PO Last administered on 06/23/17 08 :47; Start 06/15/17 at 09:00 Aspirin (Aspirin Chew) 81 mg DAILY PO Last administered on 06/20/17 08:19; Start 06/15/17 at 09:00; Stop 06/20/17 at 10:13; Status DC Sodium Chloride (NS Flush) 2 ml BID IV FLUSH Last administered on 06/23/17 08: 47; Start 06/15/17 at 09:00 Sodium Chloride (NS Flush) 2 ml UNSCH PRN IVF FLUSH AFTER USING IV ACCESS; Start 06/15/17 at 02:45 Vancomycin HCl 2200 mg/Sodium Chloride 522 ml @ 250 mls/hr ONCE ONCE IV Last administered on 06/15/17 04:24; Start 06/15/17 at 03:30; Stop 06/15/17 at 05:35 ; Status DC Piperacillin Sod/ Tazobactam Sod 50 ml @ 100 mls/hr Q6H IV Last administered on 06/17/17 13:37; Start 06/15/17 at 08:00; Stop 06/17/17 at 14:56; Status DC Vancomycin HCl 2000 mg/Sodium Chloride 520 ml @ 257.5 mls/ hr Q24H IV Last administered on 06/17/17 05:16; Start 06/16/17 at 05:00; Stop 06/17/17 at 14:56 ; Status DC Miscellaneous Information SPECIFIC LAB TO BE ... ONCE ONCE .XX ; Start 06/18 at 04:45; Stop 06/18/17 at 04:45; Status DC Insulin Human Regular (NovoLIN R SUPPLEMENTAL SCALE) 1 ACHS SLIDING SCALE SQ Last administered on 06/21/17 21:00; Start 06/15/17 at 13:45 Insulin Detemir (Levemir Inj) 5 units Q12HR SQ Last administered on 06/16/17 09:06; Start 06/15/17 at 13:30; Stop 06/16/17 at 10:46; Status DC Insulin Detemir (Levemir Inj) 10 units Q12HR SQ Last administered on 06/23/17 08:47; Start 06/16/17 at 21:00 Insulin Detemir (Levemir Inj) 10 units ONCE ONCE SQ Last administered on 10:45; Start 06/16/17 at 10:45; Stop 06/16/17 at 10:51; Status DC Furosemide (Lasix Inj) 40 mg ONCE ONCE IV PUSH Last administered on 06/16/17 22:36; Start 06/16/17 at 22:30; Stop 06/16/17 at 22:31; Status DC Promethazine HCl (Phenergan Supp) 25 mg Q4H PRN RECTAL emesis Last administered on 06/18/17 10:01; Start 06/17/17 at 09:45 Hydralazine HCl (Apresoline Inj) 20 mg Q4H PRN IV PUSH SBP>180 or DBP >100 Last administered on 06/21/17 18:09; Start 06/17/17 at 12:00; Stop 06/22/17 at 00:17; Status DC Clonidine (Catapres) 0.1 mg Q6H PRN PO SBP>180 or DBP>100 Last administered on 06/18/17 06:31; Start 06/17/17 at 12:00 Ertapenem (INVanz INJ) 1,000 mg DAILY IM ; Start 06/17/17 at 12:00; Stop at 12:00; Status DC Miscellaneous Medication (ASP Crit: Doc ESBL, MDR A baumannii or P aer) 1 UNSCH X1 PRN .XX PHARMACY DOCUMENTATION; Start 06/17/17 at 15:00; Stop 06/18/17 at 14 :59; Status DC Miscellaneous Medication ([facility] Information) 1 UNSCH X1 PRN XX PHARMACY DOCUMENTATION; Start 06/17/17 at 15:00; Stop 06/18/17 at 14:59; Status DC Ertapenem 1000 mg/ Sodium Chloride 100 ml @ 200 mls/hr Q24H IV Last administered on 06/22/17 17:20; Start 06/17/17 at 16:00 Metoprolol Tartrate (Lopressor Inj) 5 mg Q6H PRN IV PUSH HR>120 Last administered on 06/17/17 20:20; Start 06/17/17 at 20:00; Stop 06/22/17 at 00:17 ; Status DC Atropine Sulfate (Atropine Inj) 1 mg STK-MED ONCE .ROUTE ; Start 06/18/17 at 12: 51; Stop 06/18/17 at 12:52; Status DC Epinephrine HCl (EPINEPHrine (1:10,000) INJ) 1 mg STK-MED ONCE .ROUTE ; Start at 12:51; Stop 06/18/17 at 12:52; Status DC Sodium Chloride 1,000 ml @ 80 mls/hr [id number] IV Last administered on 06:20; Start 06/18/17 at 14:45; Stop 06/19/17 at 10:13; Status DC Iohexol (Omnipaque 350 Inj) 75 ml STK-MED ONCE IVCONTRAST Last administered on 06/18/17 15:31; Start 06/18/17 at 15:31; Stop 06/18/17 at 15:32; Status DC Fosphenytoin Sodium (Cerebyx Inj) 200 mgpe Q12HR IV ; Start 06/18/17 at 21:00; Stop 06/18/17 at 21:00; Status DC Fosphenytoin Sodium 1000 mgpe/ Sodium Chloride 70 ml @ 280 mls/hr ONCE ONCE IV Last administered on 06/18/17 18:04; Start 06/18/17 at 17:00; Stop at 17:14; Status DC Aspirin (Ecotrin Ec) 325 mg DAILY PO ; Start 06/18/17 at 16:45; Stop 06/18/17 at 16:45; Status DC Aspirin (Ecotrin Ec) 162 mg DAILY PO Last administered on 06/23/17 08:46; Start 06/19/17 at 09:00 Fosphenytoin Sodium 200 mgpe/ Sodium Chloride 54 ml @ 216 mls/hr Q12HR IV Last administered on 06/18/17 20:23; Start 06/18/17 at 21:00; Stop 06/19/17 at 08:00; Status DC Potassium Chloride (KCl) 40 meq ONCE ONCE PO Last administered on 06/19/17 02 :19; Start 06/19/17 at 02:00; Stop 06/19/17 at 02:01; Status DC Levetriacetam (Keppra) 500 mg Q12HR PO Last administered on 06/20/17 08:19; Start 06/19/17 at 09:00; Stop 06/20/17 at 10:09; Status DC Albuterol/ Ipratropium (Duoneb Neb) 1 ampule Q4HR WHILE AWAKE NEB NEB Last administered on 06/23/17 09:39; Start 06/19/17 at 12:00 Diltiazem HCl (Cardizem) 30 mg Q6HR PO Last administered on 06/23/17 06:29; Start 06/19/17 at 18:00 Levetriacetam (Keppra) 250 mg Q12HR PO Last administered on 06/23/17 08:46; Start 06/20/17 at 21:00 Al Hydrox/Mg Hydrox/Simethicone (Mag-Al Plus Susp Liq) 30 ml Q6HR PRN PO indigestion; Start 06/20/17 at 12:00 Potassium Bicarb/ Potassium Chloride (K-Lyte Cl Eff) 25 meq ONCE ONCE PO Last administered on 06/22/17 14:20; Start 06/22/17 at 12:15; Stop 06/22/17 at 12:16; Status DC A/P Problem List: (1) Encephalopathy ICD Code: G93.40 - Encephalopathy, unspecified Status: Acute (2) Sepsis ICD Code: A41.9 - Sepsis, unspecified organism (3) PNA (pneumonia) ICD Code: J18.9 - Pneumonia, unspecified organism (4) COPD (chronic obstructive pulmonary disease) ICD Code: J44.9 - Chronic obstructive pulmonary disease, unspecified Status: Chronic (5) Hypoglycemia ICD Code: E16.2 - Hypoglycemia, unspecified (6) DM (diabetes mellitus) ICD Code: E11.9 - Type 2 diabetes mellitus without complications (7) CEDRIC (acute kidney injury) ICD Code: N17.9 - Acute kidney failure, unspecified (8) A-fib ICD Code: I48.91 - Unspecified atrial fibrillation Assessment and Plan 81-year-old male who presented with AMS -Resolved. Patient's back to baseline. -EEG negative. CT scan of the head negative. 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 ? TIA -Neurologist increase his aspirin to 162. Patient also on Pradaxa. -Neurologist, stated to follow-up in 2-3 weeks and signed off. abnormal left eye pupil -patient stated this chronic due to ISSUES from cataract surgery. Intractable emesis seemed to resolve. -No abdominal pain. KUB does not show any small bowel obstruction or ileus. Sepsis Temp 100.4, WBC 20, Source UTI -S/p Blood Cultures and Zosyn in ER. -U/A positive for UTI and grew ESBL. -ID ff and patient on Invanz. Bilateral pneumonia -Chest x-ray. Management per infectious disease. Hypertensive urgency -Labile. -Continue her current regimen -on PRN hydralazine. -On Cardizem. COPD: Chronic Respiratory Failure w/ Acute Exacerbation. O2 sat 99% on 6L NC on arrival, -Improving will transition to oral prednisone. Continue with DuoNeb's. -Monitor clinically. Hypoglycemia: Resolved. - BS 40's per EMS, s/p D10 en route, BS currently 121. -Most likely secondary to illness. DM: Hgb A1c 8.0 on 01/04/17. -on Levemir to 10 units every 12 hours. On insulin sliding scale. CEDRIC: Creatinine 1.42, previously 1.04 on 01/04/17. -seems to fluctuate but stable. -Strict ins and outs. Continue to avoid nephrotoxins. A-fib: Chronic. - On Pradaxa. -Patient started on Cardizem. Management per valve machine operator. CLARA non compliant with CPAP -ordered for RT for CPAP while in house. DVT prophylaxis -On Pradaxa. LEFT BKA CHRONIC LEFT UE SWELLING WILL MONITOR Discharge Planning WHEN WANTS TO GO HOME WITH HOSPICE Problem Qualifiers (1) A-fib: Qualified Codes: I48.2 - Chronic atrial fibrillation Rome Lemus DO Jun 23, 2017 10:25
--- NOTE | 2017-06-23 15:26 | OTSOAPIP ---
TIME SESSION COMPLETED: 1M TREATMENT TIME: 0 MINS. CHART REVIEWED. PER ASSEMBLER SEMICONDUCTOR NOTE ON 06/22/17 HOSPICE NURSE IN TO SEE PT TODAY. PER MD ASPEN STATES THAT IT WILL AT LEAST BE SATURDAY BEFORE PT GOES ANYWHERE. PER HOSPICE NOTES: PLAN IS FOR PT TO FINISH HIS COURSE OF IV ANTIBIOTICS FOR UTI/SEPSIS. DR. YEN WILL BE RETURNING ON SATURDAY TO MAKE FINAL RECOMMENDATIONS. HOSPICE WILL FOLLOW UP ON SATURDAY FOR POSSIBLE DISCHARGE HOME. PLAN: WILL CONTINUE TO FOLLOW IF PATIENT IS AGAINST HOSPICE CARE OCCUPATIONAL THERAPY TO EVALUATE PATIENT , IF PATIENT DECIDES COMFORT CARE OCCUPATIONAL THERAPY WILL SIGN OFF. Therapist: ISA TEJADA OTR/L Signature on file
[2017-06-23] MEDS: ERTAPENEM INJ 1,000 MG in SODIUM CHLORIDE 0.9% INJ 100 ML IV SCH (17:38)
[2017-06-23] MEDS: TAMSULOSIN HCL 0.4 MG CAP PO SCH (22:25)
[2017-06-23] MEDS: TEMAZEPAM 15 MG CAP PO PRN (22:33)
[2017-06-24] VITALS (7 sets, daily range): BP systolic 117–160; BP diastolic 57–71; PULSE 57–68; RESP 16–18; TEMP 98–99.2; O2SAT 95–100
[2017-06-24] MEDS: DILTIAZEM HCL 30 MG TAB PO SCH ×3 (00:44→13:04)
[2017-06-24] MEDS: LEVOTHYROXINE SODIUM 50 MCG TAB PO SCH (04:57)
[2017-06-24] MEDS: INSULIN NovoLIN REGULAR SUPPLEMENTAL SCALE SQ SCH ×3 (08:00→17:00)
[2017-06-24] MEDS: INSULIN DETEMIR 100 UNITS/ML VIAL SQ SCH (09:00)
[2017-06-24] MEDS: BUDESONIDE-FORMOTEROL 160/4.5 MCG INHALER INH SCH (09:00)
[2017-06-24] MEDS: SODIUM CHLORIDE 0.9% FLUSH 10 ML FLUSH IV FLUSH SCH (09:00)
[2017-06-24 09:17] LABS: AUTOMATED NEUTROPHIL # 12.4 TH/MM3 (1.8-7.7); BASOPHIL # 0.1 TH/MM3 (0-0.2); BASOPHIL % 0.4 % (0.0-2.0); EOSINOPHIL # 0.5 TH/MM3 (0-0.4); HEMATOCRIT 29.8 % (39.0-51.0); LYMPHOCYTE # 1.2 TH/MM3 (1.0-4.8); MEAN CELL VOLUME 73.6 FL (80.0-100.0); MEAN CORPUSCULAR HEMOGLOBIN 24.4 PG (27.0-34.0); MEAN CORPUSCULAR HGB CONC 33.2 % (32.0-36.0); MONO % 14.9 % (0.0-8.0); NEUT % 74.7 % (16.0-70.0); PLATELET COUNT 349 TH/MM3 (150-450); RED BLOOD COUNT 4.04 MIL/MM3 (4.50-5.90); RED CELL DISTRIBUTION WIDTH 15.4 % (11.6-17.2); WHITE BLOOD COUNT 16.6 TH/MM3 (4.0-11.0)
[2017-06-24 09:20] LABS: HEMO FLAGS AUTO DIFF
[2017-06-24 09:39] LABS: ANION GAP 7 MEQ/L (5-15); BICARBONATE 28.3 MEQ/L (21.0-32.0); BLOOD UREA NITROGEN 20 MG/DL (7-18); CHLORIDE 100 MEQ/L (98-107); GLOMERULAR FILTRATION RATE 60 ML/MIN (>89); SODIUM (NA) 135 MEQ/L (136-145)
[2017-06-24 09:51] LABS: ALKALINE PHOSPHATASE 89 U/L (45-117); ALT (GPT) 9 U/L (12-78); AST (GOT) 6 U/L (15-37); TOTAL BILIRUBIN ADULT 0.1 MG/DL (0.2-1.0)
[2017-06-24] MEDS: GABAPENTIN 100 MG CAP PO SCH ×2 (10:04→13:05)
[2017-06-24 10:05] LABS: SCAN/DIFF AUTO DIFF CONFIRMED
[2017-06-24] MEDS: DABIGATRAN ETEXILATE 150 MG CAP PO SCH (10:05)
[2017-06-24] MEDS: ESCITALOPRAM OXALATE 10 MG TAB PO SCH (10:09)
[2017-06-24] MEDS: levETIRAcetam 250 MG TAB PO SCH (10:09)
[2017-06-24] MEDS: SOTALOL HCL 80 MG TAB PO SCH (10:10)
[2017-06-24] MEDS: DOCUSATE SODIUM 50 MG/SENNA 8.6 MG TAB PO SCH (10:10)
[2017-06-24] MEDS: PANTOPRAZOLE SOD 20 MG DELAYED RELEASE TAB PO SCH (10:10)
[2017-06-24] MEDS: FUROSEMIDE 20 MG TAB PO SCH (10:10)
[2017-06-24] MEDS: ASPIRIN EC 81 MG TABEC PO SCH (10:11)
--- NOTE | 2017-06-24 11:00 | RADRPT ---
EXAM DATE/TIME: 06/24/2017 10:22 [place] COMPARISON: CHEST SINGLE AP, December 26, 2016, 16:05. CHEST SINGLE AP, June 18, 2017, 13:41. INDICATIONS : Shortness of breath. MEDICAL HISTORY : Hypercholesterolemia. Chronic obstructive pulmonary disease. SURGICAL HISTORY : Pacemaker. Cholecystectomy. Appendectomy. Kidney stone removal. ENCOUNTER: Subsequent ACUITY: 2 weeks PAIN SCORE: 0/10 LOCATION: Bilateral chest FINDINGS: Stable dual-lead pacemaker in place. Continued bilateral patchy lower lung zone airspace disease, mor e prominent on the left. Cardiomediastinal contours are stable. Remainder of the exam is unchanged. CONCLUSION: 1. Stable bilateral, left much greater then right, lower lung zone patchy airspace opacities consiste nt with aspiration versus pneumonia. Manjit Masters MD on June 24, 2017 at 10:57 Board Certified Radiologist. This report was verified electronically.
--- NOTE | 2017-06-24 11:29 | HHI.PR ---
Subjective Remarks Follow up pneumonia. Patient states that he wants to go home with Hospice. He is awaiting infectious disease recommendations for antibiotics. Denies chest pain. Objective Vitals Vital Signs Date Time Temp Pulse Resp B/P (MAP) Pulse Ox O2 Delivery O2 Flow Rate FiO2 06/24/17 09:35 99 2.00 06/24/17 08:56 98.6 61 18 134/63 (86) 100 06/24/17 05:00 98.0 57 18 126/64 (84) 98 06/24/17 00:00 98.5 60 18 160/71 (100) 97 06/23/17 20:00 98.2 62 18 117/60 (79) 95 06/23/17 18:25 100 Nasal Cannula 3.00 06/23/17 16:41 99.0 59 16 162/70 (100) 100 06/23/17 12:20 98.6 60 16 194/80 (118) 100 I/O 06/23/17 06/23/17 06/23/17 06/24/17 06/24/17 06/24/17 07:00 15:00 23:00 07:00 15:00 23:00 Intake Total 240 ml Output Total 2000 ml 350 ml Balance -1760 ml -350 ml Intake Oral 240 ml Output Urine Total 2000 ml 350 ml # Bowel Movements 0 0 Result Diagram: 06/24/17 0816 06/24/17 0846 Imaging Last Impressions Neck CTA 06/18/17 0000 Signed Impressions: Service Date/Time: Sunday, June 18, 2017 15:17 - CONCLUSION: 1. There is atherosclerotic plaquing at the bifurcations but no hemodynamically significant carotid stenosis is identified. 2. 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 It reconstitutes in the upper neck. The right vertebral is patent throughout its course. The basilar is patent. 3. Left pleural effusion. Kishan Cavazos MD Head CTA 06/18/17 0000 Signed Impressions: Service Date/Time: Sunday, June 18, 2017 15:17 - CONCLUSION: Normal examination. Remi Moore MD Head CT 06/18/17 0000 Signed Impressions: Service Date/Time: Sunday, June 18, 2017 13:01 - CONCLUSION: Normal examination. Remi Moore MD Chest X-Ray 9/26/17 0000 Signed Impressions: Service Date/Time: Sunday, June 18, 2017 13:41 - CONCLUSION: 1. Continued bilateral infiltrates unchanged from previous. Kishan Cavazos MD Renal Ultrasound 06/17/17 0000 Signed Impressions: Service Date/Time: Saturday, June 17, 2017 16:16 - CONCLUSION: There is no hydronephrosis. The examination is within normal limits. Remi Weeks MD Abdomen X-Ray 06/17/17 0000 Signed Impressions: Service Date/Time: Saturday, June 17, 2017 09:39 - CONCLUSION: Gastric distention identified. Bj Rodriguez MD Objective Remarks General: Elderly male in no acute distress. Heart: Regular rate and rhythm. No murmur. Lungs: Coarse breath sounds bilaterally. Breathing is nonlabored. Abdomen: Soft, nontender, nondistended. Extremities: No lower extremity edema. Psych: Alert and oriented. Urinary Catheter: No Vascular Central Line Catheter: No A/P Problem List: (1) Encephalopathy ICD Code: G93.40 - Encephalopathy, unspecified Status: Acute (2) Sepsis ICD Code: A41.9 - Sepsis, unspecified organism (3) PNA (pneumonia) ICD Code: J18.9 - Pneumonia, unspecified organism (4) COPD (chronic obstructive pulmonary disease) ICD Code: J44.9 - Chronic obstructive pulmonary disease, unspecified Status: Chronic (5) Hypoglycemia ICD Code: E16.2 - Hypoglycemia, unspecified (6) DM (diabetes mellitus) ICD Code: E11.9 - Type 2 diabetes mellitus without complications (7) CEDRIC (acute kidney injury) ICD Code: N17.9 - Acute kidney failure, unspecified (8) A-fib ICD Code: I48.91 - Unspecified atrial fibrillation Assessment and Plan 1. Encephalopathy, altered mental status: Resolved. Now back to baseline. EEG negative. CT head negative. CTA showed occlusion of the left vertebral artery with patent basilar artery. Appreciate neurology recommendations. Continue aspirin, Pradaxa. 2. Sepsis: Secondary to UTI. Urine culture growing ESBL Escherichia coli. Appreciate infectious disease recommendations. Continue antibiotics. 3. Pneumonia: Appreciate infectious disease recommendations. Continue antibiotics, oxygen. 4. Hypertension: Blood pressure has been labile. Hydralazine as needed. Continue Cardizem. 5. COPD: Chronic respiratory failure with acute exacerbation. Continue oxygen, prednisone, DuoNeb. 6. Hypoglycemia: Resolved. 7. Diabetes mellitus: Hemoglobin A1c 01/04/17 was 8.0. Continue Levemir. Monitor Accu-Cheks and cover with sliding scale insulin. 8. Acute kidney injury: Monitor strict intake/output. Avoid nephrotoxins. 9. Atrial fibrillation: Chronic. Continue Pradaxa, Cardizem. Appreciate cardiology recommendations. 10. Obstructive sleep apnea: Noncompliant with CPAP. 11. DVT prophylaxis: Pradaxa. Discharge Planning Plan is for discharge home with hospice. Patient is awaiting further recommendations from infectious disease regarding antibiotics prior to discharge , but does state that he wants to go home today. Problem Qualifiers (1) A-fib: Qualified Codes: I48.2 - Chronic atrial fibrillation Keaton Ellis MD Jun 24, 2017 11:28
--- NOTE | 2017-06-24 11:29 | HHI.DCPOC ---
Discharge Care Plan Diagnosis: (1) Pneumonia (2) Altered mental status (3) Diabetes mellitus with stage 3 chronic kidney disease (4) Afib (5) GERD (gastroesophageal reflux disease) (6) UTI (urinary tract infection) (7) COPD (chronic obstructive pulmonary disease) Goals to Promote Your Health * To prevent worsening of your condition and complications * To maintain your health at the optimal level Directions to Meet Your Goals Take your medications as prescribed Follow your dietary instruction Follow activity as directed Keep your appointments as scheduled Take your immunizations and boosters as scheduled If your symptoms worsen call your PCP, if no PCP go to Urgent Care Center or Emergency Room Smoking is Dangerous to Your Health. Avoid second hand smoke Call the 24-hour hour crisis hotline for domestic abuse at Keaton Ellis MD Jun 24, 2017 11:29
--- NOTE | 2017-06-24 14:20 | OTSOAPIP ---
TIME SESSION COMPLETED: 1330 PATIENT REPORTS HE HAS ELECTED HOME WITH HOSPICE COMFORT CARE. OT WILL SIGN OFF. Therapist: THERESA GORMAN OTR/L Signature on file
[2017-06-24] MEDS ORDERED: DILT31TA PO (14:37)
[2017-06-24] MEDS ORDERED: LEVA750T9 PO (14:37)
[2017-06-24] MEDS ORDERED: ASPI-99 PO (14:37)
[2017-06-24] MEDS ORDERED: METR-1 PO (14:37)
[2017-06-24] MEDS ORDERED: LEVE250 PO (14:37)
[2017-06-24] MEDS: ERTAPENEM INJ 1,000 MG in SODIUM CHLORIDE 0.9% INJ 100 ML IV SCH (15:37)
[2017-06-24 16:46] LABS: HEMOGLOBIN Ao 81.9 %; HEMOGLOBIN P3 6.1 %
--- NOTE | 2017-07-17 11:34 | HHI.DS ---
Discharge Summary Admission Date Jun 15, 2017 at 02:40 Discharge Date: Jun 24, 2017 Admitting Diagnosis (1) Encephalopathy ICD Code: G93.40 - Encephalopathy, unspecified Status: Acute (2) Sepsis ICD Code: A41.9 - Sepsis, unspecified organism (3) PNA (pneumonia) ICD Code: J18.9 - Pneumonia, unspecified organism (4) COPD (chronic obstructive pulmonary disease) ICD Code: J44.9 - Chronic obstructive pulmonary disease, unspecified Status: Chronic (5) Hypoglycemia ICD Code: E16.2 - Hypoglycemia, unspecified (6) DM (diabetes mellitus) ICD Code: E11.9 - Type 2 diabetes mellitus without complications (7) CEDRIC (acute kidney injury) ICD Code: N17.9 - Acute kidney failure, unspecified (8) A-fib ICD Code: I48.91 - Unspecified atrial fibrillation Procedures None Brief History - From Admission This is a 81-year-old male with a PMH of HTN, A. fib on Pradaxa, COPD, Sleep Apnea on CPAP, CAD, BPH and PVD who is brought to the ER by EMS secondary to AMS. Per records, patient sent from [facility] secondary to lethargy. Upon EMS arrival, pt noted to have BS 40's s/p D10 and wheezing s/p DuoNeb. GCS 15 by the time he arrived to ER. Pt currently without any complaints. Denies fever, chills, cough, chest pain, nausea, vomiting or diarrhea. On arrival, BP 155/65 , HR 60, O2 sat 99% on 6L NC, Temp 100.4. Currently O2 sat 95% on RA. WBC 20.6 with elevated neutrophil count. Creatinine 1.42, previously 1.04 on . Lactic Acid normal at 1.4. BNP 214. Troponin negative. Ammonia normal. INR 1.6. UA pending. CT Head with no acute findings. CXR with likely basilar infiltrate. S/p Blood Culture and Zosyn IV in ER. Imaging Last Impressions Chest X-Ray 06/24/17 0000 Signed Impressions: Service Date/Time: Saturday, June 24, 2017 10:22 - CONCLUSION: 1. Stable bilateral, left much greater then right, lower lung zone patchy airspace opacities consistent with aspiration versus pneumonia. Manjit Masters MD Neck CTA 06/18/17 Signed Impressions: Service Date/Time: Sunday, June 18, 2017 15:17 - CONCLUSION: 1. There is atherosclerotic plaquing at the bifurcations but no hemodynamically significant carotid stenosis is identified. 2. 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 It reconstitutes in the upper neck. The right vertebral is patent throughout its course. The basilar is patent. 3. Left pleural effusion. Kishan Cavazos MD Head CTA 06/18/17 0000 Signed Impressions: Service Date/Time: Sunday, June 18, 2017 15:17 - CONCLUSION: Normal examination. Remi Moore MD Head CT 06/18/17 Signed Impressions: Service Date/Time: Sunday, June 18, 2017 13:01 - CONCLUSION: Normal examination. Remi Moore MD Renal Ultrasound 06/17/17 Signed Impressions: Service Date/Time: Saturday, June 17, 2017 16:16 - CONCLUSION: There is no hydronephrosis. The examination is within normal limits. Remi Weeks MD Abdomen X-Ray 06/17/17 Signed Impressions: Service Date/Time: Saturday, June 17, 2017 09:39 - CONCLUSION: Gastric distention identified. Bj Rodriguez MD PE at Discharge General: Elderly male in no acute distress. Heart: Regular rate and rhythm. No murmur. Lungs: Coarse breath sounds bilaterally. Breathing is nonlabored. Abdomen: Soft, nontender, nondistended. Extremities: No lower extremity edema. Psych: Alert and oriented. Hospital Course The patient was admitted for management of encephalopathy secondary to sepsis, pneumonia, respiratory failure. His mental status improved, but he then developed acute worsening of mental status. Neurology was consulted. Cardiology was consulted. The patient was transferred to the ICU. Urine culture grew ESBL positive e coli. Infectious disease was consulted. Antibiotics were adjusted. He again had improvement in his mental status and was felt to be stable for transfer out of the ICU. He was cleared for discharge by neurology. Palliative care was consulted. The patient requested hospice consult and decided that he wanted to go home with hospice. Infectious disease made recommendations for antibiotics. Arrangements were made for discharge home with hospice. Pt Condition on Discharge: Fair Discharge Disposition: Hospice/ Home Discharge Time: > 30 minutes Discharge Instructions DIET: Follow Instructions for: Diabetic Diet Speech Therapy-Diet Recommends: Honey Thickened Liquids, Pureed Activities you can perform: Regular-No Restrictions Keaton Ellis MD Jul 17, 2017 11:34
== END 2017-06-24 17:28 | disposition hospice, inpatient (51) | DRG 871 ==
LOC: NEDAMB 21:48 → NEDA 06-15 02:40 → N04B 06-15 04:08 → HCIN 06-17 18:16 → HIMN 06-18 15:30 → N05A 06-22 00:46
PROVIDERS: ADMIT Family Medicine; ATTEND Family Medicine
PROC: 3E0F7GC Introduction of Other Therapeutic Substance into Respiratory Tract, Via Natural or Artificial Opening (ICD-10-PCS; principal; 2017-06-14)
DX: A41.51 Sepsis due to Escherichia coli [E. coli] (principal); I50.33 Acute on chronic diastolic (congestive) heart failure; J96.20 Acute and chronic respiratory failure, unspecified whether with hypoxia or hypercapnia; G93.41 Metabolic encephalopathy; N17.9 Acute kidney failure, unspecified; J18.9 Pneumonia, unspecified organism; E11.22 Type 2 diabetes mellitus with diabetic chronic kidney disease; I13.0 Hypertensive heart and chronic kidney disease with heart failure and stage 1 through stage 4 chronic kidney disease, or unspecified chronic kidney disease; E11.649 Type 2 diabetes mellitus with hypoglycemia without coma; R13.10 Dysphagia, unspecified; I69.354 Hemiplegia and hemiparesis following cerebral infarction affecting left non-dominant side; J44.1 Chronic obstructive pulmonary disease with (acute) exacerbation; N39.0 Urinary tract infection, site not specified; G45.8 Other transient cerebral ischemic attacks and related syndromes; N18.3 Chronic kidney disease, stage 3 (moderate); G47.33 Obstructive sleep apnea (adult) (pediatric); I25.10 Atherosclerotic heart disease of native coronary artery without angina pectoris; N40.0 Benign prostatic hyperplasia without lower urinary tract symptoms; I73.9 Peripheral vascular disease, unspecified; I48.2 Chronic atrial fibrillation; Z16.12 Extended spectrum beta lactamase (ESBL) resistance; E03.9 Hypothyroidism, unspecified; E78.5 Hyperlipidemia, unspecified; I65.02 Occlusion and stenosis of left vertebral artery; I65.29 Occlusion and stenosis of unspecified carotid artery; Z51.5 Encounter for palliative care; K21.9 Gastro-esophageal reflux disease without esophagitis; R11.2 Nausea with vomiting, unspecified; N41.1 Chronic prostatitis; I34.0 Nonrheumatic mitral (valve) insufficiency; I16.0 Hypertensive urgency; Z99.81 Dependence on supplemental oxygen; Z89.612 Acquired absence of left leg above knee; Z79.4 Long term (current) use of insulin; Z87.891 Personal history of nicotine dependence; Z87.442 Personal history of urinary calculi; Z79.01 Long term (current) use of anticoagulants; Z91.19 Patient's noncompliance with other medical treatment and regimen; Z89.512 Acquired absence of left leg below knee; Z95.5 Presence of coronary angioplasty implant and graft
CPT/HCPCS: 36600; 70450; 70496; 70498; 71010; 74000; 76775; 76937; 80048; 80053; 80185; 81001; 82140; 82550; 82805; 82948; 83036; 83605; 83735; 83880; 84100; 84439; 84443; 84484; 85007; 85025; 85027; 85610; 85730; 86140; 87040; 87077; 87086; 87186; 87641; 93005; 93306; 94640; 94664; 95819; 96365; 96375; J0171; J0360; J0461; J1335; J1815; J1940; J2405; J2543; J2920; J2930; J3370; J7030; J7040; Q2009; Q9967